=== PATIENT | male | born 1975 | race Caucasian/White ===

== ENCOUNTER 2016-06-21 15:52 | Inpatient (IN) | payer OTHER ==
[~2016-06-21] VITALS: Ht 175.3 cm; Wt 51.3 kg
[~2016-06-21 15:52] MED LIST: /DULO30CA OR; /PREG25CA PO; AMBI10TA OR; AMBI10TA PO; BACL10TA2 OR; BACL10TA2 PO; CLON1TAB PO; CYCL10TA PO; CYMB60CA3 PO; DEPA1TAB3 PO; DEPA250T2 PO; DEPA500T2 PO; DIVA500T9 PO; DOXY100C PO; DRIS50002 PO; FENT12PA TD; FENT50PA TD; FLEXERAL PO; FLEXERIL PO; FOSA70TA PO; GABA-282 PO; GABA-283 PO; IBUP800T OR; INDO25CA PO; KETO10TAB PO; KLON1TAB PO; LORT1TAB PO; LYRI200C OR; MINI2CAP PO; MIRT15TA3 PO; NEUR100C OR; NEUR400C OR; NEUR600T PO; OXYC10TA12 PO; OXYC1TAB23 PO; PERC10TA17 PO; PERC5TAB PO; PERC5TAB6 PO; PERC5TAB8 OR; PRAZ2CAP PO; QUET1TAB10 PO; SAPH1SUB12 SL; SAPH1SUB9 SL; SERO1TAB PO; SERO1TAB2 PO; TIZA2CAP PO; TIZA2CAP3 PO; TRAZ100T2 PO; omeprazole DR PO
[2016-06-21] MEDS ORDERED: KLON2TAB (16:10)
[2016-06-21] MEDS ORDERED: Gabapentin (16:10)
[2016-06-21] MEDS ORDERED: PRAZ1CAP (16:10)
[2016-06-21] MEDS ORDERED: SEROquel (16:10)
[2016-06-21] MEDS ORDERED: ZOLP10TA2 PO (16:10)
[2016-06-21] MEDS ORDERED: DIVA500T3 (16:10)
[2016-06-21] MEDS ORDERED: BACL-67 PO (16:10)
[2016-06-21] MEDS ORDERED: HYDR-3719 PO (16:10)
[2016-06-21 17:27] LABS: MEAN CORPUSCULAR HEMOGLOBIN 30.8 pg (27.0-33.0); MEAN CORPUSCULAR HGB CONC 33.1 g/dl (32.0-36.5); RED CELL DISTRIBUTION WIDTH 12.5 % (11.5-14.5); WHITE BLOOD COUNT 6.6 K/mm3 (4.0-10.0)
[2016-06-21] MEDS ORDERED: PERCOCET 5MG/325MG TAB PO ONE ×2 (17:30→18:00)
[2016-06-21] MEDS ORDERED: GABAPENTIN 300 MG CAP PO ONE (17:30)
[2016-06-21] MEDS ORDERED: PERCOCET 5MG/325MG TAB As Ordered ONE (17:52)
[2016-06-21 18:12] LABS: ALBUMIN 4.2 GM/DL (3.2-5.2); ALBUMIN/GLOBULIN RATIO 1.56 (1.00-1.93); ALKALINE PHOSPHATASE 66 U/L (45-117); ALT/SGPT 29 U/L (12-78); ANION GAP 6 MEQ/L (8-16); AST/SGOT 13 U/L (15-37); BILIRUBIN,DIRECT 0.1 MG/DL (0.0-0.2); BILIRUBIN,TOTAL 0.4 MG/DL (0.2-1.0); BLOOD UREA NITROGEN 11 MG/DL (7-18); CALCIUM LEVEL 8.3 MG/DL (8.5-10.1); CARBON DIOXIDE LEVEL 28 MEQ/L (21-32); CHLORIDE LEVEL 106 MEQ/L (98-107); CREATININE FOR GFR 0.77 MG/DL (0.70-1.30); GLOMERULAR FILTRATION RATE > 60.0 (>60); GLUCOSE, FASTING 92 MG/DL (70-105); POTASSIUM SERUM 3.8 MEQ/L (3.5-5.1); SODIUM LEVEL 140 MEQ/L (136-145); TOTAL PROTEIN 6.9 GM/DL (6.4-8.2)
[2016-06-21 18:14] LABS: METHADONE URINE NEGATIVE (NEGATIVE)
[2016-06-21] MEDS ORDERED: DIVALPROEX 250MG *ER* TAB PO SCH (21:00)
[2016-06-21] MEDS ORDERED: cloNIDine 0.1 MG TAB PO ONE (21:45)
[2016-06-21 22:37] VITALS: BP 127/85
[2016-06-21] MEDS ORDERED: traZODone 50 MG TAB PO PRN (22:45)
[2016-06-21] MEDS ORDERED: MAALOX 30 ML SUSP *UDC PO PRN (22:45)
[2016-06-21] MEDS ORDERED: MOM 30ML SUSPENSION UDC PO PRN (22:45)
[2016-06-22] MEDS: BACLOFEN 10 MG TAB PO SCH ×5 (00:45→21:24)
[2016-06-22] MEDS: QUEtiapine FUMARATE 200 MG TAB PO SCH ×2 (00:46→21:00)
[2016-06-22] MEDS: zolPIDEM TARTRATE 10MG TAB PO SCH ×2 (00:46→21:00)
[2016-06-22] MEDS: ANEXSIA, NORCO 7.5MG/325MG TABLET(HYDROCODONE/APAP) PO PRN ×2 (00:47→08:41)
[2016-06-22] MEDS: PRAZOSIN 1 MG CAP PO SCH ×2 (00:53→21:00)
[2016-06-22] MEDS ORDERED: HYDR50CA2 PO (01:34)
[2016-06-22] MEDS ORDERED: CLON2TAB PO (02:01)
[2016-06-22] MEDS ORDERED: PRAZ1CAP PO (02:01)
[2016-06-22] MEDS ORDERED: MIRT15TA3 PO (02:01)
[2016-06-22] MEDS: NICOTINE 21MG/24HR 1 EA TRANSDERMAL TD SCH (08:41)
[2016-06-22] MEDS: GABAPENTIN 300 MG CAP PO SCH ×3 (09:33→21:00)
[2016-06-22] MEDS: PERCOCET 5MG/325MG TAB PO PRN ×4 (10:02→22:27)
[2016-06-22] MEDS: clonazePAM 1 MG TAB PO PRN ×2 (10:03→21:24)
--- NOTE | 2016-06-22 15:10 | REP ---
RIGHT HAND, FOUR VIEWS: HISTORY: Injury. There is no acute fracture or dislocation. The joint spaces are normal in appearance. IMPRESSION: There is no acute fracture or dislocation. Signed by Niraj Maldonado MD 06/22/2016 01:59 P
[2016-06-22] MEDS: DIVALPROEX 500MG *ER* TAB PO SCH (16:22)
[2016-06-22 18:00] VITALS: BP 113/68
[2016-06-22] MEDS ORDERED: PRAZOSIN 1 MG CAP PO SCH (21:00)
[2016-06-23] MEDS: GABAPENTIN 300 MG CAP PO SCH ×3 (05:56→21:00)
[2016-06-23] MEDS: PERCOCET 5MG/325MG TAB PO PRN ×4 (05:58→20:39)
[2016-06-23] MEDS: zolPIDEM TARTRATE 10MG TAB PO SCH (06:39)
[2016-06-23 07:00] VITALS: BP_SYST 110; BP_SYST 113; BP_DIAS 70; BP_DIAS 84
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
[2016-06-23] MEDS: NICOTINE 21MG/24HR 1 EA TRANSDERMAL TD SCH (09:40)
[2016-06-23] MEDS: BACLOFEN 10 MG TAB PO SCH ×4 (09:41→21:00)
[2016-06-23] MEDS: DIVALPROEX 500MG *ER* TAB PO SCH (09:41)
[2016-06-23] MEDS: clonazePAM 1 MG TAB PO SCH ×3 (09:41→21:00)
[2016-06-23] MEDS: CYCLOBENZAPRINE 10 MG TAB PO PRN ×2 (10:53→20:38)
[2016-06-23 18:00] VITALS: BP 110/84
--- NOTE | 2016-06-23 19:10 | IPN ---
DATE: 06/23/2016 Juan Harry did not sleep well last night. He asked if could have his Ambien this morning. Due to his agitation yesterday, I gave it to him. I also increased his Klonopin to 1.5 three times a day. Due to agitation yesterday, his first concern was could he read a note by emergency mailroom coordinator, Rocco, continuing to state that, "Rocco is lying" and "my girlfriend is fuming." I told him that Rocco's note is in the chart. The issue concerns him stating that he was told he did not need to be admitted. He spent a great deal of time on phone eventually cursing at his girlfriend loudly and staff contacted patient advocate and spoke with her. MENTAL STATUS EXAMINATION: His speech is normal. Thought processes are intact. He has no loose associations or abnormal or psychotic thoughts, though he was aggressive and irritable, and angry yesterday. He is presently more relaxed. Judgment and insight continue to be poor. He is fully oriented. Recent and remote memory are intact. Attention and concentration intact. Language intact. Full fund of knowledge. Mood is fair. Affect is neutral. Information needs to be gathered further on the behavior that brought him to the emergency room. The patient focused only on his admission and later on argument with girlfriend. DIAGNOSES: 1. Affective disorder, not otherwise specified. 2. Rule out antisocial personality. MTDD
[2016-06-24] MEDS: PERCOCET 5MG/325MG TAB PO PRN ×2 (02:18→10:28)
[2016-06-24 02:19] VITALS: BP 117/68
[2016-06-24] MEDS: QUEtiapine FUMARATE 200 MG TAB PO SCH (02:19)
[2016-06-24] MEDS: PRAZOSIN 1 MG CAP PO SCH (02:19)
[2016-06-24] MEDS: zolPIDEM TARTRATE 10MG TAB PO SCH (02:22)
[2016-06-24 06:35] VITALS: BP 117/68
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
[2016-06-24] MEDS: GABAPENTIN 300 MG CAP PO SCH (09:57)
[2016-06-24] MEDS: BACLOFEN 10 MG TAB PO SCH ×2 (09:57→13:17)
[2016-06-24] MEDS: DIVALPROEX 500MG *ER* TAB PO SCH (09:57)
[2016-06-24] MEDS: clonazePAM 1 MG TAB PO SCH (09:57)
[2016-06-24] MEDS: NICOTINE 21MG/24HR 1 EA TRANSDERMAL TD SCH (09:58)
[2016-06-24] MEDS ORDERED: AMBI10TA PO ×3 (10:18→10:30)
[2016-06-24] MEDS ORDERED: CLON1TAB PO ×5 (10:26→10:46)
[2016-06-24] MEDS ORDERED: ZOLP10TA2 PO (10:34)
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
--- NOTE | 2016-06-24 12:55 | IPNPDOC ---
[facility] Progress Note Progress Note DATE OF SERVICE: 06/24/16 HISTORY: Day 4 of admission. Pt has been assigned to my care. VITAL SIGNS: See below. NEW TEST RESULTS: CURRENT MEDICATIONS: See below. MENTAL STATUS EXAMINATION: Patient is a 40-year old male, who is very thin, disheveled, makes good eye contact, dressed in jeans and a white t-shirt. Speech: Is spontaneous Language skills are good Thought processes including: perseverates on needs for Meds and new outpatient follow up after this admission. Thought content: discharge, meds, new outpatient provider. Abstract reasoning, and computation: fair. Description of associations: good. Description of abnormal or psychotic thoughts: he denies SI, HI, voices or visions. Is not manic. Judgment: limited/poor Insight: limited/poor Orientation: x3 Recent and remote memory: intact Attention span and concentration: adequate Fund of knowledge: full Mood: dysphoric Affect: flat DIAGNOSES: 1. r/o bipolar disorder 2. r/o EMIL 3. Antisocial personality 4. Chronic pain 5. Sedative, hypnotic and opiate dependence ASSESSMENT:Pt denies any safety issues. He says he often stops his medication so he can stay up for 2 or 3 days. He denies any plan or intent to harm self or others. Not homicidal or suicidal. Denies any perceptual disturbances. MANAGEMENT PLAN: Arrange follow up for outpatient mental health services at [facility] if possible. Pt educated on importance of taking meds as prescribed daily. TIME SPENT: 30 minutes. Vital Signs Vital Signs Date Time Temp Pulse Resp B/P (MAP) Pulse Ox O2 Delivery O2 Flow Rate FiO2 06/24/16 11:25 18 06/24/16 06:35 98.2 79 117/68 (84) 06/22/16 14:45 Room Air 06/21/16 22:23 96 Current Medications Current Medications Acetaminophen/ Hydrocodone Bitart (Anexsia, [place] 7.5mg/325mg) 1 tab Q4HP PRN PO MILD PAIN (PS 1-4) Last administered on 06/22/16t 08:41; Start 06/22/16 at 00 :00; Stop 06/22/16 at 09:04; Status DC Al Hydrox/Mg Hydrox/Simethicone (Mylanta) 30 ml Q4HP PRN PO HEARTBURN/ INDIGESTION; Start 06/21/16 at 22:45; Stop 07/21/16 at 22:44 Baclofen (Lioresal) 20 mg QID PO Last administered on 06/24/16 09:57; Start at 21:00; Stop 07/21/16 at 20:59 Clonazepam (KlonoPIN) 1 mg TIDP PRN PO ANXIETY Last administered on 06/22/16 21:24; Start 06/21/16 at 22:45; Stop 06/23/16 at 09:00; Status DC Clonazepam (KlonoPIN) 1.5 mg TID PO Last administered on 06/24/16 09:57; Start 06/23/16 at 09:00; Stop 06/28/16 at 22:44 Cyclobenzaprine HCl (Flexeril) 10 mg Q8HP PRN PO SPASMS Last administered on 20:38; Start 06/21/16 at 22:45; Stop 07/21/16 at 22:44 Divalproex Sodium (Depakote Er) 1,500 mg QAM PO Last administered on 06/24/16 09:57; Start 06/22/16 at 09:00; Stop 07/21/16 at 08:59 Divalproex Sodium (Depakote Er) 1,500 mg QHS PO ; Start 06/21/16 at 21:00; Stop 06/22/16 at 12:20; Status DC Gabapentin (Neurontin) 900 mg TID PO Last administered on 06/24/16 09:57; Start 06/22/16 at 09:00; Stop 07/22/16 at 08:59 Home Med (Med Rec Complete!) ASDIRECTED XX ; Start 06/22/16 at 02:15; Stop at 02:15; Status DC Magnesium Hydroxide (Milk Of Magnesia) 30 ml DAILYPRN PRN PO CONSTIPATION; Start 06/21/16 at 22:45; Stop 07/21/16 at 22:44 Nicotine (Nicoderm Cq 21mg) 1 patch DAILY TD Last administered on 06/24/16 09: 58; Start 06/22/16 at 09:00; Stop 07/22/16 at 08:59 Oxycodone/ Acetaminophen (Percocet 5mg/ 325mg Tablet) 2 tab Q4HP PRN PO SEVERE PAIN (PS 8-10) Last administered on 06/24/16 10:28; Start 06/22/16 at 09:00; Stop 06/29/16 at 08:59 Prazosin HCl (Minipress) 2 mg QHS PO Last administered on 06/24/16 02:19; Start 06/21/16 at 21:00; Stop 07/21/16 at 20:59 Prazosin HCl (Minipress) 2 mg QHS PO ; Start 06/22/16 at 21:00; Stop 07/22/16 at 20:59; Status UNV Quetiapine Fumarate (SEROquel) 600 mg QHS PO Last administered on 06/24/16 02: 19; Start 06/21/16 at 21:00; Stop 07/21/16 at 20:59 Trazodone HCl (Desyrel) 50 mg QHSP PRN PO INSOMNIA; Start 06/21/16 at 22:45; Stop 06/21/16 at 23:12; Status DC Zolpidem Tartrate (Ambien) 10 mg QHS PO Last administered on 06/24/16 02:22; Start 06/21/16 at 21:00; Stop 06/28/16 at 20:59 Allergies Coded Allergies: Penicillins (Verified Allergy, Severe, RASH AND SWELLING, 12/29/13) Tramadol (Verified Allergy, Mild, itching, 07/21/15) Fish Allergy (Verified Allergy, Unknown, 12/29/13) RASH/SWELLING PER PT Ketorolac Tromethamine (Verified Allergy, Unknown, 06/21/16) Haloperidol (Unverified Adverse Reaction, Intermediate, Severe EPS, ) Information was given by Julieta chong. Tonya Romeo June 24, 2016 12:55
[2016-06-24] MEDS ORDERED: NEUR300C PO (15:13)
--- NOTE | 2016-06-24 19:11 | REP ---
LEFT FOOT COMPLETE: 06/24/2016. Clinical history: Pain right first and second toe. Rule out fracture. No prior study. Findings: Four views show the metatarsals and tarsal bones without visible or displaced fracture. Subtalar joints intact. Spurring at the Achilles insertion noted. The MTP and IP joints grossly intact. No visible or displaced fracture of the toes. Impression: 1. Plantar calcaneal heal spur and minimal degenerative changes about the first MTP joint, but no visible or displaced fracture evident. Signed by Aj Thomson MD 06/24/2016 08:40 P
== END 2016-06-24 13:30 | disposition home or self-care (01) | DRG 753 ==
LOC: M ED 17:15 → M ED INP 18:28 → M PSY 22:37
PROVIDERS: ADMIT Psychiatry & Neurology Child & Adolescent Psychiatry; ATTEND Psychiatry & Neurology Child & Adolescent Psychiatry
DX: F31.9 Bipolar disorder, unspecified (principal); F13.20 Sedative, hypnotic or anxiolytic dependence, uncomplicated; F41.1 Generalized anxiety disorder; F17.210 Nicotine dependence, cigarettes, uncomplicated; F60.2 Antisocial personality disorder; M79.671 Pain in right foot; M54.5 Low back pain; Z88.0 Allergy status to penicillin; Z88.8 Allergy status to other drugs, medicaments and biological substances; Z91.013 Allergy to seafood; Z79.891 Long term (current) use of opiate analgesic; Z79.899 Other long term (current) drug therapy; F10.20 Alcohol dependence, uncomplicated

== ENCOUNTER 2016-06-24 14:27 | Emergency (ER) | payer MEDICAID, OTHER, SELFPAY ==
[~2016-06-24] VITALS: Ht 175.3 cm; Wt 54.4 kg
[2016-06-24 14:27] VITALS: BP 131/73
[~2016-06-24 14:27] MED LIST changes: +BACL-67 PO; +CLON2TAB PO; +DIVA500T3; +Gabapentin; +HYDR-3719 PO; +HYDR50CA2 PO; +KLON2TAB; +PRAZ1CAP; +PRAZ1CAP PO; +SEROquel; +ZOLP10TA2 PO
[2016-06-24] MEDS ORDERED: NEUR300C PO (15:13)
== END 2016-06-24 15:38 | disposition home or self-care (01) ==
LOC: M ED 15:06
DX: Z76.0 Encounter for issue of repeat prescription (principal); R56.9 Unspecified convulsions; G25.0 Essential tremor; F41.9 Anxiety disorder, unspecified; F32.9 Major depressive disorder, single episode, unspecified; F63.9 Impulse disorder, unspecified; Z79.899 Other long term (current) drug therapy; Z88.8 Allergy status to other drugs, medicaments and biological substances; Z88.0 Allergy status to penicillin; Z91.013 Allergy to seafood; Z88.5 Allergy status to narcotic agent

== ENCOUNTER 2016-10-28 00:08 | Emergency (ER) | payer OTHER, SELFPAY ==
[~2016-10-28] VITALS: Ht 175.3 cm; Wt 57.0 kg
[~2016-10-28 00:08] MED LIST changes: -BACL-67 PO; +BACL1TAB9 PO; +NEUR300C PO; -PERC10TA17 PO; +PERC10TA26 PO; +PERC5TAB12 PO; -PERC5TAB6 PO
[2016-10-28] MEDS ORDERED: NORCO, ANEXSIA 5/325MG TABLET (HYDROcodone/ACETAMINOPHEN) PO ONE (02:00)
[2016-10-28 02:10] VITALS: BP 133/70
== END 2016-10-28 02:11 | disposition home or self-care (01) ==
LOC: M ED 00:08
DX: G89.29 Other chronic pain (principal); M54.9 Dorsalgia, unspecified; F11.20 Opioid dependence, uncomplicated; F17.210 Nicotine dependence, cigarettes, uncomplicated; Z79.899 Other long term (current) drug therapy; Z88.8 Allergy status to other drugs, medicaments and biological substances; Z91.013 Allergy to seafood; Z88.5 Allergy status to narcotic agent; Z88.0 Allergy status to penicillin

== ENCOUNTER 2017-01-06 03:41 | Emergency (ER) | payer OTHER ==
[~2017-01-06] VITALS: Ht 175.3 cm; Wt 54.5 kg
[2017-01-06] MEDS ORDERED: ASPIRIN 325 MG TAB PO ONE (04:00)
[2017-01-06 04:08] LABS: BASO % 0.2 % (0.0-1.0); EOS # 0.1 10^3/uL (0.0-0.50); EOS % 0.8 % (0.0-3.0); IMMATURE GRANULOCYTE % 0.3 % (0-0); LYMPH # 2.8 10^3/uL (1.5-4.5); LYMPH % 21.6 % (24.0-44.0); MEAN CORPUSCULAR HEMOGLOBIN 30.8 pg (27.0-33.0); MEAN CORPUSCULAR VOLUME 90.5 fl (80.0-96.0); MONO % 7.6 % (0.0-5.0); NEUTROPHILS % 69.5 % (36.0-66.0); PLATELET COUNT, AUTOMATED 351 10^3/uL (150-450); RED CELL DISTRIBUTION WIDTH 12.5 % (11.5-14.5)
[2017-01-06 04:34] LABS: ALBUMIN 4.4 GM/DL (3.2-5.2); ALBUMIN/GLOBULIN RATIO 1.52 (1.00-1.93); ALKALINE PHOSPHATASE 61 U/L (45-117); ALT/SGPT 30 U/L (12-78); ANION GAP 10 MEQ/L (8-16); AST/SGOT 19 U/L (7-37); BILIRUBIN,DIRECT 0.2 MG/DL (0.0-0.2); BILIRUBIN,TOTAL 0.6 MG/DL (0.2-1.0); BLOOD UREA NITROGEN 19 MG/DL (7-18); CALCIUM LEVEL 8.7 MG/DL (8.5-10.1); CARBON DIOXIDE LEVEL 24 MEQ/L (21-32); CHLORIDE LEVEL 105 MEQ/L (98-107); CREATININE FOR GFR 0.62 MG/DL (0.70-1.30); GLOMERULAR FILTRATION RATE > 60.0 (>60); GLUCOSE, FASTING 90 MG/DL (70-105); POTASSIUM SERUM 3.6 MEQ/L (3.5-5.1); SODIUM LEVEL 139 MEQ/L (136-145); TOTAL PROTEIN 7.3 GM/DL (6.4-8.2)
[2017-01-06 04:59] VITALS: BP 151/91
--- NOTE | 2017-01-06 06:00 | ECGEPIP ---
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
--- NOTE | 2017-01-06 07:55 | REP ---
Clinical: Chest pain . Comparison: 10/21/2015 Findings: The mediastinum and cardiac silhouette are stable and within normal limits for portable technique. The lung ledesma are clear without acute consolidation, effusion, or pneumothorax. Skeletal structures are intact. Impression: No acute cardiopulmonary process appreciated. Signed by Dexter Catherine MD 01/06/2017 07:47 A
== END 2017-01-06 05:01 | disposition home or self-care (01) ==
LOC: M ED 03:41
DX: R07.89 Other chest pain (principal); F41.9 Anxiety disorder, unspecified; F17.210 Nicotine dependence, cigarettes, uncomplicated; F19.20 Other psychoactive substance dependence, uncomplicated; Z79.899 Other long term (current) drug therapy; Z88.8 Allergy status to other drugs, medicaments and biological substances; Z91.013 Allergy to seafood; Z88.5 Allergy status to narcotic agent; Z88.0 Allergy status to penicillin; Z88.1 Allergy status to other antibiotic agents; Z87.820 Personal history of traumatic brain injury

== ENCOUNTER 2017-11-21 15:15 | Emergency (ER) | payer OTHER ==
[2017-11-21] MEDS: NORCO, ANEXSIA 5/325MG TABLET (HYDROcodone/ACETAMINOPHEN) PO (17:26)
== END 2017-11-21 17:34 | disposition home or self-care (01) ==
LOC: M ED 15:15
DX: S20.229A Contusion of unspecified back wall of thorax, initial encounter (principal); Y04.8XXA Assault by other bodily force, initial encounter; Y07.9 Unspecified perpetrator of maltreatment and neglect; Y92.89 Other specified places as the place of occurrence of the external cause; J44.9 Chronic obstructive pulmonary disease, unspecified; M54.9 Dorsalgia, unspecified; G89.29 Other chronic pain; F17.210 Nicotine dependence, cigarettes, uncomplicated; Z86.73 Personal history of transient ischemic attack (TIA), and cerebral infarction without residual deficits; Z86.69 Personal history of other diseases of the nervous system and sense organs; Z87.81 Personal history of (healed) traumatic fracture; Z88.8 Allergy status to other drugs, medicaments and biological substances; Z91.013 Allergy to seafood; Z88.5 Allergy status to narcotic agent; Z88.0 Allergy status to penicillin
CPT/HCPCS: 99283

== ENCOUNTER 2018-03-16 23:27 | Emergency (ER) | payer MEDICAID, OTHER ==
[~2018-03-16] VITALS: Ht 175.3 cm; Wt 54.5 kg
[~2018-03-16 23:27] MED LIST changes: -CLON1TAB PO; +CLON1TAB8 PO; -CLON2TAB PO; +CLON2TAB7 PO; -DIVA500T3; +DIVA500T94; -DRIS50002 PO; +DRIS50003 PO; -GABA-282 PO; -GABA-283 PO; +GABA-843 PO; +GABA-845 PO; -TIZA2CAP3 PO
[2018-03-17] MEDS ORDERED: NS 1,000 ML IV ONE (00:15)
[2018-03-17 00:40] LABS: BASO % 0.5 % (0.0-1.0); EOS # 0.2 10^3/uL (0.0-0.50); EOS % 2.4 % (0.0-3.0); HEMATOCRIT 37.8 % (42.0-52.0); HEMOGLOBIN 12.5 g/dl (13.5-17.5); LYMPH # 2.9 10^3/uL (1.5-4.5); LYMPH % 36.8 % (24.0-44.0); MEAN CORPUSCULAR HEMOGLOBIN 30.1 pg (27.0-33.0); MEAN CORPUSCULAR HGB CONC 33.1 g/dl (32.0-36.5); MEAN CORPUSCULAR VOLUME 91.1 fl (80.0-96.0); MONO # 0.5 10^3/uL (0.0-0.8); MONO % 5.6 % (0.0-5.0); NEUTROPHILS # 4.3 10^3/uL (1.8-7.7); NEUTROPHILS % 54.3 % (36.0-66.0); PLATELET COUNT, AUTOMATED 314 10^3/uL (150-450); RED BLOOD COUNT 4.15 10^6/uL (4.30-6.10)
[2018-03-17 01:08] LABS: ALBUMIN 3.6 GM/DL (3.2-5.2); ALT/SGPT 48 U/L (12-78); BILIRUBIN,DIRECT 0.1 MG/DL (0.0-0.2); BILIRUBIN,TOTAL 0.2 MG/DL (0.2-1.0); BLOOD UREA NITROGEN 23 MG/DL (7-18); CALCIUM LEVEL 8.5 MG/DL (8.5-10.1); CARBON DIOXIDE LEVEL 23 MEQ/L (21-32); CHLORIDE LEVEL 110 MEQ/L (98-107); CREATININE FOR GFR 0.62 MG/DL (0.70-1.30); GLOMERULAR FILTRATION RATE > 60.0 (>60); GLUCOSE, FASTING 89 MG/DL (70-100); LIPASE 161 U/L (73-393); POTASSIUM SERUM 3.8 MEQ/L (3.5-5.1); SODIUM LEVEL 143 MEQ/L (136-145); TOTAL PROTEIN 6.5 GM/DL (6.4-8.2)
[2018-03-17 01:30] VITALS: BP 109/54
== END 2018-03-17 02:01 | disposition home or self-care (01) ==
LOC: M ED 23:27
DX: E86.0 Dehydration (principal); M54.9 Dorsalgia, unspecified; G89.29 Other chronic pain; F17.200 Nicotine dependence, unspecified, uncomplicated; Z91.013 Allergy to seafood; Z88.8 Allergy status to other drugs, medicaments and biological substances; Z88.0 Allergy status to penicillin; Z88.5 Allergy status to narcotic agent

== ENCOUNTER 2018-08-05 19:52 | Emergency (ER) | payer MEDICAID, OTHER, SELFPAY ==
[~2018-08-05] VITALS: Ht 175.3 cm; Wt 56.8 kg
[~2018-08-05 19:52] MED LIST changes: -/DULO30CA OR; -/PREG25CA PO; +CYMB1CAP5 OR; +FENT12DI12 TD; -FENT12PA TD; +FENT50DI33 TD; -FENT50PA TD; +PREG25CA PO
[2018-08-05] MEDS ORDERED: NORCO, ANEXSIA 5/325MG TABLET (HYDROcodone/ACETAMINOPHEN) PO ONE (21:00)
[2018-08-05] MEDS ORDERED: NORCO 5/325MG TABLET (BULK FOR ED) PO ONE (21:45)
[2018-08-05 22:06] VITALS: BP 112/65
--- NOTE | 2018-08-06 01:28 | REP ---
Clinical: thoracic pain with recent fall . Technique: AP, lateral, and swimmers views. Findings: Alignment and kyphosis is maintained. Vertebral bodies intact. No acute fracture / compression injury or subluxation. No degenerative changes. Paravertebral soft tissues are normal. Impression: Normal thoracic spine series. Electronically Signed by Dexter Catherine MD 08/06/2018 01:19 A
== END 2018-08-05 22:07 | disposition home or self-care (01) ==
LOC: M ED 19:52
DX: S20.229A Contusion of unspecified back wall of thorax, initial encounter (principal); W19.XXXA Unspecified fall, initial encounter; Y92.099 Unspecified place in other non-institutional residence as the place of occurrence of the external cause; Y93.9 Activity, unspecified; Y99.9 Unspecified external cause status; J30.2 Other seasonal allergic rhinitis; G89.29 Other chronic pain; Z72.0 Tobacco use; Z79.899 Other long term (current) drug therapy; Z91.013 Allergy to seafood; Z88.0 Allergy status to penicillin; Z88.5 Allergy status to narcotic agent; Z88.8 Allergy status to other drugs, medicaments and biological substances

== ENCOUNTER 2018-08-09 00:10 | Emergency (ER) | payer OTHER ==
[~2018-08-09] VITALS: Ht 175.3 cm; Wt 58.0 kg
[2018-08-09 00:10] VITALS: BP 117/88
[2018-08-09] MEDS ORDERED: CLIN150C14 PO (00:14)
[2018-08-09] MEDS ORDERED: CLEO300C2 PO (01:27)
[2018-08-09] MEDS ORDERED: ACETAMINOPHEN 500 MG TAB PO ONE (01:30)
== END 2018-08-09 01:43 | disposition home or self-care (01) ==
LOC: M ED 00:10
DX: K04.7 Periapical abscess without sinus (principal); R56.9 Unspecified convulsions; M54.9 Dorsalgia, unspecified; J44.9 Chronic obstructive pulmonary disease, unspecified; F32.9 Major depressive disorder, single episode, unspecified; F41.1 Generalized anxiety disorder; F63.9 Impulse disorder, unspecified; Z79.891 Long term (current) use of opiate analgesic; Z79.899 Other long term (current) drug therapy; Z88.0 Allergy status to penicillin; Z88.6 Allergy status to analgesic agent; Z88.8 Allergy status to other drugs, medicaments and biological substances; Z91.013 Allergy to seafood; Z91.030 Bee allergy status

== ENCOUNTER 2018-08-11 01:50 | Emergency (ER) | payer OTHER ==
[~2018-08-11] VITALS: Ht 175.3 cm; Wt 79.5 kg
[~2018-08-11 01:50] MED LIST changes: +CLEO300C2 PO; +CLIN150C14 PO
[2018-08-11] MEDS ORDERED: ONDANSETRON 4 MG ORAL DISINTEGRATING TAB (Q0162 PER 1MG) PO ONE ×2 (02:15→09:00)
[2018-08-11] MEDS ORDERED: IBUPROFEN 800 MG TAB PO ONE (07:15)
[2018-08-11 07:38] LABS: BASO % 0.4 % (0.0-1.0); EOS # 0.1 10^3/uL (0.0-0.50); EOS % 0.8 % (0.0-3.0); HEMATOCRIT 39.8 % (42.0-52.0); HEMOGLOBIN 13.2 g/dl (13.5-17.5); LYMPH % 17.5 % (24.0-44.0); MEAN CORPUSCULAR HEMOGLOBIN 30.6 pg (27.0-33.0); MEAN CORPUSCULAR HGB CONC 33.2 g/dl (32.0-36.5); MEAN CORPUSCULAR VOLUME 92.3 fl (80.0-96.0); MONO # 0.6 10^3/uL (0.0-0.8); MONO % 5.1 % (0.0-5.0); NEUTROPHILS # 8.4 10^3/uL (1.8-7.7); NEUTROPHILS % 75.8 % (36.0-66.0); PLATELET COUNT, AUTOMATED 347 10^3/uL (150-450); RED BLOOD COUNT 4.31 10^6/uL (4.30-6.10); WHITE BLOOD COUNT 11.1 10^3/uL (4.0-10.0)
[2018-08-11 08:07] LABS: ALBUMIN 4.2 GM/DL (3.2-5.2); ALT/SGPT 26 U/L (12-78); BILIRUBIN,DIRECT 0.2 MG/DL (0.0-0.2); BILIRUBIN,TOTAL 0.4 MG/DL (0.2-1.0); BLOOD UREA NITROGEN 16 MG/DL (7-18); CALCIUM LEVEL 9.1 MG/DL (8.5-10.1); CARBON DIOXIDE LEVEL 28 MEQ/L (21-32); CHLORIDE LEVEL 108 MEQ/L (98-107); CREATININE FOR GFR 0.85 MG/DL (0.70-1.30); GLOMERULAR FILTRATION RATE > 60.0 (>60); GLUCOSE, FASTING 124 MG/DL (70-100); LIPASE 193 U/L (73-393); SODIUM LEVEL 142 MEQ/L (136-145); TOTAL PROTEIN 7.4 GM/DL (6.4-8.2)
[2018-08-11] MEDS ORDERED: NORCO, ANEXSIA 5/325MG TABLET (HYDROcodone/ACETAMINOPHEN) PO ONE (08:45)
[2018-08-11 09:01] VITALS: BP 126/58
== END 2018-08-11 09:11 | disposition home or self-care (01) ==
LOC: M ED 01:50
DX: K04.7 Periapical abscess without sinus (principal); K02.9 Dental caries, unspecified; K05.10 Chronic gingivitis, plaque induced; R68.84 Jaw pain; K13.79 Other lesions of oral mucosa; K08.89 Other specified disorders of teeth and supporting structures; G89.29 Other chronic pain; M54.9 Dorsalgia, unspecified; D50.9 Iron deficiency anemia, unspecified; J44.9 Chronic obstructive pulmonary disease, unspecified; Z86.73 Personal history of transient ischemic attack (TIA), and cerebral infarction without residual deficits; R56.9 Unspecified convulsions; G31.84 Mild cognitive impairment of uncertain or unknown etiology; Z72.0 Tobacco use; Z79.899 Other long term (current) drug therapy; Z91.030 Bee allergy status; Z91.018 Allergy to other foods; Z88.5 Allergy status to narcotic agent; Z88.0 Allergy status to penicillin
CPT/HCPCS: 80048; 80076; 83690; 85025; 99283; Q0162

== ENCOUNTER 2018-10-08 14:09 | Emergency (ER) | payer OTHER ==
[~2018-10-08] VITALS: Ht 175.3 cm; Wt 56.8 kg
[~2018-10-08 14:09] MED LIST changes: +IBUP1TAB7 PO; +INDO-16 PO; -INDO25CA PO; +NORC1TAB7 PO
[2018-10-08] MEDS ORDERED: NORCO, ANEXSIA 5/325MG TABLET (HYDROcodone/ACETAMINOPHEN) PO ONE ×3 (16:15→16:45)
[2018-10-08 16:38] VITALS: BP 138/80
== END 2018-10-08 16:40 | disposition home or self-care (01) ==
LOC: M ED 14:09
DX: G89.29 Other chronic pain (principal); M54.9 Dorsalgia, unspecified; Z86.73 Personal history of transient ischemic attack (TIA), and cerebral infarction without residual deficits; J44.9 Chronic obstructive pulmonary disease, unspecified; J30.2 Other seasonal allergic rhinitis; Z72.0 Tobacco use; Z79.899 Other long term (current) drug therapy; Z91.018 Allergy to other foods; Z88.0 Allergy status to penicillin; Z88.8 Allergy status to other drugs, medicaments and biological substances; Z88.5 Allergy status to narcotic agent

== ENCOUNTER 2019-02-02 01:19 | Emergency (ER) | payer OTHER ==
[~2019-02-02] VITALS: Ht 175.3 cm; Wt 56.8 kg
[2019-02-02] MEDS ORDERED: ACET-683 PO (01:25)
[2019-02-02] MEDS ORDERED: NORCO, ANEXSIA 5/325MG TABLET (HYDROcodone/ACETAMINOPHEN) PO ONE (05:00)
[2019-02-02 05:21] VITALS: BP 122/74
== END 2019-02-02 05:22 | disposition home or self-care (01) ==
LOC: M ED 01:19
DX: G89.29 Other chronic pain (principal); M54.5 Low back pain; F17.200 Nicotine dependence, unspecified, uncomplicated; Z79.899 Other long term (current) drug therapy; Z91.013 Allergy to seafood; Z88.0 Allergy status to penicillin; Z91.030 Bee allergy status; Z88.5 Allergy status to narcotic agent; Z88.8 Allergy status to other drugs, medicaments and biological substances

== ENCOUNTER 2019-04-29 13:19 | Emergency (ER) | payer OTHER ==
[~2019-04-29] VITALS: Ht 175.3 cm; Wt 51.3 kg
[~2019-04-29 13:19] MED LIST changes: +ACET-683 PO
[2019-04-29] MEDS ORDERED: ANEXSIA, NORCO 7.5MG/325MG TABLET(HYDROCODONE/APAP) PO ONE (14:30)
[2019-04-29 14:56] VITALS: BP 126/83
== END 2019-04-29 15:00 | disposition home or self-care (01) ==
LOC: M ED 13:19
DX: M54.5 Low back pain (principal); G89.29 Other chronic pain; M48.00 Spinal stenosis, site unspecified; M81.0 Age-related osteoporosis without current pathological fracture; J44.9 Chronic obstructive pulmonary disease, unspecified; R56.9 Unspecified convulsions; Z86.73 Personal history of transient ischemic attack (TIA), and cerebral infarction without residual deficits; F17.210 Nicotine dependence, cigarettes, uncomplicated; Z91.013 Allergy to seafood; Z91.030 Bee allergy status; Z88.0 Allergy status to penicillin; Z88.8 Allergy status to other drugs, medicaments and biological substances; Z88.5 Allergy status to narcotic agent; Z79.899 Other long term (current) drug therapy

== ENCOUNTER 2019-04-29 23:49 | Emergency (ER) | payer MEDICAID, OTHER ==
[~2019-04-29] VITALS: Ht 175.3 cm; Wt 50.9 kg
[2019-04-30 03:10] VITALS: BP 131/83
[2019-04-30] MEDS ORDERED: traZODone 100 MG TAB PO ONE (03:15)
== END 2019-04-30 03:12 | disposition home or self-care (01) ==
LOC: M ED 23:49
DX: R51 Headache (principal); G89.29 Other chronic pain; Z88.0 Allergy status to penicillin; Z88.5 Allergy status to narcotic agent; Z88.8 Allergy status to other drugs, medicaments and biological substances; Z91.018 Allergy to other foods; Z91.030 Bee allergy status; F17.210 Nicotine dependence, cigarettes, uncomplicated

== ENCOUNTER 2019-04-30 23:03 | Emergency (ER) | payer MEDICAID ==
[~2019-04-30] VITALS: Ht 175.3 cm; Wt 49.3 kg
[2019-05-01] MEDS ORDERED: QUEtiapine 300 MG XR TABLET(SEROQUEL XR) PO ONE (01:30)
[2019-05-01] MEDS ORDERED: NORCO, ANEXSIA 5/325MG TABLET (HYDROcodone/ACETAMINOPHEN) PO ONE (01:30)
[2019-05-01] MEDS ORDERED: zolPIDEM TARTRATE 5 MG TAB PO ONE (01:30)
[2019-05-01 01:58] VITALS: BP 113/79
== END 2019-05-01 02:03 | disposition home or self-care (01) ==
LOC: M ED 23:03
DX: M54.5 Low back pain (principal); G89.29 Other chronic pain; G47.00 Insomnia, unspecified; M48.00 Spinal stenosis, site unspecified; J44.9 Chronic obstructive pulmonary disease, unspecified; D50.9 Iron deficiency anemia, unspecified; F41.9 Anxiety disorder, unspecified; F32.9 Major depressive disorder, single episode, unspecified; F63.9 Impulse disorder, unspecified; F17.210 Nicotine dependence, cigarettes, uncomplicated; Z88.0 Allergy status to penicillin; Z88.8 Allergy status to other drugs, medicaments and biological substances; Z88.5 Allergy status to narcotic agent; Z91.013 Allergy to seafood; Z91.030 Bee allergy status; Z79.899 Other long term (current) drug therapy

== ENCOUNTER 2019-05-09 16:31 | Emergency (ER) | payer MEDICAID ==
[~2019-05-09] VITALS: Ht 175.3 cm; Wt 51.0 kg
[2019-05-09] MEDS ORDERED: PRED20TA (16:39)
[2019-05-09] MEDS ORDERED: NORCO, ANEXSIA 5/325MG TABLET (HYDROcodone/ACETAMINOPHEN) PO ONE (17:45)
[2019-05-09 17:58] VITALS: BP 113/86
== END 2019-05-09 18:16 | disposition home or self-care (01) ==
LOC: M ED 18:08
DX: G89.29 Other chronic pain (principal); M54.9 Dorsalgia, unspecified; J44.9 Chronic obstructive pulmonary disease, unspecified; M48.00 Spinal stenosis, site unspecified; M81.0 Age-related osteoporosis without current pathological fracture; F17.200 Nicotine dependence, unspecified, uncomplicated; Z79.899 Other long term (current) drug therapy; Z88.0 Allergy status to penicillin; Z88.5 Allergy status to narcotic agent; Z88.8 Allergy status to other drugs, medicaments and biological substances; Z91.030 Bee allergy status; Z91.013 Allergy to seafood

== ENCOUNTER 2019-05-24 23:30 | Emergency (ER) | payer MEDICAID ==
[~2019-05-24] VITALS: Ht 175.3 cm; Wt 50.7 kg
[~2019-05-24 23:30] MED LIST changes: +PRED20TA
[2019-05-24 23:31] VITALS: BP 138/90
[2019-05-25] MEDS ORDERED: NORCO, ANEXSIA 5/325MG TABLET (HYDROcodone/ACETAMINOPHEN) PO ONE (00:15)
== END 2019-05-25 00:12 | disposition home or self-care (01) ==
LOC: M ED 23:30
DX: G89.29 Other chronic pain (principal); M54.5 Low back pain; M48.00 Spinal stenosis, site unspecified; M81.0 Age-related osteoporosis without current pathological fracture; Z79.899 Other long term (current) drug therapy; Z88.0 Allergy status to penicillin; Z88.5 Allergy status to narcotic agent; Z88.8 Allergy status to other drugs, medicaments and biological substances; Z91.018 Allergy to other foods; Z91.030 Bee allergy status; F17.210 Nicotine dependence, cigarettes, uncomplicated

== ENCOUNTER 2019-08-01 20:06 | Emergency (ER) | payer OTHER ==
[~2019-08-01] VITALS: Ht 175.3 cm; Wt 56.8 kg
[~2019-08-01 20:06] MED LIST changes: +CYCL-707 PO; -CYCL10TA PO
[2019-08-01 22:39] VITALS: BP 121/72
[2019-08-01] MEDS ORDERED: NORCO, ANEXSIA 5/325MG TABLET (HYDROcodone/ACETAMINOPHEN) PO ONE (22:45)
== END 2019-08-01 23:02 | disposition home or self-care (01) ==
LOC: M ED 20:06
DX: M54.9 Dorsalgia, unspecified (principal); Z88.0 Allergy status to penicillin; Z88.5 Allergy status to narcotic agent; Z88.8 Allergy status to other drugs, medicaments and biological substances; Z91.013 Allergy to seafood; Z91.030 Bee allergy status; F17.200 Nicotine dependence, unspecified, uncomplicated; Z86.73 Personal history of transient ischemic attack (TIA), and cerebral infarction without residual deficits; R56.9 Unspecified convulsions; J44.9 Chronic obstructive pulmonary disease, unspecified; M81.0 Age-related osteoporosis without current pathological fracture; F41.9 Anxiety disorder, unspecified; F32.9 Major depressive disorder, single episode, unspecified; Z79.891 Long term (current) use of opiate analgesic; Z79.899 Other long term (current) drug therapy; Z79.52 Long term (current) use of systemic steroids

== ENCOUNTER → 2019-09-28 | Emergency (ER) | payer OTHER ==
[~2019-09-28] MED LIST changes: +QUET100T2 PO; +TRAZ-252 PO
== END | disposition home or self-care (01) ==
LOC: M ED 21:39
DX: M54.9 Dorsalgia, unspecified (principal); G89.29 Other chronic pain; R29.6 Repeated falls; F17.210 Nicotine dependence, cigarettes, uncomplicated; Z79.899 Other long term (current) drug therapy; Z79.891 Long term (current) use of opiate analgesic; Z88.0 Allergy status to penicillin; Z91.013 Allergy to seafood; Z88.5 Allergy status to narcotic agent

== ENCOUNTER 2019-11-22 00:50 | Emergency (ER) | payer OTHER ==
[~2019-11-22] VITALS: Ht 172.7 cm; Wt 47.5 kg
[~2019-11-22 00:50] MED LIST changes: -QUET100T2 PO; -TRAZ-252 PO
[2019-11-22 01:45] VITALS: BP 125/83
[2019-11-22] MEDS ORDERED: NORCO, ANEXSIA 5/325MG TABLET (HYDROcodone/ACETAMINOPHEN) PO ONE (01:45)
[2019-11-22] MEDS ORDERED: NORCO 5/325MG TABLET (BULK FOR ED) PO ONE (01:45)
[2019-11-22] MEDS ORDERED: QUEtiapine FUMARATE 100 MG TAB PO ONE (01:45)
[2019-11-22] MEDS ORDERED: SERO1TAB PO (01:47)
== END 2019-11-22 02:05 | disposition home or self-care (01) ==
LOC: M ED 00:50
DX: Z76.0 Encounter for issue of repeat prescription (principal); M54.5 Low back pain; G89.29 Other chronic pain; J44.9 Chronic obstructive pulmonary disease, unspecified; G40.909 Epilepsy, unspecified, not intractable, without status epilepticus; Z87.820 Personal history of traumatic brain injury; F17.200 Nicotine dependence, unspecified, uncomplicated

== ENCOUNTER 2019-11-29 16:05 | Emergency (ER) | payer OTHER ==
[~2019-11-29] VITALS: Ht 175.3 cm; Wt 50.3 kg
[2019-11-29 18:27] VITALS: BP 135/63
== END 2019-11-29 18:35 | disposition left against medical advice (07) ==
LOC: M ED 16:05
DX: Z53.21 Procedure and treatment not carried out due to patient leaving prior to being seen by health care provider (principal)

== ENCOUNTER 2020-01-01 01:14 | Emergency (ER) | payer OTHER ==
[~2020-01-01] VITALS: Ht 175.3 cm; Wt 51.3 kg
[2020-01-01] MEDS ORDERED: TRAZ-252 PO (01:23)
[2020-01-01] MEDS ORDERED: AMBI10TA PO (05:54)
[2020-01-01] MEDS ORDERED: QUET100T2 PO (05:54)
[2020-01-01 06:06] VITALS: BP 132/74
== END 2020-01-01 06:08 | disposition home or self-care (01) ==
LOC: M ED 01:14
DX: G47.00 Insomnia, unspecified (principal); G89.29 Other chronic pain; J44.9 Chronic obstructive pulmonary disease, unspecified; M81.0 Age-related osteoporosis without current pathological fracture; F41.9 Anxiety disorder, unspecified; F32.9 Major depressive disorder, single episode, unspecified; Z87.820 Personal history of traumatic brain injury; Z88.0 Allergy status to penicillin; Z88.5 Allergy status to narcotic agent; Z88.6 Allergy status to analgesic agent; Z88.8 Allergy status to other drugs, medicaments and biological substances; Z91.013 Allergy to seafood; Z91.030 Bee allergy status; Z79.899 Other long term (current) drug therapy

== ENCOUNTER 2020-01-27 14:58 | Emergency (ER) | payer OTHER ==
[~2020-01-27] VITALS: Ht 175.3 cm; Wt 49.6 kg
[~2020-01-27 14:58] MED LIST changes: +QUET100T2 PO; +TRAZ-252 PO
[2020-01-27] MEDS ORDERED: QUEtiapine FUMARATE 100 MG TAB PO ONE (16:45)
[2020-01-27] MEDS ORDERED: NORCO, ANEXSIA 5/325MG TABLET (HYDROcodone/ACETAMINOPHEN) PO ONE (16:45)
[2020-01-27 17:10] VITALS: BP 146/68
== END 2020-01-27 17:12 | disposition home or self-care (01) ==
LOC: M ED 14:58
DX: M54.5 Low back pain (principal); G89.29 Other chronic pain; Z76.0 Encounter for issue of repeat prescription; M48.00 Spinal stenosis, site unspecified; M81.0 Age-related osteoporosis without current pathological fracture; G47.00 Insomnia, unspecified; F41.9 Anxiety disorder, unspecified; F32.9 Major depressive disorder, single episode, unspecified; F17.200 Nicotine dependence, unspecified, uncomplicated; Z91.013 Allergy to seafood; Z88.0 Allergy status to penicillin; Z91.030 Bee allergy status; Z88.8 Allergy status to other drugs, medicaments and biological substances; Z88.5 Allergy status to narcotic agent; Z79.899 Other long term (current) drug therapy

== ENCOUNTER 2020-02-22 21:21 | Emergency (ER) | payer OTHER ==
[~2020-02-22] VITALS: Ht 175.3 cm; Wt 50.3 kg
[2020-02-22] MEDS ORDERED: NORCO, ANEXSIA 5/325MG TABLET (HYDROcodone/ACETAMINOPHEN) PO ONE (23:00)
[2020-02-22 23:40] VITALS: BP 108/65
== END 2020-02-22 23:44 | disposition home or self-care (01) ==
LOC: M ED 21:21
DX: G89.29 Other chronic pain (principal); M54.9 Dorsalgia, unspecified; J44.9 Chronic obstructive pulmonary disease, unspecified; R56.9 Unspecified convulsions; Z79.899 Other long term (current) drug therapy; Z88.0 Allergy status to penicillin; Z88.5 Allergy status to narcotic agent; Z88.8 Allergy status to other drugs, medicaments and biological substances; Z91.013 Allergy to seafood

== ENCOUNTER 2020-02-26 19:17 | Emergency (ER) | payer OTHER ==
[~2020-02-26] VITALS: Ht 175.3 cm; Wt 56.8 kg
[2020-02-26 19:17] VITALS: BP 115/70
== END 2020-02-26 20:07 | disposition left against medical advice (07) ==
LOC: M ED 19:17
DX: Z53.21 Procedure and treatment not carried out due to patient leaving prior to being seen by health care provider (principal)

== ENCOUNTER 2020-03-16 08:08 | Emergency (ER) | payer OTHER ==
[~2020-03-16] VITALS: Ht 175.3 cm; Wt 57.8 kg
[~2020-03-16 08:08] MED LIST changes: -CLIN150C14 PO; +CLIN150C15 PO; +GABA-282 PO; -GABA-843 PO; -QUET1TAB10 PO; +QUET300T2 PO
--- OUTSIDE RECORDS SUMMARY | 2020-03-16 08:22 | CCD | Continuity of Care Document ---
Author [facility] Address [address] [place] [address] Phone Support Name Relationship Address Phone Deion Pierre PRS [address] [place] [address] Doctor Provided, Family No PRS Unknown Unava ilable Silvio Hicks PRS [address] [place] [address] Morales Bauer PRS [address] [place] [address] Meche Chavez PRS [address] [place] [address] Allergies, Adverse Reactions, Alerts Allergen Type Severity Reaction Last Updated Verified Status Penicillins Allergy Opal re rash,itching February 28, 2020 8:14pm Yes Active FISH Allergy Moderate itching,swelling February 28, 2020 8:14pm Yes Active tramadol Allergy Mild Urticaria February 28, 2020 8:14pm Yes Active ketorolac Adverse Reaction Confusion February 28, 2020 8:14pm Yes Active Medications Medication Status Dose Units Route Directions Qty Days Start Date End Date Instructions Naproxen Discontinued 250 MG PO NEEDED May 16, 2013 5:10pm October 13, 2013 8:54pm Cyclobenzaprine Discontinued 5 MG PO Once Per Day June 21, 2013 9:10am July 20, 2013 5:50pm Oxycodone-Acetaminophen (Percocet 10-325 Mg Tablet) 10-325 mg tablet Discontinued 1 TAB PO NEEDED August 13, 2013 12:14pm October 6:10pm Cyclobenzaprine Discontinued 10 MG PO At Bedtime August 20, 2013 7:40pm October 13, 2013 8:55pm Baclofen Discontinued 10 MG PO Every 12 Hours October 13, 2013 8:52pm December 18, 2013 1:12am Duloxetine (Cymbalta) 60 MG capsule,delayed release(DR /EC) Discontinued 90 MG PO Once Per Day October 17, 2013 12:29pm 2013 8:27am Oxycodone-Acetaminophen (Percocet) 10-325 mg tablet Discontinued 1 TAB PO NEEDED 0 October 27, 2013 6:09pm November 252013 1:12am Ambien Discontinued 1 TAB PO At Bedtime 2013 8:26am December 18, 2013 1:12am SEROquel Discontinued 300 MG PO At Bedtime 2013 8:26am December 18, 2013 1:12am KlonoPIN Discontinued 0.5 MG PO Once Per Day December 16, 2013 7:17pm December 18, 2013 1:12am Quetiapine (Seroquel) 300 MG tablet Discontinued 900 MG PO At Bedtime December 18, 2013 1:12am November 04, 2017 10:27am Tizanidine Discontinued 4 MG PO At Bedtime December 18, 2013 1:12am September 13, 2014 9:11am Alendronate (Fosamax) 70 MG tablet D iscontinued 70 MG PO Q 7D December 18, 2013 1 :12am October 23, 2014 3:48pm Clonazepam Discontinued 1 MG PO Once Per Day December 18, 2013 1:12am November 04, 2017 10:27am Oxycodone-Acetaminophen (Percocet 10-325 Mg Tablet) 10-325 mg tablet Discontinued 1 TAB PO Every 6 hours December 18, 2013 1:12am May 01, 2015 1:31pm Baclofen Discontinued 10 MG PO 2 Times Per Day December 18, 2013 1:12am October 23, 2014 3:48pm Gabapentin Active 900 MG PO Three times a day December 18, 2013 1:12am Zolpidem (Ambien) 10 MG tablet Discontinue d 10 MG PO At Bedtime December 18, 2013 1 :12am August 09, 2015 12:12pm Flexeril Discontinued 10 MG PO Three times a day PRN January 15, 2014 12:02pm December 31, 2014 10:28pm Ibuprofen Discontinued 8 00 MG PO Every 6 hours July 04, 2014 1:53pm July 18, 2014 4:48pm Divalproex (Depakote) 500 MG tablet,delayed release (D R/EC) Discontinued 1000 MG PO 2 Times Per Day July 04, 2014 1:53pm October 23, 015 3:48pm Acetaminophen (Tylenol X-Strength) 500 MG tablet Discontinued 1000 MG PO Every 6 hours July 04, 2014 1:53pm July 18, 2014 4:52pm Nicotine (Nicoderm Cq) 21 mg/24 hr patch 24 hour Discontinued 21 MG TD Once Per Day September 08, 2014 8:15pm September 13, 2014 9:11am Asenapine Maleate (Saphris) 10 MG tablet, sublingual Discontinued 10 MG SL 2 Times Per Day October 08, 2014 3:03am September 3:48pm Acetaminophen (Tylenol*) 500 MG tablet Discontinued 1000 MG PO Every 6 hours November 11, 2014 2:21pm January 07, 2015 11:47pm Cyclobenzaprine Discontinued 10 MG PO Every 8 hours December 31, 2014 10:28pm January 10, 2016 3:05am Ondansetron Hcl Discontinued 8 MG PO 2 Times Per Day NEEDED April 12, 2015 5:24pm April 16, 2015 11:34am Fentanyl Discontinued 1 EACH TD Every 72 Hours April 12, 2015 5:24pm May 01, 2015 1:31pm Ketorolac Discontinued 10 MG PO Three times a day June 06, 2015 1:34pm July 03, 2015 5:11pm Oxycodone-Acetaminophen Discontinued 1 TAB PO Every 6 hours June 06, 2015 1:3 4pm July 03, 2015 5:11pm Prazosin (Minipress) 2 MG capsule Di scontinued 1 TAB PO A t Bedtime June 11, 2015 4:3 4pm August 12, 2018 12:00am Acetaminophen (Tylenol) 325 MG tablet Discontinued 650 MG PO Every 4 hours June 18, 2015 2:45pm July 03, 2015 5:11pm Ondansetron Discontinued 4 MG PO Every 4 hours July 03, 2015 8:09pm A pril 2016 10:57pm Cyclobenzaprine Discontinued 10 MG PO Every 8 hours July 07, 2015 5:15pm August 02, 2015 2:57pm Gabapentin Discontinued 900 MG PO Three times a day July 07, 2015 5:15pm August 02, 2015 2:57pm Oxycodone-Acetaminophen Discontinued 1 TAB PO Every 6 hours August 02, 2015 3:15 pm August 09, 2015 12:39pm Quetiapine (Seroquel) 200 MG tablet Discontinued 600 MG PO Once Per Day August 07, 2015 3:16 pm January 10, 2016 3:05am take 600 mg nightly x 2 days Oxycodone-Acetaminophen Discontinued 1 TAB PO Every 6 hours August 09, 2015 12: 39pm January 10, 2016 3:05am Hydrocodone-Acetaminophen ([place] 10-325 Tablet) 10-325 mg tablet Active 1 EACH PO Every 4 hours January 10, 2016 3:05am Baclofen Active 20 MG PO Three times a day PRN January 10, 2016 3:13am Lidocaine Discontinued 1 PATCH TOP 2 Times Per Day March 08, 2016 3:35am May 30, 2016 10:57pm Acetaminophen (Tylenol) 500 MG tablet Discontinued 500 MG PO NEEDED March 08, 2016 3:41am May 30, 2016 10:57pm Zolpidem (Ambien) 10 MG tablet Active 10 MG PO At Bedtime May 30, 2016 10:5 6pm Methylprednisolone (Medrol*) 4 MG tablets,dose pack Discontinued 4 MG PO TAPER May 31, 2016 12:10am November 04, 2017 10:27am Tapered-dosage schedule (eg, dose-pack c ontaining 21 x 4 mg tablets FOLLOW DOSING INSTRUCTIONS ON PACKAGE Diazepam Discontinued 5 MG PO 2 Times Per Day NEEDED March 24, 2017 5:45am August 12, 2018 12:00am Diphenhydramine Hcl Discontinued 25 MG PO Every 8 hours March 24, 2017 6:00am November 04, 2017 10:27am Clindamycin Hcl Discontinued 300 MG PO 2 Times Per Day August 12, 2018 12:0 0am November 05, 2018 7:29pm THERAPY DAY 07/03. Methylprednisolone (Medrol (Jt)) 4 mg tablets,dose pa ck Discontinued 0 PO .COMPLEX May 01, 2019 4:25pm June 07, 2019 2:06pm orally per package directions Quetiapine (Seroquel) 300 mg Tablet Active 300 MG PO Once Per Day August 07, 2019 10:0 8pm Ibuprofen Active 800 MG PO Every 6 hours August 30, 2019 6:48pm Alendronate (Fosamax) 70 mg tablet D iscontinued 70 MG PO 1 Time Per Week July 15, 2012 12:39pm September 23, 2012 2:32pm Cyclobenzaprine Discontinued 5 MG PO Once Per Day 0 July 15, 2012 12:39pm July 15, 2012 3:45pm Gabapentin (Neurontin) 300 mg capsule Discontinued 300 MG PO Three times a day 0 July 15, 2012 12:40pm July 15, 2012 3:45pm Duloxetine (Cymbalta) 60 mg capsule,delayed release(DR /EC) Discontinued 60 MG PO Once Per Day 0 July 15, 2012 12:40pm July 15 3 3:45pm Oxycodone-Acetaminophen (Percocet) 10-325 mg tablet Discontinued 1 TAB PO 0 July 15, 2012 12:41pm July 15, 2012 3:52pm Pregabalin (Lyrica) 25 mg capsule Di scontinued 25 MG PO 2 Times Per Day 0 July 15, 2012 12:41 pm August 26, 2012 2:06pm Tizanidine Discontinued 4 MG PO Every 8 hours 0 July 15, 2012 12:43pm August 26, 2012 2:06pm Zolpidem (Ambien) 10 mg tablet Discontinue d 10 MG PO Once Per Day 0 July 15, 2012 12:43 pm July 15, 2012 3:52pm Gabapentin (Neurontin) 300 mg capsule Discontinued 300 MG PO Three times a day July 15, 2012 3:45pm August 12, 2012 10:26am Cyclobenzaprine Discontinued 5 MG PO Once Per Day July 15, 2012 3:45pm August 12, 2012 10:26am Duloxetine (Cymbalta) 30 mg capsule,delayed release(DR /EC) Discontinued 30 MG PO Once Per Day July 15, 2012 3:45pm August 12 3 10:26am Duloxetine (Cymbalta) 60 mg capsule,delayed release(DR /EC) Discontinued 60 MG PO Once Per Day July 15, 2012 3:45pm August 12 3 10:26am Oxycodone-Acetaminophen (Percocet) 10-325 mg tablet Discontinued 1 TAB PO 5 Times Per Day July 15, 2012 3:52pm August 12 3 10:26am Zolpidem (Ambien) 10 mg tablet Discontinue d 10 MG PO Once Per Day July 15, 2012 3:52 pm August 05, 2012 3:26pm Zolpidem (Ambien) 10 mg tablet Discontinue d 10 MG PO Once Per Day August 05, 2012 3:2 6pm September 23, 2012 2:34pm Oxycodone-Acetaminophen (Percocet) 10-325 mg tablet Discontinued 1 TAB PO 5 Times Per Day August 12, 2012 10:26am August 26 13 2:07pm Gabapentin (Neurontin) 300 mg capsule Discontinued 300 MG PO Three times a day August 12, 2012 10:26am August 26, 2012 2:06pm Cyclobenzaprine Discontinued 5 MG PO Once Per Day August 12, 2012 10:26am August 26, 2012 2:06pm Duloxetine (Cymbalta) 30 mg capsule,delayed release(DR /EC) Discontinued 30 MG PO Once Per Day August 12, 2012 10:26am September 23, 2 013 2:32pm Duloxetine (Cymbalta) 60 mg capsule,delayed release(DR /EC) Discontinued 60 MG PO Once Per Day August 12, 2012 10:26am September 23, 2 013 2:32pm Tizanidine Discontinued 4 MG PO Every 8 hours August 26, 2012 2:06pm August 26, 2012 2:06pm Tizanidine Discontinued 4 MG PO Every 8 hours August 26, 2012 2:06pm September 23, 2012 2:33pm Gabapentin (Neurontin) 300 mg capsule Discontinued 300 MG PO Three times a day August 26, 2012 2:06pm August 26, 2012 2:06pm Gabapentin (Neurontin) 300 mg capsule Discontinued 300 MG PO Three times a day August 26, 2012 2:06pm September 23, 2012 2:32pm Cyclobenzaprine Discontinued 5 MG PO Once Per Day August 26, 2012 2:06pm August 26, 2012 2:06pm Cyclobenzaprine Discontinued 5 MG PO Once Per Day August 26, 2012 2:06pm September 23, 2012 2:33pm Pregabalin (Lyrica) 25 mg capsule Di scontinued 25 MG PO 2 Times Per Day 60 August 26, 2012 2:06 pm August 26, 2012 2:07pm Oxycodone-Acetaminophen (Percocet) 10-325 mg tablet Discontinued 1 TAB PO 5 Times Per Day August 26, 2012 2:07pm September 23, 3 2:34pm Pregabalin (Lyrica) 25 mg capsule Di scontinued 25 MG PO 2 Times Per Day 60 August 26, 2012 2:07 pm September 23, 2012 2:33pm Alendronate (Fosamax) 70 mg tablet D iscontinued 70 MG PO 1 Time Per Week 4 September 23, 2012 2:32pm November 18, 2012 1:34pm Gabapentin (Neurontin) 300 mg capsule Discontinued 300 MG PO Three times a day September 23, 2012 2:32pm November 18, 2012 1:34pm Duloxetine (Cymbalta) 30 mg capsule,delayed release(DR /EC) Discontinued 30 MG PO Once Per Day September 23, 2012 2:32pm October 1:34pm Duloxetine (Cymbalta) 60 mg capsule,delayed release(DR /EC) Discontinued 60 MG PO Once Per Day September 23, 2012 2:32pm October 1:34pm Tizanidine Discontinued 4 MG PO Every 8 hours September 23, 2012 2:33pm September 25, 2012 9:23am Cyclobenzaprine Discontinued 5 MG PO Once Per Day September 23, 2012 2:33pm November 18, 2012 1:34pm Pregabalin (Lyrica) 25 mg capsule Di scontinued 25 MG PO 2 Times Per Day 60 September 23, 2012 2:33pm October 23, 2012 7:40am Oxycodone-Acetaminophen (Percocet) 10-325 mg tablet Discontinued 1 TAB PO 5 Times Per Day September 23, 2012 2:34pm October 23, 2012 7:40am Zolpidem (Ambien) 10 mg tablet Discontinue d 10 MG PO Once Per Day September 23, 2012 2:3 4pm October 23, 2012 7:40am Tizanidine Discontinued 4 MG PO At Bedtime September 25, 2012 9:23am November 18, 2012 1:34pm Oxycodone-Acetaminophen (Percocet) 10-325 mg tablet Discontinued 1 TAB PO 5 Times Per Day October 23, 2012 7:40am October 262012 1:31pm Zolpidem (Ambien) 10 mg tablet Discontinue d 10 MG PO Once Per Day October 23, 2012 7 :40am November 18, 2012 1:36pm Pregabalin (Lyrica) 25 mg capsule Di scontinued 25 MG PO 2 Times Per Day 60 October 23, 2012 7:40am November 18, 2012 1:34pm Oxycodone-Acetaminophen (Percocet) 10-325 mg tablet Discontinued 1 TAB PO 5 Times Per Day November 18, 2012 1:31pm January 05, 2013 2:46pm Tizanidine Discontinued 4 MG PO At Bedtime November 18, 2012 1:34pm January 05, 2013 1:47pm Alendronate (Fosamax) 70 mg tablet D iscontinued 70 MG PO 1 Time Per Week November 18, 2012 1:34pm December 18, 2013 1:12am Gabapentin (Neurontin) 300 mg capsule Discontinued 300 MG PO Three times a day November 18, 2012 1:34pm January 05, 2013 1:50pm Cyclobenzaprine Discontinued 5 MG PO Once Per Day November 18, 2012 1:34pm January 05, 2013 1:47pm Duloxetine (Cymbalta) 30 mg capsule,delayed release(DR /EC) Discontinued 30 MG PO Once Per Day November 18, 2012 1:34pm January 05, 2013 1:50pm Duloxetine (Cymbalta) 60 mg capsule,delayed release(DR /EC) Discontinued 60 MG PO Once Per Day November 18, 2012 1:34pm January 05, 2013 1:50pm Pregabalin (Lyrica) 25 mg capsule Di scontinued 25 MG PO 2 Times Per Day November 18 3 1:34pm January 05, 2013 2:46pm Zolpidem (Ambien) 10 mg tablet Discontinue d 10 MG PO Once Per Day November 18 3 1:36pm January 05, 2013 2:46pm Tizanidine Discontinued 4 MG PO At Bedtime January 05, 2013 1:47pm December 18, 2013 1:12am Cyclobenzaprine Discontinued 5 MG PO Once Per Day January 05, 2013 1:47pm June 21, 2013 9:10am Gabapentin (Neurontin) 300 mg capsule Discontinued 300 MG PO Three times a day January 05, 2013 1:50pm December 18, 2013 1:12am Duloxetine (Cymbalta) 30 mg capsule,delayed release(DR /EC) Discontinued 30 MG PO Once Per Day January 05, 2013 1:50pm May 8:15am Duloxetine (Cymbalta) 60 mg capsule,delayed release(DR /EC) Discontinued 60 MG PO Once Per Day January 05, 2013 1:50pm October 172013 12:30pm Oxycodone-Acetaminophen (Percocet) 10-325 mg tablet Discontinued 1 TAB PO 5 Times Per Day 125 January 05, 2013 2:46pm July 20, 2013 5:51pm Zolpidem (Ambien) 10 mg tablet Discontinue d 10 MG PO Once Per Day January 05, 2013 2:46pm July 20, 2013 5:48pm Pregabalin (Lyrica) 25 mg capsule Di scontinued 25 MG PO 2 Times Per Day 60 January 05, 2013 2:46pm October 13, 2013 8:53pm Fentanyl (Duragesic) 50 MCG/HR patch 72 hour Discontinued 50 MCG.H TD Every 72 Hours May 01, 2015 1:31pm March 08, 2016 3:41am Albuterol Sulfate (Ventolin Hfa) 18 GM HFA aerosol inh aler Discontinued 1 - 2 PUFFS IH Every 4 hours 03 25November 04, 2017 10:44am June 7:38am Albuterol Sulfate (Ventolin Hfa) 18 GM HFA aerosol inh aler Active 1 - 2 PUFFS IH Every 4 hours 03 25November 04, 2017 10:44am Problems Active Problems Medical Problem Onset Date Status Chest wall pain Active Pain in spine Active Low back pain Active Lower back inj Active Low back strain Active Head injury, acute, without loss of consciousness Active Chronic back pain greater than 3 months duration Active Muscle spasms of neck Active Low back ache Active Acute exacerbation of chronic low back pain Active Chronic low back pain Active Groin pain Active Fall down stairs Activ e Pelvic pain Active Traumatic brain injury Active Back pain Active Contusion of right hip and thigh Active Headache Active Chronic abdominal pain Active Spinal stenosis Active Knee pain, bilateral A ctive Chronic bilateral back pain Active Chronic back pain Acti ve Left groin pain Active Contusion of jaw Activ e Chronic pain disorder Active Nausea & vomiting Acti ve Dehydration Active Procedures Procedure Date Performed Status CT Abd/pel w/o contrast January 10:42pm completed Xray Sacrum and coccyx August 06 10:25pm completed CT L-Spine without contrast May 032019 2:55pm completed Relevant Diagnostic Tests and/or Laboratory Data Laboratory Results Test Date/Time Result Interpretation Reference Range Result Comment Performing Site White Blood Count February 23 0 10:45pm 10.4 10e3/uL 4.45-10.7 1 [facility], [address] [place] [address] [id number] Red Blood Count February 24, 2020 10:45p m 4.23 10e6/uL 4.3-6.1 [facility], [address] [place] [address] 53162 Hemoglobin February 24, 2020 10:45pm 12.6 g/dL 13-18 [facility], [address] [place] [address] 81945 Hematocrit February 24, 2020 10:45pm 38.9 % 42-52 [facility], [address] [place] [address] 91395 Mean Corpuscular Volume January 10:45pm 92.0 fl 80-96 [facility], [address] [place] [address] Mean Corpuscular Hemoglobin February 24, 2020 10:45pm 29.8 pg 27-31 [facility], [address] [place] [address] Mean Corpuscular Hemoglobin Concent February 24, 2020 10:45pm 32.4 g/dl 33-37 [facility], [address] [place] [address] 91510 Red Cell Distribution Width February 24, 2020 10:45pm 12 % 11-15 [facility], [address] [place] [address] 78377 Platelet Count February 24, 2020 10:45pm 294 10e3/ul 130-472 [facility], [address] [place] [address] Mean Platelet Volume February 24, 2020 10:45pm 9.2 fl 9.1-13.1 [facility], [address] [place] [address] [phone] Neutrophils (%) (Auto) January 10:45pm 59.6 % 41-77 [facility], [address] [place] [address] 44588 Absolute Neutrophil February 23 020 10:45pm 6.2 # 1.7-7.6 [facility], [address] [place] [address] Lymphocytes (%) (Auto) January 10:45pm 31.0 % 14-46 [facility], [address] [place] [address] 25272 Lymphocytes # (Auto) February 24, 2020 10:45pm 3.2 # 0.6-4.6 [facility], [address] [place] [address] 43875 Monocytes (%) (Auto) February 24, 2020 10:45pm 6.3 % 4-12 [facility], [address] [place] [address] 93013 Monocytes # February 24, 2020 10:45pm 0.7 # 0.2-1.2 [facility], [address] [place] [address] Eosinophils (%) (Auto) January 10:45pm 2.5 % 0-7 [facility], [address] [place] [address] Absolute Eosinophils (CBC) February 24, 2020 10:45pm 0.3 # 0.0-0.5 [facility], [address] [place] [address] Basophils (%) (Auto) February 24, 2020 10:45pm 0.4 % 0.4-1.3 [facility], [address] [place] [address] Absolute Basophils (CBC) February 232019 10:45pm 0.0 # 0.0-0.2 [facility], [address] [place] [address] Immature Granulocyte % (Auto) [facility] 10:45pm 0.2 % 0-2 [facility], [address] [place] [address] Absolute Immature Granulocyte (auto February 24, 2020 10:45pm 0.0 # 0-0.1 [facility], [address] [place] [address] Add Manual Differential January 10:45pm No [facility], [address] [place] [address] Blood Urea Nitrogen February 23 020 10:45pm 17 mg/dL 9-23 [facility], [address] [place] [address] Sodium Level February 24, 2020 10:45pm 146 mmol/L 132-146 [facility], [address] [place] [address] Potassium Level February 24, 2020 10:45p m 3.6 mmol/L 3.5-5.5 [facility], [address] [place] [address] Chloride Level February 24, 2020 10:45pm 112 mmol/l 99-109 [facility], [address] [place] [address] 72951 Carbon Dioxide Level February 24, 2020 10:45pm 29 mmol/l 20-31 [facility], [address] [place] [address] 72948 Anion Gap February 24, 2020 10:45pm 9 mmol/l 8-16 [facility], [address] [place] [address] 38198 Glucose Level February 24, 2020 10:45pm 97 mg/dL 74-106 [facility], [address] [place] [address] 01243 Creatinine February 24, 2020 10:45pm 0.7 mg/dL 0.5-1.1 [facility], [address] [place] [address] 92789 Glomerular Filtration Rate Calc Dece mber 2019 10:45pm Greater than 60 ml/min ABOVE 60 [facility], [address] [place] [address] 87437 Alanine Aminotransferase (ALT/SGPT) February 24, 2020 10:45pm 22 U/L 10-49 [facility], [address] [place] [address] 24828 Aspartate Amino Transf (AST/SGOT) [facility]2019 10:45pm 13 U/L 0-33 [facility], [address] [place] [address] 54176 Alkaline Phosphatase February 24, 2020 10:45pm 66 U/L 45-129 [facility], [address] [place] [address] 46205 Calcium Level February 24, 2020 10:45pm 8.5 mg/dL 8.5-10.1 [facility], [address] [place] [address] 26246 Total Bilirubin February 24, 2020 10:45p m 0.2 mg/dL 0.3-1.2 [facility], [address] [place] [address] 94199 Albumin February 24, 2020 10:45pm 3.6 g/dL 3.2-4.8 [facility], [address] [place] [address] 59971 Serum Total Protein February 23 020 10:45pm 6.8 g/dL 5.7-8.2 [facility], [address] [place] [address] 01750 Diagnostic Imaging Reports Report Dictated Date/Time Dictated By Status Radiology Report May 04, 2019 4:10pm Philipp Daley MD completed [facility] [address] [place] [address] [phone] NAME SEX PT STATUS ACCOUNT NUMBER [facility] ER [id number] ORDERING PHYSICIAN LOCATION MEDICAL RECORD NO. Silvio Hicks MD ER [id number] ATTENDING PHYSICIAN DATE OF DATE OF EXAM/TIME Doctor Provided,No Family 1975 05/04/19 / 155 5 TYPE / EXAM CT L-Spine without contrast REASON FOR EXAM severe back pain COMPARISON: None FINDINGS: Scans were obtained from the mid portion of L3 to the S2 level. Images were photographed with soft tissue and bone windows. The disks at L3-4, and L4-5, appear normal. A mild, broad-based disc bulge is seen at L5-S1. No spinal stenosis, abnormal paravertebral process, or significant degenerative changes are seen. The visualized portions of the upper aspects of the SI joints appear normal. IMPRESSION: 1. Preserved lumbar facet joints. No significant degenerative change at those levels. 2. Mild, broad-based disc bulge at L5-S1. No significant spinal stenosis. Other lumbar intervertebral levels without disc bulge or protrusion. 3. No lytic or blastic osseous lesion. Dose reduction was performed utilizing CARE dose with automated adjustment of the kV and MAS according to patient size, iterative reconstruction, automated exposure control, as well as adaptive dose shielding. Reported By Philipp Daley MD on 05/04/191609 Signed By Philipp Daley MD on 05/04/191611 Date Time CC: Philipp Daley MD; No Family PHYS Provided Techn: CUMME Trans Dt/Tm: Trans by: DT Prt Dt/Tm: : Total DLP = 252.00 mGy-cm : Total Radiation Dose = 3.7800 mSv Lifetime Dose: 9.7860 mSv Radiology Report August 07, 2019 11:30pm Karl Silva MD completed [facility] [address] [place] [address] [phone] NAME SEX PT STATUS ACCOUNT NUMBER [facility] ER [id number] ORDERING PHYSICIAN LOCATION MEDICAL RECORD NO. Deion Pierre MD ER [id number] ATTENDING PHYSICIAN DATE OF DATE OF EXAM/TIME Doctor Provided,No Family 1975 08/07/19 5 TYPE / EXAM Xray Sacrum and coccyx REASON FOR EXAM fall with direct trauma yesterday Clinical History/Indication for Exam: fall with direct trauma yesterday Examination: 2 views of the sacrum and coccyx Indication: Fall with direct trauma yesterday Findings: On the lateral view there is an irregular appearance of the lower sacrum without acute fracture lines, question residua of prior trauma. Otherwise no definite acute fracture demonstrated. Postoperative changes overlie of the left lower quadrant. Sclerotic degenerative changes are present at the visualized lower lumbar facet joints. Impression: Deformity of the lower sacrum could be residua of previous trauma. No definite acute fracture lines. Consider CT as clinically warranted. REPORT SIGNATURE ON FILE 08/07/2019 (23:30 Eastern Time ) Signed by: Karl Silva MD Reported By Karl Silva MD on 08/07/192329 Signed By Karl Silva MD on 08/07/192329 Date Time CC: No Family PHYS Provided; Karl Silva MD Techn: MORSA Trans Dt/Tm: Trans by: DT Prt Dt/Tm: 9923-1631: Total DLP = 0.00 mGy-cm Fluoroscopy Time (in secs): Radiology Report February 24, 2020 11:27pm Naeem Ambriz MD completed [facility] [id number] [place] [address] [phone] NAME SEX PT STATUS ACCOUNT NUMBER [facility] ER [id number] ORDERING PHYSICIAN LOCATION MEDICAL RECORD NO. Remington Chavez MD ER [id number] ATTENDING PHYSICIAN DATE OF DATE OF EXAM/TIME Doctor Provided,No Family 1975 02/24/20 2 TYPE / EXAM CT Abd/pel w/o contrast REASON FOR EXAM trauma:2 days ago slip&fall;painlower back,R hip. Clinical History/Indication for Exam: trauma:2 days ago slip fall;painlower back,R hip. CT abdomen, pelvis without contrast 02/24/2020 Clinical information: Trauma, 2 days ago fall. Low back and right hip pain. Technique: Noncontrast CT abdomen pelvis per order. Coronal and sagittal reconstructions. Comparison: None CT abdomen/pelvis findings: The lack of contrast limits assessment regarding parenchymal organ pathology in the trauma setting. As visualized, no definite evidence for a hepatic or splenic laceration. No hemorrhage seen within the abdomen. The adrenal glands, pancreas, and kidneys appear unremarkable given lack of contrast. No renal stones. No hydronephrosis. Gallbladder decompressed but present. Within the lung bases, there are mild emphysematous changes but there is no pleural effusion, infiltrate, pneumothorax or pulmonary contusion. The included lower ribs appear intact. Heart size normal. No abdominal free fluid, hemorrhage, or enlarged lymph node. The aorta is normal in caliber. The appendix is normal. No pericolonic fatty stranding, small bowel obstruction, or bowel wall thickening to indicate a bowel hematoma. No mesenteric fluid. Mild to moderate volume stool. No pelvic free fluid or hemorrhage. No pelvic enlarged adenopathy. Multiple pelvic phleboliths. There are postoperative changes of a left inguinal hernia repair. The superior and inferior pubic rami, hip joints, and iliac wings appear intact. No definite sacral fractures are seen. No acute lumbar fracture. 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 Impression: 1. Lack of contrast limits assessment for parenchymal organ trauma. As visualized no acute process seen. 2. No acute fracture lumbar spine or right hip. If there is need to assess further, MRI could be obtained. 3. Mild to moderate volume stool. Normal appendix. 4. No renal stones. Automatic exposure control was used as a dose lowering technique. REPORT SIGNATURE ON FILE 02/24/2020 (23:27 Eastern Time ) Signed by: Naeem Ambriz M.D. Reported By Naeem Ambriz MD on 02/24/20 2996 Signed By Naeem Ambriz MD on 02/24/20 499 Date Time CC: Naeem Ambriz MD; No Family PHYS Provided Techn: PALHE Trans Dt/Tm: Trans by: DT Prt Dt/Tm: : Total DLP = 208.00 mGy-cm : Total Radiation Dose = 3.1200 mSv Lifetime Dose: 12.9060 mSv Health Concerns Health Concerns may be documented in an alternate section. Advance Directives Advance Directive Response Recorded Date/Time Advanced Directive No De [email or web address] 10:18pm Does Patient have a DNR? No February 24, 2020 10:18pm Healthcare Proxy No Ariella ferguson 2019 10:18pm Living Will No April 4:15pm Chief Complaint and Reason for Visit Chief Complaint BACK PAIN BACK PAIN BACK PAIN BACKPAIN BACK PAIN BACK PAIN BACK PAIN BACK AND LEG PAIN BACK PAIN, LEG PAIN LOWER BACK AND LEG PAIN Encounters Encounter Location(s) Ar rival/Admit Date Discharge/Depart Date Provider(s) Departed Emergency [facility] ER May 01, 2019 3:53pm May 01, 2019 4:50pm null Departed Emergency [facility] May 04, 2019 1:52pm May 04, 2019 3:59pm null Depart[address] Emergency [facility] June 07, 2019 1:47pm June 07, 2019 2:40pm null Departed Emergency [facility] August 07, 2019 9:08pm August 07, 2019 10:52pm null Departed Emergency [facility] August 30, 2019 6:30pm August 30, 2019 7:56pm null Departed Emergency [facility] September 30, 2019 4:13pm September 30, 2019 6:54pm null Depart[address] Emergency [facility] November 21, 2019 1:16pm November 21, 2019 3:23pm null Depart[address] Emergency [facility] January 03, 2020 12:06am January 03, 2020 2:27am null Depart[address] Emergency [facility] February 24, 2020 9:46pm February 25, 2020 12:00am null Depart[address] Emergency [facility] February 28, 2020 8:00pm February 29, 2020 2:11am null Assessments No Assessments Information Available Family History Relationship Condition A ge at Onset Recorded Date/Time Not Specified Hearing disorder Unknown Functional Status No Functional Status information available Goals Goals may be documented in an alternate section. Immunizations No Immunization Information Available Mental Status Observation Response Brenton e Recorded Impairments Ambulation/transfer February 28, 2020 8:01pm Medical Equipment No Medical Equipment Information available Insurance Providers Guarantor BRITNEY SPARKS Address [address] [facility] [address] Contact Info. Home Phone: Payer Policy Id Coverage Id Subscriber's Name Subscriber Id Effective Date Expiration Date [facility] [id number] BRITNEY SPARKS [id number] Self Pay Self N/A [facility] MEDICAID [id number] BRITNEY SPARKS [id number] Plan of Treatment Future Tests Future scheduled test information is unavailable Pending Tests Pending diagnostic test information is unavailable Future Visits Future appointment information is unavailable Referrals to Other Providers Reason for Referral Referral Start Date Provider Provider Conta ct Information Provider Address Pati Perez MD Work Phone: [phone] [facility] [address] [place] [address] Future Procedures Future procedure information is unavailable Future Medications Future medication information is unavailable Patient Instructions Myra obrien (ED) Chronic Pain (ED) Social History Smoking Status Status Date of Observation Current every day smoker February 11:50pm Observation Status Observation Response Brenton e of Response Smoking Status Current every day smoker February 28, 2020 11:50pm Alcohol Use No February 272020 11:50pm Substance Use No February 28, 2020 11:50pm Smoking Status Current every day smoker April 23, 2013 11:50am Assigned Sex Male Vital Signs Vital Reading Result Ref erence Range Collection Date/Time Height 69 [in_i] May 01, 2019 3:56pm Weight 120.00 [lb_av] May 01, 2019 3:56pm Body Temperature 98.7 [degF] 97.6-99.5 May 01, 2019 3:53pm Heart Rate 76 /min 60-100 May 01, 2019 3:53pm Respiratory rate 14 /min 12-May 01, 2019 3:53pm Oxygen saturation by Pulse oximetry 99 % 95- 100 May 01, 2019 3:53pm BP Systolic 116 mm[Hg] May 01, 2019 3:53pm BP Diastolic 77 mm[Hg] May 01, 2019 3:53pm Height 69 [in_i] May 04, 2019 2:52pm Weight 120.00 [lb_av] May 04, 2019 2:52pm Body Temperature 96.3 [degF] 97.6-99.5 May 04, 2019 2:52pm Heart Rate 72 /min 60-100 May 04, 2019 2:52pm Respiratory rate 16 /min -May 04, 2019 2:52pm Oxygen saturation by Pulse oximetry 98 % 95- 100 May 04, 2019 2:52pm BP Systolic 102 mm[Hg] May 04, 2019 2:52pm BP Diastolic 68 mm[Hg] May 04, 2019 2:52pm Height 69 [in_i] June 07, 2019 3:06pm Weight 125.00 [lb_av] June 07, 2019 3:06pm Body Temperature 98.2 [degF] 97.6-99.5 June 07, 2019 3:06pm Heart Rate 92 /min 60-100 June 07, 2019 3:06pm Respiratory rate 16 /min -June 07, 2019 3:06pm Oxygen saturation by Pulse oximetry 94 % 95- 100 June 07, 2019 3:06pm BP Systolic 110 mm[Hg] June 07, 2019 3:06pm BP Diastolic 76 mm[Hg] June 07, 2019 3:06pm Height 69 [in_i] August 07, 2019 10:13pm Weight 125.00 [lb_av] August 07, 2019 10:13pm Body Temperature 98 [degF] 97.6-99.5 August 07, 2019 11:01pm Heart Rate 88 /min 60-100 August 07, 2019 11:01pm Respiratory rate 20 /min -August 07, 2019 11:01pm Oxygen saturation by Pulse oximetry 96 % 95- 100 August 07, 2019 11:01pm BP Systolic 112 mm[Hg] August 07, 2019 11:01pm BP Diastolic 63 mm[Hg] August 07, 2019 11:01pm Height 69 [in_i] August 30, 2019 7:44pm Weight 125.00 [lb_av] August 30, 2019 7:44pm Body Temperature 98.7 [degF] 97.6-99.5 August 30, 2019 7:38pm Heart Rate 86 /min 60-100 August 30, 2019 7:38pm Respiratory rate 16 /min 12-August 30, 2019 7:38pm Oxygen saturation by Pulse oximetry 97 % 95- 100 August 30, 2019 7:38pm BP Systolic 120 mm[Hg] August 30, 2019 7:38pm BP Diastolic 86 mm[Hg] August 30, 2019 7:38pm Height 69 [in_i] September 30, 2019 5:42pm Weight 125.00 [lb_av] September 30, 2019 5:42pm Body Temperature 98.5 [degF] 97.6-99.5 September 30, 2019 5:42pm Heart Rate 84 /min 60-100 September 30, 2019 5:42pm Respiratory rate 16 /min 02-16September 30, 2019 5:42pm Oxygen saturation by Pulse oximetry 95 % 95- 100 September 30, 2019 5:42pm BP Systolic 104 mm[Hg] September 30, 2019 5:42pm BP Diastolic 70 mm[Hg] September 30, 2019 5:42pm Height 69 [in_i] November 21, 2019 3:39pm Weight 125.00 [lb_av] November 21, 2019 3:39pm Body Temperature 97.8 [degF] 97.6-99.5 November 21, 2019 3:39pm Heart Rate 74 /min 60-100 November 21, 2019 3:39pm Respiratory rate 20 /min -November 21, 2019 3:39pm Oxygen saturation by Pulse oximetry 98 % 95- 100 November 21, 2019 3:39pm BP Systolic 103 mm[Hg] November 21, 2019 3:39pm BP Diastolic 66 mm[Hg] November 21, 2019 3:39pm Height 69 [in_i] January 03, 2020 12:09am Weight 125.00 [lb_av] January 03, 2020 12:09am Body Temperature 97.9 [degF] 97.6-99.5 January 03, 2020 12:06am Heart Rate 78 /min 60-100 January 03, 2020 12:06am Respiratory rate 16 /min -January 03, 2020 12:06am Oxygen saturation by Pulse oximetry 97 % 95- 100 January 03, 2020 12:06am BP Systolic 97 mm[Hg] January 03, 2020 12:06am BP Diastolic 62 mm[Hg] January 03, 2020 12:06am Height 69 [in_i] February 24, 2020 10:18pm Weight 125.00 [lb_av] February 24, 2020 10:18pm Body Temperature 97.9 [degF] 97.6-99.5 February 24, 2020 9:50pm Heart Rate 97 /min 60-100 February 24, 2020 11:36pm Respiratory rate 20 /min 12-February 24, 2020 11:36pm Oxygen saturation by Pulse oximetry 97 % 95- 100 February 24, 2020 11:36pm BP Systolic 138 mm[Hg] February 24, 2020 11:36pm BP Diastolic 73 mm[Hg] February 24, 2020 11:36pm Height 69 [in_i] February 28, 2020 8:01pm Weight 125.00 [lb_av] February 28, 2020 8:01pm Body Temperature 98.2 [degF] 97.6-99.5 February 28, 2020 8:01pm Heart Rate 119 /min 60-1 February 28, 2020 8:01pm Respiratory rate 20 /min -February 28, 2020 8:01pm Oxygen saturation by Pulse oximetry 96 % 95- 100 February 28, 2020 8:01pm BP Systolic 124 mm[Hg] February 28, 2020 8:01pm BP Diastolic 85 mm[Hg] February 28, 2020 8:01pm Hospital Discharge Instructions
--- OUTSIDE RECORDS SUMMARY | 2020-03-16 08:22 | CCD | Continuity of Care Document ---
Author Author [facility] Address [address] [place] [address] Phone Support Name Relationship Address Phone Deion Pierre PRS [address] [place] [address] Doctor Provided, Family No PRS Unknown Unava ilable Silvio Hicks PRS [address] [place] [address] Morales Bauer PRS [address] [place] [address] Meche Chavez PRS [address] [place] [address] AlexlilianDeion PRS [address] [place] [address] Allergies, Adverse Reactions, Alerts Allergen Type Severity Reaction Last Updated Verified Status Penicillins Allergy Opal re rash,itching March 13, 2020 12:29am Yes Active FISH Allergy Moderate itching,swelling March 13, 2020 12:29am Yes Active tramadol Allergy Mild Urticaria March 13, 2020 12:29am Yes Active ketorolac Adverse Reaction Confusion March 13, 2020 12:29am Yes Active Medications Medication Status Dose Units [...] 12: 39pm January 10, 2016 3:05am Hydrocodone-Acetaminophen ([place] 10-325 Tablet) 10-325 mg tablet Active 1 [...] 70 MG PO 1 Time Per Week 0 July 15, 2012 12:39pm September 23, 2012 [...] 25 MG PO 2 Times Per Day August 26, 2012 2:06 pm August 26, 2012 2:07pm Oxycodone-Acetaminophen (Percocet) 10-325 mg tablet Discontinued 1 TAB PO 5 Times Per Day 125 August 26, 2012 2:07pm September 23 3 2:34pm Pregabalin (Lyrica) 25 mg capsule Di scontinued 25 MG PO 2 Times Per Day 60 August 26, 2012 2:07 pm September 23, 2012 2:33pm Alendronate (Fosamax) 70 mg tablet D iscontinued 70 MG PO 1 Time Per Week 4 September 23, 2012 2:32pm November 18, 2012 1:34pm Gabapentin (Neurontin) 300 mg capsule Discontinued 300 MG PO Three times a day 90 September 23, 2012 2:32pm November 18, 2012 [...] 25 MG PO 2 Times Per Day October 23, 2012 7:40am November 18, 2012 [...] 1 TAB PO 5 Times Per Day January 05, 2013 2:46pm July 20, 2013 5:51pm Zolpidem (Ambien) 10 mg tablet Discontinue d 10 MG PO Once Per Day January 05, 2013 2:46pm July 20, 2013 5:48pm Pregabalin (Lyrica) 25 mg capsule Di scontinued 25 MG PO 2 Times Per Day January 05, 2013 2:46pm October 13, 2013 [...] 23 0 10:45pm 10.4 10e3/uL 4.45-10.7 1 [facility], [address] [place] [address] 81728 Red Blood Count February 24, 2020 10:45p m 4.23 10e6/uL 4.3-6.1 [facility], [address] [place] [address] 98094 Hemoglobin February 24, 2020 10:45pm 12.6 g/dL 13-18 [facility], [address] [place] [address] 48532 Hematocrit February 24, 2020 10:45pm 38.9 % 42-52 [facility], [address] [place] [address] 91431 Mean Corpuscular Volume January 10:45pm 92.0 fl 80-96 [facility], [address] [place] [address] 78235 Mean Corpuscular Hemoglobin February 24, 2020 10:45pm 29.8 pg 27-31 [facility], [address] [place] [address] 66929 Mean Corpuscular Hemoglobin Concent February 24, 2020 10:45pm 32.4 g/dl 33-37 [facility], [address] [place] [address] 20984 Red Cell Distribution Width February 24, 2020 10:45pm 12 % 11-15 [facility], [address] [place] [address] 05674 Platelet Count February 24, 2020 10:45pm 294 10e3/ul 130-472 [facility], [address] [place] [address] 97597 Mean Platelet Volume February 24, 2020 10:45pm 9.2 fl 9.1-13.1 [facility], [address] [place] [address] 63407 Neutrophils (%) (Auto) January 10:45pm 59.6 % 41-77 [facility], [address] [place] [address] 44733 Absolute Neutrophil February 23, 2 020 10:45pm 6.2 # 1.7-7.6 [facility], [address] [place] [address] 88921 Lymphocytes (%) (Auto) January 10:45pm 31.0 % 14-46 [facility], [address] [place] [address] Lymphocytes # (Auto) February 24, 2020 10:45pm 3.2 # 0.6-4.6 [facility], [address] [place] [address] Monocytes (%) (Auto) February 24, 2020 10:45pm 6.3 % 4-12 [facility], [address] [place] [address] 81265 Monocytes # February 24, 2020 10:45pm 0.7 # 0.2-1.2 [facility], [address] [place] [address] Eosinophils (%) (Auto) January 10:45pm 2.5 % 0-7 [facility], [address] [place] [address] Absolute Eosinophils (CBC) February 24, 2020 10:45pm 0.3 # 0.0-0.5 [facility], [address] [place] [address] Basophils (%) (Auto) February 24, 2020 10:45pm 0.4 % 0.4-1.3 [facility], [address] [place] [address] Absolute Basophils (CBC) February 232019 10:45pm 0.0 # 0.0-0.2 [facility], [address] [place] [address] Immature Granulocyte % (Auto) Dece 2019 10:45pm 0.2 % 0-2 [facility], [address] [place] [address] Absolute Immature Granulocyte (auto February 24, 2020 10:45pm 0.0 # 0-0.1 [facility], [address] [place] [address] Add Manual Differential January 10:45pm No [facility], [address] [place] [address] Blood Urea Nitrogen February 23 020 10:45pm 17 mg/dL 9-23 [facility], [address] [place] [address] Sodium Level February 24, 2020 10:45pm 146 mmol/L 132-146 [facility], [address] [place] [address] Potassium Level February 24, 2020 10:45p m 3.6 mmol/L 3.5-5.5 [facility], [address] [place] [address] 49092 Chloride Level February 24, 2020 10:45pm 112 mmol/l 99-109 [facility], [address] [place] [address] 81198 Carbon Dioxide Level February 24, 2020 10:45pm 29 mmol/l 20-31 [facility], [address] [place] [address] 32485 Anion Gap February 24, 2020 10:45pm 9 mmol/l 8-16 [facility], [address] [place] [address] 23595 Glucose Level February 24, 2020 10:45pm 97 mg/dL 74-106 [facility], [address] [place] [address] 85753 Creatinine February 24, 2020 10:45pm 0.7 mg/dL 0.5-1.1 [facility], [address] [place] [address] 90612 Glomerular Filtration Rate Calc Dece mber 2019 10:45pm Greater than 60 ml/min ABOVE 60 [facility], [address] [place] [address] 82503 Alanine Aminotransferase (ALT/SGPT) February 24, 2020 10:45pm 22 U/L 10-49 [facility], [address] [place] [address] 17413 Aspartate Amino Transf (AST/SGOT) De cember 2019 10:45pm 13 U/L 0-33 [facility], [address] [place] [address] 05449 Alkaline Phosphatase February 24, 2020 10:45pm 66 U/L 45-129 [facility], [address] [place] [address] 14808 Calcium Level February 24, 2020 10:45pm 8.5 mg/dL 8.5-10.1 [facility], [address] [place] [address] 18979 Total Bilirubin February 24, 2020 10:45p m 0.2 mg/dL 0.3-1.2 [facility], [address] [place] [address] 33278 Albumin February 24, 2020 10:45pm 3.6 g/dL 3.2-4.8 [facility], [address] [place] [address] 98040 Serum Total Protein February 23 020 10:45pm 6.8 g/dL 5.7-8.2 [facility], [address] [place] [address] 68925 Diagnostic Imaging Reports Report Dictated Date/Time Dictated By Status Radiology Report May 04, 2019 4:10pm Philipp Daley MD completed [facility] [address] [place] [address] [phone] NAME SEX PT STATUS ACCOUNT NUMBER BRITNEY SPARKS REG ER [id number] ORDERING PHYSICIAN LOCATION MEDICAL RECORD NO. Silvio Hicks MD ER [id number] ATTENDING PHYSICIAN DATE OF DATE OF EXAM/TIME [...] 07, 2019 11:30pm Karl Silva MD completed [facility] [address] [place] [address] [phone] NAME SEX PT STATUS ACCOUNT NUMBER BRITNEY SPARKS REG ER [id number] ORDERING PHYSICIAN LOCATION MEDICAL RECORD NO. Deion Pierre MD ER [id number] ATTENDING PHYSICIAN DATE OF DATE OF EXAM/TIME Doctor Provided,No Family 1975 08[birth year]19 / 232 5 TYPE / EXAM Xray Sacrum and [...] Trans Dt/Tm: Trans by: DT Prt Dt/Tm: 9700-1898: Total DLP = 0.00 mGy-cm Fluoroscopy Time (in secs): Radiology Report February 24, 2020 11:27pm Naeem Ambriz MD completed [facility] [address] [place] [address] [phone] NAME SEX PT STATUS ACCOUNT NUMBER BRIDGERBRITNEY Breen Agusto REG ER [id number] ORDERING PHYSICIAN LOCATION MEDICAL RECORD NO. Remington Chavez MD ER [id number] ATTENDING PHYSICIAN DATE OF DATE OF EXAM/TIME Doctor Provided,No Family 1975 02/24/20 / 224 2 TYPE / EXAM CT Abd/pel w/o [...] Reported By Naeem Ambriz MD on 02/24/20 2327 Signed By Naeem Ambriz MD on 02/24/20 2327 Date Time CC: Naeem Ambriz MD; No Family PHYS Provided Techn: PALHE Trans Dt/Tm: Trans by: DT Prt Dt/Tm: : Total DLP = 208.00 mGy-cm : Total Radiation Dose = 3.1200 mSv Lifetime Dose: 12.9060 mSv Health Concerns Health Concerns may be documented in an alternate section. Advance Directives Advance Directive Response Recorded Date/Time Advanced Directive No Umer 2020 12:24am Does Patient have a DNR? No March 13, 2020 12:24am Healthcare Proxy No Smith britt 2020 12:24am Living Will No April 4:15pm Chief Complaint and Reason for Visit Chief Complaint BACK PAIN BACK PAIN BACK PAIN BACKPAIN BACK PAIN BACK PAIN BACK PAIN BACK AND LEG PAIN BACK PAIN, LEG PAIN LOWER BACK AND LEG PAIN LOW BACK/LEG PAIN Encounters Encounter Location(s) Ar rival/Admit Date Discharge/Depart Date Provider(s) Departed Emergency [facility] May 01, 2019 3:53pm May 01, 2019 4:50pm null Departed Emergency [facility] May 04, 2019 1:52pm May 04, 2019 3:59pm null Departed Emergency [facility] June 07, 2019 1:47pm June 07, 2019 2:40pm null Departed Emergency [facility] August 07, 2019 9:08pm August 07, 2019 10:52pm null Departed Emergency [facility] August 30, 2019 6:30pm August 30, 2019 7:56pm null Departed Emergency [facility] September 30, 2019 4:13pm September 30, 2019 6:54pm null Departed Emergency [facility] November 21, 2019 1:16pm November 21, 2019 3:23pm null Departed Emergency [facility] January 03, 2020 12:06am January 03, 2020 2:27am null Departed Emergency [facility] February 24, 2020 9:46pm February 25, 2020 12:00am null Departed Emergency [facility] February 28, 2020 8:00pm February 29, 2020 2:11am null Departed Emergency [facility] March 12, 2020 10:29pm March 13, 2020 1:13am null Assessments No Assessments Information Available Family History Relationship Condition A ge at Onset Recorded Date/Time Not Specified Hearing disorder Unknown Functional Status No Functional Status information available Goals Goals may be documented in an alternate section. Immunizations No Immunization Information Available Mental Status Observation Response Brenton e Recorded Impairments No impairments or barriers March 12, 2020 10:30pm Medical Equipment No Medical Equipment Information available Insurance Providers Guarantor BRITNEY SPARKS Address [address] [place] [address] Contact Info. Home Phone: Payer Policy Id Coverage Id Subscriber's Name Subscriber Id Effective Date Expiration Date [facility] [id number] BRITNEY SPARKS [id number] Self Pay Self N/A [facility] MEDICAID [id number] BRITNEY SPARKS [id number] Plan of Treatment Future Tests Future scheduled test information is unavailable Pending Tests Pending diagnostic test information is unavailable Future Visits Future appointment information is unavailable Referrals to Other Providers Reason for Referral Referral Start Date Provider Provider Conta ct Information Provider Address Pati Perez MD Work Phone: [phone] [address] Future Procedures Future procedure information is unavailable Future Medications Future medication information is unavailable Patient Instructions Myra adames de espalda (ED) Chronic Pain (ED) Muscle Spasm (ED) Chronic Back Pain (DC) Social History Smoking Status Status Date of Observation Current every day smoker February 12:51am Observation Status Observation Response Brenton e of Response Smoking Status Current every day smoker March 13, 2020 12:51am Alcohol Use No February 242020 12:51am Substance Use No March 13, 2020 12:51am Smoking Status Current every day smoker April [...] 07, 2019 3:06pm Respiratory rate 16 /min 12-June 07, 2019 3:06pm Oxygen saturation by Pulse [...] 07, 2019 11:01pm Respiratory rate 20 /min 12-August 07, 2019 11:01pm Oxygen saturation by Pulse [...] 30, 2019 7:38pm Respiratory rate 16 /min -August 30, 2019 7:38pm Oxygen saturation by Pulse [...] 30, 2019 5:42pm Respiratory rate 16 /min -September 30, 2019 5:42pm Oxygen saturation by Pulse [...] 24, 2020 11:36pm Respiratory rate 20 /min -February 24, 2020 11:36pm Oxygen saturation by Pulse [...] Diastolic 85 mm[Hg] February 28, 2020 8:01pm Height 69 [in_i] March 13, 2020 12:24am Weight 125.00 [lb_av] March 13, 2020 12:24am Body Temperature 97.8 [degF] 97.6-99.5 March 13, 2020 12:22am Heart Rate 80 /min 60-100 March 13, 2020 12:22am Respiratory rate 16 /min 12-24 March 13, 2020 12:22am Oxygen saturation by Pulse oximetry 99 % 95- 100 March 13, 2020 12:22am BP Systolic 120 mm[Hg] March 13, 2020 12:22am BP Diastolic 83 mm[Hg] March 13, 2020 12:22am Hospital Discharge Instructions Additional Instructions Follow-up your pain specialist for evaluation and renewal of your pain medicatio n Take medication as directed May also take Advil as directed for pain
--- OUTSIDE RECORDS SUMMARY | 2020-03-16 08:22 | CCD | Continuity of Care Document ---
Author Author Juan TARIQ DYE RANGE OPERATOR Organization Unknown Address [address] [place] [address] [place] [address] Phone [phone] Care Team Providers Care Finisher Machine Name Role Phone Mehrdad Fermin M.D. AUTM [phone] Edi Cantu MD AUTM [phone] Dayanara Green PA-C AUTM [phone] Problems Active Problems Provider Date Adult health examination Mehrdad Fermin MD Onset: 03/26/19 17 Idiopathic progressive polyneuropathy Mehrdad Fermin MD On set: 03/26/2016 Spinal stenosis of lumbar region Mehrdad Fermin MD Onset: 03/26/2016 Degeneration of lumbar intervertebral disc Mehrdad Fermin MD Onset: 03/26/2016 Tobacco user Mehrdad Fermin MD Onset: 03/26/2016 Other seizures Mehrdad Fermin MD Onset: 03/26/2016 Psychophysiologic insomnia Jan Hernández PA-C Onset: 2016 Weight decreased STALIN Gould Onset: 7 Cannabis abuse, uncomplicated Jan Hernández PA-C Onset: 06/2017 Antisocial personality disorder Morales Cruz LCSW Onset: 06/09/2019 Family problems Morales Cruz LCSW Onset: 06/09/2019 Social History Type Date Description Comments Sex Unknown ETOH Use Denies alcohol use Tobacco Use Start: Unknown Light tobacco smoker (10 or fewe r cigarettes/day) Allergies, Adverse Reactions, Alerts Active Allergies Reaction Severity Comments Date Penicillin 03/26/2016 Fish Oil 03/26/2016 Fish-derived Products 2016 Grass 03/26/2016 Tramadol 03/07/2020 Ketorolac Tromethamine 03/07 Medications Active Medications SIG Qnty Indications Ordering Provide r Date Vicodin HP 10-300mg Tablets 1 tab daily as needed for pain x 2 days 2tabs M51.26 Martir Tariq NP Vicodin HP 10-300mg Tablets Unknown Gabapentin 800mg Tablets take one tablet by mouth three times a day Unknown Seroquel 400mg Tablets 1 by mouth every day Unknown Baclofen 20mg Tablets Unknown Immunizations Description No Information Available Vital Signs Date Vital Result Comment 03/07/2020 12:57pm BP Systolic 116 mmHg BP Diastolic 76 mmHg Heart Rate 80 /min Body Temperature 99.2 F Respiratory Rate 16 /min O2 % BldC Oximetry 97 % 01/24/2017 2:35pm BP Systolic 108 mmHg BP Diastolic 78 mmHg Heart Rate 94 /min Body Temperature 98.6 F Respiratory Rate 20 /min O2 % BldC Oximetry 96 % Weight 102.31 lb Weight 46.409 kg Height 69 inches 5'9" BMI (Body Mass Index) 15.1 kg/m2 BSA (Body Surface Area) 1.55 m2 Results Description No Information Available Procedures Description No Information Available Medical Devices Description No Information Available Encounters Description No Information Available Assessments Date Code Description Provider 03/07/2020 M51.26 Other intervertebral disc displa cement, lumbar region Martir Tariq NP Plan of Treatment Future Appointment(s):* 03/09/2020 1:00 pm - Dayanara Green PA-C at [facility] 03/07/2020 - Martir Tariq NP* M51.26 Other intervertebral disc displacement, lumbar region* New Medication:* Vicodin HP 10-300 mg - 1 tab daily as needed for pain x 2 days * New Xrays:* Spine LS Ap & Lat, Ordered: 03/07/20 Functional Status Description No Information Available Mental Status Description No Information Available Referrals Description No Information Available
--- OUTSIDE RECORDS SUMMARY | 2020-03-16 08:24 | CCD ---
Author Author [facility] Organization [facility] Address Unknown Phone Unavailable Support Name Relationship Address Phone SELF Next Of Kin Unknown Unavailable Juan Limon MD Next Of Kin [address] [id number] Maria Del Carmen METALLURGICAL ENGINEERING TEACHER, Daphne Next Of Kin [address] [place] [address] CTY, OF CORRECTIONS DEPARTMENT Next Of Kin EDGAR CTY CORRECTIONAL FAC [address] [id number] RE Next Of Kin Unknown Unavailable MARÍ[place] [address] UE Next Of Kin Unknown Unavailable Jensen RPA-C, Izabel Next Of Kin [address] [place] [address] Jamie METALLURGICAL ENGINEERING TEACHER, Yaneth Next Of Kin [address] [place], [place] [id number] Adenike ANP-BC, Constance Next Of Kin [address] [place] [id number] "" Next Of Kin [address] [place] [id number] NONE, PT PER Next Of Kin - -, [place] - - UZIEL [place] [address] SOFIA MONTENEGRO Next Of Kin [address] [place] [address] JOSE [place] [address] Debbie VIGIL Next Of Kin [address] [facility] [address] [place] [address] UN Next Of Kin Unknown Unavailable NONE, NOOTHER Next Of Kin - -, [place] - - MELANY FIELDS Next Of Kin Unknown DISABLED Next Of Kin Unknown Unavailable JUAN SPENCER Next Of Kin 02/25 [place] [address] BRITTAERLINDAKeyla MIKO Next Of Kin 02/25 [place] [address] NATHALIEASTRID Next Of Kin Unknown ASTRID ZELAYA Next Of Kin Unknown Care Team Providers Care Structures Assembler Name Role Phone MORALES WIGGINS Unavailable Unavailable Anival Limon MD Unavailable Unavailable Anival Limon MD Unavailable Unavailable Anival Limon MD Unavailable Unavailable Anival Limon MD Unavailable Unavailable Anival Limon MD Unavailable Unavailable Anival Limon MD Unavailable Unavailable Anival Limon MD Unavailable Unavailable Anival Limon MD Unavailable Unavailable Anival Limon MD Unavailable Unavailable Anival Limon MD Unavailable Unavailable Anival Limon MD Unavailable Unavailable Anival Limon MD Unavailable Unavailable Anival Limon MD Unavailable Unavailable Anival Limon MD Unavailable Unavailable Anival Limon MD Unavailable Unavailable Anival Limon MD Unavailable Unavailable Anival Limon MD Unavailable Unavailable Anival Limon MD Unavailable Unavailable Anival Limon MD Unavailable Unavailable Anival Limon MD Unavailable Unavailable Anival Limon MD Unavailable Unavailable Anival Limon MD Unavailable Unavailable Anival Limon MD Unavailable Unavailable Anival Limon MD Unavailable Unavailable Anival Limon MD Unavailable Unavailable Anival Limon MD Unavailable Unavailable Anival Limon MD Unavailable Unavailable Anival Limon MD Unavailable Unavailable Anival Limon MD Unavailable Unavailable Aniavl Limon MD Unavailable Unavailable Anival Limon MD Unavailable Unavailable Anival Limon MD Unavailable Unavailable Anival Limon MD Unavailable Unavailable Anival Limon MD Unavailable Unavailable Anival Limon MD Unavailable Unavailable Anival Limon MD Unavailable Unavailable Anival Limon MD Unavailable Unavailable Anival Limon MD Unavailable Unavailable Anival Limon MD Unavailable Unavailable Anival Limon MD Unavailable Unavailable Anival Limon MD Unavailable Unavailable Anival Limon MD Unavailable Unavailable Anival Limon MD Unavailable Unavailable Anival Limon MD Unavailable Unavailable Anival Limon MD Unavailable Unavailable Anival Limon MD Unavailable Unavailable Anival Limon MD Unavailable Unavailable Anival Limon MD Unavailable Unavailable Anival Limon MD Unavailable Unavailable Anival Limon MD Unavailable Unavailable Anival Limon MD Unavailable Unavailable Anival Limon MD Unavailable Unavailable Limon, Anival Martinez MD Unavailable Unavailable Limon, Anival Martinez MD Unavailable Unavailable Limon, Anival Martinez MD Unavailable Unavailable Limon, Anival Martinez MD Unavailable Unavailable Limon, Anival Martinez MD Unavailable Unavailable Limon, Anival Martinez MD Unavailable Unavailable Limon, Anival Martinez MD Unavailable Unavailable Limon, Anival Martinez MD Unavailable Unavailable Limon, Anival Martinez MD Unavailable Unavailable Limon, Anival Martinez MD Unavailable Unavailable Limon, Anival Martinez MD Unavailable Unavailable Limon, Anival Martinez MD Unavailable Unavailable Limon, Anival Martinez MD Unavailable Unavailable Limon, Anival Martinez MD Unavailable Unavailable Limon, Anival Martinez MD Unavailable Unavailable Limon, Anival Martinez MD Unavailable Unavailable Limon, Anival Martinez MD Unavailable Unavailable Limon, Anival Martinez MD Unavailable Unavailable Limon, Anival Martinez MD Unavailable Unavailable Limon, Anival Martinez MD Unavailable Unavailable Limon, Anival Martinez MD Unavailable Unavailable Limon, Anival Martinez MD Unavailable Unavailable Limon, Anival Martinez MD Unavailable Unavailable Limon, Anival Martinez MD Unavailable Unavailable Limon, Anival Martinez MD Unavailable Unavailable Limon, Anival Martinez MD Unavailable Unavailable Limon, Anival Martinez MD Unavailable Unavailable Limon, Anival Martinez MD Unavailable Unavailable Limon, Anival Martinez MD Unavailable Unavailable Limon, Anival Martinez MD Unavailable Unavailable Limon, Anival Martinez MD Unavailable Unavailable Limon, Anival Martinez MD Unavailable Unavailable Limon, Anival Martinez MD Unavailable Unavailable Limon, Anival Martinez MD Unavailable Unavailable Limon, Anival Martinez MD Unavailable Unavailable Limon, Anival Martinez MD Unavailable Unavailable Limon, Anival Martinez MD Unavailable Unavailable Cougler, S Sorin YARD TRUCK DRIVER Unavailable Unavailable Cougler, S Sorin YARD TRUCK DRIVER Unavailable Unavailable Cougler, S Sorin YARD TRUCK DRIVER Unavailable Unavailable Cougler, S Sorin YARD TRUCK DRIVER Unavailable Unavailable Cougler, S Sorin YARD TRUCK DRIVER Unavailable Unavailable Cougler, S Sorin YARD TRUCK DRIVER Unavailable Unavailable Cougler, S Sorin YARD TRUCK DRIVER Unavailable Unavailable Cougler, S Sorin YARD TRUCK DRIVER Unavailable Unavailable Cougler, S Sorin YARD TRUCK DRIVER Unavailable Unavailable Cougler, S Sorin YARD TRUCK DRIVER Unavailable Unavailable Cougler, S Sorin YARD TRUCK DRIVER Unavailable Unavailable Cougler, S Sorin YARD TRUCK DRIVER Unavailable Unavailable Cougler, S Sorin YARD TRUCK DRIVER Unavailable Unavailable Cougler, S Sorin YARD TRUCK DRIVER Unavailable Unavailable Cougler, S Sorin YARD TRUCK DRIVER Unavailable Unavailable Cougler, S Sorin YARD TRUCK DRIVER Unavailable Unavailable Cougler, S Sorin YARD TRUCK DRIVER Unavailable Unavailable Cougler, S Sorin YARD TRUCK DRIVER Unavailable Unavailable Cougler, S Sorin YARD TRUCK DRIVER Unavailable Unavailable Cougler, S Sorin YARD TRUCK DRIVER Unavailable Unavailable Cougler, S Sorin YARD TRUCK DRIVER Unavailable Unavailable Cougler, S Sorin YARD TRUCK DRIVER Unavailable Unavailable Cougler, S Sorin YARD TRUCK DRIVER Unavailable Unavailable Cougler, S Sorin YARD TRUCK DRIVER Unavailable Unavailable Cougler, S Sorin YARD TRUCK DRIVER Unavailable Unavailable Cougler, S Sorin YARD TRUCK DRIVER Unavailable Unavailable Cougler, S Sorin YARD TRUCK DRIVER Unavailable Unavailable Cougler, S Sorin YARD TRUCK DRIVER Unavailable Unavailable Cougler, S Sorin YARD TRUCK DRIVER Unavailable Unavailable Cougler, S Sorin YARD TRUCK DRIVER Unavailable Unavailable Cougler, S Sorin YARD TRUCK DRIVER Unavailable Unavailable Cougler, S Sorin YARD TRUCK DRIVER Unavailable Unavailable Cougler, S Sorin YARD TRUCK DRIVER Unavailable Unavailable Cougler, S Sorin YARD TRUCK DRIVER Unavailable Unavailable Cougler, S Sorin YARD TRUCK DRIVER Unavailable Unavailable Cougler, S Sorin YARD TRUCK DRIVER Unavailable Unavailable Cougler, S Sorin YARD TRUCK DRIVER Unavailable Unavailable Cougler, S Sorin YARD TRUCK DRIVER Unavailable Unavailable Cougler, S Sorin YARD TRUCK DRIVER Unavailable Unavailable Moreau, M Christopher PA-C Unavailable Unavailable Moreau, M Christopher PA-C Unavailable Unavailable Moreau, M Christopher PA-C Unavailable Unavailable Moreau, M Christopher PA-C Unavailable Unavailable Moreau, M Christopher PA-C Unavailable Unavailable Moreau, M Christopher PA-C Unavailable Unavailable Moreau, M Christopher PA-C Unavailable Unavailable Moreau, M Christopher PA-C Unavailable Unavailable Moreau, M Christopher PA-C Unavailable Unavailable Moreau, M Christopher PA-C Unavailable Unavailable Moreau, M Christopher PA-C Unavailable Unavailable Moreau, M Christopher PA-C Unavailable Unavailable Moreau, M Christopher PA-C Unavailable Unavailable Moreau, M Christopher PA-C Unavailable Unavailable Moreau, M Christopher PA-C Unavailable Unavailable Moreau, M Christopher PA-C Unavailable Unavailable Moreau, M Christopher PA-C Unavailable Unavailable Moreau, M Christopher PA-C Unavailable Unavailable Moreau, M Christopher PA-C Unavailable Unavailable Moreau, M Christopher PA-C Unavailable Unavailable Moreau, M Christopher PA-C Unavailable Unavailable Moreau, M Christopher PA-C Unavailable Unavailable Moreau, M Christopher PA-C Unavailable Unavailable Moreau, M Christopher PA-C Unavailable Unavailable Moreau, M Christopher PA-C Unavailable Unavailable Moreau, M Christopher PA-C Unavailable Unavailable YAMILETHREINIER RACHEL PA Unavailable Unavailable YAMILETHREINIER RACHEL PA Unavailable Unavailable YAMILETHREINIER RACHEL PA Unavailable Unavailable YAMILETHREINIER RACHEL PA Unavailable Unavailable YAMILETHREINIER RACHEL PA Unavailable Unavailable YAMILETH, REINIER CARRIE PA Unavailable Unavailable YAMILETH, REINIER CARRIE PA Unavailable Unavailable YAMILETH, REINIER CARRIE PA Unavailable Unavailable YAMILETH, REINIER CARRIE PA Unavailable Unavailable YAMILETH, REINIER CARRIE PA Unavailable Unavailable YAMILETH, REINIER CARRIE PA Unavailable Unavailable YAMILETH, REINIER CARRIE PA Unavailable Unavailable YAMILETH, REINIER CARRIE PA Unavailable Unavailable YAMILETH, REINIER CARRIE PA Unavailable Unavailable YAMILETH, REINIER CARRIE PA Unavailable Unavailable YAMILETH, REINIER CARRIE PA Unavailable Unavailable YAMILETH, REINIER CARRIE PA Unavailable Unavailable YAMILETH, REINIER CARRIE PA Unavailable Unavailable YAMILETH, REINIER CARRIE PA Unavailable Unavailable YAMILETH, REINIER CARRIE PA Unavailable Unavailable YAMILETH, REINIER CARRIE PA Unavailable Unavailable Cosmo, Dupree METALLURGICAL ENGINEERING TEACHER Unavailable Unavailable Cosmo, Dupree METALLURGICAL ENGINEERING TEACHER Unavailable Unavailable Cosmo, Dupree METALLURGICAL ENGINEERING TEACHER Unavailable Unavailable Cosmo, Dupree METALLURGICAL ENGINEERING TEACHER Unavailable Unavailable [place], Yadira RPA-C Unavailable Unavailable [place], Yadira RPA-C Unavailable Unavailable [place], Yadira RPA-C Unavailable Unavailable [place], Yadira RPA-C Unavailable Unavailable [place], Yadira RPA-C Unavailable Unavailable [place], Yadira RPA-C Unavailable Unavailable [place], Yadira RPA-C Unavailable Unavailable [place], Yadira RPA-C Unavailable Unavailable [place], Yadira RPA-C Unavailable Unavailable [place], Yadira RPA-C Unavailable Unavailable [place], Yadira RPA-C Unavailable Unavailable [place], Yadira RPA-C Unavailable Unavailable [place], Yadira RPA-C Unavailable Unavailable [place], Yadira RPA-C Unavailable Unavailable [place], Yadira RPA-C Unavailable Unavailable Baranello, (Remington) Meche LACY Unavailable Unavailable Silvio Hicks MD Unavailable Unavailable TURRIN, DARNELL Unavailable Unavailable TURRIN, DARNELL Unavailable Unavailable TURRIN, DARNELL Unavailable Unavailable TURRIN, DARNELL Unavailable Unavailable Noble ASCENCIO Unavailable Unavailable COURTNEY BLAIR MD Unavailable Unavailable COURTNEY BLAIR MD Unavailable Unavailable COURTNEY BLAIR MD Unavailable Unavailable COURTNEY BLAIR MD Unavailable Unavailable COURTNEY BLAIR MD Unavailable Unavailable COURTNEY BLAIR MD Unavailable Unavailable COURTNEY BLAIR MD Unavailable Unavailable COURTNEY BLAIR MD Unavailable Unavailable BLAIR, COURTNEY MD Unavailable Unavailable BLAIR, COURTNEY MD Unavailable Unavailable BLAIR, COURTNEY MD Unavailable Unavailable BLAIR, COURTNEY MD Unavailable Unavailable BLAIR, COURTNEY MD Unavailable Unavailable BLAIR, COURTNEY MD Unavailable Unavailable BLAIR, COURTNEY MD Unavailable Unavailable BLAIR, COURTNEY MD Unavailable Unavailable BLAIR, COURTNEY MD Unavailable Unavailable BLAIR, COURTNEY MD Unavailable Unavailable BLAIR, COURTNEY MD Unavailable Unavailable BLAIR, COURTNEY MD Unavailable Unavailable BLAIR, COURTNEY MD Unavailable Unavailable BLAIR, COURTNEY MD Unavailable Unavailable BLAIR, COURTNEY MD Unavailable Unavailable BLAIR, COURTNEY MD Unavailable Unavailable BLAIR, COURTNEY MD Unavailable Unavailable BLAIR, COURTNEY MD Unavailable Unavailable BLAIR, COURTNEY MD Unavailable Unavailable BLAIR, COURTNEY MD Unavailable Unavailable BLAIR, COURTNEY MD Unavailable Unavailable BLAIR, COURTNEY MD Unavailable Unavailable BLAIR, COURTNEY MD Unavailable Unavailable BLAIR, COURTNEY MD Unavailable Unavailable BLAIR, COURTNEY MD Unavailable Unavailable BLAIR, COURTNEY MD Unavailable Unavailable BLAIR, COURTNEY MD Unavailable Unavailable BLAIR, COURTNEY MD Unavailable Unavailable BLAIR, COURTNEY MD Unavailable Unavailable BLAIR, COURTNEY MD Unavailable Unavailable BLAIR, COURTNEY MD Unavailable Unavailable BLAIR, COURTNEY MD Unavailable Unavailable BLAIR, COURTNEY MD Unavailable Unavailable BLAIR, COURTNEY MD Unavailable Unavailable BLAIR, COURTNEY MD Unavailable Unavailable BLAIR, COURTNEY MD Unavailable Unavailable BLAIR, COURTNEY MD Unavailable Unavailable BLAIR, COURTNEY MD Unavailable Unavailable BLAIR, COURTNEY MD Unavailable Unavailable BLAIR, COURTNEY MD Unavailable Unavailable BLAIR, COURTNEY MD Unavailable Unavailable BLAIR, COURTNEY MD Unavailable Unavailable BLAIR, COURTNEY MD Unavailable Unavailable BLAIR, COURTNEY MD Unavailable Unavailable BLAIR, COURTNEY MD Unavailable Unavailable BLAIR, COURTNEY MD Unavailable Unavailable BLAIR, COURTNEY MD Unavailable Unavailable BLAIR, COURTNEY MD Unavailable Unavailable BLAIR, COURTNEY MD Unavailable Unavailable BLAIR, COURTNEY MD Unavailable Unavailable BLAIR, COURTNEY MD Unavailable Unavailable BLAIR, COURTNEY MD Unavailable Unavailable BLAIR, COURTNEY MD Unavailable Unavailable BLAIR, COURTNEY MD Unavailable Unavailable BLAIR, COURTNEY MD Unavailable Unavailable BLAIR, COURTNEY MD Unavailable Unavailable BLAIR, COURTNEY MD Unavailable Unavailable BLAIR, COURTNEY MD Unavailable Unavailable BLAIR, COURTNEY MD Unavailable Unavailable BLAIR, COURTNEY MD Unavailable Unavailable BLAIR, COURTNEY MD Unavailable Unavailable Michelle NGUYEN MD Unavailable Unavailable Michelle NGUYEN MD Unavailable Unavailable Michelle NGUYEN MD Unavailable Unavailable DIMITRIMichelle ARMENTA MD Unavailable Unavailable DIMITRIMichelle ARMENTA MD Unavailable Unavailable DIMITRIMichelle ARMENTA MD Unavailable Unavailable DIMITRIMichelle ARMENTA MD Unavailable Unavailable DIMITRIMichelle ARMENTA MD Unavailable Unavailable DIMITRIMichelle ARMENTA MD Unavailable Unavailable DIMITRIMichelle ARMENTA MD Unavailable Unavailable DIMITRIMichelle ARMENTA MD Unavailable Unavailable DIMITRIMichelle ARMENTA MD Unavailable Unavailable DIMITRIMichelle ARMENTA MD Unavailable Unavailable DIMITRIMichelle ARMENTA MD Unavailable Unavailable DIMITRIMichelle ARMENTA MD Unavailable Unavailable DIMITRIMichelle ARMENTA MD Unavailable Unavailable DIMITRIMichelle ARMENTA MD Unavailable Unavailable DIMITRIMichelle ARMENTA MD Unavailable Unavailable DIMITRIMichelle ARMENTA MD Unavailable Unavailable DIMITRIMichelle ARMENTA MD Unavailable Unavailable DIMITRIMichelle ARMENTA MD Unavailable Unavailable DIMITRIMichelle ARMENTA MD Unavailable Unavailable DIMITRIMichelle ARMENTA MD Unavailable Unavailable SYMENOW, G CHRISTOPHER PA Unavailable Unavailable SYMENOW, G CHRISTOPHER PA Unavailable Unavailable SYMENOW, G CHRISTOPHER PA Unavailable Unavailable SYMENOW, G CHRISTOPHER PA Unavailable Unavailable SYMENOW, G CHRISTOPHER PA Unavailable Unavailable SYMENOW, G CHRISTOPHER PA Unavailable Unavailable SYMENOW, G CHRISTOPHER PA Unavailable Unavailable SYMENOW, G CHRISTOPHER PA Unavailable Unavailable SYMENOW, G CHRISTOPHER PA Unavailable Unavailable SYMENOW, G CHRISTOPHER PA Unavailable Unavailable SYMENOW, G CHRISTOPHER PA Unavailable Unavailable SYMENOW, G CHRISTOPHER PA Unavailable Unavailable SYMENOW, G CHRISTOPHER PA Unavailable Unavailable SYMENOW, G CHRISTOPHER PA Unavailable Unavailable SYMENOW, G CHRISTOPHER PA Unavailable Unavailable SYMENOW, G CHRISTOPHER PA Unavailable Unavailable SYMENOW, G CHRISTOPHER PA Unavailable Unavailable Sawant, W Karl RPA-C Unavailable Unavailable Sawant, W Karl RPA-C Unavailable Unavailable Sawant, W Karl RPA-C Unavailable Unavailable Sawant, W Karl RPA-C Unavailable Unavailable Sawant, W Karl RPA-C Unavailable Unavailable Sawant, W Karl RPA-C Unavailable Unavailable Sawant, W Karl RPA-C Unavailable Unavailable Sawant, W Karl RPA-C Unavailable Unavailable Sawant, W Karl RPA-C Unavailable Unavailable Sawant, W Karl RPA-C Unavailable Unavailable Sawant, W Karl RPA-C Unavailable Unavailable Sawant, W Karl RPA-C Unavailable Unavailable Sawant, W Karl RPA-C Unavailable Unavailable Sawant, W Karl RPA-C Unavailable Unavailable Sawant, W Karl RPA-C Unavailable Unavailable Sawant, W Karl RPA-C Unavailable Unavailable RODRIGO, L ABHIJEET PA Unavailable Unavailable RODRIGO, L ABHIJEET PA Unavailable Unavailable RODRIGO, L ABHIJEET PA Unavailable Unavailable RODRIGO, L ABHIJEET PA Unavailable Unavailable RODRIGO, L ABHIJEET PA Unavailable Unavailable RODRIGO, L ABHIJEET PA Unavailable Unavailable RODRIGO, L ABHIJEET PA Unavailable Unavailable RODRIGO, L ABHIJEET PA Unavailable Unavailable RODRIGO, L ABHIJEET PA Unavailable Unavailable RODRIGO, L ABHIJEET PA Unavailable Unavailable RODRIGO, L ABHIJEET PA Unavailable Unavailable RODRIGO, L ABHIJEET PA Unavailable Unavailable RODRIGO, L ABHIJEET PA Unavailable Unavailable RODRIGO, L ABHIJEET PA Unavailable Unavailable RODRIGO, L ABHIJEET PA Unavailable Unavailable RODRIGO, L ABHIJEET PA Unavailable Unavailable RODRIGO, L ABHIJEET PA Unavailable Unavailable RODRIGO, L ABHIJEET PA Unavailable Unavailable RODRIGO, L ABHIJEET PA Unavailable Unavailable Morales Bauer MD Unavailable Unavailable Daniels, Kevin PA Unavailable Unavailable Daniels, Kevin PA Unavailable Unavailable Daniels, Kevin PA Unavailable Unavailable Daniels, Kevin PA Unavailable Unavailable Daniels, Kevin PA Unavailable Unavailable Daniels, Kevin PA Unavailable Unavailable Daniels, Kevin PA Unavailable Unavailable Daniels, Kevin PA Unavailable Unavailable Daniels, Kevin PA Unavailable Unavailable Daniels, Kevin PA Unavailable Unavailable Daniels, Kevin PA Unavailable Unavailable Daniels, Kevin PA Unavailable Unavailable Deion Pierre MD Unavailable Unavailable SANDY INGRAM MD Unavailable Unavailable SANDY INGRAM MD Unavailable Unavailable SANDY INGRAM MD Unavailable Unavailable SANDY INGRAM MD Unavailable Unavailable SANDY INGRAM MD Unavailable Unavailable SANDY INGRAM MD Unavailable Unavailable SANDY INGRAM MD Unavailable Unavailable SANDY INGRAM MD Unavailable Unavailable SANDY INGRAM MD Unavailable Unavailable SANDY INGRAM MD Unavailable Unavailable SANDY INGRAM MD Unavailable Unavailable SANDY INGRAM MD Unavailable Unavailable Anival MATUTE METALLURGICAL ENGINEERING TEACHER Unavailable Unavailable Anival MATUTE METALLURGICAL ENGINEERING TEACHER Unavailable Unavailable ZEAnival BACK METALLURGICAL ENGINEERING TEACHER Unavailable Unavailable ZENY AHUMADA Unavailable Unavailable Dana Mclaughlin MD Unavailable Unavailable Dana Mclaughlin MD Unavailable Unavailable Dana Mclaughlin MD Unavailable Unavailable Dana Mclaughlin MD Unavailable Unavailable Dana Mclaughlin MD Unavailable Unavailable Dana Mclaughlin MD Unavailable Unavailable Anival Limon MD Unavailable Unavailable Anival Limon MD Unavailable Unavailable Anival Limon MD Unavailable Unavailable Anival Limon MD Unavailable Unavailable Anival Limon MD Unavailable Unavailable Anival Limon MD Unavailable Unavailable Anival Limon MD Unavailable Unavailable Anival Limon MD Unavailable Unavailable Anival Limon MD Unavailable Unavailable Anival Limon MD Unavailable Unavailable Anival Limon MD Unavailable Unavailable Anival Limon MD Unavailable Unavailable Anival Limon MD Unavailable Unavailable Anival Limon MD Unavailable Unavailable Anival Limno MD Unavailable Unavailable Anival Limon MD Unavailable Unavailable Anival Limon MD Unavailable Unavailable Anival Limon MD Unavailable Unavailable Anival Limon MD Unavailable Unavailable Anival Limon MD Unavailable Unavailable Anival Limon MD Unavailable Unavailable Anival Limon MD Unavailable Unavailable Anival Limon MD Unavailable Unavailable Anival Limon MD Unavailable Unavailable Anival Limon MD Unavailable Unavailable Anival Limon MD Unavailable Unavailable Anival Limon MD Unavailable Unavailable Anival Limon MD Unavailable Unavailable Anival Limon MD Unavailable Unavailable Anival Limon MD Unavailable Unavailable Anival Limon MD Unavailable Unavailable Anival Limon MD Unavailable Unavailable Anival Limon MD Unavailable Unavailable Anival Limon MD Unavailable Unavailable Anival Limon MD Unavailable Unavailable Anival Limon MD Unavailable Unavailable Anival Limon MD Unavailable Unavailable Anival Limon MD Unavailable Unavailable Anival Limon MD Unavailable Unavailable Anival Limon MD Unavailable Unavailable Anival Limon MD Unavailable Unavailable Anival Limon MD Unavailable Unavailable Anival Limon MD Unavailable Unavailable Anival Limon MD Unavailable Unavailable Anival Limon MD Unavailable Unavailable Anival Limon MD Unavailable Unavailable Anival Limon MD Unavailable Unavailable Anival Limon MD Unavailable Unavailable Anival Limon MD Unavailable Unavailable Anival Limon MD Unavailable Unavailable Anival Limon MD Unavailable Unavailable Anival Limon MD Unavailable Unavailable Anival Limon MD Unavailable Unavailable Anival Limon MD Unavailable Unavailable Anival Limon MD Unavailable Unavailable Anival Limon MD Unavailable Unavailable Anival Limon MD Unavailable Unavailable Anival Limon MD Unavailable Unavailable Anival Limon MD Unavailable Unavailable Anival Limon MD Unavailable Unavailable Anival Limon MD Unavailable Unavailable Anival Limon MD Unavailable Unavailable Anival Limon MD Unavailable Unavailable Anival Limon MD Unavailable Unavailable Anival Limon MD Unavailable Unavailable Anival Limon MD Unavailable Unavailable Anival Limon MD Unavailable Unavailable Anival Limon MD Unavailable Unavailable Anival Limon MD Unavailable Unavailable Anival Limon MD Unavailable Unavailable Anival Limon MD Unavailable Unavailable Anival Limon MD Unavailable Unavailable Anival Limon MD Unavailable Unavailable Anival Limon MD Unavailable Unavailable Limon, Anival Martinez MD Unavailable Unavailable Limon, Anival Martinez MD Unavailable Unavailable Limon, Anival Martinez MD Unavailable Unavailable Limon, Anival Martinez MD Unavailable Unavailable Limon, Anival Martinez MD Unavailable Unavailable Limon, Anival Martinez MD Unavailable Unavailable Limon, Anival Martinez MD Unavailable Unavailable Limon, Anival Martinez MD Unavailable Unavailable Limon, Anival Martinez MD Unavailable Unavailable Limon, Anival Martinez MD Unavailable Unavailable Limon, Anival Martinez MD Unavailable Unavailable Limon, Anival Martinez MD Unavailable Unavailable Limon, Anival Martinez MD Unavailable Unavailable Limon, Anival Martinez MD Unavailable Unavailable Limon, Anival Martinez MD Unavailable Unavailable ADRIANA MONTOYA Unavailable Unavailable Green, M Dayanara PA-C Unavailable Unavailable Green, M Dayanara PA-C Unavailable Unavailable Green, M Dayanara PA-C Unavailable Unavailable Green, M Dayanara PA-C Unavailable Unavailable Green, M Dayanara PA-C Unavailable Unavailable Green, M Dayanara PA-C Unavailable Unavailable Green, M Dayanara PA-C Unavailable Unavailable Green, M Dayanara PA-C Unavailable Unavailable Green, M Dayanara PA-C Unavailable Unavailable Green, M Dayanara PA-C Unavailable Unavailable Green, M Dayanara PA-C Unavailable Unavailable Green, M Dayanara PA-C Unavailable Unavailable Green, M Dayanara PA-C Unavailable Unavailable Green, M Dayanara PA-C Unavailable Unavailable Green, M Dayanara PA-C Unavailable Unavailable Green, M Dayanara PA-C Unavailable Unavailable Green, M Dayanara PA-C Unavailable Unavailable Green, M Dayanara PA-C Unavailable Unavailable Green, M Dayanara PA-C Unavailable Unavailable Green, M Dayanara PA-C Unavailable Unavailable Green, M Dayanara PA-C Unavailable Unavailable Green, M Dayanara PA-C Unavailable Unavailable Green, M Dayanara PA-C Unavailable Unavailable Green, M Dayanara PA-C Unavailable Unavailable Green, M Dayanara PA-C Unavailable Unavailable Green, M Dayanara PA-C Unavailable Unavailable Green, M Dayanara PA-C Unavailable Unavailable Green, M Dayanara PA-C Unavailable Unavailable Green, M Dayanara PA-C Unavailable Unavailable Grene, M Dayanara PA-C Unavailable Unavailable Green, M Dayanara PA-C Unavailable Unavailable Green, M Dayanara PA-C Unavailable Unavailable Alfredo QUIROS MD Unavailable Unavailable Alfredo QUIROS MD Unavailable Unavailable Alfredo QUIROS MD Unavailable Unavailable Alfredo QUIROS MD Unavailable Unavailable VENERUSAlfredo MD Unavailable Unavailable VENERUSAlfredo MD Unavailable Unavailable VENERUSAlfredo MD Unavailable Unavailable VENERUSAlfredo MD Unavailable Unavailable VENERUSAlfredo MD Unavailable Unavailable NO, PCP Unavailable Unavailable Re-disclosure Warning The records that you are about to access may contain information from federally-assisted alcohol or drug abuse programs. If such information is present, then the following federally mandated warning applies: This information has been disclosed to you from records protected by federal confidentiality rules (42 CFR part 2). The federal rules prohibit you from making any further disclosure of this information unless further disclosure is expressly permitted by the written consent of the person to whom it pertains or as otherwise permitted by 42 CFR part 2. A general authorization for the release of medical or other information is NOT sufficient for this purpose. The Federal rules restrict any use of the information to criminally investigate or prosecute any alcohol or drug abuse patient.The records that you are about to access may contain highly sensitive health information, the redisclosure of which is protected by Article 27-F of the [facility] Public Health law. If you continue you may have access to information: Regarding HIV / AIDS; Provided by facilities licensed or operated by the [facility] Office of Mental Health; or Provided by the [facility] Office for People With Developmental Disabilities. If such information is present, then the following [facility] mandated warning applies: This information has been disclosed to you from confidential records which are protected by state law. State law prohibits you from making any further disclosure of this information without the specific written consent of the person to whom it pertains, or as otherwise permitted by law. Any unauthorized further disclosure in violation of state law may result in a fine or mcc sentence or both. A general authorization for the release of medical or other information is NOT sufficient authorization for further disc losure. Allergies and Adverse Reactions Type Description Substance Reaction Status Data Source(s ) Food allergy fish fish [facility] CLASS PCN (penicillin) PCN (penicillin) RASH Ca rtge [facility] Drug allergy ketorolac ketorolac Confusion U [facility] Drug allergy tramadol Tramadol Urticaria [place] [facility] Drug allergy Penicillins Penicillin rash,itching SV [facility] Food allergy FISH FISH itching,swelling MO [facility] Drug allergy Drug allergy tramadol [facility] Drug allergy Drug allergy Penicillins [facility] Family History Family Member Name Family Member Gender Family Member Status Date o f Status Description Data Source(s) Unknown Condition [facility] Unknown Condition [facility] Unknown Condition [facility] Unknown Condition [facility] Unknown Condition [facility] Unknown Condition [facility] Unknown Condition [facility] Unknown Condition [facility] Unknown Condition [facility] Unknown Condition [facility] Unknown Condition [facility] Unknown Condition [facility] Unknown Condition [facility] Encounters Encounter Providers Location Date Indications Data Source(s ) Emergency Attender: DARNELL KAYConsultant: COURTNEY Martinez MD 03/15/2020 04:29:00 PM [facility] - 03/15/2020 05:45:00 PM [facility] Patient discharged. Emergency Attender: Deion Mclaughlin MD 10:29:00 PM [facility] - 03/13/2020 01:13:00 AM EST LOW BACK/LEG PAIN [facility] LOW BACK/LEG PAIN Patient discharged. Outpatient Attender: Dayanara ZACARIASCConsultant: PCP NO 03/09/2020 12:59:00 PM [facility] - 03/09/2020 12:59:[address] [facility] Outpatient Attender: Martir Wilburn FNPConsultant: PCP NO 03/07/2020 12:49:00 PM EST - 03/07/2020 12:49:00 PM [facility] Emergency Attender: Morales Bauer MD 02/27 08:00:00 PM [facility] - 02/29/2020 02:11:00 AM EST LOWER BACK AND LEG PAIN [facility] LOWER BACK AND LEG PAIN Patient discharged. Emergency Attender: Meche Chavez MD 02/23 09:46:00 PM EST - 02/25/2020 12:00:00 AM EST BACK PAIN, LEG PAIN [facility] BACK PAIN, LEG PAIN Patient discharged. Emergency Attender: VÍCTOR Piñaant: PCP NO 02/24/2020 05:01:00 PM EST - 02/24/2020 06:21:00 PM EST [facility] Patient discharged. Emergency Attender: CARRIE Payneerrer: Gutierrez Moreau PA-C 01/21/2020 09:34:00 PM EST - 01/21/2020 09:50:00 PM [facility] Patient discharged. Emergency Attender: Meche Chavez MD 01/02 12:06:00 AM EST - 01/03/2020 02:27:00 AM EST BACK AND LEG PAIN [facility] BACK AND LEG PAIN Patient discharged. Outpatient Attender: Juan Limon MD 12/28/2019 12:56:01 PM EST [facility] Juan Limon MD: [address] [place] [phone], Ph. Attender: Juan Limon MD MD - [facility] Medical 12/28/2019 12:00:00 AM EST [facility] ([facility]) Emergency Attender: DARNELL Colonsultant: PCP NO 11/29/2019 10:52:00 PM EDT - 11/30/2019 12:57:00 AM EDT [facility] Patient discharged. Emergency Attender: CARRIE Dennisoner: Gutierrez Moreau PA-C 11/28/2019 12:28:00 AM EDT - 11/28/2019 12:46:[address] [facility] Patient discharged. Outpatient Attender: Juan PHELAN 11/24/2019 02:21:01 PM EDT [facility] Emergency Attender: Deion Pierre MD 10/26 02:16:00 PM EDT - 11/21/2019 04:23:00 PM EDT BACK PAIN [facility] BACK PAIN Patient discharged. Outpatient Attender: ZENY Damicoant: PCP NO 2019 08:00:17 AM EDT - 2019 11:27:00 AM EDT [facility] Patient discharged. Emergency Attender: NIMCO NGUYEN MDConsultant: PCP NO 11/06/2019 10:45:00 PM EDT - 11/07/2019 12:24:00 AM EDT [facility] Patient discharged. Emergency Attender: AUDREY ALINAADRIANEMichelle [facility] ED-ED 10/2019 05:03:00 PM EDT - 10/03/2019 05:51:00 PM EDT BACK AND LEG PAIN [facility] BACK AND LEG PAIN Patient discharged. Emergency Attender: Kevin GANT 10/01 12:26:00 AM EDT - 10/02/2019 01:06:[address] [facility] Patient discharged. Outpatient Attender: Juan PHELAN 10/01/2019 10:46:01 AM EDT [facility] Emergency Attender: Morales Bauer MDAttender: Deion patel MD 09/30/2019 05:13:00 PM EDT - 09/30/2019 07:54:00 PM EDT BACK PAIN [facility] BACK PAIN Patient discharged. Outpatient Attender: Juan PHELAN 08/31/2019 10:57:02 AM EDT [facility] Emergency Attender: Morales Bauer MD 08/29 07:30:00 PM EDT - 08/30/2019 08:56:00 PM EDT BACK PAIN [facility] BACK PAIN Patient discharged. Emergency Attender: Sorin Blair [employer] ED-ED 08/27 02:40:00 PM EDT - 08/28/2019 03:45:00 PM EDT LOWER BACK PAIN [facility] LOWER BACK PAIN Patient discharged. Emergency Attender: Yadira Moeller RPA-CReferrer: Gutierrez Moreau PA-C 08/27/2019 04:47:00 PM EDT - 08/27/2019 05:15:[address] [facility] Patient discharged. Outpatient Attender: Juan PHELAN 08/19/2019 09:03:00 AM EDT [facility] Outpatient Attender: Juan PHELAN 08/18/2019 12:50:00 PM EDT [facility] Outpatient Attender: Juan PHELAN 08/18/2019 09:59:01 AM EDT [facility] Outpatient Attender: Juan PHELAN 08/18/2019 09:45:00 AM EDT [facility] Outpatient Attender: Juan PHELAN 08/17/2019 03:14:00 PM EDT [facility] Emergency Attender: Deion Pierre MD 07/25 10:08:00 PM EDT - 08/07/2019 11:52:00 PM EDT BACKPAIN [facility] BACKNEIN Patient discharged. Outpatient Attender: Juan Limon MD 08/03/2019 07:40:49 PM EDT [facility] Emergency Attender: JAKE QUIROS MDConsultant: PCP NO 07/30/2019 08:11:00 PM EDT - 07/30/2019 09:16:00 PM EDT [facility] Patient discharged. Outpatient Attender: MORALES WIGGINSConsultant: PCP NO 06/09/2019 08:50:00 AM EDT - 06/09/2019 08:50:00 AM EDT [facility] Emergency Attender: Deion Pierre MD 05/25 02:47:00 PM EDT - 06/07/2019 03:40:00 PM EDT BACK PAIN [facility] BACK PAIN Patient discharged. Emergency Attender: ABHIJEET Payneerrer: Melba Moreau PA-C 05/24/2019 09:09:00 PM EDT - 05/24/2019 09:43:[address] [facility] Patient discharged. Outpatient Attender: Juan Limon MD 05/06/2019 11:22:53 AM EDT [facility] Emergency Attender: CARRIE CARSON PAReferrer: Gutierrez Moreau PA-C 05/05/2019 06:50:00 PM EDT - 05/05/2019 07:19:[address] [facility] Patient discharged. Emergency Attender: Silvio Hicks MD 11/2019 02:52:00 PM EDT - 05/04/2019 04:59:00 PM EDT BACK PAIN [facility] BACK PAIN Patient discharged. Emergency Attender: JAKE QUIROS MDConsultant: PCP NO 05/02/2019 12:43:10 PM EDT - 05/02/2019 03:26:00 PM EDT [facility] Patient discharged. Emergency Attender: Deion Pierre MD 08/2019 03:53:00 PM EST - 05/01/2019 04:50:00 PM EST BACK PAIN [facility] BACK PAIN Patient discharged. Emergency Attender: SANDY INGRAM MDConsultant: PCP NO 04/30/2019 06:21:00 PM EST - 04/30/2019 09:23:00 PM [facility] Patient discharged. Emergency Attender: MELBA GARCIA PAReferrer: Jax Moreau PA-C 03/04/2019 06:16:00 PM EST - 03/04/2019 06:40:00 PM [facility] Patient discharged. Outpatient Attender: Juan PHELAN 01/27/2019 10:12:00 AM [facility] Emergency Attender: DARNELL KAYConsultant: PCP NO 01/26/2019 12:42:00 AM EST - 01/26/2019 02:25:00 AM EST [facility] Patient [facility] Emergency Attender: DEISY MONTOYAReferrer: Melba Moreau PA-C 09/01/2018 11:06:00 PM EDT - 09/01/2018 11:32:00 PM [facility] Emergency Attender: CARRIE GANT 09:54:00 PM EDT - 07/20/2017 10:15:00 PM [facility] Emergency Attender: Karl NATARAJAN EMERGENCY ROOM-ER 0 03/25/2017 02:05:00 PM EST - 03/22/2017 10:00:00 AM [facility] Medications Medication Brand Name Start Date Product Form Dose Route Admi nistrative Instructions Pharmacy Instructions Status Indications Reaction Description Data Source(s) 5-325 mg 03/13/2020 12:00:00 AM EST tablet 10 TAKE ONE TABLET BY MOUTH EVERY 6 HOURS NEEDED FOR PAIN - MAXIMUM DAILY DOSE = 4 TAKE ONE TABLET BY MOUTH EVERY 6 HOURS NEEDED FOR PAIN - MAXIMUM DAILY DOSE = 4 SOLD: 03/13/2020 [facility] 10 mg 03/09/2020 12:00:00 AM EST tablet 30 TAKE ONE TABLET BY MOUTH DAILY AT BEDTIME MAXIMUM DAILY DOSE = ONE TABLET TAKE ONE TABLET BY MOUTH DAILY AT BEDTIME MAXIMUM DAILY DOSE = ONE TABLET SOLD: 03/09/2020 [facility] Acetaminophen 300 MG / Hydrocodone Bitartrate 10 MG Or al Tablet [Vicodin] Vicodin HP 03/07/2020 12:00:00 AM EST active [facility] ([facility]) 10-325 mg 03/07/2020 12:00:00 AM EST tablet 2 TAKE ONE TABLET BY MOUTH EVERY DAY NEEDED FOR PAIN MAXIMUM DAILY DOSE = 1 TAKE ONE TABLET BY MOUTH EVERY DAY NEEDED FOR PAIN MAXIMUM DAILY DOSE = 1 SOLD: 03/07/2020 [facility] 10 mg 02/03/2020 12:00:00 AM EST tablet 30 TAKE ONE TABLET BY MOUTH EVERY DAY AT BEDTIME NEEDED MAXIMUM DAILY DOSE = 1 TAKE ONE TABLET BY MOUTH EVERY DAY AT BEDTIME NEEDED MAXIMUM DAILY DOSE = 1 SOLD: 02/04/2020 [facility] 1 mg 02/02/2020 12:00:00 AM EST capsule 30 TAKE ONE CAPSULE BY MOUTH NIGHTLY TAKE ONE CAPSULE BY MOUTH NIGHTLY SOLD: 02/03/2020 [facility] 10-325 mg 02/02/2020 12:00:00 AM EST tablet 180 TAKE ONE TABLET BY MOUTH EVERY 4 HOURS MAXIMUM DAILY DOSE = 6 TAKE ONE TABLET BY MOUTH EVERY 4 HOURS MAXIMUM DAILY DOSE = 6 SOLD: 02/02/2020 [facility] 300 mg 02/02/2020 12:00:00 AM EST capsule 180 TAKE TWO CAPSULES BY MOUTH THREE TIMES A DAY MAXIMUM DAILY DOSE = 6 TAKE TWO CAPSULES BY MOUTH THREE TIMES A DAY MAXIMUM DAILY DOSE = 6 SOLD: 02/03/2020 [facility] quetiapine 300 MG Oral Tablet QUETIAPINE FUMARATE 02/02/2020 12: 00:00 AM EST tablet 60 TAKE TWO TABLETS BY MOUTH AT BED TIME TAKE TWO TABLETS BY MOUTH AT BEDTIME SOLD: 02/03/2020 [facility] 20 mg 02/02/2020 12:00:00 AM EST tablet 120 TAKE ONE TABLET BY MOUTH FOUR TIMES A DAY TAKE ONE TABLET BY MOUTH FOUR TIMES A DAY SOLD: 02/03/2020 [facility] 2.5 mg 02/02/2020 12:00:00 AM EST tablet 30 TAKE 1 TABLET BY MOUTH EVER NIGHT TAKE 1 TABLET BY MOUTH EVER NIGHT SOLD: 02/03/2020 [facility] 10 mg 01/06/2020 12:00:00 AM EST tablet 27 TAKE ONE TABLET BY MOUTH AT BEDTIME NEEDED, MAXIMUM DAILY DOSE = ONE TABLET TAKE ONE TABLET BY MOUTH AT BEDTIME NEEDED, MAXIMUM DAILY DOSE = ONE TABLET SOLD: 01/06/2020 [facility] 10-325 mg 01/03/2020 12:00:00 AM EST tablet 180 TAKE ONE TABLET BY MOUTH EVERY 4 HOURS, MAXIMUM DAILY DOSE = 6 TAKE ONE TABLET BY MOUTH EVERY 4 HOURS, MAXIMUM DAILY DOSE = 6 SOLD: 01/03/2020 [facility] 10 mg 01/02/2020 12:00:00 AM EST tablet 4 TAKE ONE TABLET BY MOUTH EVERY DAY NEEDED FOR SLEEP - MAXIMUM DAILY DOSE = 1 TAKE ONE TABLET BY MOUTH EVERY DAY NEEDED FOR SLEEP - MAXIMUM DAILY DOSE = 1 SOLD: 01/02/2020 [facility] quetiapine 100 MG Oral Tablet QUETIAPINE FUMARATE 01/01/2020 12: 00:00 AM EST tablet 4 TAKE ONE TABLET BY MOUTH AT BEDT [place] TAKE ONE TABLET BY MOUTH AT BEDTIME SOLD: 01/01/2020 [facility] 300 mg 12/04/2019 12:00:00 AM EDT capsule 180 TAKE TWO CAPSULES BY MOUTH THREE TIMES A DAY TAKE TWO CAPSULES BY MOUTH THREE TIMES A DAY SOLD: 0 [facility] 10 mg 12/04/2019 12:00:00 AM EDT tablet 30 TAKE ONE TABLET BY MOUTH AT BEDTIME NEEDED - MAXIMUM DAILY DOSE = 1 TAKE ONE TABLET BY MOUTH AT BEDTIME NEEDED - MAXIMUM DAILY DOSE = 1 SOLD: 12/04/2019 [facility] 10-325 mg 12/04/2019 12:00:00 AM EDT tablet 180 TAKE ONE TABLET BY MOUTH EVERY 4 HOURS - MAXIMUM DAILY DOSE = 6 TAKE ONE TABLET BY MOUTH EVERY 4 HOURS - MAXIMUM DAILY DOSE = 6 SOLD: 12/04/2019 [facility] 300 mg 12/04/2019 12:00:00 AM EDT capsule 180 TAKE TWO CAPSULES BY MOUTH THREE TIMES A DAY TAKE TWO CAPSULES BY MOUTH THREE TIMES A DAY SOLD: 0 [facility] 50 mg 12/03/2019 12:00:00 AM EDT tablet 60 TAKE TWO TABLETS BY MOUTH AT BEDTIME TAKE TWO TABLETS BY MOUTH AT BEDTIME SOLD: 02/08/2020 [facility] 50 mg 12/03/2019 12:00:00 AM EDT tablet 60 TAKE TWO TABLETS BY MOUTH AT BEDTIME TAKE TWO TABLETS BY MOUTH AT BEDTIME SOLD: 01/01/2020 [facility] 50 mg 12/03/2019 12:00:00 AM EDT tablet 60 TAKE TWO TABLETS BY MOUTH AT BEDTIME TAKE TWO TABLETS BY MOUTH AT BEDTIME SOLD: 12/04/2019 [facility] quetiapine 100 MG Oral Tablet QUETIAPINE FUMARATE 11/30/2019 12: 00:00 AM EDT tablet 5 TAKE ONE TABLET BY MOUTH AT BEDT [place] NEEDED TAKE ONE TABLET BY MOUTH AT BEDTIME NEEDED SOLD: 11/30/2019 [facility] quetiapine 100 MG Oral Tablet QUETIAPINE FUMARATE 11/22/2019 12: 00:00 AM EDT tablet 5 TAKE ONE TABLET BY MOUTH EVERY E VENING TAKE ONE TABLET BY MOUTH EVERY EVENING SOLD: 11/22/2019 [facility] quetiapine 100 MG Oral Tablet QUETIAPINE FUMARATE 11/08/2019 12: 00:00 AM EDT tablet 5 TAKE ONE TABLET BY MOUTH EVERY 1 2 HOURS TAKE ONE TABLET BY MOUTH EVERY 12 HOURS SOLD: 11/08/2019 [facility] 10 mg 11/05/2019 12:00:00 AM EDT tablet 30 TAKE ONE TABLET BY MOUTH AT BEDTIME NEEDED - MAXIMUM DAILY DOSE = 1 TAKE ONE TABLET BY MOUTH AT BEDTIME NEEDED - MAXIMUM DAILY DOSE = 1 SOLD: 11/05/2019 [facility] 10-325 mg 11/05/2019 12:00:00 AM EDT tablet 180 TAKE ONE TABLET BY MOUTH EVERY 4 HOURS - MAXIMUM DAILY DOSE = 6 TAKE ONE TABLET BY MOUTH EVERY 4 HOURS - MAXIMUM DAILY DOSE = 6 SOLD: 11/05/2019 [facility] 300 mg 11/04/2019 12:00:00 AM EDT capsule 180 TAKE TWO CAPSULES BY MOUTH THREE TIMES A DAY - MAXIMUM DAILY DOSE = 6 TAKE TWO CAPSULES BY MOUTH THREE TIMES A DAY - MAXIMUM DAILY DOSE = 6 SOLD: 11/04/2019 [facility] 10-325 mg 10/07/2019 12:00:00 AM EDT tablet 180 TAKE ONE TABLET BY MOUTH EVERY 4 HOURS - MAXIMUM DAILY DOSE = 6 TAKE ONE TABLET BY MOUTH EVERY 4 HOURS - MAXIMUM DAILY DOSE = 6 SOLD: 10/07/2019 [facility] 10 mg 10/07/2019 12:00:00 AM EDT tablet 30 TAKE ONE TABLET BY MOUTH AT BEDTIME NEEDED - MAXIMUM DAILY DOSE = 1 TAKE ONE TABLET BY MOUTH AT BEDTIME NEEDED - MAXIMUM DAILY DOSE = 1 SOLD: 10/07/2019 [facility] 10-325 mg 09/08/2019 12:00:00 AM EDT tablet 180 TAKE ONE TABLET BY MOUTH EVERY 4 HOURS MAXIMUM DAILY DOSE = 6 TAKE ONE TABLET BY MOUTH EVERY 4 HOURS MAXIMUM DAILY DOSE = 6 SOLD: 09/08/2019 [facility] 10 mg 09/08/2019 12:00:00 AM EDT tablet 30 TAKE ONE TABLET BY MOUTH AT BEDTIME NEEDED MAXIMUM DAILY DOSE = 1 TAKE ONE TABLET BY MOUTH AT BEDTIME NEEDED MAXIMUM DAILY DOSE = 1 SOLD: 09/08/2019 [facility] 20 mg 09/07/2019 12:00:00 AM EDT tablet 120 TAKE ONE TABLET BY MOUTH FOUR TIMES A DAY TAKE ONE TABLET BY MOUTH FOUR TIMES A DAY SOLD: 09/08/2019 [facility] Ibuprofen 800 MG Oral Tablet Ibuprofen 08/30/2019 07:48:09 PM EDT 800 MG active [facility] Ibuprofen 800 MG Oral Tablet Ibuprofen 08/30/2019 07:48:09 PM EDT 800 MG [facility] Ibuprofen 800 MG Oral Tablet Ibuprofen 08/30/2019 07:48:09 PM EDT 800 MG [facility] Ibuprofen 800 MG Oral Tablet Ibuprofen 08/30/2019 07:48:09 PM EDT 800 MG [facility] Ibuprofen 800 MG Oral Tablet Ibuprofen 08/30/2019 07:48:09 PM EDT 800 MG [facility] Ibuprofen 800 MG Oral Tablet Ibuprofen 08/30/2019 07:48:09 PM EDT 800 MG [facility] Ibuprofen 800 MG Oral Tablet Ibuprofen 08/30/2019 07:48:09 PM EDT 800 MG [facility] 10-325 mg 08/11/2019 12:00:00 AM EDT tablet 180 TAKE ONE TABLET BY MOUTH EVERY 4 HOURS MAXIMUM DAILY DOSE = 6 TAKE ONE TABLET BY MOUTH EVERY 4 HOURS MAXIMUM DAILY DOSE = 6 SOLD: 08/11/2019 [facility] 10 mg 08/09/2019 12:00:00 AM EDT tablet 30 TAKE ONE TABLET BY MOUTH EVERY DAY AT BEDTIME NEEDED MAXIMUM DAILY DOSE = 1 TAKE ONE TABLET BY MOUTH EVERY DAY AT BEDTIME NEEDED MAXIMUM DAILY DOSE = 1 SOLD: 08/10/2019 [facility] quetiapine 300 MG Oral Tablet [Seroquel] Quetiapine (S eroquel) 300 mg Tablet Quetiapine (Seroquel) 300 mg Tablet 08/07/2019 11:08:32 PM EDT 300 MG active [facility] quetiapine 300 MG Oral Tablet Quetiapine (Seroquel) 30 0 mg Tablet Quetiapine (Seroquel) 300 mg Tablet 08/07/2019 11:08:32 PM EDT 300 MG active [facility] quetiapine 300 MG Oral Tablet Quetiapine (Seroquel) 30 0 mg Tablet Quetiapine (Seroquel) 300 mg Tablet 08/07/2019 11:08:32 PM EDT 300 MG active [facility] quetiapine 300 MG Oral Tablet Quetiapine (Seroquel) 30 0 mg Tablet Quetiapine (Seroquel) 300 mg Tablet 08/07/2019 11:08:32 PM EDT 300 MG active [facility] quetiapine 300 MG Oral Tablet Quetiapine (Seroquel) 30 0 mg Tablet Quetiapine (Seroquel) 300 mg Tablet 08/07/2019 11:08:32 PM EDT 300 MG active [facility] quetiapine 300 MG Oral Tablet [Seroquel] Quetiapine Quetiapi ne 08/07/2019 11:08:32 PM EDT 300 MG active [facility] quetiapine 300 MG Oral Tablet Quetiapine (Seroquel) 30 0 mg Tablet Quetiapine (Seroquel) 300 mg Tablet 08/07/2019 11:08:32 PM EDT 300 MG active [facility] quetiapine 300 MG Oral Tablet [Seroquel] Quetiapine (S eroquel) 300 mg Tablet Quetiapine (Seroquel) 300 mg Tablet 08/07/2019 11:08:32 PM EDT 300 MG active [facility] Cyclobenzaprine hydrochloride 10 MG Oral Tablet CYCLOBENZAPR INE HCL 07/31/2019 12:00:00 AM EDT tablet 15 TAKE ONE TABLET BY MOUTH EVERY 8 HOURS NEEDED FOR MUSCLE SPASM TAKE ONE TABLET BY MOUTH EVERY 8 HOURS NEEDED FOR M USCLE SPASM SOLD: 08/10/2019 [facility] 10-325 mg 07/13/2019 12:00:00 AM EDT tablet 180 TAKE ONE TABLET BY MOUTH EVERY 4 HOURS MAXIMUM DAILY DOSE = 6 TAKE ONE TABLET BY MOUTH EVERY 4 HOURS MAXIMUM DAILY DOSE = 6 SOLD: 07/13/2019 [facility] 50 mg 07/09/2019 12:00:00 AM EDT tablet 60 TAKE TWO TABLETS BY MOUTH EVERY NIGHT AT BEDTIME TAKE TWO TABLETS BY MOUTH EVERY NIGHT AT BEDTIME SOLD: 07/09/2019 [facility] 10 mg 07/09/2019 12:00:00 AM EDT tablet 30 TAKE ONE TABLET BY MOUTH AT BEDTIME NEEDED, MAXIMUM DAILY DOSE = 1 TAKE ONE TABLET BY MOUTH AT BEDTIME NEEDED, MAXIMUM DAILY DOSE = 1 SOLD: 07/09/2019 [facility] 10-325 mg 07/08/2019 12:00:00 AM EDT tablet 42 TAKE ONE TABLET BY MOUTH EVERY 4 HOURS MAXIMUM DAILY DOSE = 6 TAKE ONE TABLET BY MOUTH EVERY 4 HOURS MAXIMUM DAILY DOSE = 6 SOLD: 07/08/2019 [facility] 10 mg 06/10/2019 12:00:00 AM EDT tablet 30 TAKE ONE TABLET BY MOUTH AT BEDTIME NEEDED - MAXIMUM DAILY DOSE = 1 TAKE ONE TABLET BY MOUTH AT BEDTIME NEEDED - MAXIMUM DAILY DOSE = 1 SOLD: 06/10/2019 [facility] 300 mg 06/10/2019 12:00:00 AM EDT capsule 180 TAKE TWO CAPSULES BY MOUTH THREE TIMES A DAY TAKE TWO CAPSULES BY MOUTH THREE TIMES A DAY SOLD: 0 [facility] 300 mg 06/10/2019 12:00:00 AM EDT capsule 180 TAKE TWO CAPSULES BY MOUTH THREE TIMES A DAY TAKE TWO CAPSULES BY MOUTH THREE TIMES A DAY SOLD: 0 [facility] 300 mg 06/10/2019 12:00:00 AM EDT capsule 180 TAKE TWO CAPSULES BY MOUTH THREE TIMES A DAY TAKE TWO CAPSULES BY MOUTH THREE TIMES A DAY SOLD: 0 [facility] 300 mg 06/10/2019 12:00:00 AM EDT capsule 180 TAKE TWO CAPSULES BY MOUTH THREE TIMES A DAY TAKE TWO CAPSULES BY MOUTH THREE TIMES A DAY SOLD: 0 [facility] 10-325 mg 06/09/2019 12:00:00 AM EDT tablet 180 TAKE ONE TABLET BY MOUTH EVERY 4 HOURS MAXIMUM DAILY DOSE = 6 TABLETS TAKE ONE TABLET BY MOUTH EVERY 4 HOURS MAXIMUM DAILY DOSE = 6 TABLETS SOLD: 06/09/2019 [facility] 10-325 mg 05/29/2019 12:00:00 AM EDT tablet 60 TAKE ONE TABLET BY MOUTH EVERY 4 HOURS, MAXIMUM DAILY DOSE = 6 TAKE ONE TABLET BY MOUTH EVERY 4 HOURS, MAXIMUM DAILY DOSE = 6 SOLD: 05/29/2019 [facility] 20 mg 05/25/2019 12:00:00 AM EDT tablet 15 TAKE THREE TABLETS BY MOUTH EVERY DAY TAKE THREE TABLETS BY MOUTH EVERY DAY SOLD: 05/29/2019 [facility] 10-325 mg 05/11/2019 12:00:00 AM EDT tablet 120 TAKE ONE TABLET BY MOUTH EVERY 6 HOURS, MAXIMUM DAILY DOSE = 4 TABLETS TAKE ONE TABLET BY MOUTH EVERY 6 HOURS, MAXIMUM DAILY DOSE = 4 TABLETS SOLD: 05/11/2019 [facility] 10 mg 05/11/2019 12:00:00 AM EDT tablet 30 TAKE ONE TABLET BY MOUTH AT BEDTIME NEEDED, MAXIMUM DAILY DOSE = 1 TABLET TAKE ONE TABLET BY MOUTH AT BEDTIME NEEDED, MAXIMUM DAILY DOSE = 1 TABLET SOLD: 05/11/2019 [facility] 50 mg 05/02/2019 12:00:00 AM EST tablet 3 TAKE ONE TABLET BY MOUTH EVERY DAY 30-60 MINUTES BEFORE SLEEP TAKE ONE TABLET BY MOUTH EVERY DAY 30-60 MINUTES BEFORE SLEEP SOLD: 05/03/2019 [facility] Methylprednisolone Methylprednisolone 05/01/2019 04:25:45 PM EST 0 completed [facility] Methylprednisolone Methylprednisolone (Medrol (Jt)) 4 mg tablets,dose pack Methylprednisolone (Medrol (Jt)) 4 mg tablets,dose pack 05/01/2019 04:25:45 PM EST 0 completed [facility] Methylprednisolone Methylprednisolone (Medrol (Jt)) 4 mg tablets,dose pack Methylprednisolone (Medrol (Jt)) 4 mg tablets,dose pack 05/01/2019 04:25:45 PM EST 0 completed [facility] Methylprednisolone Methylprednisolone 05/01/2019 04:25:45 PM EST 0 active [facility] Methylprednisolone Methylprednisolone (Medrol (Jt)) 4 mg tablets,dose pack Methylprednisolone (Medrol (Jt)) 4 mg tablets,dose pack 05/01/2019 04:25:45 PM EST 0 completed [facility] Methylprednisolone Methylprednisolone 05/01/2019 04:25:45 PM EST 0 active [facility] Methylprednisolone Methylprednisolone (Medrol (Jt)) 4 mg tablets,dose pack Methylprednisolone (Medrol (Jt)) 4 mg tablets,dose pack 05/01/2019 04:25:45 PM EST 0 completed [facility] Methylprednisolone Methylprednisolone (Medrol (Jt)) 4 mg tablets,dose pack Methylprednisolone (Medrol (Jt)) 4 mg tablets,dose pack 05/01/2019 04:25:45 PM EST 0 completed [facility] Methylprednisolone Methylprednisolone (Medrol (Jt)) 4 mg tablets,dose pack Methylprednisolone (Medrol (Jt)) 4 mg tablets,dose pack 05/01/2019 04:25:45 PM EST 0 completed [facility] Methylprednisolone Methylprednisolone 05/01/2019 04:25:45 PM EST 0 completed [facility] Methylprednisolone Methylprednisolone (Medrol (Jt)) 4 mg tablets,dose pack Methylprednisolone (Medrol (Jt)) 4 mg tablets,dose pack 05/01/2019 04:25:45 PM EST 0 completed [facility] 10 mg 04/09/2019 12:00:00 AM EST tablet 30 TAKE ONE TABLET BY MOUTH AT BEDTIME NEEDED MAXIMUM DAILY DOSE = 1 TAKE ONE TABLET BY MOUTH AT BEDTIME NEEDED MAXIMUM DAILY DOSE = 1 SOLD: 04/09/2019 [facility] 10-325 mg 04/09/2019 12:00:00 AM EST tablet 180 TAKE ONE TABLET BY MOUTH EVERY 4 HOURS MAXIMUM DAILY DOSE = 6 TAKE ONE TABLET BY MOUTH EVERY 4 HOURS MAXIMUM DAILY DOSE = 6 SOLD: 04/09/2019 [facility] 10 mg 03/11/2019 12:00:00 AM EST tablet 30 TAKE ONE TABLET BY MOUTH AT BEDTIME NEEDED, MAXIMUM DAILY DOSE = 1 TABLET TAKE ONE TABLET BY MOUTH AT BEDTIME NEEDED, MAXIMUM DAILY DOSE = 1 TABLET SOLD: 03/11/2019 [facility] 10-325 mg 03/11/2019 12:00:00 AM EST tablet 180 TAKE ONE TABLET BY MOUTH EVERY 4 HOURS, MAXIMUM DAILY DOSE = 6 TABLETS TAKE ONE TABLET BY MOUTH EVERY 4 HOURS, MAXIMUM DAILY DOSE = 6 TABLETS SOLD: 03/11/2019 [facility] 10-325 mg 02/09/2019 12:00:00 AM EST tablet 180 TAKE ONE TABLET BY MOUTH EVERY 4 HOURS, MAXIMUM DAILY DOSE = 6 TAKE ONE TABLET BY MOUTH EVERY 4 HOURS, MAXIMUM DAILY DOSE = 6 SOLD: 02/09/2019 [facility] 10 mg 02/09/2019 12:00:00 AM EST tablet 30 TAKE ONE TABLET BY MOUTH AT BEDTIME NEEDED, MAXIMUM DAILY DOSE = 10MG TAKE ONE TABLET BY MOUTH AT BEDTIME NEEDED, MAXIMUM DAILY DOSE = 10MG SOLD: 02/09/2019 [facility] 300 mg 11/20/2018 12:00:00 AM EDT capsule 180 TAKE TWO CAPSULES BY MOUTH THREE TIMES A DAY TAKE TWO CAPSULES BY MOUTH THREE TIMES A DAY SOLD: 0 [facility] 300 mg 11/20/2018 12:00:00 AM EDT capsule 180 TAKE TWO CAPSULES BY MOUTH THREE TIMES A DAY TAKE TWO CAPSULES BY MOUTH THREE TIMES A DAY SOLD: 0 [facility] 300 mg 11/20/2018 12:00:00 AM EDT capsule 180 TAKE TWO CAPSULES BY MOUTH THREE TIMES A DAY TAKE TWO CAPSULES BY MOUTH THREE TIMES A DAY SOLD: 9 [facility] 20 mg 11/13/2018 12:00:00 AM EDT tablet 120 TAKE ONE TABLET BY MOUTH FOUR TIMES A DAY TAKE ONE TABLET BY MOUTH FOUR TIMES A DAY SOLD: 04/05/2019 [facility] 20 mg 11/13/2018 12:00:00 AM EDT tablet 120 TAKE ONE TABLET BY MOUTH FOUR TIMES A DAY TAKE ONE TABLET BY MOUTH FOUR TIMES A DAY SOLD: 06/10/2019 [facility] Insurance Providers Payer name Policy type / Coverage type Policy ID Covered alliance party ID Covered alliance party's relationship to odell Policy Odell Plan Information [id number] [id number] [facility] AMERICHOICE XIX -HMO [id number] 18 [id number] [facility] COMMUNTY PLAN [id number] [facility] COMMUNITY PLAN [place] [id number] 18 [id number] [facility] COMMUNITY PLAN XIX [id number] 18 [id number] [facility] MEDICAID [id number] S [id number] Self Pay P UNAVAILABLE S UNAVAILA BLE [facility] COMMUNITY PLAN XIX -RECURRING [id number] 18 [id number] [facility](MCAID) O [id number] S [id number] [facility] O [id number] S [id number] [facility]) O [id number] S [id number] [facility] COMMUNITY PL [id number] S [id number] [facility] MEDICAID [id number] S [id number] [facility] COMMUNITY PLAN [facility] [id number] SP [id number] MEDICAID [id number] SP [id number] [facility] COMMUNITY PLAN [facility] [id number] SP [id number] [facility] MEDICAID [id number] S [id number] [facility] MEDICAID [id number] S [id number] [facility] [id number] S [id number] MEDICAID [id number] [facility] COMMUNITY PLAN XIX [id number] 18 [id number] [facility] COMMUNITY PLAN XIX [id number] 18 [id number] MEDICAID -O/P EMERGENCY ROOM [id number] 18 [id number] [facility] MEDICAID [id number] S [id number] [facility] COMMUNITY PLAN MCDHMO [id number] SP [id number] [facility] COMMUNITY PLAN MCDHMO [id number] SP [id number] [facility] INTERACTIVE MEDIA DIRECTOR DEPT [id number] SP [id number] SELF PAY ONLY [id number] SP [id number] [facility] COMMUNITY PLAN MCDHMO [id number] SP [id number] [facility] COMMUNITY PLAN MCDHMO [id number] SP [id number] Medicaid S [id number] S [id number] Managed Care - Community Plan [facility] P [id number] S [id number] [facility] MEDICAID [facility] HMO [id number] S [id number] UN[facility] WELL 4 ME [facility] HMO [id number] S [id number] PRIVATE PAY CO UNAVAILABLE [address] [facility] CO [id number] 18 [id number] [facility] AMERICHOICE XIX -HMO [id number] 18 [id number] MEDICAID -O/P [id number] Private Pay Commercial [id number] Self [id number] [facility] COMMUNITY PLAN [id number] 18 [id number] [facility] COMMUNITY PLAN MCDHMO [id number] SP [id number] [facility] MEDICAID [facility] HMO [id number] S [id number] SELF PAY ONLY [id number] SP [id number] [facility] COMMUNITY PLAN MCDHMO [id number] SP [id number] Un[facility] Community Plan Medicaid Self [facility] COMMUNITY PLAN MC [id number] 18 [id number] UN[facility] COMMUNITY PLAN MCDHMO [id number] SP [id number] Medicaid S [id number] S [id number] Managed Care - Community Plan [facility] P [id number] S [id number] [facility] [id number] SP [id number] [facility] [id number] SP [id number] Medicaid P [id number] S [id number] [facility](MCAID) O [id number] S [id number] [facility] [id number] S [id number] SELF PAY UNAVAILABLE SP UNAVAILA BLE C I [id number] Self [id number] MEDICAID [place] [id number] S [id number] [id number] SP [id number] [place] COMMERCIAL ADMINISTRATOR DEP [id number] SP [id number] [facility] [id number] SP [id number] MEDICAID M [id number] Self [id number] AMERICHOICE UNHC XIX PHY -HMO [id number] 18 [id number] Medicaid S [id number] S [id number] UN[facility] AMERICHOICE XIX HMO [id number] 18 [id number] EXCELLUS I [id number] Self [id number] MEDICAID - CLINIC [id number] MEDICAID APPLYING UNAVAILABLE UNAVAILABLE SELF-PAY UNAVAILABLE S UNAVAILA BLE BLUE CROSS POLK PLAN [id number] SP [id number] BLUE CHOICE OPTION O [id number] S [id number] MEDICAID W [id number] S [id number] BLUE CROSS BLUE SHIELD-O/P [id number] 18 [id number] SELF PAY SP UNAVAILABLE S UNAVAILA BLE BCBS [facility] HMO [id number] S [id number] BLUE CROSS BLUE SHIELD-PHYSICIAN [id number] 18 [id number] MEDICAID P [id number] S [id number] [facility] COMMUNITY PLAN MCDO [id number] SP [id number] Problems, Conditions, and Diagnoses Code Display Name Description Problem Type Effective Dates Data Source(s) 334539264 Clinical finding Clinical Finding Problem 12/09/2019 06 :28:26 PM EDT CAGUAS ([facility]) 196833020 SNOMED CT Concept SNOMED CT Concept Problem 12/08 06:28:26 PM EDT [facility] ([facility]) 25146835 Osteoporosis Osteoporosis Problem 12/09/2019 06:28:26 P M EDT [facility] ([facility]) 822830425 Arthropathy Arthropathy Problem 12/09/2019 06:28:26 PM EDT [facility] ([facility]) 22066934 Chronic obstructive lung disease Chronic Obstruc tive Lung Disease Problem 12/09/2019 06:28:26 PM EDT SANCHEZ ([facility]) 988316782 Family problems Family problems Problem 06/09/2019 12:0 0:00 AM EDT MEDENT ([facility]) 24466111 Antisocial personality disorder Antisocial perso nality disorder Problem 06/09/2019 12:00:00 AM EDT MEDENT ([facility]) K4090 Unilateral inguinal hernia, without obstruction or gangrene, not specified as recurrent Unilateral inguinal hernia, without obst ruction or gangrene, not specified as recurrent Diagnosis 03/09/2020 12:59:00 PM [facility] L99116 Personal history of traumatic brain inju ry Personal history of traumatic brain injury Diagnosis 03/09/2020 12:59:00 PM [facility] Z90294 Nicotine dependence, cigarettes, uncompl icated Nicotine dependence, cigarettes, uncomplicated Diagnosis 03/09/2020 12:59:00 PM [facility] R0602 Shortness of breath Shortness of breath Diagnosis 0 03/09/2020 12:59:00 PM [facility] R0789 Other chest pain Other chest pain Diagnosis 03/09/2020 12 :59:00 PM [facility] G4700 Insomnia, unspecified Insomnia, unspecified Diagnosis 03/09/2020 12:59:00 PM [facility] F6081 Narcissistic personality disorder Narcissistic p ersonality disorder Diagnosis 03/09/2020 12:59:00 PM [facility] F6381 Intermittent explosive disorder Intermittent explosive disorder Diagnosis 03/09/2020 12:59:00 PM [facility] F602 Antisocial personality disorder Antisocial personality disorder Diagnosis 03/09/2020 12:59:00 PM [facility] M533 Sacrococcygeal disorders, not elsewhere classified Sacrococcygeal disorders, not elsewhere classified Diagnosis 03/09/2020 12:59:00 PM [facility] 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, thoracic region Other intervertebral disc degeneration, thoracic region Diagnosis 02/24 12:59:00 PM [facility] 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, lumbar region Other intervertebral disc displacement, lumbar region Diagnosis 03/09/2020 12:59:00 PM [facility] 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 Diagnosis 02/24/2020 05:01:00 PM [facility] S62371 Personal history of nicotine dependence Personal history of nicotine dependence Diagnosis 02/24/2020 05:01:00 PM [facility] Z8673 Personal history of transien t ischemic attack (TIA), 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 transient ischemic attack (TIA), and cerebral infarction without residual deficits Diagnosis 02/24/2020 05:01:00 PM [facility] G8929 Other chronic pain Other chronic pain Diagnosis 05:01:00 PM [facility] M545 Low back pain Low back pain Diagnosis 02/24/2020 05:01:00 PM [facility] 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 ANALGESIC Diagnosis 01/21/2020 09:34:00 PM [facility] l G89.29 Other chronic pain OTHER CHRONIC PAIN Diagnosis 09:34:00 PM [facility] F17.210 Nicotine dependence, cigarettes, uncompl icated NICOTINE DEPENDENCE, CIGARETTES, UNCOMPLICATED Diagnosis 01/21/2020 09:34:00 PM [facility] M54.5 Low back pain LOW BACK PAIN Diagnosis 01/21/2020 09:34:00 PM [facility] F5109 Other insomnia not due to a substance or known physiological condition Other insomnia not due to a substance or known physiological condition Diagnosis 11/29/2019 10:52:00 PM [facility] Z79.899 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) drug therapy O THER SNF (CURRENT) DRUG THERAPY Diagnosis 11/28/2019 12:28:00 AM [facility] l M51.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 disc disorders with radic ulopathy, lumbar region INTERVERTEBRAL DISC DISORDERS W RADICULOPATHY, LUM Diagnosis 05/2019 12:28:00 AM [facility] Z0271 Encounter for disability determination E ncounter for disability determination Diagnosis 2019 12:43:00 PM [facility] W77087 Nicotine dependence, unspecified, uncomp licated Nicotine dependence, unspecified, uncomplicated Diagnosis 11/06/2019 10:45:00 PM [facility] F419 Anxiety disorder, unspecified Anxiety disorder, unspec ified Diagnosis 11/06/2019 10:45:00 PM [facility] 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 Diagnosi s 11/06/2019 10:45:00 PM [facility] Y92.[address] specified [address] the place of o ccurrence of the external cause OTH PLACES THE PLACE OF OCCURRENCE OF THE EXTER Diagnosis 04/2019 04:47:00 PM [facility] X58.XXXA Exposure to other specified factors, ini tial encounter EXPOSURE TO OTHER SPECIFIED FACTORS, INITIAL ENCOU Diagnosis 08/27/2019 04:47:00 P M [facility] Y93.89 Activity, other specified ACTIVITY, OTHER SPECIFIED Di agnosis 08/27/2019 04:47:00 PM [facility] S39.012A Strain of muscle, fascia and tendon of l ower back, initial encounter STRAIN OF MUSCLE, FASCIA AND TENDON OF LOWER BACK, Diagnosis 04/2019 04:47:00 PM [facility] Y[address] or not applicable Unspecified place or not applicable Diagnosis 07/30/2019 08:11:00 PM [facility] N106RZD Overexertion from strenuous movement or load, initial encounter Overexertion from strenuous movement or load, initial encounter Diagnosis 07/30/2019 08:11:00 PM [facility] M5441 Lumbago with sciatica, right side Lumbago with s ciatica, right side Diagnosis 07/30/2019 08:11:00 PM [facility] M5416 Radiculopathy, lumbar region Radiculopathy, lumbar reg ion Diagnosis 07/30/2019 08:11:00 PM [facility] 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, lumbar region Unspecified inflammatory spondylopathy, lumbar region Diagnosis 07/30/2019 08:11:0 0 PM [facility] F250 Schizoaffective disorder, bipolar type S chizoaffective disorder, bipolar type Diagnosis 07/30/2019 08:11:00 PM [facility] [id number] Strain of muscle, fascia and tendon of l ower back, initial encounter Strain of muscle, fascia and tendon of lower back, initial encounter Diagnosis 07/30/2019 08:11:00 PM EDT [facility] F1210 Cannabis abuse, uncomplicated Cannabis abuse, uncompli cated Diagnosis 06/09/2019 08:50:00 AM EDT [facility] Z630 Problems in relationship with spouse or partner Problems in relationship with spouse or partner Diagnosis 06/09/2019 08:50:00 AM EDT [facility] F51.04 Psychophysiologic insomnia PSYCHOPHYSIOLOGIC INSOMNIA Diagnosis 05/24/2019 09:09:00 PM [facility] M54.16 Radiculopathy, lumbar region RADICULOPATHY, LUMBAR REG ION Diagnosis 05/24/2019 09:09:00 PM [facility] G47.00 Insomnia, unspecified INSOMNIA, UNSPECIFIED Diagnosis 05/05/2019 06:50:00 PM [facility] K13ULIP Exposure to other specified factors, ini tial encounter Exposure to other specified factors, initial encounter Diagnosis [facility] Encounter for issue of repeat prescripti on Encounter for issue of repeat prescription Diagnosis 04/30/2019 06:21:00 PM [facility] F5104 Psychophysiologic insomnia Psychophysiologic insomnia Diagnosis 04/30/2019 06:21:00 PM [facility] M549 Dorsalgia, unspecified Dorsalgia, unspecified Diagnosi s 04/30/2019 06:21:00 PM [facility] M25.551 Pain in right hip PAIN IN RIGHT HIP Diagnosis 03/04 06:16:00 PM [facility] M54.9 Dorsalgia, unspecified DORSALGIA, UNSPECIFIED Diagnosi s 03/04/2019 06:16:00 PM [facility] Surgeries/Procedures Procedure Description Date Indications Data Source(s) CT Abd/pel w/o contrast 02/24/2020 10:42:00 PM [facility] CT Abd/pel w/o contrast 02/24/2020 10:42:00 PM [facility] CT Abd/pel w/o contrast 02/24/2020 10:42:00 PM [facility] electrocardiogram, routine ECG, 12 leads min 0 12:00:00 AM [facility]) Radiography of sacrococcygeal spine (procedure) 2019 11:25:00 PM [facility] Radiography of sacrococcygeal spine (procedure) 2019 11:25:00 PM [facility] Radiography of sacrococcygeal spine (procedure) 2019 11:25:00 PM [facility] Radiography of sacrococcygeal spine (procedure) 2019 11:25:00 PM [facility] Radiography of sacrococcygeal spine (procedure) 2019 11:25:00 PM [facility] Radiography of sacrococcygeal spine (procedure) 2019 11:25:00 PM [facility] Radiography of sacrococcygeal spine (procedure) 2019 11:25:00 PM [facility] Radiography of sacrococcygeal spine (procedure) 2019 11:25:00 PM [facility] CT L-Spine without contrast 05/04/2019 03:55:00 PM [facility] CT L-Spine without contrast 05/04/2019 03:55:00 PM [facility] CT L-Spine without contrast 05/04/2019 03:55:00 PM [facility] CT L-Spine without contrast 05/04/2019 03:55:00 PM [facility] CT L-Spine without contrast 05/04/2019 03:55:00 PM [facility] CT L-Spine without contrast 05/04/2019 03:55:00 PM [facility] CT L-Spine without contrast 05/04/2019 03:55:00 PM [facility] CT L-Spine without contrast 05/04/2019 03:55:00 PM [facility] CT L-Spine without contrast 05/04/2019 03:55:00 PM [facility] CT L-Spine without contrast 05/04/2019 03:55:00 PM [facility] Results ID Date Data Source [id number] 03/15/2020 04:29:00 PM [facility] 1 OrderSheet [facility] Emergency Department [address] [place] [address] Phone #: ext- [phone] 03/15/2020 16:02 Patient: JUAN SPENCER Sex: M : 1975 Age: 44yWEIGHT:56.6 kg (S) HEIGHT:69 inches (S) BMI:18.4ALLERGIES: Penicillins, Seafood, Toradol, TramadolCHIEF COMPLAINT: back pain, back injuryDIAGNOSIS: BackacheLAB ORDERSOrder Description Priority Entered Acknowledged InitialedDIAGNOSTIC STUDY ORDERSOrder Description Priority Entered Acknowledged InitialedSpine Lumbar AP STAT 16:49 03/15/2020 16:50 Sarah,And ANNA Hughes(Oxygen?(No)) PA; Reason for Study: Trauma/InjurySacrum / Coccyx STAT 16:49 03/15/2020 16:50 Sarah,(Oxygen?(No)) Sae Hughes PA; Reason for Study: Trauma/InjuryMEDICATION/IV/DRIP/FLUID ORDERSOrder Description Priority Entered Acknowledged InitialedLidocaine Patch 16:50 03/15/2020 16:58 [facility] (Patch 5 %) Sae Conley RN1 Patch (On for 12 PA;hours, off for 12hours.)Ativan IM 1 mg 16:50 03/15/2020 17:01 [place](HIGH ALERT Sae Conley RNMEDICATION) PA;Tylenol PO 650 mg 16:50 03/15/2020 16:58 Clifton Conley RN PA;predniSONE PO 50 16:50 03/15/2020 16:58 Seng Conley RN PA;GENERAL ORDERSOrder Description Priority Entered Acknowledged Initialed 2 OrderSheet [facility] Emergency Department [address] [place] [address] Phone #: [phone] 03/15/2020 16:02 Patient: JUAN SPENCER Sex: M : 1975 Age: 44y[Electronically signed by Jeaneth Huffman RN (17:48 021)][Electronically signed by Sae Leavitt (22:04 03/15/2020)][Electronically locked by Jeaneth Huffman RN (17:48 03/15/2020)] Name Value Range Interpretation Code Description Data Tete rce(s) Supporting Document(s) ID Date Data Source [id number] 03/15/2020 04:29:00 PM EST [facility] 1 Medication Reconciliation Report [facility] Emergency Department [address] [place] [address] Phone #: ext- [phone] 03/15/2020 16:02 Patient: JUAN SPENCER Sex: M : 1975 Age: 44yWeight: 56.6 kgHeight/Length: 69 in.BMI: 18.4ALLERGIES: Penicillins, Seafood, Toradol, TramadolThe patient's Home Medications are listed below:CONTINUE TAKING THE FOLLOWING MEDICATIONS: Ambien Oral Baclofen Oral Gabapentin Oral SEROquel Oral Vicodin OralThe source(s) of the original Home Medication information:patientThe following Medications were given to the patient in the Emergency Department:Prednisone [PO] PO 50 mg, administered: 16:58 03/15/2020Tylenol [PO] PO 650 mg, administered: 16:58 03/15/2020idocaine Patch Transdermal 1 patch, administered: 16:03/15/2020tivan [IM] IM 1 mg, administered: 17:01 03/15/2020The following Medications were prescribed to the patient:Medrol (Jt) 4 mg tablets in a dose pack Take 1 tablet as directed for 6 days -- Dispense 1 pack.Refills: 0. Substitution permitted.[facility] - [address] [place] [address] [phone]. . 2 Medicati on Reconciliation Report [facility] Emergency Department [address] [place] [address] Phone #: ext- [phone] 03/15/2020 16:02 Patient: JUAN SPENCER Sex: M : 1975 Age: 44ylidocaine 5 % topical patch Apply 1 patch once a day for 5 days -- Dispense 5 patch. Refills: 0.Substitution permitted.Pharmacy [facility] - [address] [place] [address] [phone]. . -- STALIN Nieto Name Value Range Interpretation Code Description Data Tete rce(s) Supporting Document(s) ID Date Data Source [id number] 03/15/2020 04:29:00 PM EST [facility] 1 Medication Administration Record [facility] Emergency Department [address] [place] [address] Phone #: [phone] 03/15/2020 16:02 Patient: JUAN SPENCER Sex: M : 1975 Age: 44yWeight: 56.6 kgHeight/Length: 69 inBMI: 18.4ALLERGIES: Toradol, Tramadol, Seafood, Penicillins Date/Time Medication Administered Medication OrderedGiven LIDOCAINE PATCH Lidocaine Patch Topical (Patch 516:58 03/15/2020 Dose: 1 patch Ointment Transdermal %) 1 Patch (On for 12 hours, Idania Conley RN for 12 hours.)Given ATIVAN [IM] (LORAZEPAM) Ativan IM 1 mg (HIGH ALERT17:01 03/15/2020 Dose: 1 mg IM MEDICATION)Clifton Conley RNGiven TYLENOL [PO] (APAP) Tylenol PO 650 mg16:58 03/15/2020 Dose: 650 mg Tablets Titus Conley RNGiven PREDNISONE [PO] predniSONE PO 50 mg16:58 03/15/2020 Dose: 50 mg Tablets Titus Conley RN Name Value Range Interpretation Code Description Data Tete rce(s) Supporting Document(s) ID Date Data Source [id number] 03/15/2020 04:29:00 PM [facility] 1 General Instructions [facility] Emergency Department [address] [place] [address] Phone #: ext- [phone] 03/15/2020 16:02 Patient: JUAN SPENCER Sex: M : 1975 Age: 44yChronic traumatic lumbar back pain associated with muscle strain.INSTRUCTIONSWarnings: GENERAL WARNINGS: Return or contact your physician immediately if your conditionworsens or changes unexpectedly, if not improving as expected, or if other problems arise.SPECIFICALLY, return if you develop incontinence of feces (loss of bowel control) or urine (loss of bladdercontrol).Your Current Medications: Your current home medications have been reviewed.CONTINUE TAKING THE FOLLOWING MEDICATIONS:Ambien Oral.Baclofen Oral.Gabapentin Oral.SEROquel Oral.Vicodin Oral.Prescription Medications:Medrol (Jt) 4 mg tablets in a dose pack Take 1 tablet as directed for 6 days -- Dispense 1 pack.Refills: 0. Substitution permitted.Pharmacy - [facility] #[id number] - [address] [place], [place] [id number]. .lidocaine 5 % topical patch Apply 1 patch once a day for 5 days -- Dispense 5 patch. Refills: 0.Substitution permitted.Pharmacy - [facility] #18 - [address] [facility] ; [place], [place] [id number]. .Follow-up:Follow up with your doctor. Call for an appointment. Reason for referral: evaluation and treatment.Summary of care provided to patient.Understanding of the discharge instructions verbalized by patient. ADDITIONAL INFORMATIONBack Pain (Acute or Chronic) 2 General Instructions [facility] Emergency Department [address] [place] [address] Phone #: ext- [phone] 03/15/2020 16:02 Patient: JUAN SPENCER Sex: M : 1975 Age: 44yBack pain is one of the most common problems. The good news is that most people feel better in 1 to2 weeks, and most of the rest in 1 to 2 months. Most people can remain active.People who have pain describe it differently--not everyone is the same. The pain can be sharp, stabbing, shooting, aching, cramping or burning. Movement, standing, bending, lifting, sitting, or walking may worsen pain. It can be limited to one spot or area, or it can be more generalized. It can spread upwards, to the front, or go down your arms or legs (sciatica). It can cause muscle spasm.Most of the time, mechanical problems with the muscles or spine cause the pain. Mechanicalproblems are usually caused by an injury to the muscles or ligaments. Illness can cause back pain,but it's usually not caused by a serious illness. Mechanical problems include: 3 General Instructions [facility] Emergency Department [address] [place] [address] Phone #: [phone]- [phone] 03/15/2020 16:02 Patient: JUAN SPENCER Sex: M : 1975 Age: 44y Physical activity such as sports, exercise, work, or normal activity Overexertion, lifting, pushing, pulling incorrectly or too aggressively Sudden twisting, bending, or stretching from an accident, or accidental movement Poor posture Stretching or moving wrong, without noticing pain at the time Poor coordination, lack of regular exercise (check with your doctor about this) Spinal disc disease or arthritis StressPain can also be related to , or illness like appendicitis, bladder or kidney infections, pelvicinfections, and many other things.Acute back pain usually gets better in 1 to 2 weeks. Back pain related to disk disease, arthritis in thespinal joints, or narrowing of the spinal canal (spinal stenosis) can become chronic and last formonths or years.Unless you had a physical injury such as a car accident or fall, X-rays are usually not needed for thefirst assessment of back pain. If pain continues and does not respond to medical treatment, you mayneed X-rays and other tests.Home careTry this home care advice: When in bed, try to find a position of comfort. A firm mattress is best. Try lying flat on your back with pillows under your knees. You can also try lying on your side with your knees bent up toward your chest and a pillow between your knees. At first, don't try to stretch out the sore spots. If there is a strain, it's not like the good soreness you get after exercising without an injury. In this case, stretching may make it worse. Don't sit for long periods, as in a long car ride or during other travel. This puts more stress on the lower back than standing or walking. During the first 24 to 72 hours after an acute injury or flare up of chronic back pain, apply an ice pack to the painful area for 20 minutes and then remove it for 20 minutes. Do this over a period of 60 to 90 minutes or several times a day. This will reduce swelling and pain. Wrap the ice pack in a thin towel or plastic to protect your skin. You can start with ice, then switch to heat. He at (hot shower, hot bath, or heating pad) reduces pain and works well for muscle spasms. Heat can be applied to the painful area for 20 4 General Instructions [facility] Emergency Department [address] [place] [address] Phone #: ext- [phone] 03/15/2020 16:02 Patient: JUAN SPENCER Sex: M : 1975 Age: 44y minutes then remove it for 20 minutes. Do this over a period of 60 to 90 minutes or several times a day. Don't sleep on a heating pad. It can lead to skin zapata or tissue damage. You can alternate ice and heat therapy. Talk with your doctor about the best treatment for your back pain. Therapeutic massage can help relax the back muscles without stretching them. Be aware of safe lifting methods and don't lift anything without stretching first.MedicinesTalk to your doctor before using medicine, especially if you have other medical problems or are takingother medicines. You may use [id number] medicine as directed on the bottle to control pain, unless another pain medicine was prescribed. If you have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 medicines, devang cotics, or medicine for muscle spasm. They can make you sleepy and dizzy, and can affect your coordination, reflexes, and judgment. Do not drive or do work where you can injure yourself when taking them.Fall prevention Fix, remove, or replace anything that caused your fall. Make your home safe by keeping walkways clear of objects you may trip over. Use nonslip pads under rugs. Don't use small area rugs or throw rugs. Don't walk in poorly lit areas. 3 General Instructions [facility] Emergency Department [address] [place] [address] Phone #: ext- [phone] 02/24/2020 16:53 Patient: JUAN SPENCER Sex: M : 1975 Age: 44y Don't stand on chairs or wobbly ladders. Use caution when reaching overhead or looking upward. This position can cause a loss of balance. Be sure your shoes fit properly, have nonslip bottoms and are in good condition. Be cautious when going up and down curbs, and walking on uneven sidewalks. If your balance is poor, consider using a cane or walker. Stay as active as you can. Balance, flexibility, strength, and endurance all come from exercise. They all play a role in preventing falls. If you have pets, know where they are before you stand up or walk so you don't trip over them. Limit alcohol intake. Alcohol can cause balance problems and increase the risk of falls. Use night lights. Have your eyes tested to be sure you are seeing well, even if you already wear glasses.Follow-upFollow up with your healthcare provider, or as advised. If X-rays or CT scans were done, you will benotified if there is a change in the reading, especially if it affects treatment.Call 911Call 911 if any of these happen: Trouble breathing Confused or difficulty arousing Fainting or loss of consciousness Rapid or very slow heart rate Seizure Difficulty with speech or vision, weakness of an arm or leg Difficulty walking or talking, loss of balance, numbness or weakness in one side of your body, or facial droopWhen to seek medical advice 4 General Instructions [facility] Emergency Department [address] [place] [address] Phone #: ext- [phone] 02/24/2020 16:53 Patient: JUAN SPENCER Sex: M : 1975 Age: 44yCall your healthcare provider right away if any of these happen: Repeated mechanical falls, or unexplained falls Dizziness Severe headache Blood in vomit, stools (black or red color) [id number] [employer]. [address] [place] [address]. All rights reserved. This information is not intended as asubstitute for professional medical care. Always follow your healthcare professional's instructions.Back Pain (Acute or Chronic)Back pain is one of the most common problems. The good news is that most people feel better in 1 to2 weeks, and most of the rest in 1 to 2 months. Most people can remain active. 5 General Instructions [facility] Emergency Department [address] [place] [address] Phone #: ext- [phone] 02/24/2020 16:53 Patient: JUAN SPENCER Sex: M : 1975 Age: 44yPeople who have pain describe it differently--not everyone is the same. The pain can be sharp, stabbing, shooting, aching, cramping or burning. Movement, standing, bending, lifting, sitting, or walking may worsen pain. It can be limited to one spot or area, or it can be more generalized. It can spread upwards, to the front, or go down your arms or legs (sciatica). It can cause muscle spasm.Most of the time, mechanical problems with the muscles or spine cause the pain. Mechanicalproblems are usually caused by an injury to the muscles or ligaments. Illness can cause back pain,but it's usually not caused by a serious illness. Mechanical problems include: Physical activity such as sports, exercise, work, or normal activity Overexertion, lifting, pushing, pulling incorrectly or too aggressively Sudden twisting, bending, or stretching from an accident, or accidental movement Poor posture Stretching or moving wrong, without noticing pain at the time Poor coordin ation, lack of regular exercise (check with your doctor about this) Spinal disc disease or arthritis StressPain can also be related to , or illness like appendicitis, bladder or kidney infections, pelvicinfections, and many other things.Acute back pain usually gets better in 1 to 2 weeks. Back pain related to disk disease, arthritis in thespinal joints, or narrowing of the spinal canal (spinal stenosis) can become chronic and last formonths or years.Unless you had a physical injury such as a car accident or fall, X-rays are usually not needed for thefirst assessment of back pain. If pain continues and does not respond to medical treatment, you mayneed X-rays and other tests.Home careTry this home care advice: When in bed, try to find a position of comfort. A firm mattress is best. Try lying flat on your back with pillows under your knees. You can also try lying on your side with your knees bent 6 General Instructions [facility] Emergency Department [address] [place] [address] Phone #: ext- [phone] 02/24/2020 16:53 Patient: JUAN SPENCER Sex: M : 1975 Age: 44y up toward your chest and a pillow between your knees. At first, don't try to stretch out the sore spots. If there is a strain, it's not like the good soreness you get after exercising without an injury. In this case, stretching may make it worse. Don't sit for long periods, as in a long car ride or during other travel. This puts more stress on the lower back than standing or walking. During the first 24 to 72 hours after an acute injury or flare up of chronic back pain, apply an ice pack to the painful area for 20 minutes and then remove it for 20 minutes. Do this over a period of 60 to 90 minutes or several times a day. This will reduce swelling and pain. Wrap the ice pack in a thin towel or plastic to protect your skin. You can start with ice, then switch to heat. Heat (hot shower, hot bath, or heating pad) reduces pain and works well for muscle spasms. Heat can be applied to the painful area for 20 minutes then remove it for 20 minutes. Do this over a period of 60 to 90 minutes or several times a day. Don't sleep on a heating pad. It can lead to skin zapata or tissue damage. You can alternate ice and heat therapy. Talk with your doctor about the best treatment for your back pain. Therapeutic massage can help relax the back muscles without stretching them. Be aware of safe lifting methods and don't lift anything without stretching first.MedicinesTalk to your doctor before using medicine, especially if you have other medical problems or are takingother medicines. You may use qdwy-xwp-xpgyfxy medicine as directed on the bottle to control pain, unless another pain medicine was prescribed. If you have chronic conditions like diabetes, liver or kidney disease, stomach ulcers, or gastrointestinal bleeding, or are taking blood thinners, talk to your doctor before taking any medicine. Be careful if you are given a prescription medicines, narcotics, or medicine for muscle spasms. They can cause drowsiness, affect your coordination, reflexes, and judgement. Don't drive or operate heavy machinery.Follow-up careFollow up with your healthcare provider, or as advised.If X-rays were taken, you will be told of any new findings that may affect your careCall 911 7 General Instructions [facility] Emergency Department [address] [place] [address] Phone #: ext- [phone] 02/24/2020 16:53 Patient: JUAN SPENCER Sex: M : 1975 Age: 44yCall 911 if any of the following occur: Trouble breathing Confusion Very drowsy or trouble awakening Fainting or loss of consciousness Rapid or very slow heart rate Loss of bowel or bladder controlWhen to seek medical adviceCall your healthcare provider right away if any of these occur: Pain becomes worse or spreads to your legs Weakness or numbness in one or both legs Numbness in the groin or genital area [id number] [employer]. [address] [place] [address]. All rights reserved. This information is not intended as asubstitute for professional medical care. Always follow your healthcare prof caryn's instructions.Degenerative Disk Disease 8 General Instructions [facility] Emergency Department [address] [place] [address] Phone #: ext- [phone] 02/24/2020 16:53 Patient: JUAN SPENCER Sex: M : 1975 Age: 44ySpinal disks are gel-filled cushions between the bones, or vertebrae, of the spine. The disks act likeshock absorbers. Over time, the disks may break down. This is called degenerative disk disease.This condition can affect the neck or back. It is one of the most common causes of low back pain. Thepain often remains localized to the lower back or neck. Muscle spasm is often present and adds tothe pain.Disk degeneration is a natural part of aging. But it is not painful for most people. It may also occur asa result of repeated minor injuries due to daily activities, sports, or accidents. It may lead toosteoarthritis of the spine. Back pain related to disk disease may come and go. Or it may becomechronic and last for months or years. The disk may bulge or rupture. This is called a slipped disk orherniated disk. That can put pressure on a nearby spinal nerve and cause neck or back pain thatspreads down one arm or leg.X-rays, CT scan, or an MRI scan may help to diagnose this condition. For acute pain, treatmentincludes anti-inflammatory medicines, muscle relaxants, rest, ice, or heat. Strong prescription painmedicines, called opioids, may be needed for short-term treatment if pain suddenly gets worse.Opioid medicines can be addic tive. So they are not advised for long-term pain management. Othertypes of medicines are preferred. Surgery is generally not used to treat this condition unless there is acomplication.Home care For neck pain: Use a comfortable pillow that supports the head and keeps the spine in a neutral position. Your head should not be tilted forward or backward. For back pain: Avoid sitting for long periods of time. This puts more stress on the lower back than standing or walking. Starting a regular exercise program to strengthen the supporting muscles of the spine will make it easier to live with degenerative disk disease. Apply an ice pack over the injured area for no more than 15 to 20 minutes. Do this every 3 to 6 hours for the first 24 to 48 hours. To make an ice pack, put ice cubes in a plastic bag that seals at the top. Wrap the bag in a clean, thin towel or cloth. Never put ice or an ice pack directly on the skin. Keep using ice packs to ease pain and swelling as needed. After 48 hours, apply heat (warm shower or warm bath) for 20 minutes several times a day, or switch between ice and heat. You may use hmen-nti-dzjjena pain medicine to control pain, unless another pain medicine was prescribed. If you have chronic liver or kidney disease or ever had a stomach ulcer or GI bleeding, talk with your provider before using these medicines.Follow-up careFollow up with your healthcare provider, or as directed. 9 General Instructions [facility] Emergency Department [address] [place] [address] Phone #: ext- [phone] 02/24/2020 16:53 Patient: JUAN SPENCER [facility]#: [id number] Sex: M : 1975 Age: 44yIf X-rays, a CT scan or an MRI scan were done, you will be notified of any new findings that mayaffect your care.When to seek medical adviceContact your healthcare provider right away if any of these occur: Increasing back pain Your foot drags when you walk, a condition called foot drop You have new weakness, numbness, or pain in one or both arms or legs Loss of bowel or bladder control Numbness or tingling in the buttock or groin area [phone] [facility]. [address] [place] [address]. All rights reserved. This information is not intended as asubstitute for professional medical care. Always follow your healthcare professional's instructions.High Blood Pressure, To Be Confirmed, No TreatmentYour blood pressure today was higher than normal. Sometimes anxiety, pain, or other issues cancause a short-term rise in blood pressure. It later returns to normal. Blood pressure that is high tania time doesn't mean that you have high blood pressure (hypertension). High blood pressure is along-term (chronic) illness. But you should have your blood pressure measured again in the next fewdays to find out if it's still high.Blood pressure measurements are given as 2 numbers. Systolic blood pressure is the upper number.This is the pressure when the heart contracts. Diastolic blood pressure is the lower number. This isthe pressure when the heart relaxes between beats. You will see your blood pressure readingswritten together. For example, a person with a systolic pressure of 118 and a diastolic pressure of 78will have 118/78 written in the medical record.Blood pressure is classified as normal, raised (elevated), or stage 1 or stage 2 high blood pressure: Normal blood pressure. Systolic of less than 120 and diastolic of less than 80 (120/80). 10 General Instructions [facility] Emergency Department [address] [place] [address] Phone #: ext- [phone] 02/24/2020 16:53 Patient: JUAN SPENCER Sex: M : 1975 Age: 44y Elevated blood pressure. Systolic of 120 to 129 and diastolic less than 80. Stage 1 high blood pressure. Systolic is 130 to 139 or diastolic between 80 to 89. Stage 2 high blood pressure. Systolic is 140 or higher or the diastolic is 90 or higher.Lifestyle changes can help manage your blood pressure. These include weight loss, exercise, andquitting smoking. Have your blood pressure ch ecked regularly to be sure it is under control.Home careTo track your blood pressure, your healthcare provider may ask you to come into the office atdifferent times and on different days. If your provider asks you to check your readings at home, askhim or her what times of the day to test and for how many days. Before you leave the office, ask yourprovider to show you how to take your blood pressure. Ask questions if you don't understandsomething.Using a home blood pressure monitorThink about buying an automatic blood pressure monitor. Ask your provider for a recommendation aswell as the correct size cuff to fit your arm. You can buy blood pressure monitors at most pharmacies.The [place] [employer] advises the following guidelines for home blood pressure monitoring: Don't smoke or drink coffee or other caffeinated drinks for 30 minutes before taking your blood pressure. Go to the bathroom before the test. Relax for 5 minutes before taking the measurement. Sit with your dorita k supported (don't sit on a couch or soft chair). Keep your feet on the floor uncrossed. Place your arm on a solid flat surface (like a table) with the upper part of the arm at heart level. Place the middle of the cuff directly above the bend of the elbow. Check the monitor's instruction manual for an illustration. Take multiple readings. When you measure, take 2 to 3 readings one minute apart. Record all of the results. Take your blood pressure at the same time every day, or as your provider advises. Record the date, time, and blood pressure reading. Take the record with you to your next medical appointment. If your blood pressure monitor has a built-in memory, simply take the monitor with you to your next appointment. Call your provider if you have several high readings. Don't be frightened by a single high 11 General Instructions [facility] Emergency Department [address] [place] [address] Phone #: [phone]- [phone] 02/24/2020 16:53 Patient: JUAN SPENCER Sex: M : 1975 Age: 44y blood pressure reading. But if you get a few high readings, check in with your provider.Follow-up careKeep all of your follow-up appointments. If your blood pressure is more than 120 over 80 on 2 out of 3days, you will need to follow up with your healthcare provider for more evaluation and treatment.Don't put this off! High blood pressure can be treated. High blood pressure that's not treated raisesyour risk for heart attack, heart failure, kidney disease, and stroke.Call 911Call 911 if you have any of these: Blood pressure of 180/120 or higher Chest pain or shortness of breath Weakness of an arm or leg or one side of the face Problems speaking or seeingWhen to get medical adviceCall your healthcare provider right away if any of these occur: Severe headache Throbbing or rushing sound in the ears Nosebleed Sudden severe pain in your belly (abdomen) Extreme drowsiness, confusion, or fainting Dizziness or dizziness with spinning feeling (vertigo) [facility]. [address] [place] [address]. All rights reserved. This information is not intended as asubstitute for professional medical care. Always follow your healthcare professional's instructions. You have been given the following additional information: Mechanical Fall Back Pain (Acute or Chronic) Degenerative Disk Disease Hypertension, To Be Confirmed 12 General Instructions [facility] Emergency Department [address] [place] [address] Phone #: ext- [phone] 02/24/2020 16:53 Patient: JUAN SPENCER Sex: M : 1975 Age: 44yNo driving or operating machinery today. No lifting greater than 10 lbs.(Electronically signed by Edwin Swain PA-C 02/24/2020 20:39) Name Value Range Interpretation Code Description Data Tete rce(s) Supporting Document(s) ID Date Data Source [id number] 02/24/2020 05:01:00 PM EST [facility] 1 Clinical Report - Nurses [facility] Emergency Department [address] [place] [address] Phone #: ext- [phone] 02/24/2020 16:53 Patient: JUAN SPENCER Sex: M : 1975 Age: 44yTRIAGE Arrived by private vehicle. Historian: patient. Accompanied by family. Acuity: LEVEL 3. Chief Complaint: FALL. Slipped; fell onto the ground while standing. (fell on tailbone and right side). Alert. No acute distress. Location of injuries: lower back, coccyx, left flank, right shoulder and left shoulder. Occurred 02:00 02/24/2020. The patient has had trouble walking. ( numbness and tingling in legs which he has normally but seems worse). Treatment CRACK OFF PERSON: (tynenol 0900 motrin 1200). SEPSIS SCREEN: SIRS SCREEN NEGATIVE. SEPSIS SCREEN NEGATIVE. No suspected or confirmed signs of infection present. --17:01 02/24/20 Callie Johnson R.N. 16:56 02/24/20. BP: 145/76. MAP: 99. HR: 95. RR: 16. O2 saturation: 95% on room air. Temp: 97.8 F. Pain level now: 10/03. --17:01 02/24/20 Callie Johnson R.N. Acuity: LEVEL 4. --17:04 02/24/20 Callie Johnson R.N. Weight: 56.6 kg stated. Height/Length: 69 inches Per Patient. BMI: 18.4. --16:56 02/24/20 Callie Johnson R.N. Medications Ambien Oral. Baclofen Oral. Gabapentin Oral. SEROquel Oral. Vicodin Oral. --17:01 02/24/20 Callie Johnson R.N. Allergies Penicillins. Toradol. Tramadol. --17:02/24/20 Callie Johnson R.N. PROBLEMS: CVA - Cerebrovascular Accident. Chronic Back Pain. 2 Clinical Report - Nurses [facility] Emergency Department [address] [place] [address] Phone #: ext- [phone] 02/24/2020 16:53 Patient: JUAN SPENCER Sex: M : 1975 Age: 44yDDD.Dental Caries.Allergic Rhinitis.Trigeminal Neuralgia.Back Pain.Bulging disks.Depression.Bipolar Disorder.Brain injury.Migraine Headache.Narcotic Dependence.Other Disease.Narcotic Withdrawal.Neurological Disease.Night Terrors.Negative 3 bone density for osteoporosis.Sciatica.Headache.GI Disease.Schizophrenia.Intervertebral Disc Disease.Lumbar Strain.Schizoaffective Disorder.Insomnia. --17:02 02/24/20 Callie Johnson R.N.The following entry was modified by Callie Johnson R.N., 17:02 02/24/20pinal Stenosis. --17:02 02/24/20 Callie Johnson R.N.The following entry was modified by Callie Johnson R.N., 17:02 02/24/20Osteoporosis. --17:02/24/20 Callie Johnson R.N..ADDITIONAL SURGERIES:Back Surgery.Cerebral shunt (in removed).Craniotomy.Hernia Repair (Inguinalleft).Inguinal Hernia Repair.TBI.Ventriculo Peritoneal Shunt Surgery. --17:02/24/20 Callie Johnson R.N.HistoryPAST MEDICAL HX: Immunizations: up-to-date.SOCIAL HX: Light tobacco smoker- less than 1/2 a pack per day. No alcohol use or drug use. Thepatient was offered HIV testing but declined and hepatitis C testing but declined. The patient has not 3 Clinical Report - Nurses [facility] Emergency Department [address] [place] [address] Phone #: ext- [phone] 02/24/2020 16:53 Patient: JUAN SPENCER Sex: M : 1975 Age: 44y traveled outside the [place] Infectious disease exposure: No infectious disease exposure. Patient is not a known carrier of tuberculosis, hepatitis, HIV, MRSA or VRE. Patient is not a known carrier of CRE. SELF HARM ASSESSMENT: Self harm assessment was performed. The patient answered "no" to the question(s) "Have you recently felt down, depressed, or hopeless?", "Do you have thoughts of harming or killing yourself?", "Do you have a plan for harming or killing yourself?", "Have you recently had thoughts about harming or killing others?", "Do you have any dangerous items in your possession?", "Have you noticed less interest or pleasure in doing things?", "Are you here because you tried to hurt yourself?" and "Have you ever tried to hurt yourself before today?". ABUSE ASSESSMENT: Abuse assessment. Abuse denied. No suspicion of abuse. No report of abuse. NUTRITIONAL RISK ASSESSMENT: The nutritional risk assessment revealed no deficiencies. LEARNING NEEDS ASSESSMENT: The learning needs assessment revealed no barriers. FALL RISK ASSESSMENT: Fall risk assessment completed. No risk factors identified. FUNCTIONAL ASSESSMENT: Functional assessment performed: uses cane. SKIN INTEGRITY ASSESSMENT: Skin integrity risk assessment completed. No skin integrity risk identified. --17:02/24/20 Callie Johnson R.N. Interventions Identification band on patient. To treatment room. --17:02/24/20 Callie Johnson R.N.PHYSICAL ASSESSMENT 17:10 02/24/20. Ambulatory to room. GENERAL / NEURO / PSYCH: Alert. Oriented X 4. Appears in no acute distress. HEENT: Head non-tender. RESPIRATORY: Respirations not labored. Chest nontender. Breath sounds within normal limits. CVS: Pulses within normal limits. Capillary refill less than 2 seconds. GI / : Abdomen soft and nontender. EXTREMITIES: Extremities exhibit normal ROM. Neuro-vascular status intact to the extremity. SKIN: Skin intact. Skin is warm and dry. BACK: Back: tenderness located in the mid-sacral area and mid- lumbar area. Range of motion limited. --17:02/24/20 Avelino Murillo R.N.NURSING PROGRESS NOTES Reassurance given. Two patient identifiers checked. Call light placed in reach. Side rails up x 2. Bed placed in lowest position. Brakes of bed on. Patient ready for evaluation- PA notified. --17:02/24/20 Callie Johnson R.N. 4 Clinical Report - Nurses [facility] Emergency Department [address] [place] [address] Phone #: ext- [phone] 02/24/2020 16:53 Patient: JUAN SPENCER Sex: M : 1975 Age: 44y 17:34 02/24/20. Patient gowned. --17:39 02/24/20 Avelino Murillo R.N. 17:48 02/24/2020 Valium (diazePAM) PO Tablets 5 mg given. Allergies verified and confirmed 5 rights. Information reviewed with patient including reason for taking this medication, signs of allergic reaction, precautions and sedative warning. Verbalizes understanding. --17:48 02/24/20 Avelino Murillo R.N. 17:49 02/24/2020 Lidocaine Patch Transdermal Ointment 1 patch given. Applied to the affected area. Allergies verified and confirmed 5 rights. Information reviewed with patient including reason for taking this medication, signs of allergic reaction and precautions. Verbalizes understanding. --17:49 02/24/20 Avelino Murillo R.N.DISPOSITION / DISCHARGE 18:14 02/24/20. BP: 125/77. HR: 75. RR: 18. O2 saturation: 96%. Temp: 98.4 F. Pain level now 7/10. --18:15 02/24/20 Saul Granger, ER Hog Man 18:15 02/24/20. Departure time: 18:20 02/24/2020. Condition at departure: improved and stable. The goals identified in the patient's plan of care were met. Fall risk assessment completed. No risk factors identified. No learning barriers present. Discharge instructions provided and reviewed with the patient. Reviewed warnings. Reviewed medication(s). Treatments reviewed. Reviewed referral to a primary care physician. Activity restrictions (light lifting, no driving and rest) reviewed. Patient verbalized understanding. Written instructions provided in Hungarian. The patient was discharged by the physician assistant mechanic. He was discharged home. He left ambulatory and via private vehicle. Patient driving. --18:21 02/24/20 Avelino Murillo R.N.Locked/Released at 02/24/2020 19:21 by Avelino Murillo R.N. Name Value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 Report - Nurses [facility] Emergency Department [address] [place] [address] Phone #: ext- [phone] 01/26/2019 00:42 Patient: JUAN SPENCER [facility]#: [id number] Sex: M : 1975 Age: 43y use or drug use. He has not traveled outside the [place] Infectious disease exposure: No infectious disease exposure. ABUSE ASSESSMENT: No report of abuse. NUTRITIONAL RISK ASSESSMENT: The nutritional risk assessment revealed no def iciencies. FUNCTIONAL ASSESSMENT: Functional assessment: no impairments noted. LEARNING NEEDS ASSESSMENT: The learning needs assessment revealed no barriers. FALL RISK ASSESSMENT: Fall risk assessment completed. No risk factors identified. SKIN INTEGRITY ASSESSMENT: Skin integrity risk assessment completed. No skin integrity risk identified. --00:54 01/26/19 Taylor Navarro RN late entry - 00:47 01/26/19. SELF HARM ASSESSMENT: Self harm assessment was performed. The patient answered "no" to the question(s) "Have you recently felt down, depressed, or hopeless?", "Do you have thoughts of harming or killing yourself?", "Do you have a plan for harming or killing yourself?", "Have you recently had thoughts about harming or killing others?", "Do you have any dangerous items in your possession?", "Have you noticed less interest or pleasure in doing things?", "Are you here because you tried to hurt yourself?" and "Have you ever tried to hurt yourself before today?". --02:45 01/26/19 Taylor Navarro RN. Interventions Identification band on patient. To treatment room. --00:54 01/26/19 Taylor Navarro RN.PHYSICAL ASSESSMENTlate entry - 01:06 01/26/19. Ambulatory to room.GENERAL / NEURO / PSYCH: Alert. Oriented X 4. Appears in pain.RESPIRATORY: Respirations not labored. Chest nontender.CVS: Capillary refill less than 2 seconds.GI / : Abdomen soft and nontender. Bowel sounds within normal limits.EXTREMITIES: Limited ROM present.BACK: ( c/o pain beginning at shoulder blades travelling down back and effecting both legs. Uses walkingcane to provide support to right side.). Limited ROM of the back. --02:42 01/26/19 Taylor Navarro RN.NURSING PROGRESS NOTES00:50 01/26/19. Head of bed elevated. Reassurance given. Three patient identifiers checked. Calllight placed in reach. Side rails up x 1. Bed placed in lowest position. Brakes of bed on. Patient readyfor evaluation- notification provided. --02:44 01/26/19 Taylor Navarro RN 02:12 01/26/2019 Lidoderm Patch (Lidocaine) Transdermal Ointment 1 patch given. Applied to the affected 3 Clinical Report - Nurses [facility] Emergency Department [address] [place] [address] Phone #: ext- [phone] 01/26/2019 00:42 Patient: JUAN SPENCER Sex: M : 1975 Age: 43y area. Allergies verified and confirmed 5 rights. Information reviewed with patient including reason for taking this medication, signs of allergic reaction and precautions. Verbalizes understanding. --02:13 01/26/19 Genia Canales R.N. 02:13 01/26/2019 Dexamethasone PO Tablets 8 mg given. Allergies verified and confirmed 5 rights. Information reviewed with patient including reason for taking this medication, signs of allergic reaction and precautions. Verbalizes understanding. --02:13 01/26/19 Genia Canales R.N. 02:14 01/26/2019 Ambien (Zolpidem Tartrate) PO Tablets 10 mg given. Allergies verified and confirmed 5 rights. Information reviewed with patient including reason for taking this medication, signs of allergic reaction, precautions and sedative warning. Verbalizes understanding. ((1) 5 MG TAB GIVEN IN ER AND (1) 5 MG TAB DISPENSED FOR HOME USE). --02:14 01/26/19 Genia Canales R.N.DISPOSITION / DISCHARGE 02:25 01/26/19. Departure time: 02:25 01/26/2019. Condition at departure: stable. No learning barriers present. Discharge instructions provided and reviewed with the patient. Reviewed medication(s) side effects, precautions, dosing and course information. Prescription(s) sent electronically to pharmacy. Medication(s) for home use given to the patient per protocol. Reviewed referral to a primary care physician for followup. Visit overview and summary of care (CCDA) provided to patient via paper. Patient verbalized understanding. Written instructions provided in Hungarian. The patient was discharged by the physician. He was discharged home and accompanied by spouse. He left ambulatory and via taxi. --02:01/26/19 Genia Canales R.N. 00:47 01/26/19. BP: 112/84. MAP: 93. HR: 64. RR: 16. O2 saturation: 98%. Temp: 97.9 F. Pain level now: 10/03. --02:25 01/26/19 Genia Canales R.N.Locked/Released at 01/26/2019 02:45 by Taylor Navarro RN Name Value Range Interpretation Code Description Data Tete rce(s) Supporting Document(s) ID Date Data Source [id number] 01/26/2019 12:42:00 AM [facility] 1 Clinical Report - Physicians/Mid Levels [facility] Emergency Department [address] [place] [address] Phone #: ext- [phone] 01/26/2019 00:42 Patient: JUAN SPENCER Sex: M : 1975 Age: 43y Time Seen: 00:54 01/26/2019; initial patient contact. Arrived- By private vehicle. Historian- patient. Disposition decision: 02:16 01/26/2019.HISTORY OF PRESENT ILLNESS Chief Complaint: BACK PAIN and CHRONIC BACK PAIN. Onset- chronic for years and it is still present. It has been intermittent. It is described as being severe and in the area of the lower lumbar spine. The quality is noted to be dull, aching and "pain". No radiation. Modifying factors- worsened by walking. Relieved by lying down. No bladder dysfunction, bowel dysfunction, sensory loss or motor loss. Additional history - pt has Hx of chronic back pain and takes hydrocodone 10 mg po 6 x per day; has pills locked into glove box of car in [place] since 5 days ago; pt has increased low back pain since. Patient denies an injury. No injury to the head or neck. Similar symptoms previously. Patient has had similar symptoms chronically. ( pt well known to us for multiple ER visits for chronic back pain and other pain complaints).REVIEW OF SYSTEMSNo fever, chills, eye irritation, difficulty with urination or urinary frequency. No hematuria, skin rash,headache, depression or sore throat. No cough, difficulty breathing, chest pain, abdominal pain ornausea. No vomiting, diarrhea, black stools or bloody stools. All other systems reviewed and arenegative.PAST HISTORYSee nurses notes. Problems: Trigeminal Neuralgia. Chronic Back Pain. CVA - Cerebrovascular Accident. Bipolar Disorder. Schizoaffective Disorder. Osteoporosis. Spinal Stenosis. Migraine Headache. Narcotic Dependence. Additional Surgeries: Back Surgery. Cerebral shunt (in removed). Hernia Repair. TBI. 2 Clinical Report - Physicians/Mid Levels [facility] Emergency Department [address] [place] [address] Phone #: [phone]- [phone] 01/26/2019 00:42 Patient: JUAN SPENCER Sex: M : 1975 Age: 43y Medications: Ambien Oral. Baclofen Oral. Gabapentin Oral. Phjarmacy wilkinsonlashay valdez. Vicodin Oral 10 325, as needed. Allergies: Penicillins.(hives) Toradol.(itching, restlessness) traMADol HCl.(itching, restlessness).SOCIAL HISTORYHeavy tobacco smoker- 1 pack per day. No alcohol use or drug use.ADDITIONAL NOTESThe nursing notes have been reviewed with agreement regarding the chief complaint, HPI, ROS, PMH andpatient medications and allergies.PHYSICAL EXAMVital Signs: 01/26/2019 00:47 BP: 112/84. MAP: 93. HR: 64. RR: 16. O2 saturation: 98%. Temp: 97.9 F.Pain level now: 8/10. Have been reviewed. Oxygen saturation normal.Appearance: Alert. No acute distress. Anxious.HEENT: Normal external inspection.ENT: Pharynx normal.Neck: Normal inspection. Neck nontender. Painless ROM.CVS: Heart sounds normal. Pulses normal.Respiratory: No respiratory distress. Painless inspiration. Breath sounds normal.Abdomen: No visible injury. Soft and nontender. Bowel sounds normal. No organomegaly. No mass.Femoral pulses equal.Back: Normal inspection. Soft tissue tenderness in the right lower and left lower lumbar area. LimitedROM in the back- in the lumbar spine: decreased flexion and extension.Skin: Skin warm and dry. Normal skin color. No rash. Normal skin turgor.Extremities: Extremities exhibit normal ROM. Extremities nontender.Neuro: Oriented X 3. Mood/affect normal. No motor deficit. No sensory deficit. Reflexes normal.PROGRESS AND PROCEDURESCourse of Care: 02:08 01/26/19. Data Detail Level: Printer-Friendly View Extended View Confidential Drug Utilization Report Search Terms: juan spencer 1975Search Date: 01/26/2019 01:45:33 AM The Drug Utilization Report below displays all of the controlled substance prescriptions, if any, that your patient has filled in the last twelve months. The information displayed on this report is compiled from pharmacy submissions to the Department, and accurately reflects the information as submitted by the 3 Clinical Report - Physicians/Mid Levels [facility] Emergency Department [address] [place] [address] Phone #: ext- [phone] 01/26/2019 00:42 Patient: JUAN SPENCER Sex: M : 1975 Age: 43yphar macies.This report was requested by: Darnell Turrin Reference #: [id number]' PrescriptionsPatient Name: Juan Spencer Date: 1975Address: [address] [place] [address] Sex: MaleRx Written Rx Dispensed Drug Quantity Days Supply Prescriber Name01/08/2019 01/09/2019 hydrocodone-acetaminophen 10-325 mg tablet 180 30 Littell, Rbbqqwuj29/15/2019 01/09/2019 zolpidem tartrate 10 mg tablet 30 30 Littell, Uccootgb35/18/2019 12/12/2018 zolpidem tartrate 10 mg tablet 30 30 Littell, Yuwcejqt06/18/2019 12/11/2018 hydrocodone-acetaminophen 10-325 mg tablet 180 30 Littell, Pnuuicmv07/18/2019 11/11/2018 hydrocodone-acetaminophen 10-325 mg tablet 180 30 Littell, Vfculpct88/19/2019 11/10/2018 zolpidem tartrate 10 mg tablet 30 30 Littell, Ddyokzot49/19/2019 10/12/2018 zolpidem tartrate 10 mg tablet 30 30 Littell, Ngxwlcij50/19/2019 10/12/2018 hydrocodone-acetaminophen 10-325 mg tablet 180 30 Littell, Tkjwyupa96/20/2019 09/11/2018 zolpidem tartrate 10 mg tablet 30 30 Littell, Tungudia22/19/2019 09/11/2018 hydrocodone-acetaminophen 10-325 mg tablet 180 30 Littell, Sgsiyayp06/11/2019 09/04/2018 hydrocodone- acetaminophen 5-325 mg tablet 12 3 Azul, [place]08/13/2018 08/13/2018 hydrocodone-acetaminophen 10-325 mg tablet 180 30 Littell, Ixvzioxi20/21/2019 08/07/2018 zolpidem tartrate 10 mg tablet 30 30 Littell, Ennhtzgw18/21/2019 07/14/2018 hydrocodone-acetaminophen 10-325 mg tablet 180 30 Littell, Fzckwfiz92/19/2019 07/07/2018 zolpidem tartrate 10 mg tablet 30 30 Littell, Etbqqsgz02/19/2019 06/15/2018 hydrocodone-acetaminophen 10-325 mg tablet 180 30 Littell, Ujbueqxq42/21/2019 06/08/2018 zolpidem tartrate 10 mg tablet 30 30 Littell, Fjgmwaja85/21/2019 05/16/2018 hydrocodone-acetaminophen 10-325 mg tablet 180 30 Littell, Kyfmevbb48/21/2019 05/10/2018 zolpidem tartrate 10 mg tablet 30 30 Littell, Xqkqevyt09/21/2019 04/17/2018 hydrocodone-acetaminophen 10-325 mg tablet 180 30 Littell, Lpqzqise07/22/2019 04/07/2018 zolpidem tartrate 10 mg tablet 30 30 Littell, Ojstatbn88/22/2019 03/19/2018 hydrocodone- acetaminophen 10-325 mg tablet 180 30 Littell, Rgaadgwe37/24/2018 03/09/2018 zolpidem tartrate 10 mg tablet 30 30 Littell, Ofsqruft02/24/2018 02/18/2018 hydrocodone-acetaminophen 10-325 mg tablet 180 30 Littell, Oayouaao46/23/2018 02/08/2018 zolpidem tartrate 10 mg tablet 30 30 Littell, LawrencePatient Name: Juan Spencer Date: 1975Address: [address] [place] [address] Sex : MaleRx Written Rx Dispensed Drug Quantity Days Supply Prescriber Name08/12/2018 08/12/2018 hydrocodone-acetaminophen 5-325 mg tablet 2 1 Maura Moraes MD* - Drugs marked with an asterisk are compound drugs. If the compound drug is made up of more than onecontrolled substance, then each controlled substance will be a separate row in the table.02:12 01/26/19. pt has extensive ER visit Hx for chronic back pain and narcotic use; pt has extensive [facility] registry list; pt was made aware of ALTO program at [facility] and after going through the [facility] 4 Clinical Report - Physicians/Mid Levels [facility] Emergency Department [address] [place] [address] Phone #: ext- [phone] 01/26/2019 00:42 Patient: JUAN SPENCER Sex: M : 1975 Age: 43y from the protocol he agreed to lidocaine patch and dexamethasone po, and ambien 5 mg x 2 tabs instead of valium; pt refuses tylenol po and is allergic to motrin? Patient counseled in person regarding the patient's stable condition, diagnosis and need for follow-up. Patient agrees wit h plan of care. Disposition: Condition: good and stable. Discharge decision based on the following: patient's condition is stable; patient's condition is improved; patient is ambulatory; patient is active; patient drinking fluids; patient's pain is controlled; patient's exam is improved; improving condition on repeat evaluation; social support is good; transportation is available; clinical impression is consistent with outpatient treatment.CLINICAL IMPRESSION Chronic nontraumatic lumbar back pain.INSTRUCTIONS (PLEASE ATTEMPT TO GET YOUR HYDROCODONE PILLS FROM THE GLOVE BOX OF THE CAR IN [facility]). Warnings: GENERAL WARNINGS: Return or contact your physician immediately if your condition worsens or changes unexpectedly, if not improving as expected, or if other problems arise. SPECIFICALLY, return if you develop weakness of the foot or leg, numbness, tingling, pain or incontinence of feces (loss of bowel control) or urine (loss of bladder control). Your Current Medications: Your current home medications have been reviewed. CONTINUE TAKING THE FOLLOWING MEDICATIONS: Ambien Oral. Baclofen Oral. Gabapentin Oral. Polormdileep valdez*. Vicodin Oral : 10 325, prn. Prescription Medications: Lidoderm 5 % topical patch Apply 1 patch once a day for 7 days -- Take off after 12 hrs. Dispense 7 patch. Refills: 0. Substitution permitted. Pharmacy - [id number] [address], [place] [id number]. FaxNumber: . Ambien 5 mg TO GO to take in 4-6 hrs as needed (#1 tab). Follow-up: 5 Clinical Report - Physicians/Mid Levels [facility] Emergency Department [address] [place] [id number] Phone #: [phone] 01/26/2019 00:42 Patient: JUAN SPENCER [facility]#: [id number] Sex: M : 1975 Age: 43y Return to the emergency department as needed. Follow up with your healthcare provider in three days even if well. Reason for referral: evaluation and treatment. Summary of care provided to patient via paper. Understanding of the discharge instructions verbalized by patient. Expected course of injury, dischar ge instructions, activity level, diet, prescriptions x1, follow-up appointment and risks and benefits of treatment reviewed with patient and understanding verbalized. Agrees to plan of care.(Electronically signed by Darnell Kay M.D. 01/26/2019 02:45) Name Value Range Interpretation Code Description Data Tete rce(s) Supporting Document(s) Procedure Social History Code Duration Value Status Description Data Source(s ) 03/13/2020 12:51:34 AM EST No completed No [facility] 03/13/2020 12:51:34 AM EST No completed No [facility] 03/13/2020 12:51:34 AM EST Current every day smoker co mpleted Current every day smoker [facility] Smoking 03/13/2020 12:51:00 AM EST Current every day smoker co mpleted Current every day smoker [facility] 02/28/2020 11:50:53 PM EST No completed No [facility] 02/28/2020 11:50:53 PM EST No completed No [facility] 02/28/2020 11:50:53 PM EST Current every day smoker co mpleted Current every day smoker [facility] Smoking 02/28/2020 11:50:00 PM EST Current every day smoker co mpleted Current every day smoker [facility] 02/24/2020 11:46:30 PM EST No completed No [facility] 02/24/2020 11:46:30 PM EST No completed No [facility] 02/24/2020 11:46:30 PM EST Current every day smoker co mpleted Current every day smoker [facility] Smoking 02/24/2020 11:46:00 PM EST Current every day smoker co mpleted Current every day smoker [facility] 01/03/2020 01:42:34 AM EST No completed No [facility] 01/03/2020 01:42:34 AM EST No completed No [facility] 01/03/2020 01:42:34 AM EST Current every day smoker co mpleted Current every day smoker [facility] Smoking 01/03/2020 01:42:00 AM EST Current every day smoker co mpleted Current every day smoker [facility] 11/21/2019 03:56:39 PM EDT No completed No [facility] 11/21/2019 03:56:39 PM EDT No completed No [facility] 11/21/2019 03:56:39 PM EDT Current every day smoker co mpleted Current every day smoker [facility] Smoking 11/21/2019 03:56:00 PM EDT Current every day smoker co mpleted Current every day smoker [facility] 09/30/2019 07:48:45 PM EDT Current every day smoker co mpleted Current every day smoker [facility] 09/30/2019 07:48:45 PM EDT No completed No [facility] 09/30/2019 07:48:45 PM EDT No completed No [facility] Smoking 09/30/2019 07:48:00 PM EDT Current every day smoker co mpleted Current every day smoker [facility] 08/30/2019 08:21:10 PM EDT No completed No [facility] 08/30/2019 08:21:10 PM EDT Current every day smoker co mpleted Current every day smoker [facility] 08/30/2019 08:21:10 PM EDT Current every day smoker co mpleted Current every day smoker [facility] 08/30/2019 08:21:10 PM EDT No completed No [facility] Smoking 08/30/2019 08:21:00 PM EDT Current every day smoker co mpleted Current every day smoker [facility] 08/07/2019 11:05:51 PM EDT No completed No [facility] 08/07/2019 11:05:51 PM EDT No completed No [facility] 08/07/2019 11:03:00 PM EDT Current every day smoker co mpleted Current every day smoker [facility] Smoking 08/07/2019 11:03:00 PM EDT Current every day smoker co mpleted Current every day smoker [facility] 08/07/2019 11:03:00 PM EDT Current every day smoker co mpleted Current every day smoker [facility] 08/07/2019 11:03:00 PM EDT Current every day smoker co mpleted Current every day smoker [facility] 06/07/2019 03:16:02 PM EDT No completed No [facility] 06/07/2019 03:16:02 PM EDT No completed No [facility] 06/07/2019 03:06:00 PM EDT Current every day smoker co mpleted Current every day smoker [facility] 06/07/2019 03:06:00 PM EDT Current every day smoker co mpleted Current every day smoker [facility] Smoking 06/07/2019 03:06:00 PM EDT Current every day smoker co mpleted Current every day smoker [facility] 06/07/2019 03:06:00 PM EDT Current every day smoker co mpleted Current every day smoker [facility] 06/07/2019 03:06:00 PM EDT Current every day smoker co mpleted Current every day smoker [facility] 05/04/2019 03:33:49 PM EDT No completed No [facility] 05/04/2019 03:33:49 PM EDT No completed No [facility] 05/04/2019 03:28:00 PM EDT Never smoker completed [facility] 05/04/2019 03:28:00 PM EDT Never smoker completed [facility] 05/04/2019 03:28:00 PM EDT Never smoker completed Never s [facility] Smoking 05/04/2019 03:28:00 PM EDT Never smoker completed Never [facility] 05/04/2019 03:28:00 PM EDT Never smoker completed Never s [facility] 05/04/2019 03:28:00 PM EDT Never smoker completed Never s [facility] 05/01/2019 04:25:42 PM EST Current every day smoker co mpleted Current every day smoker [facility] 05/01/2019 04:25:42 PM EST Current every day smoker co mpleted Current every day smoker [facility] 05/01/2019 04:25:42 PM EST Current every day smoker co mpleted Current every day smoker [facility] 05/01/2019 04:25:42 PM EST Current every day smoker co mpleted Current every day smoker [facility] 05/01/2019 04:25:42 PM EST No completed No [facility] 05/01/2019 04:25:42 PM EST No completed No [facility] 05/01/2019 04:25:42 PM EST Current every day smoker co mpleted Current every day smoker [facility] 05/01/2019 04:25:42 PM EST Current every day smoker co mpleted Current every day smoker [facility] Smoking 05/01/2019 04:25:00 PM EST Current every day smoker co mpleted Current every day smoker [facility] Vital Signs ID Date Data Source UNK Name Value Range Interpretation Code Description Data Source(s) Oxygen saturation in Arterial blood by Pulse oximetry 97 % 97 % [facility] ([facility]) Respiratory rate 16 /min 16 /min [facility] ( [facility]) Body temperature 99.2 [degF] 99.2 [degF] [facility] ([facility]) Heart rate 80 /min 80 /min [facility] ([facility]) Diastolic blood pressure 76 mm[Hg] 76 mm[Hg] [facility] ([facility]) Systolic blood pressure 116 mm[Hg] 116 mm[Hg] M EDENT ([facility]) Body weight 2047 [oz_av] 2047 [oz_av] SANCHEZ ([facility]) Systolic blood pressure 107 mm[Hg] 107 mm[Hg] A THENA ([facility]) Body mass index (BMI) [Ratio] 18.9 kg/m2 18.9 k g/m2 [facility] ([facility]) Body height 69 [in_i] 69 [in_i] [facility] ([facility]) Diastolic blood pressure 73 mm[Hg] 73 mm[Hg] SANCHE[facility] ([facility]) ID Date Data Source [id number] 10/03/2019 05:52:00 PM EDT [facility] Name Value Range Interpretation Code Description Data Source(s) Weight Measurement Method [address] [facility] Weight 2047 2047 [facility] pital Temperature Source 7 7 [facility] Temperature 98.8 98.8 [facility] Respiratory Effort 1 1 [facility] Respiratory Rate 17 17 [facility] 84 84 [facility] pital Height 69 69 [facility] pital Blood Pressure 123/84 123/84 [facility] Weight Measurement Method [address] [facility] Weight 2047 2047 [facility] pital Temperature Source 7 7 [facility] Temperature 98.8 98.8 [facility] Respiratory Effort 1 1 [facility] Respiratory Rate 16 16 [facility] Pulse Assessment Method 4 4 G [facility] Pulse Rate 84 84 [facility] pital Height 69 69 [facility] pital Blood Pressure 123/84 123/84 [facility] Weight Measurement Method [address] [facility] Weight 2047 2047 [facility] pital Temperature Source 7 7 [facility] 98.8 98[facility]8 [facility] 1 1 [facility] Respiratory Rate 16 16 [facility] Pulse Assessment Method 4 4 G [facility] Pulse Rate 84 84 [facility] pital Height 69 69 [facility] pital Blood Pressure 123/84 123/84 [facility] ID Date Data Source [id number] 08/28/2019 03:45:00 PM EDT [facility] Name Value Range Interpretation Code Description Data Source(s) Weight Measurement Method [address] [facility] Weight 1999 1999 [facility] pital Temperature Source 7 7 [facility] Temperature 98.7 98.7 [facility] Respiratory Effort 1 1 [facility] Respiratory Rate 18 18 [facility] Pulse Assessment Method 4 4 G [facility] Pulse Rate 87 87 [facility] pital Height 69 69 [facility] pital Blood Pressure 103/78 103/78 [facility] Weight Measurement Method [address] [facility] Weight 1999 1999 [facility] pital Temperature Source 7 7 [facility] Temperature 99 99 [facility] Respiratory Effort 1 1 [facility] Respiratory Rate 18 18 [facility] Pulse Assessment Method 4 4 G [facility]ulse Rate 95 95 [facility] Height 69 69 [facility] Blood Pressure 112/74 112/74 [facility]
[2020-03-16] MEDS ORDERED: MEDR4PAK (08:36)
[2020-03-16] MEDS ORDERED: LIDO1PAD (08:36)
[2020-03-16] MEDS ORDERED: PRAZ1CAP (08:36)
--- OUTSIDE RECORDS SUMMARY | 2020-03-16 08:52 | CCD ---
Author Author [facility] Organization [facility] Address Unknown Phone Unavailable Support Name Relationship Address Phone SELF Next Of Kin Unknown Unavailable Juan Limon MD Next Of Kin [address] [phone] Maria Del Carmen SAFETY SUPERVISOR, Daphne Next Of Kin [address] [place] [address] CTY, OF CORRECTIONS DEPARTMENT Next Of Kin EDGAR CTY CORRECTIONAL FAC [address] [id number] RE Next Of Kin Unknown Unavailable MARÍ[place] [address] UE Next Of Kin Unknown Unavailable Jensen RPA-C, Izabel Next Of Kin [address] [place] [address] Jamie SAFETY SUPERVISOR, Yaneth Next Of Kin [address] [place], [place] [id number] Adenike ANP-BC, Constance Next Of Kin [address] [place] [id number] "" Next Of Kin [address] [place] [address] [phone] NONE, PT PER Next Of Kin - -, [place] - - UZIEL [place] [address] SOFIA MONTENEGRO Next Of Kin [address] [place] [address] [place] [address] Debbie VIGIL Next Of Kin [address] [facility] [address] [place] [address] UN Next Of Kin Unknown Unavailable NONE, NOOTHER Next Of Kin - -, [place] - - MELANY FIELDS Next Of Kin Unknown DISABLED Next Of Kin Unknown Unavailable JUAN SPENCER Next Of Kin 02/25 [place] [address] BRITTAERLINDAKeyla MIKO Next Of Kin 02/25 [place] [address] NATHALIEASTRID Next Of Kin Unknown ASTRID ZELAYA Next Of Kin Unknown Care Team Providers Care Director Physical Name Role Phone MORALES WIGGINS Unavailable Unavailable [...] Martinez MD Unavailable Unavailable Cougler, S Sorin BUILDING REPAIR MAINTENANCE SUPERVISOR Unavailable Unavailable Cougler, S Sorin BUILDING REPAIR MAINTENANCE SUPERVISOR Unavailable Unavailable Cougler, S Sorin BUILDING REPAIR MAINTENANCE SUPERVISOR Unavailable Unavailable Cougler, S Sorin BUILDING REPAIR MAINTENANCE SUPERVISOR Unavailable Unavailable Cougler, S Sorin BUILDING REPAIR MAINTENANCE SUPERVISOR Unavailable Unavailable Cougler, S Sorin BUILDING REPAIR MAINTENANCE SUPERVISOR Unavailable Unavailable Cougler, S Sorin BUILDING REPAIR MAINTENANCE SUPERVISOR Unavailable Unavailable Cougler, S Sorin BUILDING REPAIR MAINTENANCE SUPERVISOR Unavailable Unavailable Cougler, S Sorin BUILDING REPAIR MAINTENANCE SUPERVISOR Unavailable Unavailable Cougler, S Sorin BUILDING REPAIR MAINTENANCE SUPERVISOR Unavailable Unavailable Cougler, S Sorin BUILDING REPAIR MAINTENANCE SUPERVISOR Unavailable Unavailable Cougler, S Sorin BUILDING REPAIR MAINTENANCE SUPERVISOR Unavailable Unavailable Cougler, S Sorin BUILDING REPAIR MAINTENANCE SUPERVISOR Unavailable Unavailable Cougler, S Sorin BUILDING REPAIR MAINTENANCE SUPERVISOR Unavailable Unavailable Cougler, S Sorin BUILDING REPAIR MAINTENANCE SUPERVISOR Unavailable Unavailable Cougler, S Sorin BUILDING REPAIR MAINTENANCE SUPERVISOR Unavailable Unavailable Cougler, S Sorin BUILDING REPAIR MAINTENANCE SUPERVISOR Unavailable Unavailable Cougler, S Sorin BUILDING REPAIR MAINTENANCE SUPERVISOR Unavailable Unavailable Cougler, S Sorin BUILDING REPAIR MAINTENANCE SUPERVISOR Unavailable Unavailable Cougler, S Sorin BUILDING REPAIR MAINTENANCE SUPERVISOR Unavailable Unavailable Cougler, S Sorin BUILDING REPAIR MAINTENANCE SUPERVISOR Unavailable Unavailable Cougler, S Sorin BUILDING REPAIR MAINTENANCE SUPERVISOR Unavailable Unavailable Cougler, S Sorin BUILDING REPAIR MAINTENANCE SUPERVISOR Unavailable Unavailable Cougler, S Sorin BUILDING REPAIR MAINTENANCE SUPERVISOR Unavailable Unavailable Cougler, S Sorin BUILDING REPAIR MAINTENANCE SUPERVISOR Unavailable Unavailable Cougler, S Sorin BUILDING REPAIR MAINTENANCE SUPERVISOR Unavailable Unavailable Cougler, S Sorin BUILDING REPAIR MAINTENANCE SUPERVISOR Unavailable Unavailable Cougler, S Sorin BUILDING REPAIR MAINTENANCE SUPERVISOR Unavailable Unavailable Cougler, S Sorin BUILDING REPAIR MAINTENANCE SUPERVISOR Unavailable Unavailable Cougler, S Sorin BUILDING REPAIR MAINTENANCE SUPERVISOR Unavailable Unavailable Cougler, S Sorin BUILDING REPAIR MAINTENANCE SUPERVISOR Unavailable Unavailable Cougler, S Sorin BUILDING REPAIR MAINTENANCE SUPERVISOR Unavailable Unavailable Cougler, S Sorin BUILDING REPAIR MAINTENANCE SUPERVISOR Unavailable Unavailable Cougler, S Sorin BUILDING REPAIR MAINTENANCE SUPERVISOR Unavailable Unavailable Cougler, S Sorin BUILDING REPAIR MAINTENANCE SUPERVISOR Unavailable Unavailable Cougler, S Sorin BUILDING REPAIR MAINTENANCE SUPERVISOR Unavailable Unavailable Cougler, S Sorin BUILDING REPAIR MAINTENANCE SUPERVISOR Unavailable Unavailable Cougler, S Sorin BUILDING REPAIR MAINTENANCE SUPERVISOR Unavailable Unavailable Cougler, S Sorin BUILDING REPAIR MAINTENANCE SUPERVISOR Unavailable Unavailable Moreau, M Christopher PA-C Unavailable [...] YAMILETH, REINIER CARRIE PA Unavailable Unavailable Cosmo, Yulee SAFETY SUPERVISOR Unavailable Unavailable Cosmo, Yulee SAFETY SUPERVISOR Unavailable Unavailable Cosmo, Yulee SAFETY SUPERVISOR Unavailable Unavailable Cosmo, Yulee SAFETY SUPERVISOR Unavailable Unavailable Montrose, Yadira RPA-C Unavailable Unavailable Montrose, Yadira RPA-C Unavailable Unavailable Montrose, Yadira RPA-C Unavailable Unavailable Montrose, Yadira RPA-C Unavailable Unavailable Montrose, Yadira RPA-C Unavailable Unavailable Montrose, Yadira RPA-C Unavailable Unavailable Montrose, Yadira RPA-C Unavailable Unavailable Montrose, Yadira RPA-C Unavailable Unavailable Montrose, Yadira RPA-C Unavailable Unavailable Montrose, Yadira RPA-C Unavailable Unavailable Montrose, Yadira RPA-C Unavailable Unavailable Montrose, Yadira RPA-C Unavailable Unavailable Montrose, Yadira RPA-C Unavailable Unavailable Montrose, Yadira RPA-C Unavailable Unavailable Montrose, Yadira RPA-C Unavailable Unavailable Baranello, (Remington) Meche [...] Unavailable BLAIR, COURTNEY MD Unavailable Unavailable BLAIR, CORUTNEY MD Unavailable Unavailable BLAIR, COURTNEY MD Unavailable [...] Unavailable Unavailable DIMITRIMichelle ARMENTA MD Unavailable Unavailable DIMIRTIMichelle ARMENTA MD Unavailable Unavailable DIMITRIMichelle ARMENTA MD [...] W Karl RPA-C Unavailable Unavailable Sawant, W Akrl RPA-C Unavailable Unavailable Sawant, W Karl RPA-C [...] Unavailable RODRIGO, L ABHIJEET PA Unavailable Unavailable RDORIGO, L ABHIJEET PA Unavailable Unavailable RODRIGO, L [...] SANDY INGRAM MD Unavailable Unavailable Anival MATUTE SAFETY SUPERVISOR Unavailable Unavailable Anival MATUTE SAFETY SUPERVISOR Unavailable Unavailable ZEAnival BACK SAFETY SUPERVISOR Unavailable Unavailable ZENY AHUMADA Unavailable Unavailable Dana [...] is protected by Article 27-F of the [employer] Public Health law. If you continue you may have access to information: Regarding HIV / AIDS; Provided by facilities licensed or operated by the [employer] Office of Mental Health; or Provided by the [employer] Office for People With Developmental Disabilities. If such information is present, then the following [employer] mandated warning applies: This information has been [...] law may result in a fine or retirement sentence or both. A general authorization for the release of medical or other information is NOT sufficient authorization for further disc losure. Allergies and Adverse Reactions Type Description Substance Reaction Status Data Source(s ) Food allergy fish fish [facility] CLASS PCN (penicillin) PCN (penicillin) RASH Ca rtge [facility] Drug allergy ketorolac ketorolac Confusion U [facility] Drug allergy tramadol Tramadol Urticaria CA [facility] Drug allergy Penicillins Penicillin rash,itching SV [facility] Food allergy FISH FISH itching,swelling MO [facility] Drug allergy Drug allergy tramadol [facility] Drug allergy Drug allergy Penicillins [facility] Family History Family Member Name Family Member Gender Family Member Status Date o f Status Description Data Source(s) Unknown Condition [facility] Unknown Condition [facility] Unknown Condition [facility] Unknown Condition [facility] Unknown Condition [facility] Unknown Condition [facility] Unknown Condition [facility] Unknown Condition [facility] Unknown Condition [facility] Unknown Condition [facility] Unknown Condition [facility] Unknown Condition [facility] Unknown Condition [facility] Encounters Encounter Providers Location Date Indications Data Source(s ) Emergency Attender: DARNELL KAYConsultant: COURTNEY Martinez MD 03/15/2020 04:29:00 PM [facility] - 03/15/2020 05:45:00 PM [facility] Patient discharged. Emergency Attender: Deion Mclaughlin MD 10:29:00 PM [facility] - 03/13/2020 01:13:00 AM EST LOW BACK/LEG PAIN [facility] LOW BACK/LEG PAIN Patient discharged. Outpatient Attender: Dayanara ZACARIASCConsultant: PCP NO 03/09/2020 12:59:00 PM [facility] - 03/09/2020 12:59:00 PM [facility] Outpatient Attender: Martir Wilburn FNPConsultant: PCP NO 03/07/2020 12:49:00 PM EST - 03/07/2020 12:49:00 PM [facility] Emergency Attender: Morales Bauer MD 02/27 08:00:00 PM [facility] - 02/29/2020 02:11:00 AM EST LOWER BACK AND LEG PAIN [facility] LOWER BACK AND LEG PAIN Patient discharged. Emergency Attender: Meche Chavez MD 02/23 09:46:00 PM EST - 02/25/2020 12:00:00 AM EST BACK PAIN, LEG PAIN [facility] BACK PAIN, LEG PAIN Patient discharged. Emergency Attender: VÍCTOR Piñaant: PCP NO 02/24/2020 05:01:00 PM EST - 02/24/2020 06:21:00 PM EST [facility] Patient discharged. Emergency Attender: CARRIE Payneerrer: Gutierrez Moreau PA-C 01/21/2020 09:34:00 PM EST - 01/21/2020 09:50:00 PM [facility] Patient discharged. Emergency Attender: Meche Chavez MD 01/02 12:06:00 AM EST - 01/03/2020 02:27:00 AM EST BACK AND LEG PAIN [facility] BACK AND LEG PAIN Patient discharged. Outpatient Attender: Juan Limon MD 12/28/2019 12:56:01 PM EST [facility] Juan Limon MD: [address] [place] [phone], Ph. Attender: Juan Limon MD [place] - [facility] Medical 12/28/2019 12:00:00 AM EST [facility] ([facility]) Emergency Attender: DARNELL Colonsultant: PCP NO 11/29/2019 10:52:00 PM EDT - 11/30/2019 12:57:00 AM EDT [facility] Patient discharged. Emergency Attender: CARRIE Dennisoner: Gutierrez Moreau PA-C 11/28/2019 12:28:00 AM EDT - 11/28/2019 12:46:00 AM EDT [facility] Patient discharged. Outpatient Attender: Juan PHELAN 11/24/2019 02:21:01 PM EDT [facility] Emergency Attender: Deion Pierre MD 10/26 02:16:00 PM EDT - 11/21/2019 04:23:00 PM EDT BACK PAIN [facility] BACK PAIN Patient discharged. Outpatient Attender: ZENY Damicoant: PCP NO 2019 08:00:17 AM EDT - 2019 11:27:00 AM EDT [facility] Patient discharged. Emergency Attender: NIMCO NGUYEN MDConsultant: PCP NO 11/06/2019 10:45:00 PM EDT - 11/07/2019 12:24:00 AM EDT [facility] Patient discharged. Emergency Attender: AUDREY ALINAADRIANEMichelle [facility] ED-ED 10/2019 05:03:00 PM EDT - 10/03/2019 05:51:00 PM EDT BACK AND LEG PAIN [facility] BACK AND LEG PAIN Patient discharged. Emergency Attender: Kevin GANT 10/01 12:26:00 AM EDT - 10/02/2019 01:06:00 AM EDT [facility] Patient discharged. Outpatient Attender: Juan PHELAN 10/01/2019 10:46:01 AM EDT [facility] Emergency Attender: Morales Bauer MDAttender: Deion patel MD 09/30/2019 05:13:00 PM EDT - 09/30/2019 07:54:00 PM EDT BACK PAIN [facility] BACK PAIN Patient discharged. Outpatient Attender: Juan PHELAN 08/31/2019 10:57:02 AM EDT [facility] Emergency Attender: Morales Bauer MD 08/29 07:30:00 PM EDT - 08/30/2019 08:56:00 PM EDT BACK PAIN [facility] BACK PAIN Patient discharged. Emergency Attender: Sorin Blair BUILDING REPAIR MAINTENANCE SUPERVISOR ED-ED 08/27 02:40:00 PM EDT - 08/28/2019 03:45:00 PM EDT LOWER BACK PAIN [facility] LOWER BACK PAIN Patient discharged. Emergency Attender: Yadira Moeller RPA-CReferrer: Gutierrez Moreau PA-C 08/27/2019 04:47:00 PM EDT - 08/27/2019 05:15:00 PM EDT [facility] Patient discharged. Outpatient Attender: Juan PHELAN 08/19/2019 09:03:00 AM EDT [facility] Outpatient Attender: Juan PHELAN 08/18/2019 12:50:00 PM EDT [facility] Outpatient Attender: Juan PHELAN 08/18/2019 09:59:01 AM EDT [facility] Outpatient Attender: Juan PHELAN 08/18/2019 09:45:00 AM EDT [facility] Outpatient Attender: Juan PHELAN 08/17/2019 03:14:00 PM EDT [facility] Emergency Attender: Deion Pierre MD 07/25 10:08:00 PM EDT - 08/07/2019 11:52:00 PM EDT BACKPAIN [facility] BACKNCIN Patient discharged. Outpatient Attender: Juan Limon MD 08/03/2019 07:40:49 PM EDT [facility] Emergency Attender: JAKE QUIROS MDConsultant: PCP NO 07/30/2019 08:11:00 PM EDT - 07/30/2019 09:16:00 PM EDT [facility] Patient discharged. Outpatient Attender: MORALES WIGGINSConsultant: PCP NO 06/09/2019 08:50:00 AM EDT - 06/09/2019 08:50:00 AM EDT [facility] Emergency Attender: Deion Pierre MD 05/25 02:47:00 PM EDT - 06/07/2019 03:40:00 PM EDT BACK PAIN [facility] BACK PAIN Patient discharged. Emergency Attender: ABHIJEET Payneerrer: Melba Moreau PA-C 05/24/2019 09:09:00 PM EDT - 05/24/2019 09:43:00 PM EDT [facility] Patient discharged. Outpatient Attender: Juan Limon MD 05/06/2019 11:22:53 AM EDT [facility] Emergency Attender: CARRIE CARSON PAReferrer: Gutierrez Moreau PA-C 05/05/2019 06:50:00 PM EDT - 05/05/2019 07:19:00 PM EDT [facility] Patient discharged. Emergency Attender: Silvio Hicks MD 11/2019 02:52:00 PM EDT - 05/04/2019 04:59:00 PM EDT BACK PAIN [facility] BACK PAIN Patient discharged. Emergency Attender: JAKE QUIROS MDConsultant: PCP NO 05/02/2019 12:43:10 PM EDT - 05/02/2019 03:26:00 PM EDT [facility] Patient discharged. Emergency Attender: Deion Pierre MD 08/2019 03:53:00 PM EST - 05/01/2019 04:50:00 PM EST BACK PAIN [facility] BACK PAIN Patient discharged. Emergency Attender: SANDY INGRAM MDConsultant: PCP NO 04/30/2019 06:21:00 PM EST - 04/30/2019 09:23:00 PM [facility] Patient discharged. Emergency Attender: MELBA GARCIA PAReferrer: Jax Moreau PA-C 03/04/2019 06:16:00 PM EST - 03/04/2019 06:40:00 PM [facility] Patient discharged. Outpatient Attender: Juan PHELAN 01/27/2019 10:12:00 AM [facility] Emergency Attender: DARNELL KAYConsultant: PCP NO 01/26/2019 12:42:00 AM EST - 01/26/2019 02:25:00 AM EST [facility] Patient [facility] Emergency Attender: DEISY MONTOYAReferrer: Melba Moreau PA-C 09/01/2018 11:06:00 PM EDT - 09/01/2018 11:32:00 PM [facility] Emergency Attender: CARRIE GANT 09:54:00 PM EDT - 07/20/2017 10:15:00 PM [facility] Emergency Attender: Karl NATARAJAN EMERGENCY ROOM-ER 0 03/25/2017 02:05:00 PM EST - 03/22/2017 10:00:00 AM [facility] Medications Medication Brand Name Start Date [...] HP 03/07/2020 12:00:00 AM EST active [facility] ([facility]) 10-325 mg 03/07/2020 12:00:00 AM EST tablet [...] 08/30/2019 07:48:09 PM EDT 800 MG active [facility] Ibuprofen 800 MG Oral Tablet Ibuprofen 08/30/2019 07:48:09 PM EDT 800 MG [facility] Ibuprofen 800 MG Oral Tablet Ibuprofen 08/30/2019 07:48:09 PM EDT 800 MG [facility] Ibuprofen 800 MG Oral Tablet Ibuprofen 08/30/2019 07:48:09 PM EDT 800 MG [facility] Ibuprofen 800 MG Oral Tablet Ibuprofen 08/30/2019 07:48:09 PM EDT 800 MG [facility] Ibuprofen 800 MG Oral Tablet Ibuprofen 08/30/2019 07:48:09 PM EDT 800 MG [facility] Ibuprofen 800 MG Oral Tablet Ibuprofen 08/30/2019 07:48:09 PM EDT 800 MG [facility] 10-325 mg 08/11/2019 12:00:00 AM EDT tablet [...] 08/07/2019 11:08:32 PM EDT 300 MG active [facility] quetiapine 300 MG Oral Tablet Quetiapine (Seroquel) 30 0 mg Tablet Quetiapine (Seroquel) 300 mg Tablet 08/07/2019 11:08:32 PM EDT 300 MG active [facility] quetiapine 300 MG Oral Tablet Quetiapine (Seroquel) 30 0 mg Tablet Quetiapine (Seroquel) 300 mg Tablet 08/07/2019 11:08:32 PM EDT 300 MG active [facility] quetiapine 300 MG Oral Tablet Quetiapine (Seroquel) 30 0 mg Tablet Quetiapine (Seroquel) 300 mg Tablet 08/07/2019 11:08:32 PM EDT 300 MG active [facility] quetiapine 300 MG Oral Tablet Quetiapine (Seroquel) 30 0 mg Tablet Quetiapine (Seroquel) 300 mg Tablet 08/07/2019 11:08:32 PM EDT 300 MG active [facility] quetiapine 300 MG Oral Tablet [Seroquel] Quetiapine Quetiapi ne 08/07/2019 11:08:32 PM EDT 300 MG active [facility] quetiapine 300 MG Oral Tablet Quetiapine (Seroquel) 30 0 mg Tablet Quetiapine (Seroquel) 300 mg Tablet 08/07/2019 11:08:32 PM EDT 300 MG active [facility] quetiapine 300 MG Oral Tablet [Seroquel] Quetiapine (S eroquel) 300 mg Tablet Quetiapine (Seroquel) 300 mg Tablet 08/07/2019 11:08:32 PM EDT 300 MG active [facility] Cyclobenzaprine hydrochloride 10 MG Oral Tablet CYCLOBENZAPR [...] DAILY DOSE = 1 TABLET SOLD: 05/11/2019 [facility] 50 mg 05/02/2019 12:00:00 AM EST tablet 3 TAKE ONE TABLET BY MOUTH EVERY DAY 30-60 MINUTES BEFORE SLEEP TAKE ONE TABLET BY MOUTH EVERY DAY 30-60 MINUTES BEFORE SLEEP SOLD: 05/03/2019 [facility] Methylprednisolone Methylprednisolone 05/01/2019 04:25:45 PM EST 0 completed [facility] Methylprednisolone Methylprednisolone (Medrol (Jt)) 4 mg tablets,dose pack Methylprednisolone (Medrol (Jt)) 4 mg tablets,dose pack 05/01/2019 04:25:45 PM EST 0 completed [facility] Methylprednisolone Methylprednisolone (Medrol (Jt)) 4 mg tablets,dose pack Methylprednisolone (Medrol (Jt)) 4 mg tablets,dose pack 05/01/2019 04:25:45 PM EST 0 completed [facility] Methylprednisolone Methylprednisolone 05/01/2019 04:25:45 PM EST 0 active [facility] Methylprednisolone Methylprednisolone (Medrol (Jt)) 4 mg tablets,dose pack Methylprednisolone (Medrol (Jt)) 4 mg tablets,dose pack 05/01/2019 04:25:45 PM EST 0 completed [facility] Methylprednisolone Methylprednisolone 05/01/2019 04:25:45 PM EST 0 active [facility] Methylprednisolone Methylprednisolone (Medrol (Jt)) 4 mg tablets,dose pack Methylprednisolone (Medrol (Jt)) 4 mg tablets,dose pack 05/01/2019 04:25:45 PM EST 0 completed [facility] Methylprednisolone Methylprednisolone (Medrol (Jt)) 4 mg tablets,dose pack Methylprednisolone (Medrol (Jt)) 4 mg tablets,dose pack 05/01/2019 04:25:45 PM EST 0 completed [facility] Methylprednisolone Methylprednisolone (Medrol (Jt)) 4 mg tablets,dose pack Methylprednisolone (Medrol (Jt)) 4 mg tablets,dose pack 05/01/2019 04:25:45 PM EST 0 completed [facility] Methylprednisolone Methylprednisolone 05/01/2019 04:25:45 PM EST 0 completed [facility] Methylprednisolone Methylprednisolone (Medrol (Jt)) 4 mg tablets,dose pack Methylprednisolone (Medrol (Jt)) 4 mg tablets,dose pack 05/01/2019 04:25:45 PM EST 0 completed [facility] 10 mg 04/09/2019 12:00:00 AM EST [...] type / Coverage type Policy ID Covered republican ID Covered republican's relationship to odell Policy Odell Plan Information [facility] COMMUNITY PLAN [facility] [id number] SP [id number] [facility] AMERICHOICE XIX -HMO [id number] 18 [id number] [facility] COMMUNTY PLAN [id number] [facility] [place] [id number] 18 [id number] [facility] COMMUNITY PLAN XIX [id number] [id number] [facility] MEDICAID [id number] S [id number] Self Pay P UNAVAILABLE S UNAVAILA BLE [facility] COMMUNITY PLAN XIX -RECURRING [id number] 18 [id number] [facility](MCAID) O [id number] S [id number] [facility] O [id number] S [id number] [facility]CA[facility]) O [id number] S [id number] [facility] COMMUNITY PL [id number] S [id number] [facility] MEDICAID [id number] S [id number] [facility] COMMUNITY PLAN [facility] [id number] SP [id number] MEDICAID [id number] SP [id number] [facility] COMMUNITY PLAN [facility] [id number] SP [id number] [facility] MEDICAID [id number] S [id number] [facility] MEDICAID [id number] S [id number] [facility] PL [id number] S [id number] MEDICAID [id number] [facility] COMMUNITY PLAN XIX [id number] 18 [id number] [facility] COMMUNITY PLAN XIX [id number] 18 [id number] MEDICAID -O/P EMERGENCY ROOM [id number] [facility] MEDICAID [id number] S [id number] [facility] COMMUNITY PLAN MCDHMO [id number] SP [id number] [facility] COMMUNITY PLAN MCDHMO [id number] SP [id number] [facility] CREDIT RISK MANAGEMENT DIRECTOR DEPT [id number] SP [id number] SELF PAY ONLY [id number] SP [id number] [facility] COMMUNITY PLAN MCDHMO [id number] SP [id number] [facility] COMMUNITY PLAN MCDHMO [id number] SP [id number] Medicaid S [id number] S [id number] Managed Care - Community Plan [facility] P [id number] S [id number] [facility] MEDICAID [facility] HMO [id number] S [id number] [facility] WELL 4 ME [facility] HMO [id number] S [id number] PRIVATE PAY CO UNAVAILABLE 18 UNAVAI LABLE [facility] [place] [id number] 18 [id number] [facility] AMERICHOICE XIX -HMO [id number] 18 [id number] MEDICAID -O/P [id number] Private Pay Commercial [id number] Self [id number] [facility] COMMUNITY PLAN [id number] 18 [id number] [facility] COMMUNITY PLAN MCDHMO [id number] SP [id number] [facility] MEDICAID [facility] HMO [id number] S [id number] SELF PAY ONLY [id number] SP [id number] UN[facility] COMMUNITY PLAN MCDHMO [id number] SP [id number] Un[facility] Community Plan Medicaid Self UN[facility] COMMUNITY PLAN MC [id number] 18 [id number] UN[facility] COMMUNITY PLAN MCDHMO [id number] SP [id number] Medicaid S [id number] Managed Care - Community Plan [facility] P [id number] S [id number] [facility] [id number] SP [id number] [facility] [id number] SP [id number] Medicaid P [id number] S [id number] [facility](MCAID) O [id number] S [id number] [facility] [id number] S [id number] SELF PAY UNAVAILABLE SP UNAVAILA BLE C I [id number] Self [id number] MEDICAID MARY CARMEN [id number] S [id number] [id number] SP [id number] [place] MATERNAL FETAL PHYSICIAN DEP [id number] SP [id number] [facility] [id number] SP [id number] MEDICAID M [id number] Self [id number] AMERICHOICE UNHC XIX PHY -HMO [id number] 18 [id number] Medicaid S [id number] S [id number] [facility] AMERICHOICE XIX HMO [id number] 18 [id number] EXCELLUS I [id number] Self [id number] MEDICAID - CLINIC [id number] MEDICAID APPLYING UNAVAILABLE UNAVAILABLE SELF-PAY UNAVAILABLE S UNAVAILA BLE BLUE CROSS POLK PLAN [id number] SP [id number] BLUE CHOICE OPTION O [id number] S [id number] MEDICAID W [id number] S [id number] BLUE CROSS BLUE SHIELD-O/P [id number] 18 [id number] SELF PAY SP UNAVAILABLE S UNAVAILA BLE BCBS [facility] HMO [id number] S [id number] BLUE CROSS BLUE SHIELD-PHYSICIAN [id number] 18 [id number] MEDICAID P [id number] S [id number] [employer] COMM[employer] MCDO [id number] SP [id number] Problems, Conditions, and Diagnoses Code Display Name Description Problem Type Effective Dates Data Source(s) 674914015 Clinical finding Clinical Finding Problem 12/09/2019 06 :28:26 PM EDT FLANAGAN ([facility]) 510407768 SNOMED CT Concept SNOMED CT Concept Problem 12/08 06:28:26 PM EDT FLANAGAN ([facility]) [id number] Osteoporosis Osteoporosis Problem 12/09/2019 06:28:26 P M EDT FLANAGAN ([facility]) [id number] Arthropathy Arthropathy Problem 12/09/2019 06:28:26 PM EDT FLANAGAN ([facility]) [id number] Chronic obstructive lung disease Chronic Obstruc tive Lung Disease Problem 12/09/2019 06:28:26 PM EDT SANCHEZ ([facility]) 903339521 Family problems Family problems Problem 06/09/2019 12:0 0:00 AM EDT MEDENT ([facility]) 10927152 Antisocial personality disorder Antisocial perso nality disorder Problem 06/09/2019 12:00:00 AM EDT MEDENT ([facility]) K4090 Unilateral inguinal hernia, without obstruction or gangrene, not specified as recurrent Unilateral inguinal hernia, without obst ruction or gangrene, not specified as recurrent Diagnosis 03/09/2020 12:59:00 PM [facility] F31447 Personal history of traumatic brain inju ry Personal history of traumatic brain injury Diagnosis 03/09/2020 12:59:00 PM [facility] M50664 Nicotine dependence, cigarettes, uncompl icated Nicotine dependence, cigarettes, uncomplicated Diagnosis 03/09/2020 12:59:00 PM [facility] R0602 Shortness of breath Shortness of breath Diagnosis 0 03/09/2020 12:59:00 PM [facility] R0789 Other chest pain Other chest pain Diagnosis 03/09/2020 12 :59:00 PM [facility] G4700 Insomnia, unspecified Insomnia, unspecified Diagnosis 03/09/2020 12:59:00 PM [facility] F6081 Narcissistic personality disorder Narcissistic p ersonality disorder Diagnosis 03/09/2020 12:59:00 PM [facility] F6381 Intermittent explosive disorder Intermittent explosive disorder Diagnosis 03/09/2020 12:59:00 PM [facility] F602 Antisocial personality disorder Antisocial personality disorder Diagnosis 03/09/2020 12:59:00 PM [facility] M533 Sacrococcygeal disorders, not elsewhere classified Sacrococcygeal disorders, not elsewhere classified Diagnosis 03/09/2020 12:59:00 PM [facility] 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, thoracic region Other intervertebral disc degeneration, thoracic region Diagnosis 02/24 12:59:00 PM [facility] 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, lumbar region Other intervertebral disc displacement, lumbar region Diagnosis 03/09/2020 12:59:00 PM [facility] 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 Diagnosis 02/24/2020 05:01:00 PM [facility] V83314 Personal history of nicotine dependence Personal history of nicotine dependence Diagnosis 02/24/2020 05:01:00 PM [facility] Z8673 Personal history of transien t ischemic attack (TIA), 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 transient ischemic attack (TIA), and cerebral infarction without residual deficits Diagnosis 02/24/2020 05:01:00 PM [facility] G8929 Other chronic pain Other chronic pain Diagnosis 05:01:00 PM [facility] M545 Low back pain Low back pain Diagnosis 02/24/2020 05:01:00 PM [facility] 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) USE OF OPIATE ANALGESIC Diagnosis 01/21/2020 09:34:00 PM [facility] l G89.29 Other chronic pain OTHER CHRONIC PAIN Diagnosis 09:34:00 PM [facility] F17.210 Nicotine dependence, cigarettes, uncompl icated NICOTINE DEPENDENCE, CIGARETTES, UNCOMPLICATED Diagnosis 01/21/2020 09:34:00 PM [facility] M54.5 Low back pain LOW BACK PAIN Diagnosis 01/21/2020 09:34:00 PM [facility] F5109 Other insomnia not due to a substance or known physiological condition Other insomnia not due to a substance or known physiological condition Diagnosis 11/29/2019 10:52:00 PM [facility] 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 O THER RETIREMENT (CURRENT) DRUG THERAPY Diagnosis 11/28/2019 12:28:00 AM [facility] l M51.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 disc disorders with radic ulopathy, lumbar region INTERVERTEBRAL DISC DISORDERS W RADICULOPATHY, LUM Diagnosis 05/2019 12:28:00 AM [facility] Z0271 Encounter for disability determination E ncounter for disability determination Diagnosis 2019 12:43:00 PM [facility] U37384 Nicotine dependence, unspecified, uncomp licated Nicotine dependence, unspecified, uncomplicated Diagnosis 11/06/2019 10:45:00 PM [facility] F419 Anxiety disorder, unspecified Anxiety disorder, unspec ified Diagnosis 11/06/2019 10:45:00 PM [facility] 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 Diagnosi s 11/06/2019 10:45:00 PM [facility] Y92.[address] specified [address] the place of o ccurrence of the external cause OTH PLACES THE PLACE OF OCCURRENCE OF THE EXTER Diagnosis 04/2019 04:47:00 PM [facility] X58.XXXA Exposure to other specified factors, ini tial encounter EXPOSURE TO OTHER SPECIFIED FACTORS, INITIAL ENCOU Diagnosis 08/27/2019 04:47:00 P M [facility] Y93.89 Activity, other specified ACTIVITY, OTHER SPECIFIED Di agnosis 08/27/2019 04:47:00 PM [facility] S39.012A Strain of muscle, fascia and tendon of l ower back, initial encounter STRAIN OF MUSCLE, FASCIA AND TENDON OF LOWER BACK, Diagnosis 04/2019 04:47:00 PM [facility] Y[address] or not applicable Unspecified place or not applicable Diagnosis 07/30/2019 08:11:00 PM [facility] [id number] Overexertion from strenuous movement or load, initial encounter Overexertion from strenuous movement or load, initial encounter Diagnosis 07/30/2019 08:11:00 PM [facility] M5441 Lumbago with sciatica, right side Lumbago with s ciatica, right side Diagnosis 07/30/2019 08:11:00 PM [facility] M5416 Radiculopathy, lumbar region Radiculopathy, lumbar reg ion Diagnosis 07/30/2019 08:11:00 PM [facility] 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, lumbar region Unspecified inflammatory spondylopathy, lumbar region Diagnosis 07/30/2019 08:11:0 0 PM [facility] F250 Schizoaffective disorder, bipolar type S chizoaffective disorder, bipolar type Diagnosis 07/30/2019 08:11:00 PM [facility] [id number] Strain of muscle, fascia and tendon of l ower back, initial encounter Strain of muscle, fascia and tendon of lower back, initial encounter Diagnosis 07/30/2019 08:11:00 PM EDT [facility] F1210 Cannabis abuse, uncomplicated Cannabis abuse, uncompli cated Diagnosis 06/09/2019 08:50:00 AM EDT [facility] Z630 Problems in relationship with spouse or partner Problems in relationship with spouse or partner Diagnosis 06/09/2019 08:50:00 AM EDT [facility] F51.04 Psychophysiologic insomnia PSYCHOPHYSIOLOGIC INSOMNIA Diagnosis 05/24/2019 09:09:00 PM [facility] M54.16 Radiculopathy, lumbar region RADICULOPATHY, LUMBAR REG ION Diagnosis 05/24/2019 09:09:00 PM [facility] G47.00 Insomnia, unspecified INSOMNIA, UNSPECIFIED Diagnosis 05/05/2019 06:50:00 PM [facility] [id number] Exposure to other specified factors, ini tial encounter Exposure to other specified factors, initial encounter Diagnosis [facility]counter for issue of repeat prescripti on Encounter for issue of repeat prescription Diagnosis 04/30/2019 06:21:00 PM [facility] F5104 Psychophysiologic insomnia Psychophysiologic insomnia Diagnosis 04/30/2019 06:21:00 PM [facility] M549 Dorsalgia, unspecified Dorsalgia, unspecified Diagnosi s 04/30/2019 06:21:00 PM [facility] M25.551 Pain in right hip PAIN IN RIGHT HIP Diagnosis 03/04 06:16:00 PM [facility] M54.9 Dorsalgia, unspecified DORSALGIA, UNSPECIFIED Diagnosi s 03/04/2019 06:16:00 PM [facility] Surgeries/Procedures Procedure Description Date Indications Data Source(s) CT Abd/pel w/o contrast 02/24/2020 10:42:00 PM [facility] CT Abd/pel w/o contrast 02/24/2020 10:42:00 PM [facility] CT Abd/pel w/o contrast 02/24/2020 10:42:00 PM [facility] electrocardiogram, routine ECG, 12 leads min 0 12:00:00 AM [facility]) Radiography of sacrococcygeal spine (procedure) 2019 11:25:00 PM [facility] Radiography of sacrococcygeal spine (procedure) 2019 11:25:00 PM [facility] Radiography of sacrococcygeal spine (procedure) 2019 11:25:00 PM [facility] Radiography of sacrococcygeal spine (procedure) 2019 11:25:00 PM [facility] Radiography of sacrococcygeal spine (procedure) 2019 11:25:00 PM [facility] Radiography of sacrococcygeal spine (procedure) 2019 11:25:00 PM [facility] Radiography of sacrococcygeal spine (procedure) 2019 11:25:00 PM [facility] Radiography of sacrococcygeal spine (procedure) 2019 11:25:00 PM [facility] CT L-Spine without contrast 05/04/2019 03:55:00 PM [facility] CT L-Spine without contrast 05/04/2019 03:55:00 PM [facility] CT L-Spine without contrast 05/04/2019 03:55:00 PM [facility] CT L-Spine without contrast 05/04/2019 03:55:00 PM [facility] CT L-Spine without contrast 05/04/2019 03:55:00 PM [facility] CT L-Spine without contrast 05/04/2019 03:55:00 PM [facility] CT L-Spine without contrast 05/04/2019 03:55:00 PM [facility] CT L-Spine without contrast 05/04/2019 03:55:00 PM [facility] CT L-Spine without contrast 05/04/2019 03:55:00 PM [facility] CT L-Spine without contrast 05/04/2019 03:55:00 PM [facility] Results ID Date Data Source [id number] 03/15/2020 04:29:00 PM [facility] 1 OrderSheet [facility] [address] [place] [address] Phone #: ext- [phone] 03/15/2020 16:02 Patient: [...] Description Priority Entered Acknowledged Initialed 2 OrderSheet [facility] [address] [place] [address] Phone #: rde- [phone] 03/15/2020 16:02 Patient: JUAN SPENCER Sex: M : 1975 Age: 44y[Electronically signed by Jeaneth Huffman RN (17:48 021)][Electronically signed by Sae Leavitt (22:04 03/15/2020)][Electronically locked by Jeaneth Huffman RN (17:48 03/15/2020)] Name Value Range Interpretation Code Description Data Tete rce(s) Supporting Document(s) ID Date Data Source [id number] 03/15/2020 04:29:00 PM EST [facility] 1 Medication Reconciliation Report [facility] [address] [place] [address] Phone #: ext- [phone] 03/15/2020 16:02 [...] days -- Dispense 1 pack.Refills: 0. Substitution permitted.[facility] #72 - [address] [place] [id number]. . 2 Medicati on Reconciliation Report [facility] [address] [place] [address] Phone #: ext- [phone] 03/15/2020 16:02 Patient: JUAN SPENCER Sex: M : 1975 Age: 44ylidocaine 5 % topical patch Apply 1 patch once a day for 5 days -- Dispense 5 patch. Refills: 0.Substitution permitted.Pharmacy [facility] #46 - [address] [place] [phone]. . -- STALIN Nieto Name Value Range Interpretation Code Description Data Tete rce(s) Supporting Document(s) ID Date Data Source [id number] 03/15/2020 04:29:00 PM EST [facility] 1 Medication Administration Record [facility] [address] [place] [address] Phone #: xob- [phone] 03/15/2020 16:02 Patient: JUAN SPENCER Sex: M [...] rce(s) Supporting Document(s) ID Date Data Source [id number] 03/15/2020 04:29:00 PM [facility] 1 General Instructions [facility] [address] [place] [address] Phone #: ext- [phone] 03/15/2020 16:02 Patient: [...] Dispense 1 pack.Refills: 0. Substitution permitted.Pharmacy - [facility] #28 - [address] [place], [place] [phone]. .lidocaine 5 % topical patch Apply 1 patch once a day for 5 days -- Dispense 5 patch. Refills: 0.Substitution permitted.Pharmacy - [facility] #32 - [address] ; [place], [place] [phone]. .Follow-up:Follow up with your doctor. Call for an appointment. Reason for referral: evaluation and treatment.Summary of care provided to patient.Understanding of the discharge instructions verbalized by patient. ADDITIONAL INFORMATIONBack Pain (Acute or Chronic) 2 General Instructions [facility] [address] [place] [address] Phone #: ext- [phone] 03/15/2020 16:02 Patient: [...] illness. Mechanical problems include: 3 General Instructions [facility] [address] [place] [address] Phone #: [phone] tgv- [phone] 03/15/2020 16:02 Patient: JUAN SPENCER Sex: M [...] painful area for 20 4 General Instructions [facility] [address] [place] [address] Phone #: ext- [phone] 03/15/2020 16:02 Patient: JUAN SPENCER Sex: M [...] or are takingother medicines. You may use zsxm-oru-hdargqm medicine as directed on the bottle to [...] to seek medical advice 5 General Instructions [facility] [address] [place] [address] Phone #: ext- [phone] 03/15/2020 16:02 Patient: JUAN SPENCER Sex: M : 1975 Age: 44yCall your healthcare provider right away if any of these occur: Pain becomes worse or spreads to your legs Weakness or numbness in one or both legs Numbness in the groin or genital area 1999- 2019 [email or web address]. [address] [place] [address]. All rights reserved. This information is not intended as asubstitute for pro fessional medical care. Always follow your healthcare professional's instructions. You have been given the following additional information: Back Pain (Acute or Chronic)(Electronically signed by STALIN Nieto 03/15/2020 22:04) Name Value Range Interpretation Code Description Data Tete rce(s) Supporting Document(s) ID Date Data Source [id number] 03/15/2020 04:29:00 PM [facility] 1 Clinical Report - Nurses [facility] [address] [place] [address] Phone #: ext- [phone] 03/15/2020 16:02 Patient: JUAN SPENCER Sex: M [...] leftfoot, tingling, and trouble walking. No fever.Treatment POST SPLITTER:Took Tylenol and ibuprofen. Seen within the last [...] Miller R.N. 2 Clinical Report - Nurses [facility] [address] [place] [address] Phone #: ext- [phone] 03/15/2020 16:02 [id number] Sex: [facility] : 1975 Age: 44y History [...] Verbalizes understanding. 3 Clinical Report - Nurses [facility] [address] [place] [address] Phone #: ext- [phone] 03/15/2020 16:02 Patient: [...] Patient verbalized understanding. Written instructions provided in Ghanaian. The patient was discharged home and accompanied [...] rce(s) Supporting Document(s) ID Date Data Source [id number] 03/15/2020 04:29:00 PM [facility] 1 Clinical Report - Physicians/Mid Levels [facility] [address] [place] [address] Phone #: ext- [phone] 03/15/2020 16:02 Patient: JUAN SPENCER Sex: M [...] inspection. 2 Clinical Report - Physicians/Mid Levels [facility] [address] [place] [address] Phone #: ext- [phone] 03/15/2020 16:02 [id number] Sex: M : 1975 Age: 44y Eyes: [...] Oral. 3 Clinical Report - Physicians/Mid Levels [facility] [address] [place] [address] Phone #: ext- [phone] 03/15/2020 16:02 [id number] Sex: M : 1975 Age: 44y Gabapentin Oral. SEROquel Oral. Vicodin Oral. Prescription Medications: Medrol (Jt) 4 mg tablets in a dose pack Take 1 tablet as directed for 6 days -- Dispense 1 pack. Refills: 0. Substitution permitted. [facility] #68 - [address] ; [place], [place] [phone]. FaxNu mber: . lidocaine 5 % topical patch Apply 1 patch once a day for 5 days -- Dispense 5 patch. Refills: 0. Substitution permitted. [facility] #12 - [address] ; [place], [place] [phone]. Phone: . Follow-up: Follow up with your doctor. Call for an appointment. Reason for referral: evaluation and treatment. Summary of care provided to patient. Understanding of the discharge instructions verbalized by patient.(Electronically signed by STALIN Nieto 03/15/2020 22:04) Name Value Range Interpretation Code Description Data Tete rce(s) Supporting Document(s) ID Date Data Source [id number] 03/13/2020 12:39:00 AM [facility] ED Physician Documentation NAME: JUAN SPENCER : 1975 AGE: 44 MR#: [id number] SERVICE DATE: 03/12/[address]: Deion Mclaughlin MD PRIMARY CARE DR: No Family PHYS Provided ROOM#: HPI (Adult, General) General Chief Complaint: Musculoskeletal Stated Complaint: LOW BACK/LEG PAIN Resident [facility], travel outisde home, exposure to hot tubs:: [...] management. He recently was leaving town for [place]. States his vehicle broke down and was unable to go to [place] in a timely manner. Patient states that [...] TIDPRN PRN 01/10/16 11/21/19 11/20/19 History hydrocodone-acetaminophen [[place] 1 ea PO Q4HPRN PRN 01/10/16 11/21/19 [...] Surgical History (Updated 08/18/18 @ 11:54 by [employer]) History of - surgery (Surgical) Hx of [...] 900 mg PO TID RF: 0 hydrocodone-acetaminophen [[place]] 10-325 mg tablet 1 ea PO Q4HPRN [...] rce(s) Supporting Document(s) ID Date Data Source [id number] 02/28/2020 11:50:00 PM [facility] ED Physician Documentation NAME: JUAN SPENCER : 1975 AGE: 44 MR#: [id number] SERVICE DATE: 02/28/[address]: Morales Bauer MD PRIMARY CARE DR: No Family PHYS Provided ROOM#: [facility] (Adult, General) General Chief Complaint: Musculoskeletal Stated Complaint: LOWER BACK AND LEG PAIN Resident [facility], travel outisde home, exposure to hot tubs:: [...] TIDPRN PRN 01/10/16 11/21/19 11/20/19 History hydrocodone-acetaminophen [[place] 1 ea PO Q4HPRN PRN 01/10/16 11/21/19 [...] Surgical History (Updated 08/18/18 @ 11:54 by [employer]) History of - surgery (Surgical) Hx of [...] 900 mg PO TID RF: 0 hydrocodone-acetaminophen [[place]] 10-325 mg tablet 1 ea PO Q4HPRN [...] rce(s) Supporting Document(s) ID Date Data Source [id number] 02/24/2020 11:38:00 PM [facility] ED Physician Documentation NAME: JUAN SPENCER : 1975 AGE: 44 MR#: [id number] SERVICE DATE: 02/24/[address]: Remington Chavez [...] TIDPRN PRN 01/10/16 11/21/19 11/20/19 History hydrocodone-acetaminophen [[place] 1 ea PO Q4HPRN PRN 01/10/16 11/21/19 [...] Surgical History (Updated 08/18/18 @ 11:54 by [employer]) History of - surgery (Surgical) Hx of [...] dizziness, vertigo, lightheadedness and loss of consciousness [facility] Medical History ADHD (attention deficit hyperactivity disorder) [...] % (Auto) 59.6, Lymph % (Auto) 31.0, Gila % (Auto) 6.3, Eos % (Auto) 2.5, [...] 900 mg PO TID RF: 0 hydrocodone-acetaminophen [[place]] 10-325 mg tablet 1 ea PO Q4HPRN [...] Follow Up Care/Instructions Diet/Activity/Wound Care..: Rest. Take djlz-qex-xabnyzp Aleve 220 mg with food every 12 [...] rce(s) Supporting Document(s) ID Date Data Source [id number] 02/24/2020 11:27:00 PM [facility] [address] [place] [address] [phone] NAME SEX PT STATUS ACCOUNT NUMBER JUAN SPENCER [facility] ER [id number] ORDERING PHYSICIAN LOCATION MEDICAL RECORD NO. Remington Chavez MD ER [id number] ATTENDING PHYSICIAN DATE OF DATE OF EXAM/TIME [...] Trans Dt/Tm: Trans by: DT Prt Dt/Tm: 2555-1605: Total DLP = 208.00 mGy-cm 8504-9667: Total Radiation Dose = 3.1200 mSv Lifetime Dose: 12.9060 mSv Name Value Range Interpretation Code Description Data Tete rce(s) Supporting Document(s) ID Date Data Source [id number] 02/24/2020 10:54:00 PM EST [facility] Name Value Range Interpretation Code Description Data Tete rce(s) Supporting Document(s) Leukocytes [#/volume] in Blood by Automated count 10.4 10*3/uL 4.45-1 0.71 N [facility] Erythrocytes [#/volume] in Blood by Automated count 4.23 10*6/uL 4.3-6.1 Below low normal [facility] Hemoglobin [Moles/volume] in Blood 12.6 g/dL 13-18 Below low no rmal [facility] Hematocrit [Volume Fraction] of Blood by Automated count 38.9 % 42-52 Below low normal [facility] Erythrocyte mean corpuscular volume [Ent itic volume] in Cord blood by Automated count 92.0 fL 80-96 N [facility] Erythrocyte mean corpuscular hemoglobin [Entitic mass] by Automated count 29.8 pg 27-31 N [facility] Erythrocyte mean corpuscular hemoglobin concentration [Mass/volume] in Cord blood 32.4 g/dL 33-37 Below low normal [facility] Erythrocyte distribution width [Entitic volume] by Automated count 12 % 11-15 N [facility] Platelets [#/volume] in Blood by Automated count 294 10*3/uL 130-472 N [facility] Platelet mean volume [Entitic volume] in Blood 9.2 fL 9.1-13.1 N [facility] Neutrophils/100 leukocytes in Blood by Automated count 59.6 % 41- 77 N [facility] Neutrophils [#/volume] in Blood by Automated count 6.2 U 1.7-7.6 N [facility] Lymphocytes/100 leukocytes in Blood by Automated count 31.0 % 14- 46 N [facility] Lymphocytes [#/volume] in Blood by Automated count 3.2 U 0.6-4.6 N [facility] Monocytes/100 leukocytes in Blood by Automated count 6.3 % 4-12 N [facility] Monocytes [#/volume] in Blood by Automated count 0.7 U 0.2-1.2 [facility] Eosinophils/100 leukocytes in Blood by Automated count 2.5 % 0-7 N [facility] Eosinophils [#/volume] in Blood by Automated count 0.3 U 0.0-0.5 N [facility] Basophils/100 leukocytes in Blood by Automated count 0.4 % 0.4-1 .3 N [facility] Basophils [#/volume] in Blood by Automated count 0.0 U 0.0-0.2 N [facility] NUCLEATED RED BLOOD CELL 0 % [facility] NUCLEATED RED BLOOD CELL# 0 U [facility] Immature granulocytes [Presence] in Blood by Automated count 0-2 N [facility] Immature granulocytes [#/volume] in Blood by Automated count 0.0 U 0-0.1 N [facility] Manual Differential panel - Blood NO [facility] ID Date Data Source [id number] 02/24/2020 11:12:00 PM EST [facility] Name Value Range Interpretation Code Description Data Tete rce(s) Supporting Document(s) Urea nitrogen [Mass/volume] in Serum or Plasma 17 mg/dL 9-23 [facility] Sodium [Moles/volume] in Serum or Plasma 146 mmol/L 132-146 [facility] Potassium [Moles/volume] in Serum or Plasma 3.6 mmol/L 3.5-5.5 [facility] Chloride [Moles/volume] in Serum or Plasma 112 mmol/L 99-109 Above high normal [facility] Carbon dioxide, total [Moles/volume] in Serum or Plasma 29 mmol/L 20 -31 [facility] Anion gap in Serum or Plasma 9 mmol/L 8-16 [facility] Glucose [Mass/volume] in Serum or Plasma 97 mg/dL 74-106 [facility] Creatinine 0.7 mg/dL 0.5-1.1 [facility] Glomerular filtration rate/1.73 sq M.pre dicted [Volume Rate/Area] in Serum or Plasma Greater Than 60 ABOVE 60 [facility] Alanine aminotransferase [Enzymatic acti vity/volume] in Serum or Plasma by With P-5'-P 22 U/L 10-49 N [facility] ital Aspartate aminotransferase [Enzymatic ac tivity/volume] in Serum or Plasma by With P-5'-P 13 U/L 0-33 N [facility] pital Alkaline phosphatase [Enzymatic activity/volume] in Serum or Plasma 66 U/L 45-129 [facility] Calcium [Mass/volume] in Serum or Plasma 8.5 mg/dL 8.5-10.1 [facility] Bilirubin.total [Mass/volume] in Serum or Plasma 0.2 mg/dL 0.3-1.2 Below low normal [facility] Albumin [Mass/volume] in Serum or Plasma by Bromocresol purple (BCP) dye binding method 3.6 g/dL 3.2-4.8 N [facility] ital Protein [Mass/volume] in Serum or Plasma 6.8 g/dL 5.7-8.2 [facility] ID Date Data Source [id number] 02/24/2020 05:01:00 PM [facility] 1 OrderSheet [facility] Emergency Department [address] [place] [address] Phone #: ext- [phone] 02/24/2020 16:53 Patient: [...] rce(s) Supporting Document(s) ID Date Data Source [id number] 02/24/2020 05:01:00 PM [facility] 1 Medication Reconciliation Report [facility] Emergency Department [address] [place] [address] Phone #: ext- [phone] 02/24/2020 16:53 Patient: [...] rce(s) Supporting Document(s) ID Date Data Source [id number] 02/24/2020 05:01:00 PM EST [facility] 1 Medication Administration Record [facility] Emergency Department [address] [place] [address] Phone #: ext- [phone] 02/24/2020 16:53 Patient: JUAN SPENCER Sex: M : 1975 Age: 44yWeight: 56.6 kgHeight/Length: 69 inBMI: 18.4ALLERGIES: Penicillins, Toradol, Tramadol Date/Time Medication Administered Medication OrderedGiven LIDOCAINE PATCH Lidocaine Patch Topical (Patch 517:49 02/24/2020 Dose: 1 patch Ointment Transdermal %) 1 Patch (On for 12 hours, offSAvelino christian R.N. for 12 hours.)Given VALIUM [PO] (DIAZEPAM) Valium PO 5 mg17:48 02/24/2020 Dose: 5 mg Tablets Avelino Wilson R.N. Name Value Range Interpretation Code Description Data Tete rce(s) Supporting Document(s) ID Date Data Source [id number] 02/24/2020 05:01:00 PM EST [facility] 1 General Instructions [facility] Emergency Department [address] [place] [address] Phone #: ext- [phone] 02/24/2020 16:53 Patient: [...] your head suddenly jerking 2 General Instructions [facility] Emergency Department [address] [place] [address] Phone #: ext- [phone] 02/24/2020 16:53 Patient: JUAN SPENCER Sex: M [...] in poorly lit areas. 3 General Instructions [facility] Emergency Department [address] [place] [address] Phone #: ext- [phone] 02/24/2020 16:53 Patient: [...] to seek medical advice 4 General Instructions [facility] Emergency Department [address] [place] [address] Phone #: ext- [phone] 02/24/2020 16:53 Patient: JUAN SPENCER Sex: M : 1975 Age: 44yCall your healthcare provider right away if any of these happen: Repeated mechanical falls, or unexplained falls Dizziness Severe headache Blood in vomit, stools (black or red color) 4212-[email or web address] [place] [address]. All rights reserved. This information is not intended as asubstitute for professional medical care. Always follow your healthcare professional's instructions.Back Pain (Acute or Chronic)Back pain is one of the most common problems. The good news is that most people feel better in 1 to2 weeks, and most of the rest in 1 to 2 months. Most people can remain active. 5 General Instructions [facility] Emergency Department [address] [place] [address] Phone #: ext- [phone] 02/24/2020 16:53 Patient: [...] with your knees bent 6 General Instructions [facility] Emergency Department [address] [place] [address] Phone #: ext- [phone] 02/24/2020 16:53 Patient: [...] or are takingother medicines. You may use tkuj-dvq-jeycynx medicine as directed on the bottle to [...] affect your careCall 911 7 General Instructions [facility] Emergency Department [address] [place] [address] Phone #: ext- [phone] 02/24/2020 16:53 Patient: [...] Numbness in the groin or genital area 7604-[email or web address] [place] [address]. All rights reserved. This information is not intended as asubstitute for professional medical care. Always follow your healthcare prof caryn's instructions.Degenerative Disk Disease 8 General Instructions [facility] Emergency Department [address] [place] [address] Phone #: ext- [phone] 02/24/2020 16:53 Patient: [...] between ice and heat. You may use kiae-ehv-lbnyuco pain medicine to control pain, unless another pain medicine was prescribed. If you have chronic liver or kidney disease or ever had a stomach ulcer or GI bleeding, talk with your provider before using these medicines.Follow-up careFollow up with your healthcare provider, or as directed. 9 General Instructions [facility] Emergency Department [address] [place] [address] Phone #: ext- [phone] 02/24/2020 16:53 Patient: JUAN SPENCER [facility]#: [id number] Sex: M : 1975 Age: 44yIf X-rays, [...] tingling in the buttock or groin area [id number] [employer]. [address] [place] [address]. All rights reserved. This information is not [...] less than 80 (120/80). 10 General Instructions [facility] Emergency Department [address] [place] [address] Phone #: ext- [phone] 02/24/2020 16:53 Patient: [...] buy blood pressure monitors at most pharmacies.The [place] [employer] advises the following guidelines for [...] by a single high 11 General Instructions [facility] Emergency Department [address] [place] [address] Phone #: zrn- [phone] 02/24/2020 16:53 Patient: JUAN SPENCER Sex: M [...] or dizziness with spinning feeling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 [id number]*cm mpTECHNIQUE: Axial computed tomography images of the [...] rce(s) Supporting Document(s) ID Date Data Source [id number] 04/30/2019 08:38:00 PM [facility] Name Value Range Interpretation Code Description Data Tete rce(s) Supporting Document(s) DRUG SCREEN URINE [facility] URINE DRUG SCREEN Amphetamine [Presence] in Urine by Screen method NEGATIVE NORMAL: N EGATIVE [facility] BARBITURATES NEGATIVE NORMAL: NEGATIVE [facility] BENZO NEGATIVE NORMAL: NEGATIVE [facility] COCAINE NEGATIVE NORMAL: NEGATIVE [facility] Tetrahydrocannabinol [Presence] in Urine PRESUMP POS NORMAL: NEGATIVE [facility] OPIATES NEGATIVE NORMAL: NEGATIVE [facility] Phencyclidine [Presence] in Urine by Screen method NEGATIVE NOR MAL: NEGATIVE [facility] \\BLDo\\URINE DRUG SCR EEN INTERPRETATION\\BLDx\\ THE CUTOFFF LEVELS FOR DETECTION ARE FOLLOWS: AMPHETAMINES 1000 ng/ml BARBITUARATES 200 ng/ml BENZODIAZEPINES 100 ng/ml THC 50 ng/ml PHENCYCLIDINE 25 ng/ml OPIATES 300 ng/ml COCAINE 300 ng/ml ALL POSITIVES ARE CONSIDERED PRESUMPTIVE POSITIVE CONFIRMATION WILL BE PERFORMED AT PHYSICIAN REQUEST. ID Date Data Source [id number] 04/30/2019 08:20:00 PM [facility] Name Value Range Interpretation Code Description Data [facility] rce(s) Supporting Document(s) URINALYSIS [facility] COL[facility] yellow NORMAL: Yellow [facility] CLARITY clear NORMAL: Clear [facility] Specific gravity of Urine by Test strip 1.025 1.001 - 1.030 [facility] pH 6 5 - 9 [facility] Glucose [Mass/volume] in Urine by Test strip NORM NORMAL: Negat [facility] Bilirubin.total [Presence] in Urine by Test strip NEG NORMAL: Negative [facility] Ketones [Presence] in Urine by Test strip NEG NORMAL: Negative [facility] Protein [Mass/volume] in Urine by Test strip 15 NORMAL: Negat [facility] Nitrite [Presence] in Urine by Test strip NEG NORMAL: Negative [facility] BLOOD NEG NORMAL: Negative [facility] Leukocyte esterase [Presence] in Urine by Test strip NEG NIMCO L: Negative [facility] Urobilinogen [Mass/volume] in Urine by Test strip NOR less soraida n 1.0 mg/dL [facility] MICROSCOPIC See Below [facility] ital WBC None Seen NORMAL: NONE SEEN [facility] Erythrocytes [#/volume] in Urine by Test strip None Seen NORMAL: NON E SEEN [facility] EPITHELIAL MODERATE NORMAL: NONE SEEN A [facility] Bacteria [Presence] in Urine sediment by Light microscopy Tr balbir NORMAL: NONE SEEN [facility] Mucus [Presence] in Urine sediment by Light microscopy Trace NORMAL: NONE SEEN [facility] ID Date Data Source [id number] 04/30/2019 08:51:00 PM [facility] Name Value Range Interpretation Code Description Data Tete rce(s) Supporting Document(s) Ammonia [Mass/volume] in Plasma 58.0 UG/DL 27.2 - 102 [facility] ID Date Data Source [id number] 04/30/2019 08:38:00 PM [facility] Name Value Range Interpretation Code Description Data Tete rce(s) Supporting Document(s) COMPREHENSIVE METABOLIC PANEL [facility] COMPREHENSIVE METABOLIC PANEL Sodium [Moles/volume] in Serum or Plasma 142 mEq/L 134 - 153 [facility] Potassium [Moles/volume] in Serum or Plasma 4.1 mEq/L 3.6 - 5.0 [facility] Chloride [Moles/volume] in Serum or Plasma 107 mEq/L 98 - 107 [facility] Carbon dioxide, total [Moles/volume] in Serum or Plasma 27 MEQ/L 22 - 30 [facility] Glucose [Mass/volume] in Serum or Plasma 101 MG/DL 65 - 110 [facility] BUN 17 MG/DL 7 - 21 [facility] Creatinine [Mass/volume] in Serum or Plasma 0.7 MG/DL 0.7 - 1.5 [facility] BUN/CREAT 24 8 - 27 [facility] Protein [Mass/volume] in Serum or Plasma 6.9 G/DL 6.3 - 8.2 [facility] Albumin [Mass/volume] in Serum or Plasma 4.6 G/DL 3.9 - 5.0 [facility] Globulin [Mass/volume] in Serum by calculation 2.3 GM/DL 2.4 - 3.2 L [facility] A/G RATIO 2.0 0.8 - 2.0 [facility] Calcium [Mass/volume] in Serum or Plasma 9.1 MG/DL 8.4 - 10.2 [facility] Bilirubin.total [Mass/volume] in Serum or Plasma <0.7 MG/DL 0.2 - 1.3 [facility] Alkaline phosphatase [Enzymatic activity/volume] in Serum or Plasma 65 U/L 38 - 126 [facility] Aspartate aminotransferase [Enzymatic activity/volume] in Serum or Plasma 12 U/L 5 - 40 [facility] Alanine aminotransferase [Enzymatic activity/volume] in Seru m or Plasma 13 U/L 7 - 56 [facility] Anion gap 3 in Serum or Plasma 8.0 mmol/L 8.0 - 16.0 [facility] AGE 43 yrs [facility] NON-AA GFR >60 mL/min [facility] ital AFR AMER GFR >60 mL/min [facility] sp[facility] Male GFR In terprentation 20-49 [...] >32 mL/min Normal ID Date Data Source [id number] 04/30/2019 08:33:00 PM [facility] Name Value Range Interpretation Code Description Data Tete rce(s) Supporting Document(s) Ethanol [Moles/volume] in Blood <10.0 MG/DL [facility] ALCOHOL % 0.01 % 0.00 - 0.01 [facility] ital *FOR MEDICAL PURPOSES ONLY * ID Date Data Source [id number] 04/30/2019 07:32:00 PM [facility] Name Value Range Interpretation Code Description Data Tete rce(s) Supporting Document(s) CARBOXYHEMOGLOBIN 5.9 % [facility] SUBURBAN NON SMOKERS L ESS THAN 1.5 % SMOKERS 1.5 - 5.0 % HEAVY SMOKERS 5.0 - 9.0 % ID Date Data Source [id number] 04/30/2019 07:28:00 PM [facility] Name Value Range Interpretation Code Description Data Tete rce(s) Supporting Document(s) CBC W/AUTOMATED DIFF [facility] COMPLETE BLOOD COUNT Leukocytes [#/volume] in Blood by Automated count 8.3 10^3/uL 4.2 - 1 1.0 [facility] Erythrocytes [#/volume] in Blood by Automated count 4.12 10^6/uL 4. 50 - 6.30 L [facility] Hemoglobin [Mass/volume] in Blood 12.5 g/dL 14.0 - 16.0 L [facility] Hematocrit [Volume Fraction] of Blood by Automated count 37.3 % 4 1.0 - 51.0 L [facility] Erythrocyte mean corpuscular volume [Entitic volume] by Auto mated count 90.5 fL 80.0 - 94.0 [facility] Erythrocyte mean corpuscular hemoglobin [Entitic mass] by Automated count 30.3 pg 27.0 - 34.0 [facility] Erythrocyte mean corpuscular hemoglobin concentration [Mass/volume] by Automated count 33.5 g/dL 31.0 - 36.0 [facility] Erythrocyte distribution width [Ratio] by Automated count 12.3 % 11.5 - 14.8 [facility] Platelets [#/volume] in Blood by Automated count 266 10^3/uL 150 - 45 0 [facility] Platelet mean volume [Entitic volume] in Blood by Automated count 9.3 fL 7.4 - 10.4 [facility] Neutrophils/100 leukocytes in Blood by Automated count 59.4 % 37. 0 - 80.0 [facility] Lymphocytes/100 leukocytes in Blood by Manual count 30.3 % 25.0 - 40.0 [facility] Monocytes/100 leukocytes in Blood by Automated count 7.3 % 3.0 - 8.0 [facility] Eosinophils/100 leukocytes in Blood by Automated count 2.4 % 0.0 - 7.0 [facility] Basophils/100 leukocytes in Blood by Automated count 0.4 % 0.0 - 2.0 [facility] %IG 0.2 % 0.0 - 0.0 H [facility] al %NRBC 0.0 % 0.0 - 0.0 [facility] al Neutrophils [#/volume] in Blood by Automated count 4.93 10^3/uL 2.00 - 6.90 [facility] Lymphocytes [#/volume] in Blood by Automated count 2.52 10^3/uL 0.60 - 3.40 [facility] Monocytes [#/volume] in Blood by Automated count 0.61 10^3/uL 0.00 - 0.90 [facility] Eosinophils [#/volume] in Blood by Automated count 0.20 10^3/uL 0.00 - 0.70 [facility] Basophils [#/volume] in Blood by Automated count 0.03 10^3/uL 0.00 - 0.20 [facility] #IG 0.02 10^3/uL 0.00 - 0.10 [facility] #NRBC 0.00 10^3/uL 0.00 - 0.00 [facility] MANUAL DIFF NOT INDICATED [facility] RBC MORPH NOT INDICATED [facility] spital ID Date Data Source [id number] 03/04/2019 10:28:00 PM EST [facility] Patient: JUAN SPENCER Observation Report - Physicians/Mid Levels [facility].VisitID: [id number] [place] [address] [phone], MRegistration Date/Time: 03/04/2019 17:54 Weight:56.6 kg (S). [...] rce(s) Supporting Document(s) ID Date Data Source [id number] 01/26/2019 12:42:00 AM EST [facility] 1 OrderSheet [facility] Emergency Department [address] [place] [address] Phone #: ext- [phone] 01/26/2019 00:42 Patient: [...] Darnell Kay M.D. (02:45 01/26/2019)] 2 OrderSheet [facility] Emergency Department [address] [place] [address] Phone #: ext- [phone] 01/26/2019 00:42 Patient: JUAN SPENCER Sex: M : 1975 Age: 43y[Electronically locked by Taylor Navarro RN (02:45 01/26/2019)] Name Value Range Interpretation Code Description Data Tete rce(s) Supporting Document(s) ID Date Data Source [id number] 01/26/2019 12:42:00 AM EST [facility] 1 Medication Reconciliation Report [facility] Emergency Department [address] [place] [address] Phone #: ext- [phone] 01/26/2019 00:42 Patient: [...] Dispense 7patch. Refills: 0. Substitution permitted.Pharmacy - [facility] - [address] ; [place], [place] [id number]. . -- Darnell Kay M.D.Ambien 5 mg TO GO to take in 4-6 hrs as needed (#1 tab). -- Darnell Kay M.D. 2 Medication Reconciliation Report [facility] Emergency Department [address] [place] [address] Phone #: ext- [phone] 01/26/2019 00:42 Patient: JUAN SPENCER Sex: M : 1975 Age: 43y Name Value Range Interpretation Code Description Data Tete rce(s) Supporting Document(s) ID Date Data Source [id number] 01/26/2019 12:42:00 AM EST [facility] 1 Medication Administration Record [facility] Emergency Department [address] [place] [address] Phone #: ext- [phone] 01/26/2019 00:42 Patient: [...] rce(s) Supporting Document(s) ID Date Data Source [id number] 01/26/2019 12:42:00 AM EST [facility] 1 General Instructions [facility] Emergency Department [address] [place] [address] Phone #: ext- [phone] 01/26/2019 00:42 Patient: JUAN SPENCER Sex: M : 1975 Age: 43yChronic nontraumatic lumbar back pain.INSTRUCTIONS (PLEASE ATTEMPT TO GET YOUR HYDROCODONE PILLS FROM THE GLOVE BOX OF THE CAR IN [facility]).Warnings: GENERAL WARNINGS: Return or contact [...] Dispense 7patch. Refills: 0. Substitution permitted.Pharmacy - [facility] - [address] ; [place], [place] [phone]. .Ambien 5 mg TO GO to take [...] of care. ADDITIONAL INFORMATION 2 General Instructions [facility] Emergency Department [address] [place] [address] Phone #: ext- [phone] 01/26/2019 00:42 Patient: [...] cause the pain. Mechanical 3 General Instructions [facility] Emergency Department [address] [place] [address] Phone #: ext- [phone] 01/26/2019 00:42 Patient: JUAN SPENCER [facility]#: [id number] Sex: M : 1975 Age: 43yproblems are [...] to protect your skin. 4 General Instructions [facility] Emergency Department [address] [place] [address] Phone #: ext- [phone] 01/26/2019 00:42 Patient: [...] are taki ngother medicines. You may use llne-cqq-muarcty medicine as directed on the bottle to [...] very slow heart rate 5 General Instructions [facility] Emergency Department [address] [place] [address] Phone #: ext- [phone] 01/26/2019 00:42 Patient: JUAN SPENCER Sex: M : 1975 Age: 43y Loss of bowel or bladder controlWhen to seek medical adviceCall your healthcare provider right away if any of these occur: Pain becomes worse or spreads to your legs Weakness or numbness in one or both legs Numbness in the groin or genital area 1999- 2017 [employer]. [address] [place] [address]. All rights reserved. This information is not intended as asubstitute for professional medical care. Always follow your healthcare professional's instructions. You have been given the following additional information: Back Pain (Acute or Chronic)(Electronically signed by Darnell Kay M.D. 01/26/2019 02:45) Name Value Range Interpretation Code Description Data Tete rce(s) Supporting Document(s) ID Date Data Source [id number] 01/26/2019 12:42:00 AM EST [facility] 1 Clinical Report - Nurses [facility] Emergency Department [address] [place] [address] Phone #: ext- [phone] 01/26/2019 00:42 Patient: JUAN SPENCER Sex: M : 1975 Age: 43yTRIAGEArrived by private vehicle. Historian: patient. Accompanied by friend.Acuity: LEVEL 4.Chief Complaint: BACK PAIN.Alert. No acute distress.This started last night. No history of recent trauma.Treatment POST SPLITTER:Took ibuprofen. Symptoms did not improve after treatment. [...] No alcohol 2 Clinical Report - Nurses [facility] Emergency Department [address] [place] [address] Phone #: ext- [phone] 01/26/2019 00:42 Patient: JUAN SPENCER [facility]#: [id number] Sex: M : 1975 Age: 43y use [...] the affected 3 Clinical Report - Nurses [facility] Emergency Department [address] [place] [address] Phone #: ext- [phone] 01/26/2019 00:42 Patient: [...] Patient verbalized understanding. Written instructions provided in Ghanaian. The patient was discharged by the physician. [...] rce(s) Supporting Document(s) ID Date Data Source [id number] 01/26/2019 12:42:00 AM [facility] 1 Clinical Report - Physicians/Mid Levels [facility] Emergency Department [address] [place] [address] Phone #: ext- [phone] 01/26/2019 00:42 Patient: [...] locked into glove box of car in [place] since 5 days ago; pt has increased [...] TBI. 2 Clinical Report - Physicians/Mid Levels [facility] Emergency Department [address] [place] [address] Phone #: [phone]- [phone] 01/26/2019 00:42 Patient: JUAN SPENCER Sex: M [...] the 3 Clinical Report - Physicians/Mid Levels [facility] Emergency Department [address] [place] [address] Phone #: ext- [phone] 01/26/2019 00:42 Patient: JUAN SPENCER Sex: M : 1975 Age: 43yphar macies.This report was requested by: Darnell Turrin Reference #: [id number]' PrescriptionsPatient Name: Juan Spencer Date: 1975Address: [address] [place] [address] Sex: MaleRx Written Rx Dispensed Drug Quantity Days Supply Prescriber Name01/08/2019 01/09/2019 hydrocodone-acetaminophen 10-325 mg tablet 180 30 [place], Cjhgnhez50/15/2019 01/09/2019 zolpidem tartrate 10 mg tablet 30 30 [place], Qtwqjesb49/18/2019 12/12/2018 zolpidem tartrate 10 mg tablet 30 30 [place], Zeofxbge56/18/2019 12/11/2018 hydrocodone-acetaminophen 10-325 mg tablet 180 30 [place], Mkcwbtrv09/18/2019 11/11/2018 hydrocodone-acetaminophen 10-325 mg tablet 180 30 [place], Uzmhinap35/19/2019 11/10/2018 zolpidem tartrate 10 mg tablet 30 30 [place], Ufbdpgfd13/19/2019 10/12/2018 zolpidem tartrate 10 mg tablet 30 30 [place], Bjtpoljv60/19/2019 10/12/2018 hydrocodone-acetaminophen 10-325 mg tablet 180 30 [place], Wckwmdga92/20/2019 09/11/2018 zolpidem tartrate 10 mg tablet 30 30 [place], Jolmmbvv99/19/2019 09/11/2018 hydrocodone-acetaminophen 10-325 mg tablet 180 30 [place], Cfpmespz96/11/2019 09/04/2018 hydrocodone- acetaminophen 5-325 mg tablet 12 3 [place], [place]08/13/2018 08/13/2018 hydrocodone-acetaminophen 10-325 mg tablet 180 30 [place], Wlbilqke02/21/2019 08/07/2018 zolpidem tartrate 10 mg tablet 30 30 [place], Lfdyoukk73/21/2019 07/14/2018 hydrocodone-acetaminophen 10-325 mg tablet 180 30 [place], Btiqdqmr13/19/2019 07/07/2018 zolpidem tartrate 10 mg tablet 30 30 [place], Dkjmhnyh82/19/2019 06/15/2018 hydrocodone-acetaminophen 10-325 mg tablet 180 30 [place], Wjvynqjb84/21/2019 06/08/2018 zolpidem tartrate 10 mg tablet 30 30 [place], Sfesfxbt10/21/2019 05/16/2018 hydrocodone-acetaminophen 10-325 mg tablet 180 30 [place], Lrkbkvnc74/21/2019 05/10/2018 zolpidem tartrate 10 mg tablet 30 30 [place], Xlvgwssp28/21/2019 04/17/2018 hydrocodone-acetaminophen 10-325 mg tablet 180 30 [place], Zmyfghlu19/22/2019 04/07/2018 zolpidem tartrate 10 mg tablet 30 30 [place], Dbvlsidi13/22/2019 03/19/2018 hydrocodone- acetaminophen 10-325 mg tablet 180 30 [place], Gmzczebq17/24/2018 03/09/2018 zolpidem tartrate 10 mg tablet 30 30 [place], Evwrxxby80/24/2018 02/18/2018 hydrocodone-acetaminophen 10-325 mg tablet 180 30 [place], Vasjccgd16/23/2018 02/08/2018 zolpidem tartrate 10 mg tablet 30 30 [place], LawrencePatient Name: Juan Spencer Date: 1975Address: [address] [place] [address] Sex : MaleRx Written Rx Dispensed Drug [...] pain and narcotic use; pt has extensive [facility] registry list; pt was made aware of ALTO program at [facility] and [facility] Clinical Report - Physicians/Mid Levels [facility] Emergency Department [address] [place] [address] Phone #: ext- [phone] 01/26/2019 00:42 Patient: [...] THE GLOVE BOX [facility] THE CAR [facility]). Warnings: GENERAL WARNINGS: Return or [...] patch. Refills: 0. Substitution permitted. Pharmacy - [id number] [place], [place] [id number]. FaxNumber: . Ambien 5 mg TO GO to take in 4-6 hrs as needed (#1 tab). Follow-up: 5 Clinical Report - Physicians/Mid Levels [facility] Emergency Department [address] [place] [address] Phone #: ext- [phone] 01/26/2019 00:42 Patient: JUAN SPENCER [facility]#: [id number] Sex: M : 1975 Age: 43y Return [...] 03/13/2020 12:51:34 AM EST No completed No [facility] 03/13/2020 12:51:34 AM EST No completed No [facility] 03/13/2020 12:51:34 AM EST Current every day smoker co mpleted Current every day smoker [facility] Smoking 03/13/2020 12:51:00 AM EST Current every day smoker co mpleted Current every day smoker [facility] 02/28/2020 11:50:53 PM EST No completed No [facility] 02/28/2020 11:50:53 PM EST No completed No [facility] 02/28/2020 11:50:53 PM EST Current every day smoker co mpleted Current every day smoker [facility] Smoking 02/28/2020 11:50:00 PM EST Current every day smoker co mpleted Current every day smoker [facility] 02/24/2020 11:46:30 PM EST No completed No [facility] 02/24/2020 11:46:30 PM EST No completed No [facility] 02/24/2020 11:46:30 PM EST Current every day smoker co mpleted Current every day smoker [facility] Smoking 02/24/2020 11:46:00 PM EST Current every day smoker co mpleted Current every day smoker [facility] 01/03/2020 01:42:34 AM EST No completed No [facility] 01/03/2020 01:42:34 AM EST No completed No [facility] 01/03/2020 01:42:34 AM EST Current every day smoker co mpleted Current every day smoker [facility] Smoking 01/03/2020 01:42:00 AM EST Current every day smoker co mpleted Current every day smoker [facility] 11/21/2019 03:56:39 PM EDT No completed No [facility] 11/21/2019 03:56:39 PM EDT No completed No [facility] 11/21/2019 03:56:39 PM EDT Current every day smoker co mpleted Current every day smoker [facility] Smoking 11/21/2019 03:56:00 PM EDT Current every day smoker co mpleted Current every day smoker [facility] 09/30/2019 07:48:45 PM EDT Current every day smoker co mpleted Current every day smoker [facility] 09/30/2019 07:48:45 PM EDT No completed No [facility] 09/30/2019 07:48:45 PM EDT No completed No [facility] Smoking 09/30/2019 07:48:00 PM EDT Current every day smoker co mpleted Current every day smoker [facility] 08/30/2019 08:21:10 PM EDT No completed No [facility] 08/30/2019 08:21:10 PM EDT Current every day smoker co mpleted Current every day smoker [facility] 08/30/2019 08:21:10 PM EDT Current every day smoker co mpleted Current every day smoker [facility] 08/30/2019 08:21:10 PM EDT No completed No [facility] Smoking 08/30/2019 08:21:00 PM EDT Current every day smoker co mpleted Current every day smoker [facility] 08/07/2019 11:05:51 PM EDT No completed No [facility] 08/07/2019 11:05:51 PM EDT No completed No [facility] 08/07/2019 11:03:00 PM EDT Current every day smoker co mpleted Current every day smoker [facility] Smoking 08/07/2019 11:03:00 PM EDT Current every day smoker co mpleted Current every day smoker [facility] 08/07/2019 11:03:00 PM EDT Current every day smoker co mpleted Current every day smoker [facility] 08/07/2019 11:03:00 PM EDT Current every day smoker co mpleted Current every day smoker [facility] 06/07/2019 03:16:02 PM EDT No completed No [facility] 06/07/2019 03:16:02 PM EDT No completed No [facility] 06/07/2019 03:06:00 PM EDT Current every day smoker co mpleted Current every day smoker [facility] 06/07/2019 03:06:00 PM EDT Current every day smoker co mpleted Current every day smoker [facility] Smoking 06/07/2019 03:06:00 PM EDT Current every day smoker co mpleted Current every day smoker [facility] 06/07/2019 03:06:00 PM EDT Current every day smoker co mpleted Current every day smoker [facility] 06/07/2019 03:06:00 PM EDT Current every day smoker co mpleted Current every day smoker [facility] 05/04/2019 03:33:49 PM EDT No completed No [facility] 05/04/2019 03:33:49 PM EDT No completed No [facility] 05/04/2019 03:28:00 PM EDT Never smoker completed Never s [facility] 05/04/2019 03:28:00 PM EDT Never smoker completed Never s [facility] 05/04/2019 03:28:00 PM EDT Never smoker completed Never s [facility] Smoking 05/04/2019 03:28:00 PM EDT Never smoker completed Never s [facility] 05/04/2019 03:28:00 PM EDT Never smoker completed Never s [facility] 05/04/2019 03:28:00 PM EDT Never smoker completed Never s [facility] 05/01/2019 04:25:42 PM EST Current every day smoker co mpleted Current every day smoker [facility] 05/01/2019 04:25:42 PM EST Current every day smoker co mpleted Current every day smoker [facility] 05/01/2019 04:25:42 PM EST Current every day smoker co mpleted Current every day smoker [facility] 05/01/2019 04:25:42 PM EST Current every day smoker co mpleted Current every day smoker [facility] 05/01/2019 04:25:42 PM EST No completed No [facility] 05/01/2019 04:25:42 PM EST No completed No [facility] 05/01/2019 04:25:42 PM EST Current every day smoker co mpleted Current every day smoker [facility] 05/01/2019 04:25:42 PM EST Current every day smoker co mpleted Current every day smoker [facility] Smoking 05/01/2019 04:25:00 PM EST Current every day smoker co mpleted Current every day smoker [facility] Vital Signs ID Date Data Source UNK Name Value Range Interpretation Code Description Data Source(s) Oxygen saturation in Arterial blood by Pulse oximetry 97 % 97 % [facility] ([facility]) Respiratory rate 16 /min 16 /min [facility] ( [facility]) Body temperature 99.2 [degF] 99.2 [degF] [facility] ([facility]) Heart rate 80 /min 80 /min [facility] ([facility]) Diastolic blood pressure 76 mm[Hg] 76 mm[Hg] [facility] ([facility]) Systolic blood pressure 116 mm[Hg] 116 mm[Hg] M EDENT ([facility]) Body weight 2047 [oz_av] 2047 [oz_av] SANCHEZ ([facility]) Systolic blood pressure 107 mm[Hg] 107 mm[Hg] A THENA ([facility]) Body mass index (BMI) [Ratio] 18.9 kg/m2 18.9 k g/m2 S[facility]Z ([facility]) Body height 69 [in_i] 69 [in_i] SANCHEZ ([facility]) Diastolic blood pressure 73 mm[Hg] 73 mm[Hg] [facility] ([facility]) ID Date Data Source [id number] 10/03/2019 05:52:00 PM EDT [facility] Name Value Range Interpretation Code Description Data Source(s) Weight Measurement Method 8 8 [facility] Weight 2047 2047 [facility] pital Temperature Source 7 7 [facility] Temperature 98.8 98.8 [facility] Respiratory Effort 1 1 [facility] Respiratory Rate 17 17 [facility] Pulse [facility] Method 4 4 [facility] P[facility] 84 84 [facility] pital Height 69 69 [facility] pital Blood Pressure 123/84 123/84 [facility] Weight Measurement Method 8 8 [facility] Weight 2047 2047 [facility] pital Temperature Source 7 7 [facility] Temperature 98.8 98.8 [facility] Respiratory Effort 1 1 [facility] Respiratory Rate 16 16 [facility] Pulse Assessment Method 4 4 [facility] Pulse Rate 84 84 [facility] pital Height 69 69 [facility] pital Blood Pressure 123/84 123/84 [facility] Weight Measurement Method 8 8 [facility] Weight 2047 2047 [facility] pital Temperature Source 7 7 [facility] 98.8 98.8 [facility] Res[facility] Effort 1 1 [facility] Respiratory Rate 16 16 [facility] Pulse Assessment Method 4 4 [facility] Pulse Rate 84 84 [facility] pital Height 69 69 [facility] pital Blood Pressure 123/84 123/84 [facility] ID Date Data Source [id number] 08/28/2019 03:45:00 PM EDT [facility] Name Value Range Interpretation Code Description Data Source(s) Weight Measurement Method 8 8 [facility] Weight 1999 1999 [facility] pital Temperature Source 7 7 [facility] Temperature 98.7 98.7 [facility] Respiratory Effort 1 1 [facility] Respiratory Rate 18 18 [facility] Pulse Assessment Method 4 4 [facility] Pulse Rate 87 87 [facility] pital Height 69 69 [facility] pital Blood Pressure 103/78 103/78 [facility] Weight Measurement Method 8 8 [facility] Weight 1999 [address] [facility] pital Temperature Source 7 7 [facility] Temperature 99 99 [facility] Respiratory Effort 1 1 [facility] Respiratory Rate 18 18 [facility] Pulse Assessment Method 4 4 [facility] Pulse Rate 95 95 [facility] Height 69 69 [facility] Blood Pressure 112/74 112/74 [facility]
--- NOTE | 2020-03-16 11:07 | REP ---
INDICATION: low back pain, reported b/l le "numbness". COMPARISON: Comparison MRI study is from a June 21, 2009.. TECHNIQUE: Sagittal and axial T1 and T2-weighted scans are acquired in the usual fashion with and without fat saturation. Sequences include spin echo, turbo spin-echo, and STIR imaging sequences. FINDINGS: Lumbar vertebral body heights are preserved I preserved. Alignment is normal. There is a 1.4 cm hemangioma in the right side of the vertebral body at the L3 level unchanged from prior study. There is a subcentimeter hemangioma in the 3rd sacral vertebral body. This is unchanged. No bony destructive lesion is seen. No extra-spinal abnormality is observed. The tip of the conus medullaris is normal in position and appearance at L1 unchanged. There is a perineural cyst in the sacral canal at the S2 level. This is visible in retrospect. It has enlarged somewhat since the prior study and measures 1.6 x 2.8 cm. Alignment is normal. There is no evidence of spondylolysis or spondylolisthesis. Lumbar discs are preserved in height and signal intensity on T1 and T2 weighted scans. No lumbar disc protrusion is seen. No neural foraminal encroachment is appreciated. There is no evidence of central canal stenosis. Exam is otherwise unremarkable. IMPRESSION: There is no evidence of disc protrusion, central canal stenosis, or neural foraminal narrowing. Upper sacral perineural cyst noted incidentally. Small hemangioma on the right at L3. There is another subcentimeter hemangioma in the S 3 vertebral body. These are unchanged. <Electronically signed by Celestino Shannon > 03/16/20 [id number]
[2020-03-16 11:46] LABS: APPEARANCE, URINE CLEAR (CLEAR); BACTERIA, URINE AUTO NEGATIVE (NEGATIVE); BASO % 0.3 % (0.0-1.0); BILIRUBIN, URINE AUTO NEGATIVE (NEGATIVE); BLOOD, URINE BLOOD NEGATIVE (NEGATIVE); COLOR, URINE YELLOW (YELLOW); EOS # 0.1 10^3/uL (0.0-0.5); EOS % 0.4 % (0.0-3.0); GLUCOSE, URINE (UA) AUTO NEGATIVE (NEGATIVE); HEMATOCRIT 42.6 % (42.0-52.0); HEMOGLOBIN 14.1 g/dl (13.5-17.5); KETONE, URINE AUTO TRACE mg/dL (NEGATIVE); LEUKOCYTE ESTERASE, URINE AUTO NEGATIVE (NEGATIVE); LYMPH # 3.1 10^3/uL (1.5-5.0); LYMPH % 26.5 % (24.0-44.0); MEAN CORPUSCULAR HEMOGLOBIN 30.2 pg (27.0-33.0); MEAN CORPUSCULAR HGB CONC 33.1 g/dl (32.0-36.5); MEAN CORPUSCULAR VOLUME 91.2 fl (80.0-96.0); MONO # 0.8 10^3/uL (0.0-0.8); MONO % 6.4 % (0.0-5.0); MUCUS, URINE SMALL (NEGATIVE); NEUTROPHILS # 7.8 10^3/uL (1.5-8.5); NITRITE, URINE AUTO NEGATIVE (NEGATIVE); PLATELET COUNT, AUTOMATED 264 10^3/uL (150-450); PROTEIN, URINE AUTO 1+ mg/dL (NEGATIVE); RBC, URINE AUTO 0 /HPF (0-3); RED BLOOD COUNT 4.67 10^6/uL (4.30-6.10); SQUAMOUS EPITHELIAL CELL UR AU 0 /HPF (0-6); UROBILINOGEN, URINE AUTO 0.2 mg/dL (0.0-2.0); WBC, URINE AUTO 1 /HPF (0-3); WHITE BLOOD COUNT 11.8 10^3/uL (4.0-10.0)
[2020-03-16 12:13] LABS: BLOOD UREA NITROGEN 18 MG/DL (7-18); CALCIUM LEVEL 9.1 MG/DL (8.5-10.1); CARBON DIOXIDE LEVEL 25 MEQ/L (21-32); CHLORIDE LEVEL 109 MEQ/L (98-107); CPK CREATINE PHOSPHOKINASE 185 U/L (39-308); CREATININE FOR GFR 0.76 MG/DL (0.70-1.30); GLOMERULAR FILTRATION RATE > 60.0 (>60); GLUCOSE, FASTING 92 MG/DL (70-100); POTASSIUM SERUM 3.3 MEQ/L (3.5-5.1); SODIUM LEVEL 140 MEQ/L (136-145)
[2020-03-16] MEDS ORDERED: POTASSIUM CHLORIDE 10 MEQ SR TABLET PO ONE (12:30)
[2020-03-16] MEDS ORDERED: IBUPROFEN 800 MG TAB PO ONE (12:45)
[2020-03-16 12:59] VITALS: BP 144/89
[2020-03-28] MEDS ORDERED: METH-1164 PO (13:22)
== END 2020-03-16 13:01 | disposition home or self-care (01) ==
LOC: M ED 08:08
DX: D18.09 Hemangioma of other sites (principal); M54.9 Dorsalgia, unspecified; G89.29 Other chronic pain; Z79.899 Other long term (current) drug therapy; Z88.0 Allergy status to penicillin; Z88.6 Allergy status to analgesic agent; Z91.018 Allergy to other foods; Z91.030 Bee allergy status

== ENCOUNTER 2020-03-28 12:49 | Emergency (ER) | payer OTHER ==
[~2020-03-28] VITALS: Ht 175.3 cm; Wt 51.6 kg
[2020-03-28 12:49] VITALS: BP 139/78
[~2020-03-28 12:49] MED LIST changes: +LIDO1PAD; +MEDR4PAK; +QUET1TAB10 PO; -QUET300T2 PO
[2020-03-28] MEDS ORDERED: OLAN5TAB (13:19)
[2020-03-28] MEDS ORDERED: METH1TAB40 PO (13:22)
[2020-03-28] MEDS ORDERED: NORCO, ANEXSIA 5/325MG TABLET (HYDROcodone/ACETAMINOPHEN) PO ONE (13:30)
== END 2020-03-28 13:30 | disposition home or self-care (01) ==
LOC: M ED 12:49
DX: M62.830 Muscle spasm of back (principal); M54.9 Dorsalgia, unspecified; G89.29 Other chronic pain; Z91.013 Allergy to seafood; Z91.030 Bee allergy status; Z88.6 Allergy status to analgesic agent; Z88.8 Allergy status to other drugs, medicaments and biological substances

== ENCOUNTER 2020-04-02 14:29 | Emergency (ER) | payer OTHER ==
[~2020-04-02] VITALS: Ht 175.3 cm; Wt 56.8 kg
[~2020-04-02 14:29] MED LIST changes: +METH-1164 PO; +OLAN5TAB; -QUET1TAB10 PO; +QUET300T2 PO
[2020-04-02] MEDS ORDERED: HYDR-3713 PO (14:34)
[2020-04-02 14:49] VITALS: BP 165/76
[2020-04-02] MEDS ORDERED: AMBI10TA PO (15:14)
[2020-04-02] MEDS ORDERED: zolPIDEM TARTRATE 5 MG TAB PO ONE (15:15)
== END 2020-04-02 15:25 | disposition home or self-care (01) ==
LOC: M ED 14:29
DX: Z76.0 Encounter for issue of repeat prescription (principal); G47.00 Insomnia, unspecified; R56.9 Unspecified convulsions; Z86.73 Personal history of transient ischemic attack (TIA), and cerebral infarction without residual deficits; Z79.899 Other long term (current) drug therapy; Z88.0 Allergy status to penicillin; Z88.5 Allergy status to narcotic agent; Z88.8 Allergy status to other drugs, medicaments and biological substances; Z91.018 Allergy to other foods; Z91.030 Bee allergy status; F17.210 Nicotine dependence, cigarettes, uncomplicated

== ENCOUNTER 2020-04-11 20:08 | Emergency (ER) | payer OTHER ==
[~2020-04-11] VITALS: Ht 175.3 cm; Wt 52.6 kg
[~2020-04-11 20:08] MED LIST changes: +HYDR-3713 PO
[2020-04-11 20:09] VITALS: BP 135/76
--- OUTSIDE RECORDS SUMMARY | 2020-04-11 20:14 | CCD | Continuity of Care Document ---
Author Author Juan KYLE PA-C Organization Unknown Address [address] [place] [address] Phone [phone] Care Team Providers Care Video Rental Clerk Name Role Phone Mehrdad Fermin M.D. AUTM [phone] Edi Cantu MD AUTM [phone] Dayanara Green PA-C AUTM [phone] [facility] AUTM Problems Active Problems Provider Date Adult health examination Mehrdad Fermin MD Onset: 03/26/19 17 Idiopathic progressive polyneuropathy Mehrdad Fermin MD On set: 03/26/2016 Spinal stenosis of lumbar region Mehrdad Fermin MD Onset: 03/26/2016 Degeneration of lumbar intervertebral disc Mehrdad Fermin MD Onset: 03/26/2016 Tobacco user Mehrdad Fermin MD Onset: 03/26/2016 Other seizures Mehrdad Fermin MD Onset: 03/26/2016 Psychophysiologic insomnia Jna Hernández PA-C Onset: 2016 Weight decreased STALIN Gould Onset: 7 Cannabis abuse, uncomplicated Jan Hernández PA-C Onset: 06/2017 Antisocial personality disorder Morales Cruz LCSW Onset: 06/09/2019 Family problems Morales Cruz LCSW Onset: 06/09/2019 Pain in the coccyx Dayanara Green PA-C Onset: 03/09/2020 Degeneration of thoracic intervertebral disc Dana Boyd Onset: 03/09/2020 Social History Type Date Description Comments Sex Unknown ETOH Use Denies alcohol use Tobacco Use Start: Unknown Light tobacco smoker (10 or fewe r cigarettes/day) Recreational Drug Use Denies Drug Use Allergies, Adverse Reactions, Alerts Active Allergies Reaction Severity Comments Date Penicillin 03/26/2016 Fish Oil 03/26/2016 Fish-derived Products 2016 Grass 03/26/2016 Tramadol 03/07/2020 Ketorolac Tromethamine 03/07 Medications Active Medications SIG Qnty Indications Ordering Provide r Date Methylprednisolone 16mg Tablets One tab PO bid x 3 days 6tabs M51.34 Дмитрий Kyle PA-C 03/21/2020 M51.26 Diclofenac Sodium 1% Gel apply 4 grams topically to lower back four times a day as needed for muscular back pain 100gm M51.34 Дмитрий Kyle PA-C 03/21/2020 M51.26 Prazosin HCL 1mg Capsules take 1 capsule by mouth once daily at bedtime 90caps Mehrdad Fermin MD 03/09/2020 Vicodin HP 10-300mg Tablets 1 tab daily as needed for pain x 2 days 2tabs M51.26 Martir Wilburn NP Vicodin HP 10-300mg Tablets Unknown Gabapentin 800mg Tablets take one tablet by mouth three times a day Unknown Seroquel 400mg Tablets 1 by mouth every day Unknown Baclofen 20mg Tablets Mehrdad Fermin MD Ambien 10mg Tablets 1 tab by mouth daily at bedtime 30tabs Mehrdad Fermin MD History Medications Hydrocodone-Acetaminophen 10-325mg Tablets 1 tab PO q6h prn for severe pain x 3 days 12tabs M51.26 Дмитрий Kyle PA-C 03/21/2020 - 03/21/2020 M51.34 Immunizations Description No Information Available Vital Signs Date Vital Result Comment 03/21/2020 12:02pm BP Systolic 121 mmHg BP Diastolic 79 mmHg Heart Rate 115 /min Body Temperature 98.8 F Respiratory Rate 18 /min O2 % BldC Oximetry 98 % 03/09/2020 1:04pm BP Systolic 128 mmHg BP Diastolic 74 mmHg Heart Rate 110 /min Body Temperature 97.9 F Respiratory Rate 18 /min O2 % BldC Oximetry 96 % Weight 114.12 lb Weight 51.767 kg Height 69 inches 5'9" BMI (Body Mass Index) 16.9 kg/m2 BSA (Body Surface Area) 1.63 m2 Results Test Acquired Date Facility Test Result H/L Range Note Xray 03/09/2020 [facility] [address] [place] [address] [phone] Chest Xray 2 Views <pending> Procedures Date Code Description Status 03/09/2020 04514 Admin Patient Focused Health Ris k Assessment Instrument Completed 03/09/2020 30784 Brief Emotional/Beha v Assessment W/ Scoring Doc Per Standard Inst Completed Medical Devices Description No Information Available Encounters Description No Information Available Assessments Date Code Description Provider 03/09/2020 Z00.01 Encounter for genera l adult medical examination with abnormal findings Dayanara Green PA-C 03/09/2020 M51.26 Other intervertebral disc displa cement, lumbar region Dayanara Green PA-C 03/09/2020 M51.34 Other intervertebral disc degene ration, thoracic region Dayanara Green PA-C 03/09/2020 M53.3 Sacrococcygeal disorders, not el sewhere classified Dayanara Green PA-C 03/09/2020 F60.2 Antisocial personality disorder Dayanara Green PA-C 03/09/2020 F63.81 Intermittent explosive disorder Dayanara Green PA-C 03/09/2020 F60.81 Narcissistic personality disorde r DEANN Boyd 03/09/2020 G47.00 Insomnia, unspecified DEANN Portillo am 03/09/2020 R07.89 Other chest pain Dayanara Green P ALisbet 03/09/2020 R06.02 Shortness of breath Dayanara Green PA-C 03/09/2020 F17.210 Nicotine dependence, cigarettes, uncomplicated Dayanara Green PA-C 03/09/2020 Z87.820 Personal history of traumatic br ain injury Dayanara Green PA-C 03/09/2020 K40.90 Unilateral inguinal hernia, without obstruction or gangrene, not specified as recurrent Dayanara Green PA-C 03/07/2020 M51.26 Other intervertebral disc displa cement, lumbar region Martir Wilburn NP Plan of Treatment Future Appointment(s):* 04/10/2020 1:40 pm - Dayanara Green PA-C at [facility] 03/09/2020 - Dayanara Green PA-C* Z00.01 Encounter for general adult medical examination with abnormal findings* Comments:* Physical examination was done. will order routine blood work and call him with results. Will have him to sign records release for [facility], Dr. Harmon and psychiatrist. * M51.26 Other intervertebral disc displacement, lumbar region* Comments:* He has chronic low back pain, neck pain and tail bone pain. Patient was told th at pain medications will not be prescribed from this office and he would need to go to Pain Clinic. Will refer him to Pain Management for further evaluation and management per patient wish. * Referral:* [facility], * M51.34 Other intervertebral disc degeneration, thoracic region* Comments:* See above * M53.3 Sacrococcygeal disorders, not elsewhere classified* Comments:* See above * F60.2 Antisocial personality disorder* Comments:* Following with psychiatrist. Pt would not really talk about his mental health. He is on Seroquel for anger management. He has an appointment with Ania at the end of this month. 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 Will refill Ambien. He was advised to discuss with Ania Rodriguez psychiatry for further management. * R07.89 Other chest pain* Comments:* He c/o intermittent chest pain. Inhouse EKG done, possible right atrial enlargement . Will refer him to customer support coordinator for further evaluation and management. * Referral:* Edi Cantu MD, * R06.02 Shortness of breath* Comments:* Due to difficulty breathing and smoking history, will order chest x-ray for further evaluation. * F17.210 Nicotine dependence, cigarettes, uncomplicated* Comments:* He smokes 10 cigarettes a day. He will let us know if he wishes to quit. * Z87.820 Personal history of traumatic brain injury* Comments:* Will refer him to neurologist for further management per pt wish. * Referral:* [facility] * K40.90 Unilateral inguinal hernia, without obstruction or gangrene, not specified as recurrent* Comments:* He had hernia repair and states that there was some problem with MESH. He has pain. Will refer him to surgical center for further evaluation and management. * All * New Medication:* Prazosin HCL 1 mg - take 1 capsule by mouth once daily at bedtime Functional Status Description No Information Available Mental Status Description No Information Available Referrals Refer to Reason for Referral Status Appt Date [facility] 44 year old male with chron ic low back pain. Please evaluate and treat. Thank you. Sent [address] [place] [address] [phone] Edi Cantu MD 44 year old male with nonspe cific chest pain. Please evaluate and treat. Thank you. Patient Notified 03/22/2020 [address] [place] [address] [phone] [facility] 44 year old male with his tory of traumatic brain injury. Please evaluate and treat. Thank you. Sent [address] [place] [address] [phone]
--- OUTSIDE RECORDS SUMMARY | 2020-04-11 20:14 | CCD | Continuity of Care Document ---
Author Author [facility] Address [address] [place] [address] Phone Support Name Relationship Address Phone GabbyDeion olivier PRS [address] [place] [address] Doctor Provided, Family No PRS Unknown Unava ilable Silvio Hicks PRS [address] [place] [address] Morales Bauer PRS [address] [place] [address] Meche Chavez PRS [address] [place] [address] Deion Mclaughlin PRS [address] [place] [address] Agusto Green PRS [address] [place] [address] Allergies, Adverse Reactions, Alerts Allergen Type Severity Reaction Last Updated Verified Status Penicillins Allergy Opal re rash,itching March 30, 2020 12:02pm Yes Active FISH Allergy Moderate itching,swelling March 30, 2020 12:02pm Yes Active tramadol Allergy Mild Urticaria March 30, 2020 12:02pm Yes Active ketorolac Adverse Reaction Confusion March 30, 2020 12:02pm Yes Active Medications Medication Status Dose Units [...] 12: 39pm January 10, 2016 3:05am Hydrocodone-Acetaminophen ([place] 10-325 Tablet) 10-325 mg tablet Active 1 [...] Day August 12, 2012 10:26am August 26 2:07pm Gabapentin (Neurontin) 300 mg capsule Discontinued [...] Per Day August 26, 2012 2:07pm September 23 2:34pm Pregabalin (Lyrica) 25 mg capsule Di [...] 23 0 10:45pm 10.4 10e3/uL 4.45-10.7 1 [facility], [address] [place] [address] 44292 Red Blood Count February 24, 2020 10:45p m 4.23 10e6/uL 4.3-6.1 [facility], [address] [place] [address] 84046 Hemoglobin February 24, 2020 10:45pm 12.6 g/dL 13-18 [facility], [address] [place] [address] 36167 Hematocrit February 24, 2020 10:45pm 38.9 % 42-52 [facility], [address] [place] [address] 20302 Mean Corpuscular Volume January 10:45pm 92.0 fl 80-96 [facility], [address] [place] [address] 84123 Mean Corpuscular Hemoglobin February 24, 2020 10:45pm 29.8 pg 27-31 [facility], [address] [place] [address] 92338 Mean Corpuscular Hemoglobin Concent February 24, 2020 10:45pm 32.4 g/dl 33-37 [facility], [address] [place] [address] 31362 Red Cell Distribution Width February 24, 2020 10:45pm 12 % 11-15 [facility], [address] [place] [address] 52721 Platelet Count February 24, 2020 10:45pm 294 10e3/ul 130-472 [facility], [address] [place] [address] 62057 Mean Platelet Volume February 24, 2020 10:45pm 9.2 fl 9.1-13.1 [facility], [address] [place] [address] 92240 Neutrophils (%) (Auto) January 10:45pm 59.6 % 41-77 [facility], [address] [place] [address] 02509 Absolute Neutrophil February 23, 2 020 10:45pm 6.2 # 1.7-7.6 [facility], [address] [place] [address] 33762 Lymphocytes (%) (Auto) January 10:45pm 31.0 % 14-46 [facility], [address] [place] [address] Lymphocytes # (Auto) February 24, 2020 10:45pm 3.2 # 0.6-4.6 [facility], [address] [place] [address] Monocytes (%) (Auto) February 24, 2020 10:45pm 6.3 % 4-12 [facility], [address] [place] [address] Monocytes # February 24, 2020 10:45pm 0.7 # 0.2-1.2 [facility], [address] [place] [address] Eosinophils (%) (Auto) January 10:45pm 2.5 % 0-7 [facility], [address] [place] [address] 02814 Absolute Eosinophils (CBC) February 24, 2020 10:45pm 0.3 # 0.0-0.5 [facility], [address] [place], [place] [address] Basophils (%) (Auto) February 24, 2020 10:45pm 0.4 % 0.4-1.3 [facility], [address] [place] [address] Absolute Basophils (CBC) February 232019 10:45pm 0.0 # 0.0-0.2 [facility], [address] [place] [address] Immature Granulocyte % (Auto) Dece er 2019 10:45pm 0.2 % 0-2 [facility], [address] [place] [address] Absolute Immature Granulocyte (auto February 24, 2020 10:45pm 0.0 # 0-0.1 [facility], [address] [place], [place] [address] Add Manual Differential January 10:45pm No [facility], [address] [place] [address] Blood Urea Nitrogen February 23 020 10:45pm 17 mg/dL 9-23 [facility], [address] [place], [place] [address] Sodium Level February 24, 2020 10:45pm 146 mmol/L 132-146 [facility], [address] [place] [address] 20441 Potassium Level February 24, 2020 10:45p m 3.6 mmol/L 3.5-5.5 [facility], [address] [place] [address] 53775 Chloride Level February 24, 2020 10:45pm 112 mmol/l 99-109 [facility], [address] [place] [address] 38523 Carbon Dioxide Level February 24, 2020 10:45pm 29 mmol/l 20-31 [facility], [address] [place] [address] 76913 Anion Gap February 24, 2020 10:45pm 9 mmol/l 8-16 [facility], [address] [place] [address] 49987 Glucose Level February 24, 2020 10:45pm 97 mg/dL 74-106 [facility], [address] [place] [address] 04953 Creatinine February 24, 2020 10:45pm 0.7 mg/dL 0.5-1.1 [facility], [address] [place] [address] 51116 Glomerular Filtration Rate Calc Dece mber 2019 10:45pm Greater than 60 ml/min ABOVE 60 [facility], [address] [place] [address] 94534 Alanine Aminotransferase (ALT/SGPT) February 24, 2020 10:45pm 22 U/L 10-49 [facility], [address] [place] [address] 70961 Aspartate Amino Transf (AST/SGOT) De cember 2019 10:45pm 13 U/L 0-33 [facility], [address] [place] [address] 26432 Alkaline Phosphatase February 24, 2020 10:45pm 66 U/L 45-129 [facility], [address] [place] [address] 63661 Calcium Level February 24, 2020 10:45pm 8.5 mg/dL 8.5-10.1 [facility], [address] [place] [address] 17175 Total Bilirubin February 24, 2020 10:45p m 0.2 mg/dL 0.3-1.2 [facility], [address] [place] [address] 59347 Albumin February 24, 2020 10:45pm 3.6 g/dL 3.2-4.8 [facility], [address] [place] [address] 21181 Serum Total Protein Paul 31st, 2 020 10:45pm 6.8 g/dL 5.7-8.2 [facility], [address] [place] [address] Diagnostic Imaging Reports Report Dictated Date/Time Dictated By Status Radiology Report May 04, 2019 4:10pm Philipp Daley MD completed [facility] [address] [facility] [facility] [place] [address] [phone] NAME SEX PT STATUS ACCOUNT NUMBER BRITNEY SPARKS [facility] ER [id number] ORDERING PHYSICIAN LOCATION MEDICAL RECORD NO. Silvio Hicks MD ER [id number] ATTENDING PHYSICIAN DATE OF DATE OF EXAM/TIME [...] 05/04/191609 Signed By Philipp Daley MD on 05/04/19 161 Date Time CC: Philipp Daley MD; No Family PHYS Provided Techn: CUMME Trans Dt/Tm: Trans by: DT Prt Dt/Tm: : Total DLP = 252.00 mGy-cm : Total Radiation Dose = 3.7800 mSv Lifetime Dose: 9.7860 mSv Radiology Report August 07, 2019 11:30pm Karl Silva MD completed [address] [place] [address] [phone] NAME SEX PT STATUS ACCOUNT NUMBER BRITNEY SPARKS [facility] ER [id number] ORDERING PHYSICIAN LOCATION MEDICAL RECORD NO. Deion Pierre MD ER [id number] ATTENDING PHYSICIAN DATE OF DATE OF EXAM/TIME Doctor Provided,No Family 1975 08/07/19 / 5 TYPE / EXAM Xray Sacrum and [...] Trans Dt/Tm: Trans by: DT Prt Dt/Tm: [id number]: Total DLP = 0.00 mGy-cm Fluoroscopy Time (in secs): Radiology Report February 24, 2020 11:27pm Naeem Ambriz MD completed [facility] [address] [place] [address] [phone] NAME SEX PT STATUS ACCOUNT NUMBER BRITNEY SPARKS [facility] ER [id number] ORDERING PHYSICIAN LOCATION MEDICAL RECORD NO. Remington Chavez MD [id number] ATTENDING PHYSICIAN DATE OF DATE OF EXAM/TIME [...] Trans Dt/Tm: Trans by: DT Prt Dt/Tm: 5738-0552: Total DLP = 208.00 mGy-cm 5379-9811: Total Radiation Dose = 3.1200 mSv Lifetime Dose: 12.9060 mSv Health Concerns Health Concerns may be documented in an alternate section. Advance Directives Advance Directive Response Recorded Date/Time Advanced Directive No [place] 2020 12:09pm Does Patient have a DNR? No March 30, 2020 12:09pm [facility] Living Will No April 4:15pm Chief Complaint and Reason for Visit Chief Complaint BACK PAIN BACK PAIN BACK PAIN BACKPAIN BACK PAIN BACK PAIN BACK PAIN BACK AND LEG PAIN BACK PAIN, LEG PAIN LOWER BACK AND LEG PAIN LOW BACK/LEG PAIN BACK PAIN Encounters Encounter Location(s) Ar rival/Admit Date Discharge/Depart Date Provider(s) Departed Emergency [facility] May 01, 2019 3:53pm May 01, 2019 4:50pm null Departed Emergency [facility] May 04, 2019 1:52pm May 04, 2019 3:59pm null Departed Emergency [facility] June 07, 2019 1:47pm June 07, 2019 2:40pm null Departed Emergency [facility] August 07, 2019 9:08pm August 07, 2019 10:52pm null Departed Emergency [facility] August 30, 2019 6:30pm August 30, 2019 7:56pm null Departed Emergency [facility] September 30, 2019 4:13pm September 30, 2019 6:54pm null Departed Emergency [facility] November 21, 2019 1:16pm November 21, 2019 3:23pm null Departed Emergency [facility] January 03, 2020 12:06am January 03, 2020 2:27am null Departed Emergency [facility] February 24, 2020 9:46pm February 25, 2020 12:00am null Departed Emergency [facility] February 28, 2020 8:00pm February 29, 2020 2:11am null Departed Emergency [facility] March 12, 2020 10:29pm March 13, 2020 1:13am null Departed Emergency [facility] March 30, 2020 11:50am March 30, 2020 12:41pm null Assessments No Assessments Information Available Family History Relationship Condition A ge at Onset Recorded Date/Time Not Specified Hearing disorder Unknown Functional Status No Functional Status information available Goals Goals may be documented in an alternate section. Immunizations No Immunization Information Available Mental Status Observation Response Brenton e Recorded Impairments No impairments or barriers March 30, 2020 11:51am Medical Equipment No Medical Equipment Information available Insurance Providers Guarantor BRITNEY SPARKS Address [address] [address] Contact Info. Home Phone: Payer Policy Id Coverage Id Subscriber's Name Subscriber Id Effective Date Expiration Date [facility] [id number] BRITNEY SPARKS [id number] Self Pay Self N/A [employer] MEDICAID [id number] BRITNEY SPARKS [id number] Plan of Treatment Future Tests Future scheduled test information is unavailable Pending Tests Pending diagnostic test information is unavailable Future Visits Future appointment information is unavailable Referrals to Other Providers Reason for Referral Referral Start Date Provider Provider Conta ct Information Provider Address Pati Perez MD Work Phone: [phone] [facility] [address] [place] [address] Future Procedures Future procedure information is unavailable Future Medications Future medication information is unavailable Patient Instructions Myra obrien (ED) Chronic Pain (ED) Muscle Spasm (ED) Chronic Back Pain (DC) Pain Management (ED) Back Pain (ED) Social History Smoking Status Status Date of Observation Current every day smoker March 12:13pm Observation Status Observation Response Brenton e of Response Smoking Status Current every day smoker March 30, 2020 12:13pm Alcohol Use No March 30, 2020 12:13pm Substance Use No uar 2020 12:13pm Smoking Status Current every day smoker April 23, 2013 11:50am Assigned Sex Male Vital Signs Vital Reading Result Ref erence Range Collection Date/Time Height 69 [in_i] May 01, 2019 3:56pm Weight 120.00 [lb_av] May 01, 2019 3:56pm Body Temperature 98.7 [degF] 97.6-99.5 May 01, 2019 3:53pm Heart Rate 76 /min 60-100 May 01, 2019 3:53pm Respiratory rate 14 /min -May 01, 2019 3:53pm Oxygen saturation by Pulse [...] 21, 2019 3:39pm Respiratory rate 20 /min -24 November 21, 2019 3:39pm Oxygen saturation by Pulse [...] 13, 2020 12:22am Respiratory rate 16 /min -24 March 13, 2020 12:22am Oxygen saturation by Pulse oximetry 99 % 95- 100 March 13, 2020 12:22am BP Systolic 120 mm[Hg] March 13, 2020 12:22am BP Diastolic 83 mm[Hg] March 13, 2020 12:22am Height 69 [in_i] March 30, 2020 12:09pm Weight 125.00 [lb_av] March 30, 2020 12:09pm Body Temperature 98.4 [degF] 97.6-99.5 March 30, 2020 11:51am Heart Rate 100 /min 60-1 00 March 30, 2020 11:51am Respiratory rate 16 /min -March 30, 2020 11:51am Oxygen saturation by Pulse oximetry 97 % 95- 100 March 30, 2020 11:51am BP Systolic 125 mm[Hg] March 30, 2020 11:51am BP Diastolic 86 mm[Hg] March 30, 2020 11:51am Hospital Discharge Instructions Additional Instructions As we discussed you will need to get your medication refills and your pain medic ation from either pain management Or possibly from the orthopedist that is done your surgery Follow-up with pain management and your orthopedic surgeon
--- OUTSIDE RECORDS SUMMARY | 2020-04-11 20:16 | CCD ---
Author Author [facility] Organization [facility] Address Unknown Phone Unavailable Support Name Relationship Address Phone SELF Next Of Kin Unknown Unavailable Juan Limon MD Next Of Kin [address] [id number] Maria Del Carmen AGUIRREP, Daphne Next Of Kin [address] [place] [address] CTY, OF CORRECTIONS DEPARTMENT Next Of Kin EDGAR CTY CORRECTIONAL FAC [address] [id number] RE Next Of Kin Unknown Unavailable MARÍ[place] [address] UE Next Of Kin Unknown Unavailable Jensen RPA-C, Izabel Next Of Kin [address] [place] [address] Jamie AGUIRREP, Yaneth Next Of Kin [address] [phone] Adenike ANP-BC, Constance Next Of Kin [address] [place] [phone] "" Next Of Kin [address] [place] [phone] NONE, PT PER Next Of Kin - -, [place] - - [place] [address] SOFIA MONTENEGRO Next Of Kin [address] [place] [address] JOSE [place] [address] JULIETA VIGIL Next Of Kin [address] [place] [phone] UN Next Of Kin Unknown Unavailable NONE, NOOTHER Next Of Kin - -, [place] - - MELANY FIELDS Next Of Kin Unknown DISABLED Next Of Kin Unknown Unavailable JUAN SPARKS Next Of Kin 02/[address] [place] [address] BRITTAERLINDAKeyla MIKO Next Of Kin 02/[address] [place] [address] JONESHANSELASTRID Ramires Next Of Kin Unknown NATHALIEASTRID Next Of Kin Unknown Care Team Providers 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 Name Role Phone MORALES WIGGINS Unavailable Unavailable [...] Unavailable Anival Limon MD Unavailable Unavailable Anival Liomn MD Unavailable Unavailable Anival Limon MD Unavailable [...] Limon, Anival Martinez MD Unavailable Unavailable Limon, Ainval Martinez MD Unavailable Unavailable Limon, Anival Martinez MD Unavailable Unavailable Limon, Anival Martinez MD Unavailable Unavailable Limon, Anival Martinez MD Unavailable Unavailable Limon, Anival Martinez MD Unavailable Unavailable Limon, Anival Martinez MD Unavailable Unavailable Limon, Anival Martinez MD Unavailable Unavailable Limon, Anival Martinez MD Unavailable Unavailable Limon, Anival Martinez MD Unavailable Unavailable Limon, nAival Martinez MD Unavailable Unavailable Limon, Anival Martinez MD Unavailable Unavailable Limon, Anival Martinez MD Unavailable Unavailable Limon, Anival Martinez MD Unavailable Unavailable Limon, Anival Martinez MD Unavailable Unavailable Limon, Anival Martinez MD Unavailable Unavailable Limon, Anival Martinez MD Unavailable Unavailable Limon, Anival Martinez MD Unavailable Unavailable Limon, Anival Martinez MD Unavailable Unavailable Limon, nAival Martinez MD Unavailable Unavailable Limon, Anival Martinez MD Unavailable Unavailable Limon, Anival Martinez MD Unavailable Unavailable Limon, Anival Martinez MD Unavailable Unavailable Lmion, Anival Martinez MD Unavailable Unavailable Limon, Anival Martinez MD Unavailable Unavailable Limon, Anival Martinez MD Unavailable Unavailable Cougler, S Sorin TIEDOWN OPERATOR Unavailable Unavailable Cougler, S Sorin TIEDOWN OPERATOR Unavailable Unavailable Cougler, S Sorin TIEDOWN OPERATOR Unavailable Unavailable Cougler, S Sorin TIEDOWN OPERATOR Unavailable Unavailable Cougler, S Sorin TIEDOWN OPERATOR Unavailable Unavailable Cougler, S Sorin TIEDOWN OPERATOR Unavailable Unavailable Cougler, S Sorin TIEDOWN OPERATOR Unavailable Unavailable Cougler, S Sorin TIEDOWN OPERATOR Unavailable Unavailable Cougler, S Sorin TIEDOWN OPERATOR Unavailable Unavailable Cougler, S Sorin TIEDOWN OPERATOR Unavailable Unavailable Cougler, S Sorin TIEDOWN OPERATOR Unavailable Unavailable Cougler, S Sorin TIEDOWN OPERATOR Unavailable Unavailable Cougler, S Sorin TIEDOWN OPERATOR Unavailable Unavailable Cougler, S Sorin TIEDOWN OPERATOR Unavailable Unavailable Cougler, S Sorin TIEDOWN OPERATOR Unavailable Unavailable Cougler, S Sorin TIEDOWN OPERATOR Unavailable Unavailable Cougler, S Sorin TIEDOWN OPERATOR Unavailable Unavailable Cougler, S Sorin TIEDOWN OPERATOR Unavailable Unavailable Cougler, S Sorin TIEDOWN OPERATOR Unavailable Unavailable Cougler, S Sorin TIEDOWN OPERATOR Unavailable Unavailable Cougler, S Sorin TIEDOWN OPERATOR Unavailable Unavailable Cougler, S Sorin TIEDOWN OPERATOR Unavailable Unavailable Cougler, S Sorin TIEDOWN OPERATOR Unavailable Unavailable Cougler, S Sorin TIEDOWN OPERATOR Unavailable Unavailable Cougler, S Sorin TIEDOWN OPERATOR Unavailable Unavailable Cougler, S Sorin TIEDOWN OPERATOR Unavailable Unavailable Cougler, S Sorin TIEDOWN OPERATOR Unavailable Unavailable Cougler, S Sorin TIEDOWN OPERATOR Unavailable Unavailable Cougler, S Sorin TIEDOWN OPERATOR Unavailable Unavailable Cougler, S Sorin TIEDOWN OPERATOR Unavailable Unavailable Cougler, S Sorin TIEDOWN OPERATOR Unavailable Unavailable Cougler, S Sorin TIEDOWN OPERATOR Unavailable Unavailable Cougler, S Sorin TIEDOWN OPERATOR Unavailable Unavailable Cougler, S Sorin TIEDOWN OPERATOR Unavailable Unavailable Cougler, S Sorin TIEDOWN OPERATOR Unavailable Unavailable Cougler, S Sorin TIEDOWN OPERATOR Unavailable Unavailable Cougler, S Sorin TIEDOWN OPERATOR Unavailable Unavailable Cougler, S Sorin TIEDOWN OPERATOR Unavailable Unavailable Cougler, S Sorin TIEDOWN OPERATOR Unavailable Unavailable Cougler, S Sorin TIEDOWN OPERATOR Unavailable Unavailable Moreau, M Christopher PA-C Unavailable Unavailable Moreau, M Christopher PA-C Unavailable Unavailable Moreau, M Christopher PA-C Unavailable Unavailable Moreau, M Christopher PA-C Unavailable Unavailable Moreau, M Christopher PA-C Unavailable Unavailable Moreau, M Christopher PA-C Unavailable Unavailable Omreau, M Christopher PA-C Unavailable Unavailable Moreau, M [...] Unavailable Moreau, M Christopher PA-C Unavailable Unavailable REINIER CARSON PA Unavailable Unavailable REINIER CARSON PA Unavailable Unavailable REINIER CARSON PA Unavailable Unavailable REINIER CARSON PA Unavailable Unavailable YAMILETHREINIER RACHEL PA Unavailable [...] YAMILETH, REINIER CARRIE PA Unavailable Unavailable Cosmo, [place] COMPOSITE WORKER Unavailable Unavailable Cosmo, [place] COMPOSITE WORKER Unavailable Unavailable Cosmo, [place] COMPOSITE WORKER Unavailable Unavailable Cosmo, [place] COMPOSITE WORKER Unavailable Unavailable Cosmo, [place] COMPOSITE WORKER Unavailable Unavailable Auburn, Yadira RPA-C Unavailable Unavailable Auburn, Yadira RPA-C Unavailable Unavailable Auburn, Yadira RPA-C Unavailable Unavailable Auburn, Yadira RPA-C Unavailable Unavailable Auburn, Yadira RPA-C Unavailable Unavailable Auburn, Yadira RPA-C Unavailable Unavailable Auburn, Yadira RPA-C Unavailable Unavailable Auburn, Yadira RPA-C Unavailable Unavailable Auburn, Yadira RPA-C Unavailable Unavailable Auburn, Yadira RPA-C Unavailable Unavailable Auburn, Yadira RPA-C Unavailable Unavailable Auburn, Yadira RPA-C Unavailable Unavailable Auburn, Yadira RPA-C Unavailable Unavailable Auburn, Yadira RPA-C Unavailable Unavailable Auburn, Yadira RPA-C Unavailable Unavailable Scott, (Remington) Meche LACY Unavailable Unavailable Silvio Hicks [...] Unavailable BLAIR, COURTNEY MD Unavailable Unavailable BLAIR, COURNTEY MD Unavailable Unavailable BLAIR, COURTNEY MD Unavailable [...] Unavailable Unavailable BLAIR, COURTNEY MD Unavailable Unavailable Joes NGUYEN MD Unavailable Unavailable DIMITRIJose ARMENTA MD Unavailable Unavailable DIMITRIJose ARMENTA MD Unavailable Unavailable DIMITRIJose ARMENTA MD Unavailable Unavailable DIMITRIJose ARMENTA MD Unavailable Unavailable DIMITRI, Jose POTTER MD Unavailable Unavailable DIMITRI, Jose POTTER MD Unavailable Unavailable DIMITRI, Jose POTTER MD Unavailable Unavailable DIMITRI, Jose POTTER MD Unavailable Unavailable DIMITRI, Jose POTTER MD Unavailable Unavailable DIMITRI, Jose POTTER MD Unavailable Unavailable DIMITRIJose ARMENTA MD Unavailable Unavailable DIMITRI, Jose POTTER MD Unavailable Unavailable DIMITRI, Jose POTTER MD Unavailable Unavailable DIMITRI, Jose POTTER MD Unavailable Unavailable DIMITRIJose ARMENTA MD Unavailable Unavailable DIMITRI, Jose POTTER MD Unavailable Unavailable DIMITRI, Jose POTTER MD Unavailable Unavailable DIMITRI, Jose POTTER MD Unavailable Unavailable DIMITRI, Jose POTTER MD Unavailable Unavailable DIMITRI, Jose POTTER MD Unavailable Unavailable DIMITRIJose ARMENTA MD Unavailable Unavailable DIMITRIJose ARMENTA MD Unavailable Unavailable SYMENOW, G CHRISTOPHER [...] Unavailable SANDY INGRAM MD Unavailable Unavailable SANDY INRGAM MD Unavailable Unavailable SANDY INGRAM MD Unavailable Unavailable AMSANDY SANDOVAL MD Unavailable Unavailable AMSANDY SANDOVAL MD Unavailable Unavailable AMSANDY SANDOVAL MD Unavailable Unavailable SANDY INGRAM MD Unavailable Unavailable JUJU, D AUDREY COMPOSITE WORKER Unavailable Unavailable ZEGIL, D AUDREY COMPOSITE WORKER Unavailable Unavailable ZEGIL, D AUDREY COMPOSITE WORKER Unavailable Unavailable ZENY AHUMADA Unavailable Unavailable Dobrinski, S Deion COMPOSITE WORKER Unavailable Unavailable Dobrinski, S Deion COMPOSITE WORKER Unavailable Unavailable Dobrinski, S Deoin COMPOSITE WORKER Unavailable Unavailable Dobrinski, S Deion COMPOSITE WORKER Unavailable Unavailable Dobrinski, S Deion COMPOSITE WORKER Unavailable Unavailable Dobrinski, S Deion COMPOSITE WORKER Unavailable Unavailable Dobrinski, S Deion COMPOSITE WORKER Unavailable Unavailable Dobrinski, S Deion COMPOSITE WORKER Unavailable Unavailable Dobrinski, S Deion COMPOSITE WORKER Unavailable Unavailable Dobrinski, S Deion COMPOSITE WORKER Unavailable Unavailable Dobrinski, S Deion COMPOSITE WORKER Unavailable Unavailable Dobrinski, S Deion COMPOSITE WORKER Unavailable Unavailable DiBella, Dana Albarran MD Unavailable Unavailable DiBella, Dana Albarran MD Unavailable Unavailable DiBella, Dana Albarran MD Unavailable Unavailable DiBella, Dana Albarran MD Unavailable Unavailable DiBella, Dana Albarran MD Unavailable Unavailable DiBella, Dana Albarran MD Unavailable Unavailable Kyle, Дмитрий PA Unavailable Unavailable Kyle, Дмитрий PA Unavailable Unavailable Kyle, Дмитрий PA Unavailable Unavailable Kyle, Дмитрий PA Unavailable Unavailable Kyle, Дмитрий PA Unavailable Unavailable Kyle, Дмитрий PA Unavailable Unavailable Anival Limon MD Unavailable Unavailable [...] Unavailable Limon, Anival Martinez MD Unavailable Unavailable Limno, Anival Martinez MD Unavailable Unavailable Limon, Anival Martinez MD Unavailable Unavailable Limon, Anival Martinez MD Unavailable Unavailable Limon, Anival Martinez MD Unavailable Unavailable Limon, Anival Martinez MD Unavailable Unavailable Limon, Anival Martinez MD Unavailable Unavailable Limon, Anival Martinez MD Unavailable Unavailable Limon, Anival Martinez MD Unavailable Unavailable Limon, Anival Martinez MD Unavailable Unavailable Limno, Anival Martinez MD Unavailable Unavailable Limon, Anival [...] Unavailable Green, M Dayanara PA-C Unavailable Unavailable VENERUS, Alfredo COLES MD Unavailable Unavailable VENERUS, Alfredo COLES MD Unavailable Unavailable VENERUS, Alfredo COLES MD Unavailable Unavailable VENERUS, Alfredo COLES MD Unavailable Unavailable VENERUS, Alfredo COLES MD Unavailable Unavailable VENERUS, Alfredo COLES MD Unavailable Unavailable VENERUS, Alfredo COLES MD Unavailable Unavailable VENERUS, Alfredo COLES MD Unavailable Unavailable VENERUS, Alfredo COLES MD Unavailable Unavailable NO, PCP Unavailable Unavailable [...] the [facility] Public Health law. If you continue you may have access to information: Regarding HIV / AIDS; Provided by facilities licensed or operated by the [facility] Office of Mental Health; or Provided by the [facility] Office for People With Developmental Disabilities. If such information is present, then the following [facility] mandated warning applies: This information has been [...] law may result in a fine or care home sentence or both. A general authorization for the release of medical or other information is NOT sufficient authorization for further disc losure. Allergies and Adverse Reactions Type Description Substance Reaction Status Data Source(s ) Drug allergy ketorolac ketorolac Confusion [facility] Drug allergy tramadol Tramadol Urticaria DE [facility] Drug allergy Penicillins Penicillin rash,itching [facility] Food allergy FISH FISH itching,swelling [facility] Food allergy fish fish [facility] CLASS PCN (penicillin) PCN (penicillin) [facility] Drug allergy gradyadol [facility] Drug allergy Drug allergy Penicillins [facility] Family History Family Member Name Family Member Gender Family Member Status Date o f Status Description Data Source(s) Unknown Condition [facility] Unknown Condition [facility] Unknown Condition [facility] Unknown Condition [facility] Unknown Condition [facility] Unknown Condition [facility] Unknown Condition [facility] Unknown Condition [facility] Unknown Condition [facility] Unknown Condition [facility] Unknown Condition [facility] Unknown Condition [facility] Unknown Condition [facility] Unknown Condition [facility] Encounters Encounter Providers Location Date Indications Data Source(s ) Emergency Attender: ABHIJEET Dennisoner: Melba Moreau PA-C 04/04/2020 01:21:00 PM EST - 04/04/2020 01:24:00 PM EST [facility] Patient discharged. Emergency Attender: Deion Mclaughlin MD 05/2020 11:50:00 AM EST - 03/30/2020 12:41:00 PM EST BACK PAIN [facility] l BACK PAIN Patient discharged. O Attender: Deion VELOZ 03/27/2020 05:50:31 PM EST - 03/27/2020 06:26:09 PM EST [facility] ([facility] ) Outpatient Attender: Дмитрий Kyle PAConsultant: COURTNEY ROSENBAUM MD 03/21/2020 11:43:00 AM EST - 03/21/2020 11:43:00 AM [facility] Emergency Attender: DARNELL KAYConsultant: COURTNEY Martinez MD 03/15/2020 04:29:00 PM EST - 03/15/2020 05:45:00 PM [facility] Patient discharged. Emergency Attender: Deion Mclaughlin MD 10:29:00 PM EST - 03/13/2020 01:13:00 AM EST LOW BACK/LEG PAIN [facility] LOW BACK/LEG PAIN Patient discharged. Outpatient Attender: Dayanara ZACARIASCConsultant: PCP NO 03/09/2020 12:59:00 PM EST - 03/09/2020 12:59:00 PM [facility] Outpatient Attender: Martir Wilburn FNPConsultant: PCP NO 03/07/2020 12:49:00 PM EST - 03/07/2020 12:49:00 PM [facility] Emergency Attender: Morales Bauer MD 02/27 08:00:00 PM EST - 02/29/2020 02:11:00 AM EST LOWER BACK AND LEG PAIN [facility] LOWER BACK AND LEG PAIN Patient discharged. Emergency Attender: Meche Chavez MD 02/23 09:46:00 PM EST - 02/25/2020 12:00:00 AM EST BACK PAIN, LEG PAIN [facility] l BACK PAIN, LEG PAIN Patient discharged. Emergency Attender: VÍCTOR ASCENCIOConsultant: PCP NO 02/24/2020 05:01:00 PM EST - 02/24/2020 06:21:00 PM [facility] Patient discharged. Emergency Attender: CARRIE WAGGONEReferrer: Gutierrez Moreau PA-C 01/21/2020 09:34:00 PM EST - 01/21/2020 09:50:00 PM [facility] Patient discharged. Emergency Attender: Meche Chavez MD 01/02 12:06:00 AM EST - 01/03/2020 02:27:00 AM EST BACK AND LEG PAIN [facility] BACK AND LEG PAIN Patient discharged. Outpatient Attender: Juan Limon MD 12/28/2019 12:56:01 PM EST [facility] Juan Limon MD: [address] [place] [address], Ph. Attender: Juan Limon MD [facility] - [facility] Medical 12/28/2019 12:00:00 AM EST [facility] ([facility]) Emergency Attender: DARNELL KAYConsultant: PCP NO 11/29/2019 10:52:00 PM EDT - 11/30/2019 12:57:00 AM EDT [facility] Patient discharged. Emergency Attender: CARRIE Payneerrer: Gutierrez Moreau PA-C 11/28/2019 12:28:00 AM EDT - 11/28/2019 12:46:00 AM EDT [facility] Patient discharged. Outpatient Attender: Juan Limon MD 11/24/2019 02:21:01 PM EDT [facility] Emergency Attender: Deion Pierre MD 10/26 02:16:00 PM EDT - 11/21/2019 04:23:00 PM EDT BACK PAIN [facility] BACK PAIN Patient discharged. Outpatient Attender: ZENY AHUMADAConsultant: PCP NO 2019 08:00:17 AM EDT - 2019 11:27:00 AM EDT [facility] Patient discharged. Emergency Attender: NIMCO NGUYEN MDConsultant: PCP NO 11/06/2019 10:45:00 PM EDT - 11/07/2019 12:24:00 AM EDT [facility] Patient discharged. Emergency Attender: AUDREY [facility] ED-ED 10/2019 05:03:00 PM EDT - 10/03/2019 05:51:00 PM EDT BACK AND LEG PAIN [facility] BACK AND LEG PAIN Patient discharged. Emergency Attender: Kevin GANT 10/01 12:26:00 AM EDT - 10/02/2019 01:06:00 AM EDT [facility] Patient discharged. Outpatient Attender: Juan Limon MD FP 10/01/2019 10:46:01 AM EDT [facility] Emergency Attender: Morales Bauer MDAttender: Deion patel MD 09/30/2019 05:13:00 PM EDT - 09/30/2019 07:54:00 PM EDT BACK PAIN [facility] BACK PAIN Patient discharged. Outpatient Attender: Juan PHELAN 08/31/2019 10:57:02 AM EDT [facility] Emergency Attender: Morales Bauer MD 08/29 07:30:00 PM EDT - 08/30/2019 08:56:00 PM EDT BACK PAIN [facility] l BACK PAIN Patient discharged. Emergency Attender: Sorin Blair TIEDOWN OPERATOR ED-ED 08/27 02:40:00 PM EDT - 08/28/2019 03:45:00 PM EDT LOWER BACK PAIN [facility] LOWER BACK PAIN Patient discharged. Emergency Attender: Yadira Moeller RPA-CReferrer: Gutierrez Moreau PA-C 08/27/2019 04:47:00 PM EDT - 08/27/2019 05:15:00 PM EDT [facility] Patient discharged. Outpatient Attender: Juan Limon MD 08/19/2019 09:03:00 AM EDT [facility] Outpatient Attender: Juan Limon MD 08/18/2019 12:50:00 PM EDT [facility] Outpatient Attender: Juan PHELAN 08/18/2019 09:59:01 AM EDT [facility] Outpatient Attender: Juan PHELAN 08/18/2019 09:45:00 AM EDT [facility] Outpatient Attender: Juan Limon MD FP 08/17/2019 03:14:00 PM EDT [facility] Emergency Attender: Deion Pierre MD 07/25 10:08:00 PM EDT - 08/07/2019 11:52:00 PM EDT BACKPAIN [facility] l BACKPAIN Patient discharged. Outpatient Attender: Juan PHELAN 08/03/2019 07:40:49 PM EDT [facility] Emergency Attender: JAKE QUIROS MDConsultant: PCP NO 07/30/2019 08:11:00 PM EDT - 07/30/2019 09:16:00 PM EDT [facility] Patient discharged. Outpatient Attender: MORALES Murphysultant: PCP NO 06/09/2019 08:50:00 AM EDT - 06/09/2019 08:50:00 AM EDT [facility] Emergency Attender: Deion Pierre MD 05/25 02:47:00 PM EDT - 06/07/2019 03:40:00 PM EDT BACK PAIN [facility] BACK PAIN Patient discharged. Emergency Attender: ABHIJEET Dennisoner: Melba Moreau PA-C 05/24/2019 09:09:00 PM EDT - 05/24/2019 09:43:00 PM EDT [facility] Patient discharged. Outpatient Attender: Juan PHELAN 05/06/2019 11:22:53 AM EDT [facility] Emergency Attender: CARRIE CARSON PAReferrer: Gutierrez Moreau PA-C 05/05/2019 06:50:00 PM EDT - 05/05/2019 07:19:00 PM EDT [facility] Patient discharged. Emergency Attender: Silvio Hicks MD 11/2019 02:52:00 PM EDT - 05/04/2019 04:59:00 PM EDT BACK PAIN [facility] BACK PAIN Patient discharged. Emergency Attender: JAKE QUIROS MDConsultant: PCP NO 05/02/2019 12:43:10 PM EDT - 05/02/2019 03:26:00 PM EDT [facility] Patient discharged. Emergency Attender: Deion Pierre MD 08/2019 03:53:00 PM EST - 05/01/2019 04:50:00 PM EST BACK PAIN [facility] BACK PAIN Patient discharged. Emergency Attender: SANDY INGRAM MDConsultant: PCP NO 04/30/2019 06:21:00 PM EST - 04/30/2019 09:23:00 PM EST [facility] Patient discharged. Emergency Attender: MELBA WAGGONEReferrer: Jax Moreau PA-C 03/04/2019 06:16:00 PM EST - 03/04/2019 06:40:00 PM [facility] Patient discharged. Emergency Attender: DEISY MONTOYAReferrer: Melba Moreau PA-C 09/01/2018 11:06:00 PM EDT - 09/01/2018 11:32:00 PM [facility] Emergency Attender: CARRIE GANT 09:54:00 PM EDT - 07/20/2017 10:15:00 PM [facility] Emergency Attender: Karl NATARAJAN EMERGENCY ROOM-ER 0 03/25/2017 02:05:00 PM EST - 03/22/2017 10:00:00 AM [facility] Medications Medication Brand Name Start Date Product Form Dose Route Admi nistrative Instructions Pharmacy Instructions Status Indications Reaction Description Data Source(s) 10 mg 04/04/2020 12:00:00 AM EST tablet 5 TAKE ONE TABLET BY MOUTH EVERY EVENING NEEDED FOR SLEEP MAXIMUM DAILY DOSE = 1 TAKE ONE TABLET BY MOUTH EVERY EVENING NEEDED FOR SLEEP MAXIMUM DAILY DOSE = 1 SOLD: 04/04/2020 [facility] 5-325 mg 03/30/2020 12:00:00 AM EST tablet 10 TAKE ONE TABLET BY MOUTH EVERY 6 HOURS NEEDED FOR PAIN - MAXIMUM DAILY DOSE = 4 TAKE ONE TABLET BY MOUTH EVERY 6 HOURS NEEDED FOR PAIN - MAXIMUM DAILY DOSE = 4 SOLD: 03/30/2020 [facility] 500 mg 03/29/2020 12:00:00 AM EST tablet 21 TAKE ONE TABLET BY MOUTH THREE TIMES A DAY TAKE ONE TABLET BY MOUTH THREE TIMES A DAY SOLD: 04/04/2020 [facility] olanzapine 5 MG Oral Tablet OLANZAPINE 03/22/2020 12:00:00 AM EST tabl et 30 TAKE ONE TABLET BY MOUTH EVERY DAY TAKE ONE TABLET BY MOUTH EVERY DAY SOLD: 03/30/2020 [facility] 16 mg 03/22/2020 12:00:00 AM EST tablet 6 TAKE ONE TABLET BY MOUTH TWICE A DAY FOR 3 DAYS TAKE ONE TABLET BY MOUTH TWICE A DAY FOR 3 DAYS SOLD: 2020 [facility] 300 mg 03/21/2020 12:00:00 AM EST tablet 54 TAKE TWO TABLETS BY MOUTH AT BEDTIME NEEDED TAKE TWO TABLETS BY MOUTH AT BEDTIME NEEDED SOLD: 03/30/2020 [facility] 1 mg 03/21/2020 12:00:00 AM EST tablet 28 TAKE ONE TABLET BY MOUTH TWICE A DAY NEEDED MAXIMUM DAILY DOSE = 2 TAKE ONE TABLET BY MOUTH TWICE A DAY NEEDED MAXIMUM DAILY DOSE = 2 SOLD: 03/21/2020 [facility] Diclofenac Sodium 0.01 MG/MG Topical Gel Diclofenac Sodium 03/21/2020 12:00:00 AM EST active [facility] ([facility]) Methylprednisolone 16 MG Oral Tablet Methylprednisolone 12:00:00 AM EST ORAL active [facility] ([facility]) Acetaminophen 325 MG / Hydrocodone Bitartrate 10 MG Or al Tablet Hydrocodone-Acetaminophen 03/21/2020 12:00:00 AM EST ORAL completed [facility] ([facility]) quetiapine 300 MG Oral Tablet QUETIAPINE FUMARATE 03/21/2020 12: 00:00 AM EST tablet 6 TAKE TWO TABLETS BY MOUTH AT BED TIME NEEDED TAKE TWO TABLETS BY MOUTH AT BEDTIME NEEDED SOLD: 03/21/2020 [facility] 4 mg 03/16/2020 12:00:00 AM EST tablets,dose pack 21 DIRECTED DIRECTED SOLD: 03/21/2020 [facility] 5-325 mg 03/13/2020 12:00:00 AM EST tablet [...] DAILY DOSE = ONE TABLET SOLD: 03/09/2020 [facility] Prazosin 1 MG Oral Capsule Prazosin HCL 03/09/2020 12:00:00 AM EST ORAL active [facility] ([facility]) 10-325 mg 03/07/2020 12:00:00 AM EST tablet 2 TAKE ONE TABLET BY MOUTH EVERY DAY NEEDED FOR PAIN MAXIMUM DAILY DOSE = 1 TAKE ONE TABLET BY MOUTH EVERY DAY NEEDED FOR PAIN MAXIMUM DAILY DOSE = 1 SOLD: 03/07/2020 [facility] Acetaminophen 300 MG / Hydrocodone Bitartrate 10 MG Or al Tablet [Vicodin] Vicodin HP 03/07/2020 12:00:00 AM EST active [facility] ([facility]) 10 mg 02/03/2020 12:00:00 AM EST tablet 30 TAKE ONE TABLET BY MOUTH EVERY DAY AT BEDTIME NEEDED MAXIMUM DAILY DOSE = 1 TAKE ONE TABLET BY MOUTH EVERY DAY AT BEDTIME NEEDED MAXIMUM DAILY DOSE = 1 SOLD: 02/04/2020 [facility] 1 mg 02/02/2020 12:00:00 AM EST capsule 30 TAKE ONE CAPSULE BY MOUTH NIGHTLY TAKE ONE CAPSULE BY MOUTH NIGHTLY SOLD: 03/21/2020 [facility] 300 mg 02/02/2020 12:00:00 AM EST capsule 180 TAKE TWO CAPSULES BY MOUTH THREE TIMES A DAY MAXIMUM DAILY DOSE = 6 TAKE TWO CAPSULES BY MOUTH THREE TIMES A DAY MAXIMUM DAILY DOSE = 6 SOLD: 03/18/2020 [facility] 300 mg 02/02/2020 12:00:00 AM EST [...] AT BEDTIME SOLD: 02/03/2020 [facility] 1 mg 02/02/2020 12:00:00 AM EST capsule 30 TAKE ONE CAPSULE BY MOUTH NIGHTLY TAKE ONE CAPSULE BY MOUTH NIGHTLY SOLD: 02/03/2020 [facility] 10-325 mg 02/02/2020 12:00:00 AM EST tablet 180 TAKE ONE TABLET BY MOUTH EVERY 4 HOURS MAXIMUM DAILY DOSE = 6 TAKE ONE TABLET BY MOUTH EVERY 4 HOURS MAXIMUM DAILY DOSE = 6 SOLD: 02/02/2020 [facility] 20 mg 02/02/2020 12:00:00 AM EST tablet [...] AT BEDTIME SOLD: 01/01/2020 [facility] 10 mg 12/04/2019 12:00:00 AM EDT tablet [...] DAY SOLD: 0 [facility] 300 mg 12/04/2019 12:00:00 AM EDT [...] MOUTH EVERY 12 HOURS SOLD: 11/08/[address] [facility] 10 mg 11/05/2019 12:00:00 AM EDT [...] Ibuprofen 08/30/2019 07:48:09 PM EDT 800 MG [facility] Ibuprofen 800 MG Oral Tablet Ibuprofen 08/30/2019 07:48:09 PM EDT 800 MG [facility] Ibuprofen 800 MG Oral Tablet Ibuprofen 08/30/2019 07:48:09 PM EDT 800 MG [facility] Ibuprofen 800 MG Oral Tablet Ibuprofen 08/30/2019 07:48:09 PM EDT 800 MG [facility] Ibuprofen 800 MG Oral Tablet Ibuprofen 08/30/2019 07:48:09 PM EDT 800 MG [facility] Ibuprofen 800 MG Oral Tablet Ibuprofen 08/30/2019 07:48:09 PM EDT 800 MG [facility] Ibuprofen 800 MG Oral Tablet Ibuprofen 08/30/2019 07:48:09 PM EDT 800 MG [facility] Ibuprofen 800 MG Oral Tablet Ibuprofen 08/30/2019 07:48:09 PM EDT 800 MG active [facility] 10-325 mg 08/11/2019 12:00:00 AM EDT tablet [...] [facility] quetiapine 300 MG Oral Tablet Quetiapine (Seroquel) 30 0 mg Tablet Quetiapine (Seroquel) 300 mg Tablet 08/07/2019 11:08:32 PM EDT 300 MG active [facility] quetiapine 300 MG Oral Tablet Quetiapine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 11:51 Condition Condition: Stable Discharge Detail Disposition: Home, Self-Care Med Rec New Prescriptions: No Action gabapentin 300 MG capsule 900 mg PO TID RF: 0 hydrocodone-acetaminophen [Scroggins] 10-325 mg tablet 1 ea PO Q4HPRN [...] Qty: 1 RF: 3 Discharge Education Printouts: Pain Management (ED), Back Pain (ED) Medications Medication reconciliation performed by provider at discharge: Yes Follow Up Care/Instructions Diet/Activity/Wound Care..: As we discussed you will need to get your medication refills and your pain medication from either pain management Or possibly from the orthopedist that is done your surgery Follow-up with pain management and your orthopedic surgeon *Discharge Patient* Discharge Orders: Discharge Order (Routine); Ordered 03/30/20 Ordered By: Deion Mclaughlin Report Signers: <Electronically signed by Deion Mclaughlin MD> Deion Mclaughlin MD 03/30/20 1228 Deion Mclaughlin MD SIGNATURE DA Report Cosigners: D: DIBMI 03/30/20 1208 T: DIBMI 03/30/20 1208 CC: Dayanara Green Name Value Range Interpretation Code Description Data Tete rce(s) Supporting Document(s) ID Date Data Source [id number] 03/16/2020 01:51:00 [place] [address] PHONE: [phone] FAX: [phone] Name .................. : BRIDGER Breen Acct Number.................. : [id number] ROOM. ................. : TR-08 Number ................... : [id number] Stay type ............. : E/R Discharge Date......... ... : 03/15/20 Admit Date .... ..... : 03/15/20 Admit Phys .................... : ELIZA NORTON Date of ....... : 1975 Family Phys ................... : ROSSY HARD Phone .................. : [phone] Age ................................ : 44 Film# .................. .:[id number] Sex ................................. : M Unsigned transcriptions are preliminary reports and do not represent a medical or legal document SPINE LS AP & LAT [id number] COMPLETE:03/15/20 16:49 2603 Reason(s): Trauma/Injury LUMBAR SPINE X-RAY: 3-VIEWS INDICATION: Trauma, injury. COMPARISON: 11/07/18 FINDINGS: Routine views show normal alignment. The vertebral bodies and disc spaces are well maintained. The pedicles and posterior elements are intact. No pars defects are seen. The SI joints are unremarkable. IMPRESSION: Negative lumbar spine. Elect ronically Reviewed and Signed By Fadi Whipple MD , 03/16/20 13:51, CHADD Transcribe Initials: DZ , Transcribe Date: 03/15/20 20:23, Dictation Date: Copy for: [facility] via fax Copy for: EMERGENCY DEPT via modem Copy for: 710 MED REC DISCHARGED Page 1 of 1 Name Value Range Interpretation Code Description Data Tete rce(s) Supporting Document(s) ID Date Data Source [id number] 03/16/2020 01:50:00 [place] [address] PHONE: [phone] FAX: [phone] Name .................. : BRIDGER Breen Acct Number.................. : [id number] ROOM. ................. : TR-08 Number ................... : [id number] Stay type ............. : E/R Discharge Date......... ... : 03/15/20 Admit Date ... ...... : 03/15/20 Admit Phys .................... : ELIZA NORTON Date of ....... : 1975 Family Phys ................... : ROSSY HARD Phone .................. : [phone] Age ................................ : 44 Film# .................. .:[id number] Sex ................................. : M Unsigned transcriptions are preliminary reports and do not represent a medical or legal document SACRUM & COCCYX [id number] COMPLETE:03/15/20 16:49 2604 Reason(s): Trauma/Injury SACRUM [employer]CCY[employer]: INDICATION: Trauma, injury. FINDINGS: There is normal alignment and position of the bones of the sacrum and coccyx. No evidence for a fracture or any other abnormalities can be noted. IMPRESSION: Unremarkable sacrum and coccyx. Electronically Reviewed and Signed By Fadi Whipple MD , 03/16/20 13:51, CHADD Transcribe Initials: JUDY , Transcribe Date: 03/15/20 20:19, Dictation Date: Copy for: [facility] via fax Copy for: EMERGENCY DEPT via modem Copy for: 710 MED REC DISCHARGED Page 1 of 1 Name Value Range Interpretation Code Description Data Tete rce(s) Supporting Document(s) ID Date Data Source [id number] 03/15/2020 04:29:00 PM EST [facility] 1 OrderSheet [facility] Emergency Department [address] [place] [address] Phone #: ext- [phone] 03/15/2020 16:02 Patient: JUAN SPARKS Sex: M : 1975 Age: 44yWEIGHT:56.6 kg (S) HEIGHT:69 inches (S) BMI:18.4ALLERGIES: Penicillins, Seafood, Toradol, TramadolCHIEF COMPLAINT: back pain, back injuryDIAGNOSIS: BackacheLAB ORDERSOrder Description Priority Entered Acknowledged InitialedDIAGNOSTIC STUDY ORDERSOrder Description Priority Entered Acknowledged InitialedSpine Lumbar AP STAT 16:49 03/15/2020 16:50 SarahAnd ANNA Huhges(Oxygen?(No)) PA; Reason for Study: Trauma/InjurySacrum / Coccyx STAT 16:49 03/15/2020 16:50 Sarah(Oxygen?(No)) Sae Hughes PA; Reason for Study: Trauma/InjuryMEDICATION/IV/DRIP/FLUID ORDERSOrder Description Priority Entered Acknowledged InitialedLidocaine Patch 16:50 03/15/2020 16:58 Tessaical (Patch 5 %) Sae Conley RN1 Patch (On for 12 PA;hours, off for 12hours.)Ativan IM 1 mg 16:50 03/15/2020 17:01 [place](HIGH ALERT Sae Conley RNMEDICATION) PA;Tylenol PO 650 mg 16:50 03/15/2020 16:58 Clifton Conley RN PA;predniSONE PO 50 16:50 03/15/2020 16:58 Seng Conley RN PA;GENERAL ORDERSOrder Description Priority Entered Acknowledged Initialed 2 OrderSheet [facility] Emergency Department [address] [place] [address] Phone #: ext- [phone] 03/15/2020 16:02 Patient: JUAN SPARKS Sex: M : 1975 Age: 44y[Electronically signed by Jeaneth Huffman RN (17:48 )][Electronically signed by Sae Leavitt (22:04 03/15/2020)][Electronically locked by Jeaneth Huffman RN (17:48 03/15/2020)] Name Value Range Interpretation Code Description Data Tete rce(s) Supporting Document(s) ID Date Data Source [id number] 03/15/2020 04:29:00 PM EST [facility] 1 Medication Reconciliation Report [facility] Emergency Department [address] [place] [address] Phone #: ext- [phone] 03/15/2020 16:02 Patient: JUAN SPARKS Sex: M : 1975 Age: 44yWeight: 56.6 [...] days -- Dispense 1 pack.Refills: 0. Substitution permitted.[facility] [address] [place] [phone]. . 2 Medicati on Reconciliation Report [facility] Emergency Department [address] [place] [address] Phone #: ext- [phone] 03/15/2020 16:02 Patient: JUAN SPARKS Sex: M : 1975 Age: 44ylidocaine 5 % topical patch Apply 1 patch once a day for 5 days -- Dispense 5 patch. Refills: 0.Substitution permitted.[facility] [address] [phone]. . -- STALIN Nieto Name Value Range Interpretation Code Description Data Tete rce(s) Supporting Document(s) ID Date Data Source [id number] 03/15/2020 04:29:00 PM EST [facility] 1 Medication Administration Record [facility] Emergency Department [address] [place] [address] Phone #: vom- [phone] 03/15/2020 16:02 Patient: JUAN SPARKS Sex: M : 1975 Age: 44yWeight: 56.6 [...] rce(s) Supporting Document(s) ID Date Data Source [id number] 03/15/2020 04:29:00 PM EST [facility] 1 General Instructions [facility] Emergency Department [address] [place] [address] Phone #: ext- [phone] 03/15/2020 16:02 Patient: JUAN SPARKS Sex: M : 1975 Age: 44yChronic traumatic [...] Dispense 1 pack.Refills: 0. Substitution permitted.Pharmacy - [facility] [address] - [address] [place], [place] [phone]. .lidocaine 5 % topical patch Apply 1 patch once a day for 5 days -- Dispense 5 patch. Refills: 0.Substitution permitted.Pharmacy - [facility] [address] - [address] [facility] ; [place], [place] [phone]. .Follow-up:Follow up with your doctor. Call for an appointment. Reason for referral: evaluation and treatment.Summary of care provided to patient.Understanding of the discharge instructions verbalized by patient. ADDITIONAL INFORMATIONBack Pain (Acute or Chronic) 2 General Instructions [facility] Emergency Department [address] [place] [address] Phone #: ext- [phone] 03/15/2020 16:02 Patient: JUAN SPARKS Sex: M : 1975 Age: 44yBack pain [...] illness. Mechanical problems include: 3 General Instructions [facility] Emergency Department [address] [place] [address] Phone #: vxx- [phone] 03/15/2020 16:02 [id number] Sex: M : 1975 Age: 44y Physical [...] painful area for 20 4 General Instructions [facility] Emergency Department [address] [place] [address] Phone #: ext- [phone] 03/15/2020 16:02 Patient: JUAN SPARKS Sex: M : 1975 Age: 44y minutes [...] or are takingother medicines. You may use ykjb-lku-cxaexxc medicine as directed on the bottle to [...] to seek medical advice 5 General Instructions [facility] Emergency Department [address] [place] [address] Phone #: ext- [phone] 03/15/2020 16:02 Patient: JUAN SPARKS Sex: M : 1975 Age: 44yCall your healthcare provider right away if any of these occur: Pain becomes worse or spreads to your legs Weakness or numbness in one or both legs Numbness in the groin or genital area 1999- [address] [employer]. [address] [place] [address]. All rights reserved. This information is not intended as asubstitute for pro fessional medical care. Always follow your healthcare professional's instructions. You have been given the following additional information: Back Pain (Acute or Chronic)(Electronically signed by STALIN Nieto 03/15/2020 22:04) Name Value Range Interpretation Code Description Data Tete rce(s) Supporting Document(s) ID Date Data Source [id number] 03/15/2020 04:29:00 PM EST [facility] 1 Clinical Report - Nurses [facility] Emergency Department [address] [place] [address] Phone #: ext- [phone] 03/15/2020 16:02 Patient: JUAN SPARKS Sex: M : 1975 Age: 44yTRIAGEArrived by private vehicle. Historian: patient.Acuity: LEVEL 4.Chief Complaint: (lower back, KALE hips).Alert. No acute distress.Onset. (Pt fell on 03/09/20). ( slipped on ice injuring lumbar back. pt has chronic back pain. states thisincident "aggravated" his hips/coccyx region.). The patient has had numbness of the right foot and leftfoot, tingling, and trouble walking. No fever.Treatment [employer]:Took Tylenol and ibuprofen. Seen within the last [...] Miller R.N. 2 Clinical Report - Nurses [facility] Emergency Department [address] [place] [address] Phone #: ext- [phone] 03/15/2020 16:02 [id number] Sex: M : 1975 Age: 44y History [...] Verbalizes understanding. 3 Clinical Report - Nurses [facility] Emergency Department [address] [place] [address] Phone #: ext- [phone] 03/15/2020 16:02 Patient: JUAN SPARKS Sex: M : 1975 Age: 44y --16:58 [...] Patient verbalized understanding. Written instructions provided in Mexican. The patient was discharged home and accompanied [...] rce(s) Supporting Document(s) ID Date Data Source [id number] 03/15/2020 04:29:00 PM [facility] 1 Clinical Report - Physicians/Mid Levels [facility] Emergency Department [address] [place] [address] Phone #: ext- [phone] 03/15/2020 16:02 Patient: JUAN SPARKS Sex: M : 1975 Age: 44y Time [...] inspection. 2 Clinical Report - Physicians/Mid Levels [facility] Emergency Department [address] [place] [address] Phone #: ext- [phone] 03/15/2020 16:02 [id number] Sex: M : 1975 Age: 44y Eyes: [...] Oral. 3 Clinical Report - Physicians/Mid Levels [facility] Emergency Department [address] [place] [address] Phone #: ext- [phone] 03/15/2020 16:02 Patient: JUAN SPARKS Sex: M : 1975 Age: 44y Gabapentin Oral. SEROquel Oral. Vicodin Oral. Prescription Medications: Medrol (Jt) 4 mg tablets in a dose pack Take 1 tablet as directed for 6 days -- Dispense 1 pack. Refills: 0. Substitution permitted. Pharmacy - [facility] [address] - [address], [place] [phone]. FaxNu mber: . lidocaine 5 % topical patch Apply 1 patch once a day for 5 days -- Dispense 5 patch. Refills: 0. Substitution permitted. [facility] [address] - [address], [place] [phone]. Phone: . Follow-up: Follow up with your doctor. Call for an appointment. Reason for referral: evaluation and treatment. Summary of care provided to patient. Understanding of the discharge instructions verbalized by patient.(Electronically signed by STALIN Nieto 03/15/2020 22:04) Name Value Range Interpretation Code Description Data Tete rce(s) Supporting Document(s) ID Date Data Source [id number] 03/13/2020 12:39:00 AM [facility] ED Physician Documentation NAME: JUAN SPARKS : 1975 AGE: 44 MR#: [id number] SERVICE DATE: 03/12/[address]: Deion Mclaughlin MD PRIMARY CARE DR: Paulette Family PHYS Provided ROOM#: HPI (Adult, General) General Chief Complaint: Musculoskeletal Stated Complaint: LOW BACK/LEG PAIN Resident LT, travel outisde home, exposure [...] TIDPRN PRN 01/10/16 11/21/19 11/20/19 History hydrocodone-acetaminophen [Scroggins 1 ea PO Q4HPRN PRN 01/10/16 11/21/19 [...] Surgical History (Updated 08/18/18 @ 11:54 by Embrane [place]) History of - surgery (Surgical) Hx of [...] Dose Route Start Last Admin Trade Name aJun PRN Reason Stop Dose Admin Hydrocodone Bitart/Acetaminophen [...] 900 mg PO TID RF: 0 hydrocodone-acetaminophen [Scroggins] 10-325 mg tablet 1 ea PO Q4HPRN [...] rce(s) Supporting Document(s) ID Date Data Source [id number] 03/09/2020 03:23:00 PM EST [facility] ([facility]) Name Value Range Interpretation Code Description Data Tete rce(s) Supporting Document(s) Chest Xray 2 Views [facility] ID Date Data Source [id number] 02/28/2020 11:50:00 PM EST [facility] ED Physician Documentation NAME: JUAN SPARKS : 1975 AGE: 44 MR#: [id number] SERVICE DATE: 02/28/[address]: Morales Bauer MD PRIMARY CARE DR: No Family PHYS Provided ROOM#: [facility] (Adult, General) General Chief Complaint: Musculoskeletal Stated Complaint: LOWER BACK AND LEG PAIN Resident [facility], travel outisde home, exposure to hot [...] TIDPRN PRN 01/10/16 11/21/19 11/20/19 History hydrocodone-acetaminophen [Scroggins 1 ea PO Q4HPRN PRN 01/10/16 11/21/19 [...] Surgical History (Updated 08/18/18 @ 11:54 by [employer]) History of - surgery (Surgical) Hx of [...] 900 mg PO TID RF: 0 hydrocodone-acetaminophen [Scroggins] 10-325 mg tablet 1 ea PO Q4HPRN [...] rce(s) Supporting Document(s) ID Date Data Source [id number] 02/24/2020 11:38:00 PM [facility] ED Physician Documentation NAME: JUAN SPARKS : 1975 AGE: 44 MR#: [id number] SERVICE DATE: 02/24/[address]: Remington Chavez [...] TIDPRN PRN 01/10/16 11/21/19 11/20/19 History hydrocodone-acetaminophen [Scroggins 1 ea PO Q4HPRN PRN 01/10/16 11/21/19 [...] Surgical History (Updated 08/18/18 @ 11:54 by Embrane [place]) History of - surgery (Surgical) Hx of [...] dizziness, vertigo, lightheadedness and loss of consciousness [facility] Medical History ADHD (attention deficit hyperactivity disorder) [...] % (Auto) 59.6, Lymph % (Auto) 31.0, Forrest % (Auto) 6.3, Eos % (Auto) 2.5, [...] 900 mg PO TID RF: 0 hydrocodone-acetaminophen [Scroggins] 10-325 mg tablet 1 ea PO Q4HPRN [...] Follow Up Care/Instructions Diet/Activity/Wound Care..: Rest. Take iyha-sqd-zsmusvr Aleve 220 mg with food every 12 hours as needed. Follow-up with your doctor next week. *Discharge Patient* Discharge Orders: Discharge Order (Routine); Ordered 02/24/20 Ordered By: Meche Chavez Report Signers: <Electronically signed by Meche Chavez MD> Meche Chavez MD 02/24/20 2353 Meche Chavez MD SIGNATURE DA Report Cosigners: D: MARIA A 02/24/202337 T: MARIA A 02/24/202337 CC: No Family PHYS Provided Name Value Range Interpretation Code Description Data Tete rce(s) Supporting Document(s) ID Date Data Source [id number] 02/24/2020 11:27:00 PM [facility] [address] [place] [address] [phone] NAME SEX PT STATUS ACCOUNT NUMBER JUAN SPARKS [facility] ER [id number] ORDERING PHYSICIAN LOCATION MEDICAL RECORD NO. Remington Chavez MD ER [id number] ATTENDING PHYSICIAN DATE OF DATE OF EXAM/TIME [...] Trans Dt/Tm: Trans by: DT Prt Dt/Tm: 7645-9747: Total DLP = 208.00 mGy-cm 0341-5902: Total Radiation Dose = 3.1200 mSv Lifetime Dose: 12.9060 mSv Name Value Range Interpretation Code Description Data Tete rce(s) Supporting Document(s) ID Date Data Source [id number] 02/24/2020 10:54:00 PM [facility] Name Value Range Interpretation Code Description Data Tete rce(s) Supporting Document(s) Leukocytes [#/volume] in Blood by Automated count 10.4 10*3/uL 4.45-1 0.71 N [facility] Erythrocytes [#/volume] in Blood by Automated count 4.23 10*6/uL 4.3-6.1 Below low normal [facility] Hemoglobin [Moles/volume] in Blood 12.6 g/dL 13-18 Below low no rmal [facility] Hematocrit [Volume Fraction] of Blood by Automated count 38.9 % 42-52 Below low normal [facility] Erythrocyte mean corpuscular volume [Ent itic volume] in Cord blood by Automated count 92.0 fL 80-96 N [facility] Erythrocyte mean corpuscular hemoglobin [Entitic mass] by Automated count 29.8 pg 27-31 N [facility] Erythrocyte mean corpuscular hemoglobin concentration [Mass/volume] in Cord blood 32.4 g/dL 33-37 Below low normal [facility] Erythrocyte distribution width [Entitic volume] by Automated count 12 % 11-15 N [facility] Platelets [#/volume] in Blood by Automated count 294 10*3/uL 130-472 N [facility] Platelet mean volume [Entitic volume] in Blood 9.2 fL 9.1-13.1 N [facility] Neutrophils/100 leukocytes in Blood by Automated count 59.6 % 41- 77 N [facility] Neutrophils [#/volume] in Blood by Automated count 6.2 U 1.7-7.6 N [facility] Lymphocytes/100 leukocytes in Blood by Automated count 31.0 % 14- 46 N [facility] Lymphocytes [#/volume] in Blood by Automated count 3.2 U 0.6-4.6 N [facility] Monocytes/100 leukocytes in Blood by Automated count 6.3 % 4-12 N [facility] Monocytes [#/volume] in Blood by Automated count 0.7 U 0.2-1.2 N [facility] Eosinophils/100 leukocytes in Blood by Automated count 2.5 % 0-7 N [facility] Eosinophils [#/volume] in Blood by Automated count 0.3 U 0.0-0.5 N [facility] Basophils/100 leukocytes in Blood by Automated count 0.4 % 0.4-1 .3 N [facility] Basophils [#/volume] in Blood by Automated count 0.0 U 0.0-0.2 N [facility] NUCLEATED RED BLOOD CELL 0 % [facility] NUCLEATED RED BLOOD CELL# 0 [facility] Immature granulocytes [Presence] in Blood by Automated count 0-2 N [facility] Immature granulocytes [#/volume] in Blood by Automated count 0.0 U 0-0.1 N [facility] Manual Differential panel - Blood NO [facility] ID Date Data Source [id number] 02/24/2020 11:12:00 PM EST [facility] Name Value Range Interpretation Code Description Data Tete rce(s) Supporting Document(s) Urea nitrogen [Mass/volume] in Serum or Plasma 17 mg/dL 9-23 [facility] Sodium [Moles/volume] in Serum or Plasma 146 mmol/L 132-146 [facility] Potassium [Moles/volume] in Serum or Plasma 3.6 mmol/L 3.5-5.5 [facility] Chloride [Moles/volume] in Serum or Plasma 112 mmol/L 99-109 Above high normal [facility] Carbon dioxide, total [Moles/volume] in Serum or Plasma 29 mmol/L 20 -31 [facility] Anion gap in Serum or Plasma 9 mmol/L 8-16 [facility] Glucose [Mass/volume] in Serum or Plasma 97 mg/dL 74-106 [facility] Creatinine 0.7 mg/dL 0.5-1.1 [facility] Glomerular filtration rate/1.73 sq M.pre dicted [Volume Rate/Area] in Serum or Plasma Greater Than 60 ABOVE 60 [facility] Alanine aminotransferase [Enzymatic acti vity/volume] in Serum or Plasma by With P-5'-P 22 U/L 10-49 [facility] ital Aspartate aminotransferase [Enzymatic ac tivity/volume] in Serum or Plasma by With P-5'-P 13 U/L 0-33 [facility] pital Alkaline phosphatase [Enzymatic activity/volume] in Serum or Plasma 66 U/L 45-129 [facility] Calcium [Mass/volume] in Serum or Plasma 8.5 mg/dL 8.5-10.1 [facility] Bilirubin.total [Mass/volume] in Serum or Plasma 0.2 mg/dL 0.3-1.2 Below low normal [facility] Albumin [Mass/volume] in Serum or Plasma by Bromocresol purple (BCP) dye binding method 3.6 g/dL 3.2-4.8 [facility] ital Protein [Mass/volume] in Serum or Plasma 6.8 g/dL 5.7-8.2 [facility] ID Date Data Source [id number] 02/24/2020 05:01:00 PM EST [facility] 1 OrderSheet [facility] Emergency Department [address] [place] [address] Phone #: ext- [phone] 02/24/2020 16:53 Patient: JUAN SPARKS Sex: M : 1975 Age: 44yWEIGHT:56.6 kg [...] Name Value Range Interpretation Code Description Data [facility](s) Supporting Document(s) ID Date Data Source [id number] 02/24/2020 05:01:00 PM [place] [address] Medication Reconciliation Report [facility] Emergency Department [address] [place] [address] Phone #: ext- [phone] 02/24/2020 16:53 Patient: JUAN SPARKS Sex: M : 1975 Age: 44yWeight: 56.6 [...] Name Value Range Interpretation Code Description Data [facility](s) Supporting Document(s) ID Date Data Source [id number] 02/24/2020 05:01:00 PM [place] [address] Medication Administration Record [facility] Emergency Department [address] [place] [address] Phone #: ext- [phone] 02/24/2020 16:53 Patient: JUAN SPARKS Sex: M : 1975 Age: 44yWeight: 56.6 kgHeight/Length: 69 inBMI: 18.4ALLERGIES: Penicillins, Toradol, Tramadol Date/Time Medication Administered Medication OrderedGiven LIDOCAINE PATCH Lidocaine Patch Topical (Patch 517:49 02/24/2020 Dose: 1 patch Ointment Transdermal %) 1 Patch (On for 12 hours, offSAvelino christian, R.N. for 12 hours.)Given VALIUM [PO] (DIAZEPAM) Valium PO 5 mg17:48 02/24/2020 Dose: 5 mg Tablets POSorbAvelino aeljandra, R.N. Name Value Range Interpretation Code Description Data Tete rce(s) Supporting Document(s) ID Date Data Source [id number] 02/24/2020 05:01:00 PM EST [facility] 1 General Instructions [facility] Emergency Department [address] [place] [address] Phone #: ext- [phone] 02/24/2020 16:53 Patient: JUAN SPARKS Sex: M : 1975 Age: 44yChronic nontraumatic [...] your head suddenly jerking 2 General Instructions [facility] Emergency Department [address] [place] [address] Phone #: ext- [phone] 02/24/2020 16:53 Patient: JUAN SPARKS Sex: M : 1975 Age: 44yforward, backward, [...] in poorly lit areas. 3 General Instructions [facility] Emergency Department [address] [place] [address] Phone #: ext- [phone] 02/24/2020 16:53 [id number] Sex: [facility] : 1975 Age: 44y Don't [...] the reading, especially if it affects treatment.Call [phone] if any of these happen: Trouble breathing Confused or difficulty arousing Fainting or loss of consciousness Rapid or very slow heart rate Seizure Difficulty with speech or vision, weakness of an arm or leg Difficulty walking or talking, loss of balance, numbness or weakness in one side of your body, or facial droopWhen to seek medical advice 4 General Instructions [facility] Emergency Department [address] [place] [address] Phone #: ext- [phone] 02/24/2020 16:53 Patient: JUAN SPARKS Sex: M : 1975 Age: 44yCall your healthcare provider right away if any of these happen: Repeated mechanical falls, or unexplained falls Dizziness Severe headache Blood in vomit, stools (black or red color) 2643-[address] [employer] [place] [address]. All rights reserved. This information is not intended as asubstitute for professional medical care. Always follow your healthcare professional's instructions.Back Pain (Acute or Chronic)Back pain is one of the most common problems. The good news is that most people feel better in 1 to2 weeks, and most of the rest in 1 to 2 months. Most people can remain active. 5 General Instructions [facility] Emergency Department [address] [place] [address] Phone #: ext- [phone] 02/24/2020 16:53 Patient: JUAN SPARKS Sex: M : 1975 Age: 44yPeople who [...] with your knees bent 6 General Instructions [facility] Emergency Department [address] [place] [address] Phone #: ext- [phone] 02/24/2020 16:53 Patient: JUAN SPARKS [facility]#: [id number] Sex: M : 1975 Age: 44y up [...] or are takingother medicines. You may use ywvm-lph-egovsrp medicine as directed on the bottle to [...] affect your careCall 911 7 General Instructions [facility] Emergency Department [address] [place] [address] Phone #: ext- [phone] 02/24/2020 16:53 Patient: JUAN SPARKS Sex: M : 1975 Age: 44yCall 911 [...] Numbness in the groin or genital area [employer]. [address] [place] [address]. All rights reserved. This information is not intended as asubstitute for professional medical care. Always follow your healthcare prof caryn's instructions.Degenerative Disk Disease 8 General Instructions [facility] Emergency Department [address] [place] [address] Phone #: ext- [phone] 02/24/2020 16:53 Patient: JUAN SPARKS Sex: M : 1975 Age: 44ySpinal disks [...] between ice and heat. You may use tcad-efa-tiwgwpy pain medicine to control pain, unless another pain medicine was prescribed. If you have chronic liver or kidney disease or ever had a stomach ulcer or GI bleeding, talk with your provider before using these medicines.Follow-up careFollow up with your healthcare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 Department [address] [place] [address] Phone #: ext- [phone] 11/06/2019 22:45 [id number] Sex: M : 1975 Age: 43y Arrived- [...] [Intermittent]. 2 Clinical Report - Physicians/Mid Levels [facility] Emergency Department [address] [place] [address] Phone #: [phone] wrh- [phone] 11/06/2019 22:45 Patient: JUAN SPARKS Sex: M : 1975 Age: 43y Additional [...] room air.Temp: 98.2 F. Pain level now: 0/10.11/06/2019 22:46 BP: 110/73. MAP: 85. HR: 80. [...] edema. 3 Clinical Report - Physicians/Mid Levels [facility] Emergency Department [address] [place] [address] Phone #: ext- [phone] 11/06/2019 22:45 Patient: JUAN SPARKS Sex: M : 1975 Age: 43y Psych [...] Oral. 4 Clinical Report - Physicians/Mid Levels [facility] Emergency Department [address] [place] [address] Phone #: ext- [phone] 11/06/2019 22:45 Patient: JUAN SPARKS Sex: M : 1975 Age: 43y Prescription [...] rce(s) Supporting Document(s) ID Date Data Source [id number] 10/20/2019 12:00:00 AM EDT [facility] Mendoza Wahl MD Patient Name: JUAN SPARKS[address] [facility] Date of : 1975[place] [id number] Date of Exam: 10/20/2019PH#: Fax: [phone] EXAM: LUMBSACRAL SPINE (2 OR 3 VIEWS) XRAYCLINICAL INFORMATION: Disability.COMPARISON: Full series of 09/29/2019.Limited three view exam of the lumbar spine AP and lateral with a coneddown view at the L5-S1, shows vertebral body height and alignment to bewithin normal limits with normal appearing disc spaces. The pediclesappear to be intact bilaterally.IMPRESSION:Unremarkable limited exam.TRAMAINE Rodgers/chellymTdioni sales for referring JUAN SPARKS to our office. Electronically Signed - ABNER FORREST DO 10/21/19 14:37 Name Value Range Interpretation Code Description Data Tete rce(s) Supporting Document(s) ID Date Data Source [id number] 09/30/2019 07:41:00 PM EDT [facility] ED Physician Documentation NAME: JUAN SPARKS : 1975 AGE: 43 MR#: [id number] SERVICE DATE: 09/30/[address]: Morales Bauer MD PRIMARY CARE DR: No Family PHYS Provided ROOM#: [facility] (Adult, General) General Chief Complaint: Musculoskeletal [...] his PCP and/or pain management physician. Request Ambien for tonight so he can sleep which I gave him ROS is otherwise acutely negative [facility] EMR data is appreciated , , [...] TIDPRN PRN 01/10/16 09/30/19 08/30/19 History hydrocodone-acetaminophen [Scroggins 1 ea PO Q4HPRN PRN 01/10/16 09/30/19 [...] Surgical History (Updated 08/18/18 @ 11:54 by Embrane [place]) History of - surgery (Surgical) Hx of [...] 900 mg PO TID RF: 0 hydrocodone-acetaminophen [Scroggins] 10-325 mg tablet 1 ea PO Q4HPRN [...] rce(s) Supporting Document(s) ID Date Data Source [id number] 08/30/2019 08:17:00 PM EDT [facility] ED Physician Documentation NAME: JUAN SPARKS : 1975 AGE: 43 MR#: [id number] SERVICE DATE: 08/30/[address]: Morales Bauer [...] TIDPRN PRN 01/10/16 08/30/19 08/30/19 History hydrocodone-acetaminophen [Scroggins 1 ea PO Q4HPRN PRN 01/10/16 08/30/19 [...] Surgical History (Updated 08/18/18 @ 11:54 by Embrane [place]) History of - surgery (Surgical) Hx of [...] mg PO TID RF: 0 hydrocodone-ac etaminophen [Scroggins] 10-325 mg tablet 1 ea PO Q4HPRN [...] rce(s) Supporting Document(s) ID Date Data Source [id number] 08/28/2019 07:12:00 PM EDT [facility] jose Patient: JUAN SPARKS Observation Report - Physicians/Mid Levels [facility]Visit[facility]: [id number] [place] [address] [phone], MRegistration Date/Time: 08/27/2019 16:27 Weight:56.6 kg (S). Height/Length:69 inches (S). BMI:18.4 FAMILY HISTORYNo significant family medical history. (Electronically signed by Maura Moraes M.D. 08/28/2019 19:06) Name Value Range Interpretation Code Description Data [facility] rce(s) Supporting Document(s) ID Date Data Source [id number] 08/07/2019 11:30:00 PM EDT [facility] [address] [address] [phone] NAME SEX PT STATUS ACCOUNT NUMBER JUAN SPARKS REG ER [id number] ORDERING PHYSICIAN LOCATION MEDICAL RECORD NO. Deion Pierre MD ER [id number] ATTENDING PHYSICIAN DATE OF DATE OF EXAM/TIME [...] DT Prt Dt/Tm: : Total DLP = 0.00 mGy-cm Fluoroscopy Time (in secs): Name Value Range Interpretation Code Description Data Tete rce(s) Supporting Document(s) ID Date Data Source [id number] 08/07/2019 11:05:00 PM EDT [facility] ED Physician Documentation NAME: JUAN SPARKS : 1975 AGE: 43 MR#: [id number] SERVICE DATE: 08/07/[address]: Deion Pierre [...] TIDPRN PRN 01/10/16 08/07/19 08/05/19 History hydrocodone-acetaminophen [Scroggins 1 ea PO Q4HPRN PRN 01/10/16 08/07/19 [...] Surgical History (Updated 08/18/18 @ 11:54 by Embrane [place]) History of - surgery (Surgical) Hx of [...] 900 mg PO TID RF: 0 hydrocodone-acetaminophen [Scroggins] 10-325 mg tablet 1 ea PO Q4HPRN [...] MD SIGNATURE DA Report Cosigners: D: DORA 08/07/192304 T: DORA 08/07/192304 CC: No Family PHYS Provided Name Value Range Interpretation Code Description Data Tete rce(s) Supporting Document(s) ID Date Data Source [id number] 08/02/2019 10:45:00 [place] [address] PHONE: [phone] FAX: [phone] Name .................. : BRIDGER Breen Acct Number.................. : [id number] ROOM. ................. : TR-05 MR Number ................... : [id number] Stay type ............. : E/R Discharge Date......... ... : 07/30/19 Admit Date ....... .. : 07/30/19 Admit Phys .................... : MERI LEOS Date of ....... : 1975 Family Phys ................... : NO PCP Phone .................. : [phone] Age ................................ : 43 Film# .................. .:[id number] Sex ................................. : M Unsigned transcriptions are preliminary reports and do not represent a medical or legal document CT LUMBAR SP W/O CONT [id number] COMPLETE:07/30/19 21:16 DLA [id number] Reason(s): Chronic back pain CT OF THE [...] M.D. , 08/02/19 10:45, [place] Transcribe Initials: DZ , Transcribe Date: 07/30/19 21:49, Dictation Date: Copy for: EMERGENCY DEPT via modem Copy for: 710 MED REC DISCHARGED Page 1 of 1 Name Value Range Interpretation Code Description Data Tete rce(s) Supporting Document(s) ID Date Data Source [id number] 07/30/2019 08:11:00 PM EDT [facility] 1 OrderSheet [facility] Emergency Department [address] [place] [address] Phone #: ext- [phone] 07/30/2019 20:06 Patient: JUAN SPARKS Sex: M : 1975 Age: 43yWEIGHT:56.6 kg HEIGHT:69 inches BMI:18.4ALLERGIES: Penicillins, Toradol, TramadolCHIEF COMPLAINT: back pain, chronic back painDIAGNOSIS: BackacheLAB ORDERSOrder Description Priority Entered Acknowledged InitialedUrine Drug Screen STAT 20:25 07/30/2019 20:32 Jake Webb R.N. Physician;Urinalysis (Clean STAT 20:25 07/30/2019 20:32 Jaclyn Webb) Jake Barajas R.N. Physici an;DIAGNOSTIC STUDY ORDERSOrder Description Priority Entered Acknowledged InitialedCT LUMBAR SP STAT 20:26 07/30/2019W/O CONT Jake Quiros(Oxygen?(No)) Physician;(IV?(No)) Reason for Study: Chronic back painMEDICATION/IV/DRIP/FLUID ORDERSOrder Description Priority Entered Acknowledged InitialedAcetaminophen PO 20:26 07/30/2019 20:35 Cherie Webb (NOW) Jake Barajas R.N. Physician;THM Percocet 21:03 07/30/2019(5-325mg) PO 2 tab Jake Quiros(Two tabs to go Physician;home. Dispensein ED)GENERAL ORDERSOrder Description Priority Entered Acknowledged Initialed[Electronically signed by Karl Webb R.N. (21:16 07/30/2019)][Electronically signed by Jake Quiros Physician (00:20 07/31/2019)] 2 OrderSheet [facility] Emergency Department [address] [place] [address] Phone #: ext- [phone] 07/30/2019 20:06 Patient: JUAN SPARKS Sex: M : 1975 Age: 43y[Electronically locked by Karl Webb R.N. (21:16 07/30/2019)] Name Value Range Interpretation Code Description Data Tete rce(s) Supporting Document(s) ID Date Data Source [id number] 07/30/2019 08:11:00 PM EDT [facility] 1 Medication Reconciliation Report [facility] Emergency Department [address] [place] [address] Phone #: uri- [phone] 07/30/2019 20:06 Patient: JUAN SPARKS Sex: M : 1975 Age: 43yWeight: 56.6 [...] back pain.Dispense 5 patch. Refills: 0. Substitution permitted.[facility] [address] [place] [address] [phone]. .cyclobenzaprine 10 mg tablet Take 1 tablet every eight hours as needed for 5 days -- For muscle spasm /back pain. Dispense 15 tablet. Refills: 0. Substitution permitted.[facility] [address] [place] [address] [phone]. . -- Jake Quiros, Physician 2 Medication Reconciliation Report [facility] Emergency Department [address] [place] [address] Phone #: ext- [phone] 07/30/2019 20:06 Patient: JUAN SPARKS Sex: M : 1975 Age: 43yPercocet 5/325mg Two tabs to go home. Dispense in ED. -- Jake Quiros, Physician Name Value Range Interpretation Code Description Data Tete rce(s) Supporting Document(s) ID Date Data Source [id number] 07/30/2019 08:11:00 PM EDT [facility] 1 Medication Administration Record [facility] Emergency Department [address] [place] [address] Phone #: [phone] tvt- [phone] 07/30/2019 20:06 Patient: JUAN SPARKS Sex: M : 1975 Age: 43yWeight: 56.6 kgHeight/Length: 69 inBMI: 18.4ALLERGIES: Tramadol, Toradol, Penicillins Date/Time Medication Administered Medication OrderedGiven ACETAMINOPHEN [PO] Acetaminophen PO 1000 mg20:35 07/30/2019 Dose: 1000 mg PO (NOW)Karl Webb R.N. Name Value Range Interpretation Code Description Data Tete rce(s) Supporting Document(s) ID Date Data Source [id number] 07/30/2019 08:11:00 PM EDT [facility] 1 General Instructions [facility] Emergency Department [address] [place] [address] Phone #: ext- [phone] 07/30/2019 20:06 Patient: JUAN SPARKS Sex: M : 1975 Age: 43yAcute and [...] back pain.Dispense 5 patch. Refills: 0. Substitution permitted.Pharmacy - [facility] [address] [place], [place] [phone]. FaxNumber: .cyclobenzaprine 10 mg tablet Take 1 tablet every eight hours as needed for 5 days -- For muscle spasm /back pain. Dispense 15 tablet. Refills: 0. Substitution permitted.Pharmacy - [facility] [address] [place], [place] [phone]. .Percocet 5/325mg Two tabs to go home. [...] Pain (Acute or Chronic) 2 General Instructions [facility] Emergency Department [address] [place] [address] Phone #: ext- [phone] 07/30/2019 20:06 Patient: JUAN SPARKS Sex: M : 1975 Age: 43yBack pain [...] illness. Mechanical problems include: 3 General Instructions [facility] Emergency Department [address] [place] [address] Phone #: ext- [phone] 07/30/2019 20:06 Patient: JUAN SPARKS Sex: M : 1975 Age: 43y Physical [...] painful area for 20 4 General Instructions [facility] Emergency Department [address] [place] [address] Phone #: ext- [phone] 07/30/2019 20:06 Patient: JUAN SPARKS Sex: M : 1975 Age: 43y minutes [...] or are takingother medicines. You may use [id number] medicine as directed on the bottle to [...] any new findingsthat may affect your care.Call [phone] [phone] if any of the following occur: Trouble breathing Confusion Very drowsy or trouble awakening Fainting or loss of consciousness Rapid or very slow heart rate Loss of bowel or bladder control 5 General Instructions [facility] Emergency Department [address] [place] [address] Phone #: ext- [phone] 07/30/2019 20:06 Patient: JUAN SPARKS Sex: M : 1975 Age: 43yWhen to seek medical adviceCall your healthcare provider right away if any of these occur: Pain becomes worse or spreads to your legs Weakness or numbness in one or both legs Numbness in the groin or genital area [phone] [employer] [place] [address]. All rights reserved. This information is not [...] to your lower back. 6 General Instructions [facility] Emergency Department [address] [place] [address] Phone #: ext- [phone] 07/30/2019 20:06 [id number] Sex: M : 1975 [facility] 43[facility] these tips when caring for yourself at [...] the pain is gone. 7 General Instructions [facility] Emergency Department [address] [place] [address] Phone #: ext- [phone] 07/30/2019 20:06 Patient: JUAN SPARKS Sex: M : 1975 Age: 43yFollow-up careFollow [...] over your back or spine 1999- 2017 [employer]. [address] [place] [address]. All rights reserved. This information is not intended as asubstitute for professional medical care. Always follow your healthcare professional's instructions. You have been given the following additional information: Back Pain (Acute or Chronic) Sciatica Limit lifting.(Electronically signed by Jake Quiros, Physician 07/31/2019 00:20) Name Value Range Interpretation Code Description Data Tete rce(s) Supporting Document(s) ID Date Data Source [id number] 07/30/2019 08:11:00 PM EDT [facility] 1 Clinical Report - Nurses [facility] Emergency Department [address] [place] [address] Phone #: ext- [phone] 07/30/2019 20:06 Patient: JUAN SPARKS Sex: M : 1975 Age: 43yTRIAGEArrived by private vehicle. Historian: patient.Triage time: 20:07/30/2019. Acuity: LEVEL 4.Alert. No acute distress.No injury occurred. Onset. (chronic). ( chronic back pain since 2001, "cant find my bottle of vicodin").Treatment [employer]:None.SEPSIS SCREEN: SIRS Screen negative. Sepsis Screen negative. [...] Karl Webb R.N. Ambien Oral. --20:11 07/30/19 Karl Webb R.N. Gabapentin Oral. --20:11 07/30/19 Karl Webb R.N. 2 Clinical Report - Nurses [facility] Emergency Departm ent [address] [place] [address] Phone #: ext- [phone] 07/30/2019 20:06 Patient: JUAN SPARKS Sex: M : 1975 Age: 43y Allergies [...] with tingling. 3 Clinical Report - Nurses [facility] Emergency Department [address] [place] [address] Phone #: ext- [phone] 07/30/2019 20:06 Patient: JUAN SPARKS Sex: M : 1975 Age: 43y EXTREMITIES: [...] Patient verbalized understanding. Written instructions provided in Mexican. The patient was discharged by the physician. He was discharged home and accompanied by sew on operator. He left ambulatory and via private vehicle. Clerical Office driving. Patient has no belongings. --21:13 07/30/19 [...] rce(s) Supporting Document(s) ID Date Data Source [id number] 07/30/2019 08:11:00 PM EDT [facility] 1 Clinical Report - Physicians/Mid Levels [facility] Emergency Department [address] [place] [address] Phone #: ext- [phone] 07/30/2019 20:06 Patient: JUAN SPARKS Sex: M : 1975 Age: 43y Time [...] Back surgery. Craniotomy. Inguinal hernia repair (Left). ROLLS BAKER shunt surgery.SOCIAL HISTORY 2 Clinical Report - Physicians/Mid Levels [facility] Emergency Department [address] [place] [address] Phone #: ext- [phone] 07/30/2019 20:06 Patient: JUAN SPARKS Sex: M : 1975 Age: 43y Heavy tobacco smoker (cigarette)- 1 pack per day. History of drug use: See meds.ADDITIONAL NOTESThe nursing notes have been reviewed with agreement regarding the chief complaint, HPI, ROS, PMH andpatient medications and allergies.PHYSICAL EXAMVital Signs: 07/30/2019 20:09 BP: lying 107/79. MAP: 88. HR: 100. RR: 18. O2 saturation: 96%. Temp:98.3 F. Pain level now: 10/10. Have been reviewed and appear to be [...] Units (Reference) CT LUMBAR SP W/[place] [address] PHONE: [phone] FAX: [phone] -- Name .................. : BRIDGER Breen Acct Number.................. : [id number] ROOM. ................. : TR-05 MR Number ................... : [id number] Stay type ............. : E/R Discharge Date......... ... : 07/30/19 Admit Date ......... : 07/30/19 Admit Phys .................... : MERI LEOS Date of ....... : 1975 Family Phys ................... : NO PCP Phone .................. : [phone] Age ................................ : 43 Film# .................. .:[id number] Sex ................................. : M 3 Clinical Report - Physicians/Mid Levels [facility] Emergency Department [address] [place] [address] Phone #: ext- [phone] 07/30/2019 20:06 Patient: JUAN SPARKS Sex: M : 1975 Age: 43y -- Unsigned transcriptions are preliminary reports and do not represent a medical or legal document CT LUMBAR SP W/O CONT [id number] COMPLETE:07/30/19 21:16 DLA [id number] Reason(s): Chronic back pain -- -- -- [...] -- -- Electronically Reviewed and Signed By DCTNAME , SIGNDATE, [place] -- Transcribe Initials: JUDY , Transcribe Date: 07/30/19 21:49, Dictation Date: -- [...] ng/ml 4 Clinical Report - Physicians/Mid Levels [facility] Emergency Department [address] [place] [address] Phone #: ext- [phone] 07/30/2019 20:06 Patient: JUAN SPARKS Sex: M : 1975 Age: 43y ALL [...] disease at L5-S1.).PROGRESS AND PROCEDURESCourse of Care: 20:Jul 30 2019. Patient is stable. 20:Jul 30 2019. Pt. has gotten #225 Vicodin tablets since 07/06/19 by a single Pain physician and now says he lost his bottle of pain meds. 21:Jul [address] L/S spine shows some mild disc bulges, but no vertebral damage. Will discharge to home. Disposition: Discharged home in good and improved condition (:Jul 30 2019). Condition: good.CLINICAL IMPRESSION Acute and chronic nontraumatic lumbar back pain associated with muscle strain; degenerative joint disease of the lumbar spine; degenerative disc disease of the lumbar spine. Lumbar radiculopathy present. Sciatica present on the right. No neurological deficit.INSTRUCTIONS Limit lifting. (May need another outpatient MRI of lumbar spine if pain persists.). 5 Clinical Report - Physicians/Mid Levels [facility] Emergency Department [address] [place] [address] Phone #: ext- [phone] 07/30/2019 20:06 Patient: JUAN SPARKS Sex: M : 1975 Age: 43y Prescription Medications: lidocaine 5 % topical patch Apply 1 patch once a day as needed for 5 days -- for severe back pain. Dispense 5 patch. Refills: 0. Substitution permitted. Pharmacy - [facility] - [address], [place] [id number]. . cyclobenzaprine 10 mg tablet Take 1 tablet every eight hours as needed for 5 days -- For muscle spasm / back pain. Dispense 15 tablet. Refills: 0. Substitution permitted. Pharmacy - [facility] - [address] [facility] ; [place], [place] [id number]. . Percocet 5/325mg Two tabs to go [...] rce(s) Supporting Document(s) ID Date Data Source [id number] 07/30/2019 09:07:00 PM EDT [facility] Name Value Range Interpretation Code Description Data Tete rce(s) Supporting Document(s) DRUG SCREEN URINE [facility] URINE DRUG SCREEN Amphetamine [Presence] in Urine by Screen method NEGATIVE NORMAL: N EGATIVE [facility] BARBITURATES NEGATIVE NORMAL: NEGATIVE [facility] BENZO NEGATIVE NORMAL: NEGATIVE [facility] COCAINE NEGATIVE NORMAL: NEGATIVE [facility] Tetrahydrocannabinol [Presence] in Urine NEGATIVE NORMAL: NEGATIVE [facility] OPIATES NEGATIVE NORMAL: NEGATIVE [facility] Phencyclidine [Presence] in Urine by Screen method NEGATIVE NOR MAL: NEGATIVE [facility] \\BLDo\\URINE DRUG SCR EEN INTERPRETATION\\BLDx\\ THE CUTOFFF LEVELS FOR DETECTION ARE FOLLOWS: AMPHETAMINES 1000 ng/ml BARBITUARATES 200 ng/ml BENZODIAZEPINES 100 ng/ml THC 50 ng/ml PHENCYCLIDINE 25 ng/ml OPIATES 300 ng/ml COCAINE 300 ng/ml ALL POSITIVES ARE CONSIDERED PRESUMPTIVE POSITIVE CONFIRMATION WILL BE PERFORMED AT PHYSICIAN REQUEST. ID Date Data Source [id number] 07/30/2019 08:55:00 PM EDT [facility] Name Value Range Interpretation Code Description Data Tete rce(s) Supporting Document(s) [facility] R [facility] COLOR yellow NORMAL: Yellow [facility] CLARITY clear NORMAL: Clear [facility] Specific gravity of Urine by Test strip 1.020 1.001 - 1.030 [facility] pH 6 5 - 9 [facility] Glucose [Mass/volume] in Urine by Test strip NORM NORMAL: Negat [facility] Bilirubin.total [Presence] in Urine by Test strip NEG NORMAL: Negative [facility] Ketones [Presence] in Urine by Test strip NEG NORMAL: Negative [facility] Protein [Mass/volume] in Urine by Test strip NEG NORMAL: Negat [facility] Nitrite [Presence] in Urine by Test strip NEG NORMAL: Negative [facility] BLOOD NEG NORMAL: Negative [facility] Leukocyte esterase [Presence] in Urine by Test strip NEG NIMCO L: Negative [facility] Urobilinogen [Mass/volume] in Urine by Test strip 1 less soraida n 1.0 mg/dL [facility] MICROSCOPIC Not Indicate [facility] ID Date Data Source [id number] 06/07/2019 03:10:00 PM EDT [facility] ED Physician Documentation NAME: JUAN SPARKS : 1975 AGE: 43 MR#: [id number] SERVICE DATE: 06/07/[address]: Deion Pierre MD PRIMARY CARE DR: No Family PHYS Provided ROOM#: [facility] (Adult, General) General Chief Complaint: Musculoskeletal [...] TIDPRN PRN 01/10/16 06/07/19 06/06/19 History hydrocodone-acetaminophen [Scroggins 1 ea PO Q4HPRN PRN 01/10/16 06/07/19 [...] Surgical History (Updated 08/18/18 @ 11:54 by [employer]) History of - surgery (Surgical) Hx of [...] 900 mg PO TID RF: 0 hydrocodone-acetaminophen [Scroggins] 10-325 mg tablet 1 ea PO Q4HPRN [...] Up Care/Instructions Diet/Activity/Wound Care..: Follow-up with [facility]: [phone]; or follow-up with [facility] clinic at [phone] *Discharge Patient* Discharge Orders: Discharge Order (Routine); [...] rce(s) Supporting Document(s) ID Date Data Source [id number] 05/25/2019 01:41:00 AM EDT [facility] Patient: JUAN SPARKS Observation Report - Physicians/Mid Levels [facility] [id number] [place] [address] [phone], MRegistration Date/Time: 05/24/2019 20:21 Weight:56.6 kg (S). [...] Name Value Range Interpretation Code Description Data [facility] rce(s) Supporting Document(s) ID Date Data Source [id number] 05/06/2019 06:44:00 [facility] Observation Report - Physicians/Mid Levels [facility] [id number] [place] [address] [phone], MRegistration Date/Time: 05/05/2019 18:34 Weight:54.4 kg (S). [...] family medical history. (Electronically signed by Jessica aCrd 05/06/2019 06:09) Name Value Range Interpretation Code Description Data Tete rce(s) Supporting Document(s) ID Date Data Source [id number] 05/04/2019 04:10:00 PM EDT [facility] [address] [id number] [phone] NAME SEX PT STATUS ACCOUNT NUMBER JUAN SPARKS [facility] [id number] ORDERING PHYSICIAN LOCATION MEDICAL RECORD NO. Silvio Hicks MD ER [id number] ATTENDING PHYSICIAN DATE OF DATE OF EXAM/TIME [...] rce(s) Supporting Document(s) ID Date Data Source [id number] 05/04/2019 03:26:00 PM EDT [facility] ED Physician Documentation NAME: JUAN SPARKS : 1975 AGE: 43 MR#: [id number] SERVICE DATE: 05/04/[address]: Silvio Hicks MD PRIMARY CARE DR: No Family PHYS Provided ROOM#: [facility] (Adult, General) General Chief Complaint: Multi system (Adult) Stated Complaint: BACK PAIN Resident LTC, travel outisde home, exposure to hot tubs:: [...] TIDPRN PRN 01/10/16 05/04/19 05/01/19 History hydrocodone-acetaminophen [Scroggins 1 ea PO Q4HPRN PRN 01/10/16 05/04/19 [...] (Medical) Sleep apnea (Medical) Surgical History (Updated 06/25/19 @ 11:54 by [employer] [place]) History of - surgery (Surgical) Hx of [...] screening for coronavirus: Recent Travel outside the country (where) Coronavirus risk:travel to [facility];contact w/ high risk person In the last 14 days before symptom onset, does the patient have a history of travel from [facility]; or close contact with a person who is under investigation for while that person was ill; or in the last 14 days close contact with an laboratory- confirmed ill patient? Has patient experienced No coronavirus [...] mg PO TID RF: 0 hydrocodone- acetaminophen [Scroggins] 10-325 mg tablet 1 ea PO Q4HPRN [...] rce(s) Supporting Document(s) ID Date Data Source [id number] 05/01/2019 04:21:00 PM [facility] ED Physician Documentation NAME: JUAN SPARKS : 1975 AGE: 43 MR#: [id number] SERVICE DATE: 05/01/[address]: Deion Pierre MD PRIMARY CARE DR: No Family PHYS Provided ROOM#: [facility] (Adult, General) General Chief Complaint: Musculoskeletal Stated Complaint: BACK PAIN Resident LTC, travel outisde home, exposure to hot tubs:: [...] date and told him to go to the. Allergies/Home Meds Allergies Allergy/AdvReac Type Severity Reaction [...] baclofen 20 mg PO TIDPRN PRN 01/10/16 05/01/19 05/01/19 History hydrocodone-acetaminophen [Scroggins 1 ea PO Q4HPRN PRN 01/10/16 05/01/19 [...] Surgical History (Updated 08/18/18 @ 11:54 by [place]) History of - surgery (Surgical) Hx of [...] 900 mg PO TID RF: 0 hydrocodone-acetaminophen [Scroggins] 10-325 mg tablet 1 ea PO Q4HPRN [...] rce(s) Supporting Document(s) ID Date Data Source [id number] 04/30/2019 06:21:00 PM EST [facility] 1 OrderSheet [facility] Emergency Department [address] [place] [address] Phone #: ext- [phone] 04/30/2019 17:53 [id number] Sex: M : 1975 Age: 43yWEIGHT:49.8 kg HEIGHT:69 inches BMI:16.2ALLERGIES: Fish-derived Products, Pen icillins, Toradol, TramodlCHIEF COMPLAINT: dizziness, back painDIAGNOSIS: Backache, Medication refill, Chronic fatigue syndrome, InsomniaLAB ORDERSOrder Description Priority Entered Acknowledged InitialedCBC w Diff STAT 19:02 04/30/2019 19:06 Nataly Murillo Lingappa Frank R.NAleks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 Current every day smoker co mpleted Current every day smoker [facility] Smoking 03/13/2020 12:51:00 AM EST Current every day smoker co mpleted Current every day smoker [facility] 02/28/2020 11:50:53 PM EST No completed No [facility] 02/28/2020 11:50:53 PM EST No completed No [facility] 02/28/2020 11:50:53 PM EST Current every day smoker co mpleted Current every day smoker [facility] Smoking 02/28/2020 11:50:00 PM EST Current every day smoker co mpleted Current every day smoker [facility] 02/24/2020 11:46:30 PM EST No completed No [facility] 02/24/2020 11:46:30 PM EST No completed No [facility] 02/24/2020 11:46:30 PM EST Current every day smoker co mpleted Current every day smoker [facility] Smoking 02/24/2020 11:46:00 PM EST Current every day smoker co mpleted Current every day smoker [facility] 01/03/2020 01:42:34 AM EST No completed No [facility] 01/03/2020 01:42:34 AM EST No completed No [facility] 01/03/2020 01:42:34 AM EST Current every day smoker co mpleted Current every day smoker [facility] Smoking 01/03/2020 01:42:00 AM EST Current every day smoker co mpleted Current every day smoker [facility] 11/21/2019 03:56:39 PM EDT No completed No [facility] 11/21/2019 03:56:39 PM EDT No completed No [facility] 11/21/2019 03:56:39 PM EDT Current every day smoker co mpleted Current every day smoker [facility] Smoking 11/21/2019 03:56:00 PM EDT Current every day smoker co mpleted Current every day smoker [facility] 09/30/2019 07:48:45 PM EDT Current every day smoker co mpleted Current every day smoker [facility] 09/30/2019 07:48:45 PM EDT No completed No [facility] 09/30/2019 07:48:45 PM EDT No completed No [facility] Smoking 09/30/2019 07:48:00 PM EDT Current every day smoker co mpleted Current every day smoker [facility] 08/30/2019 08:21:10 PM EDT No completed No [facility] 08/30/2019 08:21:10 PM EDT Current every day smoker co mpleted Current every day smoker [facility] 08/30/2019 08:21:10 PM EDT Current every day smoker co mpleted Current every day smoker [facility] 08/30/2019 08:21:10 PM EDT No completed No [facility] Smoking 08/30/2019 08:21:00 PM EDT Current every day smoker co mpleted Current every day smoker [facility] 08/07/2019 11:05:51 PM EDT No completed No [facility] 08/07/2019 11:05:51 PM EDT No completed No [facility] 08/07/2019 11:03:00 PM EDT Current every day smoker co mpleted Current every day smoker [facility] Smoking 08/07/2019 11:03:00 PM EDT Current every day smoker co mpleted Current every day smoker [facility] 08/07/2019 11:03:00 PM EDT Current every day smoker co mpleted Current every day smoker [facility] 08/07/2019 11:03:00 PM EDT Current every day smoker co mpleted Current every day smoker [facility] 06/07/2019 03:16:02 PM EDT No completed No [facility] 06/07/2019 03:16:02 PM EDT No completed No [facility] 06/07/2019 03:06:00 PM EDT Current every day smoker co mpleted Current every day smoker [facility] 06/07/2019 03:06:00 PM EDT Current every day smoker co mpleted Current every day smoker [facility] Smoking 06/07/2019 03:06:00 PM EDT Current every day smoker co mpleted Current every day smoker [facility] 06/07/2019 03:06:00 PM EDT Current every day smoker co mpleted Current every day smoker [facility] 06/07/2019 03:06:00 PM EDT Current every day smoker co mpleted Current every day smoker [facility] 05/04/2019 03:33:49 PM EDT No completed No [facility] 05/04/2019 03:33:49 PM EDT No completed No [facility] 05/04/2019 03:28:00 PM EDT Never smoker completed Never s [facility] 05/04/2019 03:28:00 PM EDT Never smoker completed Never s [facility] 05/04/2019 03:28:00 PM EDT Never smoker completed Never s [facility] Smoking 05/04/2019 03:28:00 PM EDT Never smoker completed Never s [facility] 05/04/2019 03:28:00 PM EDT Never smoker completed Never s [facility] 05/04/2019 03:28:00 PM EDT Never smoker completed Never s [facility] 05/01/2019 04:25:42 PM EST Current every day smoker co mpleted Current every day smoker [facility] 05/01/2019 04:25:42 PM EST Current every day smoker co mpleted Current every day smoker [facility] 05/01/2019 04:25:42 PM EST Current every day smoker co mpleted Current every day smoker [facility] 05/01/2019 04:25:42 PM EST Current every day smoker co mpleted Current every day smoker [facility] 05/01/2019 04:25:42 PM EST No completed No [facility] 05/01/2019 04:25:42 PM EST No completed No [facility] 05/01/2019 04:25:42 PM EST Current every day smoker co mpleted Current every day smoker [facility] 05/01/2019 04:25:42 PM EST Current every day smoker co mpleted Current every day smoker [facility] Smoking 05/01/2019 04:25:00 PM EST Current every day smoker co mpleted Current every day smoker [facility] Vital Signs ID Date Data Source UNK Name Value Range Interpretation Code Description Data Source(s) Oxygen saturation in Arterial blood by Pulse oximetry 98 % 98 % [facility] Respiratory rate 18 /min 18 /min [facility] ( [facility]) Body temperature 98.8 [degF] 98.8 [degF] [facility] ([facility]) Heart rate 115 /min 115 /min [facility] ([facility]) Diastolic blood pressure 79 mm[Hg] 79 mm[Hg] [facility] ([facility]) Systolic blood pressure 121 mm[Hg] 121 mm[Hg] M [facility] ([facility]) Body surface area Derived from formula 1.63 m2 1.63 m2 [facility] ([facility]) Body mass index (BMI) [Ratio] 16.9 kg/m2 16.9 k g/m2 [facility] ([facility]) Body height 69 [in_i] 69 [in_i] [facility] ([facility]) 5'9" Body weight 51.767 kg 51.767 kg [facility] ([facility]) Body weight 114.12 [lb_av] 114.12 [lb_av] MEDEN T ([facility]) Oxygen saturation in Arterial blood by Pulse oximetry 96 % 96 % [facility] ([facility]) Respiratory rate 18 /min 18 /min [facility] ( [facility]) Body temperature 97.9 [degF] 97.9 [degF] [facility] ([facility]) Heart rate 110 /min 110 /min [facility] ([facility]) Diastolic blood pressure 74 mm[Hg] 74 mm[Hg] [facility] ([facility]) Systolic blood pressure 128 mm[Hg] 128 mm[Hg] M [facility] ([facility]) Oxygen saturation in Arterial blood by Pulse oximetry 97 % 97 % [facility]) Respiratory rate 16 /min 16 /min [facility] ( [facility]) Body temperature 99.2 [degF] 99.2 [degF] MEDENT ([facility]) Heart rate 80 /min 80 /min [facility] ([facility]) Diastolic blood pressure 76 mm[Hg] 76 mm[Hg] [facility] ([facility]) Systolic blood pressure 116 mm[Hg] 116 mm[Hg] M EDENT ([facility]) Body weight 2047 [oz_av] 2047 [oz_av] SANCHEZ ([facility]) Systolic blood pressure 107 mm[Hg] 107 mm[Hg] A THENA ([facility]) Body mass index (BMI) [Ratio] 18.9 kg/m2 18.9 k g/m2 S[facility] ([facility]) Body height 69 [in_i] 69 [in_i] S[facility]Z ([facility]) Diastolic blood pressure 73 mm[Hg] 73 mm[Hg] SANCHEZ ([facility]) ID Date Data Source [id number] 10/03/2019 05:52:00 PM EDT [facility] spital Name Value Range Interpretation Code Description Data Source(s) Weight Measurement Method 8 8 [facility]47 [facility]47 [facility] 7 7 [facility] Temperature 98.8 98.8 [facility] Respiratory Effort 1 1 [facility] Respiratory Rate [address] [facility] Pulse Assessment Method 4 4 [facility] Pulse Rate 84 84 [facility] pital Height 69 69 [facility] Blood Pressure 123/84 123/84 [facility] Weight Measurement Method 8 8 [facility] Weight 2047 2047 [facility] pital Temperature Source 7 7 [facility] Temperature 98.8 98.8 [facility] Respiratory Effort 1 1 [facility] Respiratory Rate [address] [facility] Pulse Assessment Method 4 4 [facility] Pulse Rate 84 84 [facility]ital Height 69 69 [facility] 123/84 123/84 [facility] Weight Measurement Method 8 8 [facility] Weight 2047 2047 [facility] pital Temperature Source 7 7 [facility] Temperature 98.8 98.8 [facility] Respiratory Effort 1 1 [facility] Respiratory Rate [address] [facility] Pulse Assessment Method 4 4 [facility] Pulse Rate 84 84 [facility] pital Height 69 69 [facility] pital Blood Pressure 123/84 123/84 [facility] ID Date Data Source [id number] 08/28/2019 03:45:00 PM EDT [facility] Name Value Range Interpretation Code Description Data Source(s) Weight Measurement Method 8 8 [facility] Weight 1999 1999 [facility] pital Temperature Source 7 7 [facility] Temperature 98.7 98.7 [facility] Respiratory Effort 1 1 [facility] Respiratory Rate [address] [facility] Pulse Assessment Method 4 4 [facility] Pulse Rate 87 87 [facility] pital Height 69 69 [facility] pital Blood Pressure 103/78 103/78 [facility] Weight Measurement Method 8 8 [facility] Weight 1999 1999 [facility] pital Temperature Source 7 7 [facility] Temperature 99 99 [facility] spital Respiratory Effort 1 1 [facility] Respiratory Rate [address] [facility] Pulse Assessment Method 4 4 [facility] Pulse Rate 95 95 [facility] pital Height 69 69 [facility] pital Blood Pressure 112/74 112/74 [facility]
[2020-04-11] MEDS ORDERED: NORCO, ANEXSIA 5/325MG TABLET (HYDROcodone/ACETAMINOPHEN) PO ONE (21:00)
--- OUTSIDE RECORDS SUMMARY | 2020-04-11 21:08 | CCD ---
Author Author [facility] Organization [facility] Address Unknown Phone Unavailable Support Name Relationship Address Phone SELF Next Of Kin Unknown Unavailable Juan Limon MD Next Of Kin [address] [phone] Maria Del Carmen AGUIRREP, Daphne Next Of Kin [address] [place] [address] CTY, OF CORRECTIONS DEPARTMENT Next Of Kin EDGAR CTY CORRECTIONAL FAC [address] [phone] RE Next Of Kin Unknown Unavailable MARÍ[place] [address] UE Next Of Kin Unknown Unavailable Jensen RPA-C, Izabel Next Of Kin [address] [place] [address] Jamie AGUIRREP, Yaneth Next Of Kin [address] [phone] Adenike ANP-BC, Constance Next Of Kin [address] [place] [address] [phone] "" Next Of Kin [address] [place] [phone] NONE, PT PER Next Of Kin - -, [place] - - UZIEL [place] [address] SOFIA MONTENEGRO Next Of Kin [address] [place] [address] JOSE [place] [address] JULIETA VIGIL Next Of Kin [address] [place] [id number] UN Next Of Kin Unknown Unavailable NONE, NOOTHER Next Of Kin - -, [place] - - MELANY FIELDS Next Of Kin Unknown DISABLED Next Of Kin Unknown Unavailable UJAN SPARKS Next Of Kin 02/[address] [place] [address] BRITTAERLINDAKeyla MIKO Next Of Kin 02/[address] [place] [address] JONESHANSELASTRID Ramires Next Of Kin Unknown NATHALIEASTRID Next Of Kin Unknown Care Team Providers Care Tripe Cooker Name Role Phone MORALES WIGGINS Unavailable Unavailable [...] Limon, Anival Martinez MD Unavailable Unavailable Limon, Anivla Martinez MD Unavailable Unavailable Limon, Anival Martinez MD Unavailable Unavailable Limon, Anival Martinez MD Unavailable Unavailable Limon, Anival Martinez MD Unavailable Unavailable Limon, Anival Martinez MD Unavailable Unavailable Cougler, S Sorin LEATHER WHITENER Unavailable Unavailable Cougler, S Sorin LEATHER WHITENER Unavailable Unavailable Cougler, S Sorin LEATHER WHITENER Unavailable Unavailable Cougler, S Sorin LEATHER WHITENER Unavailable Unavailable Cougler, S Sorin LEATHER WHITENER Unavailable Unavailable Cougler, S Sorin LEATHER WHITENER Unavailable Unavailable Cougler, S Sorin LEATHER WHITENER Unavailable Unavailable Cougler, S Sorin LEATHER WHITENER Unavailable Unavailable Cougler, S Sorin LEATHER WHITENER Unavailable Unavailable Cougler, S Sorin LEATHER WHITENER Unavailable Unavailable Cougler, S Sorin LEATHER WHITENER Unavailable Unavailable Cougler, S Sorin LEATHER WHITENER Unavailable Unavailable Cougler, S Sorin LEATHER WHITENER Unavailable Unavailable Cougler, S Sorin LEATHER WHITENER Unavailable Unavailable Cougler, S Sorin LEATHER WHITENER Unavailable Unavailable Cougler, S Sorin LEATHER WHITENER Unavailable Unavailable Cougler, S Sorin LEATHER WHITENER Unavailable Unavailable Cougler, S Sorin LEATHER WHITENER Unavailable Unavailable Cougler, S Sorin LEATHER WHITENER Unavailable Unavailable Cougler, S Sorin LEATHER WHITENER Unavailable Unavailable Cougler, S Sorin LEATHER WHITENER Unavailable Unavailable Cougler, S Sorin LEATHER WHITENER Unavailable Unavailable Cougler, S Sorin LEATHER WHITENER Unavailable Unavailable Cougler, S Sorin LEATHER WHITENER Unavailable Unavailable Cougler, S Sorin LEATHER WHITENER Unavailable Unavailable Cougler, S Sorin LEATHER WHITENER Unavailable Unavailable Cougler, S Sorin LEATHER WHITENER Unavailable Unavailable Cougler, S Sorin LEATHER WHITENER Unavailable Unavailable Cougler, S Sorin LEATHER WHITENER Unavailable Unavailable Cougler, S Sorin LEATHER WHITENER Unavailable Unavailable Cougler, S Sorin LEATHER WHITENER Unavailable Unavailable Cougler, S Sorin LEATHER WHITENER Unavailable Unavailable Cougler, S Sorin LEATHER WHITENER Unavailable Unavailable Cougler, S Sorin LEATHER WHITENER Unavailable Unavailable Cougler, S Sorin LEATHER WHITENER Unavailable Unavailable Cougler, S Sorin LEATHER WHITENER Unavailable Unavailable Cougler, S Sorin LEATHER WHITENER Unavailable Unavailable Cougler, S Sorin LEATHER WHITENER Unavailable Unavailable Cougler, S Sorin LEATHER WHITENER Unavailable Unavailable Cougler, S Sorin LEATHER WHITENER Unavailable Unavailable Moreau, M Christopher PA-C Unavailable [...] Unavailable Unavailable YAMILETHREINIER RACHEL PA Unavailable Unavailable YAMILTEH, REINIER CARRIE PA Unavailable Unavailable YAMILETH, REINIER [...] YAMILETH, REINIER CARRIE PA Unavailable Unavailable Cosmo, Denver SUPERVISOR HYDROCHLORIC AREA Unavailable Unavailable Cosmo, Denver SUPERVISOR HYDROCHLORIC AREA Unavailable Unavailable Cosmo, Denver SUPERVISOR HYDROCHLORIC AREA Unavailable Unavailable Cosmo, Denver SUPERVISOR HYDROCHLORIC AREA Unavailable Unavailable Cosmo, Denver SUPERVISOR HYDROCHLORIC AREA Unavailable Unavailable [place], Yadira RPA-C Unavailable Unavailable [place], Yadira RPA-C Unavailable Unavailable [place], Yadira RPA-C Unavailable Unavailable [place], Yadira RPA-C Unavailable Unavailable [place], Yadira RPA-C Unavailable Unavailable [place], Yadira RPA-C Unavailable Unavailable [place], Yadira RPA-C Unavailable Unavailable [place], Yadira RPA-C Unavailable Unavailable [place], Yadira RPA-C Unavailable Unavailable [place], Yadira RPA-C Unavailable Unavailable [place], Yadira RPA-C Unavailable Unavailable [place], Yadira RPA-C Unavailable Unavailable [place], Yadira RPA-C Unavailable Unavailable [place], Yadira RPA-C Unavailable Unavailable [place], Yadira RPA-C Unavailable Unavailable Scott, (Remington) Meche [...] Unavailable BLAIR, COURTNEY MD Unavailable Unavailable BLAIR, COURTNYE MD Unavailable Unavailable BLAIR, COURTNEY MD Unavailable Unavailable BLAIR, COURTNEY MD Unavailable Unavailable BLAIR, COURTNEY MD Unavailable Unavailable BLAIR, COURTNEY MD Unavailable Unavailable BLAIR, COURTNEY MD Unavailable Unavailable BLAIR, COURTNEY MD Unavailable Unavailable BLAIR, COURTNEY MD Unavailable Unavailable BLAIR, COURTNEY MD Unavailable Unavailable BLAIR, COURTNEY MD Unavailable Unavailable BLAIR, COURTNEY MD Unavailable Unavailable BLAIR, COURTNEY MD Unavailable Unavailable BLAIR, COURTNEY MD Unavailable Unavailable BLARI, COURTNEY MD Unavailable Unavailable BLAIR, COURTNEY MD Unavailable Unavailable BLAIR, COURTNEY MD Unavailable Unavailable Jose NGUYEN MD Unavailable Unavailable DIMITRIJose ARMENTA MD [...] Unavailable Unavailable SANDY INGRAM MD Unavailable Unavailable JUUJ, D AUDREY SUPERVISOR HYDROCHLORIC AREA Unavailable Unavailable ZEGIL, D AUDREY SUPERVISOR HYDROCHLORIC AREA Unavailable Unavailable ZEGIL, D AUDREY SUPERVISOR HYDROCHLORIC AREA Unavailable Unavailable ZENY AHUMADA Unavailable Unavailable Dobrinski, S Deion SUPERVISOR HYDROCHLORIC AREA Unavailable Unavailable Dobrinski, S Deion SUPERVISOR HYDROCHLORIC AREA Unavailable Unavailable Dobrinski, S Deion SUPERVISOR HYDROCHLORIC AREA Unavailable Unavailable Dobrinski, S Deion SUPERVISOR HYDROCHLORIC AREA Unavailable Unavailable Dobrinski, S Deion SUPERVISOR HYDROCHLORIC AREA Unavailable Unavailable Dobrinski, S Deion SUPERVISOR HYDROCHLORIC AREA Unavailable Unavailable Dobrinski, S Deion SUPERVISOR HYDROCHLORIC AREA Unavailable Unavailable Dobrinski, S Deion SUPERVISOR HYDROCHLORIC AREA Unavailable Unavailable Dobrinski, S Deion SUPERVISOR HYDROCHLORIC AREA Unavailable Unavailable Dobrinski, S Deion SUPERVISOR HYDROCHLORIC AREA Unavailable Unavailable Dobrinski, S Deion SUPERVISOR HYDROCHLORIC AREA Unavailable Unavailable Dobrinski, S Deion SUPERVISOR HYDROCHLORIC AREA Unavailable Unavailable DiBella, Dana Albarran MD Unavailable [...] M Dayanara PA-C Unavailable Unavailable Green, M Daynaara PA-C Unavailable Unavailable Green, M Dayanara PA-C [...] is protected by Article 27-F of the [facility] Public Health law. If you continue you may have access to information: Regarding HIV / AIDS; Provided by facilities licensed or operated by the [facility] Office of Mental Health; or Provided by the [facility] Office for People With Developmental Disabilities. If such information is present, then the following [facility] mandated warning applies: This information has been [...] law may result in a fine or residential sentence or both. A general authorization for the release of medical or other information is NOT sufficient authorization for further disc losure. Allergies and Adverse Reactions Type Description Substance Reaction Status Data Source(s ) Drug allergy ketorolac ketorolac Confusion U [facility] Drug allergy tramadol Tramadol Urticaria [facility] Drug allergy Penicillins Penicillin rash,itching [facility] Food allergy FISH FISH itching,swelling [facility] Food allergy fish fish [facility] CLASS PCN (penicillin) PCN (penicillin) [facility] Drug allergy salemadol [facility] Drug allergy Drug allergy Penicillins [facility] Family History Family Member Name Family Member Gender Family Member Status Date o f Status Description Data Source(s) Unknown Condition [facility] Unknown Condition [facility] Unknown Condition [facility] Unknown Condition [facility] Unknown Condition [facility] Unknown Condition [facility] Unknown Condition [facility] Unknown Condition [facility] Unknown Condition [facility] Unknown Condition [facility] Unknown Condition [facility] Unknown Condition [facility] Unknown Condition [facility] Unknown Condition [facility] Encounters Encounter Providers Location Date Indications Data Source(s ) Emergency Attender: ABHIJEET Dennisoner: Melba Moreau PA-C 04/04/2020 01:21:00 PM EST - 04/04/2020 01:24:00 PM EST [facility] Patient discharged. Emergency Attender: Deion Mclaughlin MD 05/2020 11:50:00 AM EST - 03/30/2020 12:41:00 PM EST BACK PAIN [facility] l BACK PAIN Patient discharged. O Attender: Deion VELOZ 03/27/2020 05:50:31 PM EST - 03/27/2020 06:26:09 PM EST [facility] Outpatient Attender: Дмитрий Kyle PAConsultant: COURTNEY ROSENBAUM MD 03/21/2020 11:43:00 AM EST - 03/21/2020 11:43:00 AM [facility] Emergency Attender: DARNELL KAYConsultant: COURTNEY Martinez MD 03/15/2020 04:29:00 PM EST - 03/15/2020 05:45:00 PM [facility] Patient discharged. Emergency Attender: Deion Mclaughlin MD 10:29:00 PM EST - 03/13/2020 01:13:00 AM EST LOW BACK/LEG PAIN [facility] LOW BACK/LEG PAIN Patient discharged. Outpatient Attender: Dayanara ZACARIASCConsultant: PCP NO 03/09/2020 12:59:00 PM EST - 03/09/2020 12:59:00 PM [facility] Outpatient Attender: Martir Wilburn FNPConsultant: PCP NO 03/07/2020 12:49:00 PM EST - 03/07/2020 12:49:00 PM [facility] Emergency Attender: Morales Bauer MD 02/27 08:00:00 PM EST - 02/29/2020 02:11:00 AM EST LOWER BACK AND LEG PAIN [facility] LOWER BACK AND LEG PAIN Patient discharged. Emergency Attender: Meche Chavez MD 02/23 09:46:00 PM EST - 02/25/2020 12:00:00 AM EST BACK PAIN, LEG PAIN [facility] l BACK PAIN, LEG PAIN Patient discharged. Emergency Attender: VÍCTOR ASCENCIOConsultant: PCP NO 02/24/2020 05:01:00 PM EST - 02/24/2020 06:21:00 PM [facility] Patient discharged. Emergency Attender: CARRIE WAGGONEReferrer: Gutierrez Moreau PA-C 01/21/2020 09:34:00 PM EST - 01/21/2020 09:50:00 PM [facility] Patient discharged. Emergency Attender: Meche Chavez MD 01/02 12:06:00 AM EST - 01/03/2020 02:27:00 AM EST BACK AND LEG PAIN [facility] BACK AND LEG PAIN Patient discharged. Outpatient Attender: Juan Limon MD 12/28/2019 12:56:[address] [facility] Juan Limon MD: [address] [place] [address], Ph. Attender: Juan Limon MD [place] [facility] 12/28/2019 12:00:00 AM EST [facility] ([facility]) Emergency Attender: DARNELL KAYConsultant: PCP NO 11/29/2019 10:52:00 PM EDT - 11/30/2019 12:57:00 AM EDT [facility] Patient discharged. Emergency Attender: CARRIE Payneerrer: Gutierrez Moreau PA-C 11/28/2019 12:28:00 AM EDT - 11/28/2019 12:46:00 AM EDT [facility] Patient discharged. Outpatient Attender: Juan Limon MD 11/24/2019 02:21:[address] [facility] Emergency Attender: Deion Pierre MD 10/26 02:16:00 PM EDT - 11/21/2019 04:23:00 PM EDT BACK PAIN [facility] BACK PAIN Patient discharged. Outpatient Attender: ZENY AHUMADAConsultant: PCP NO 2019 08:00:17 AM EDT - 2019 11:27:00 AM EDT [facility] Patient discharged. Emergency Attender: NIMCO NGUYEN MDConsultant: PCP NO 11/06/2019 10:45:00 PM EDT - 11/07/2019 12:24:00 AM EDT [facility] Patient discharged. Emergency Attender: AUDREY MATUTE [facility] ED-ED 10/2019 05:03:00 PM EDT - 10/03/2019 05:51:00 PM EDT BACK AND LEG PAIN [facility] BACK AND LEG PAIN Patient discharged. Emergency Attender: Kevin GANT 10/01 12:26:00 AM EDT - 10/02/2019 01:06:00 AM EDT [facility] Patient discharged. Outpatient Attender: Juan Limon MD FP 10/01/2019 10:46:[address] [facility] Emergency Attender: Morales Bauer MDAttender: Deion patel MD 09/30/2019 05:13:00 PM EDT - 09/30/2019 07:54:00 PM EDT BACK PAIN [facility] BACK PAIN Patient discharged. Outpatient Attender: Juan PHELAN 08/31/2019 10:57:[address] [facility] Emergency Attender: Morales Bauer MD 08/29 07:30:00 PM EDT - 08/30/2019 08:56:00 PM EDT BACK PAIN [facility] l BACK PAIN Patient discharged. Emergency Attender: Sorin Blair LEATHER WHITENER ED-ED 08/27 02:40:00 PM EDT - 08/28/2019 03:45:00 PM EDT LOWER BACK PAIN [facility] LOWER BACK PAIN Patient discharged. Emergency Attender: Yadira Moeller RPA-CReferrer: Gutierrez Moreau PA-C 08/27/2019 04:47:00 PM EDT - 08/27/2019 05:15:00 PM EDT [facility] Patient discharged. Outpatient Attender: Juan Limon MD 08/19/2019 09:03:[address] [facility] Outpatient Attender: Juan Limon MD 08/18/2019 12:50:[address] [facility] Outpatient Attender: Juan PHELAN 08/18/2019 09:59:[address] [facility] Outpatient Attender: Juan PHELAN 08/18/2019 09:45:[address] [facility] Outpatient Attender: Juan Limon MD FP 08/17/2019 03:14:[address] [facility] Emergency Attender: Deion Pierre MD 07/25 10:08:00 PM EDT - 08/07/2019 11:52:00 PM EDT BACKPAIN [facility] l BACKPAIN Patient discharged. Outpatient Attender: Juan PHELAN 08/03/2019 07:40:[address] [facility] Emergency Attender: JAKE QUIROS MDConsultant: PCP NO 07/30/2019 08:11:00 PM EDT - 07/30/2019 09:16:00 PM EDT [facility] Patient discharged. Outpatient Attender: MORALES Murphysultant: PCP NO 06/09/2019 08:50:00 AM EDT - 06/09/2019 08:50:00 AM EDT [facility] Emergency Attender: Deion Pierre MD 05/25 02:47:00 PM EDT - 06/07/2019 03:40:00 PM EDT BACK PAIN [facility] BACK PAIN Patient discharged. Emergency Attender: ABHIJEET Dennisoner: Melba Moreau PA-C 05/24/2019 09:09:00 PM EDT - 05/24/2019 09:43:00 PM EDT [facility] Patient discharged. Outpatient Attender: Juan PHLEAN 05/06/2019 11:22:[address] [facility] Emergency Attender: CARRIE CARSON PAReferrer: Gutierrez Moreau PA-C 05/05/2019 06:50:00 PM EDT - 05/05/2019 07:19:00 PM EDT [facility] Patient discharged. Emergency Attender: Silvio Hicks MD 11/2019 02:52:00 PM EDT - 05/04/2019 04:59:00 PM EDT BACK PAIN [facility] BACK PAIN Patient discharged. Emergency Attender: JAKE QUIROS MDConsultant: PCP NO 05/02/2019 12:43:10 PM EDT - 05/02/2019 03:26:00 PM EDT [facility] Patient discharged. Emergency Attender: Deion Pierre MD 08/2019 03:53:00 PM EST - 05/01/2019 04:50:00 PM EST BACK PAIN [facility] BACK PAIN Patient discharged. Emergency Attender: SANDY INGRAM MDConsultant: PCP NO 04/30/2019 06:21:00 PM EST - 04/30/2019 09:23:00 PM EST [facility] Patient discharged. Emergency Attender: MELBA WAGGONEReferrer: Jax Moreau PA-C 03/04/2019 06:16:00 PM EST - 03/04/2019 06:40:00 PM [facility] Patient discharged. Emergency Attender: DEISY MONTOYAReferrer: Melba Moreau PA-C 09/01/2018 11:06:00 PM EDT - 09/01/2018 11:32:00 PM [facility] Emergency Attender: CARRIE GANT 09:54:00 PM EDT - 07/20/2017 10:15:00 PM [facility] Emergency Attender: Karl NATARAJAN EMERGENCY ROOM-ER 0 03/25/2017 02:05:00 PM EST - 03/22/2017 10:00:00 AM [facility] Medications Medication Brand Name Start Date [...] MAXIMUM DAILY DOSE = 2 SOLD: 03/21/2020 [facility] Diclofenac Sodium 0.01 MG/MG Topical Gel Diclofenac Sodium 03/21/2020 12:00:00 AM EST active [facility] ([facility]) Methylprednisolone 16 MG Oral Tablet Methylprednisolone 12:00:00 AM EST ORAL active [facility] ([facility]) Acetaminophen 325 MG / Hydrocodone Bitartrate 10 MG Or al Tablet Hydrocodone-Acetaminophen 03/21/2020 12:00:00 AM EST ORAL completed [facility] ([facility]) quetiapine 300 MG Oral Tablet QUETIAPINE FUMARATE 03/21/2020 12: 00:00 AM EST tablet 6 TAKE TWO TABLETS BY MOUTH AT BED TIME NEEDED TAKE TWO TABLETS BY MOUTH AT BEDTIME NEEDED SOLD: 03/21/2020 [facility] 4 mg 03/16/2020 12:00:00 AM EST [...] DAILY DOSE = ONE TABLET SOLD: 03/09/2020 [facility] Prazosin 1 MG Oral Capsule Prazosin HCL 03/09/2020 12:00:00 AM EST ORAL active [facility] ([facility]) 10-325 mg 03/07/2020 12:00:00 AM EST tablet 2 TAKE ONE TABLET BY MOUTH EVERY DAY NEEDED FOR PAIN MAXIMUM DAILY DOSE = 1 TAKE ONE TABLET BY MOUTH EVERY DAY NEEDED FOR PAIN MAXIMUM DAILY DOSE = 1 SOLD: 03/07/2020 [facility] Acetaminophen 300 MG / Hydrocodone Bitartrate 10 MG Or al Tablet [Vicodin] Vicodin HP 03/07/2020 12:00:00 AM EST active [facility] ([facility]) 10 mg 02/03/2020 12:00:00 AM [...] Ibuprofen 08/30/2019 07:48:09 PM EDT 800 MG [facility] Ibuprofen 800 MG Oral Tablet Ibuprofen 08/30/2019 07:48:09 PM EDT 800 MG [facility] Ibuprofen 800 MG Oral Tablet Ibuprofen 08/30/2019 07:48:09 PM EDT 800 MG [facility] Ibuprofen 800 MG Oral Tablet Ibuprofen 08/30/2019 07:48:09 PM EDT 800 MG [facility] Ibuprofen 800 MG Oral Tablet Ibuprofen 08/30/2019 07:48:09 PM EDT 800 MG [facility] Ibuprofen 800 MG Oral Tablet Ibuprofen 08/30/2019 07:48:09 PM EDT 800 MG [facility] Ibuprofen 800 MG Oral Tablet Ibuprofen 08/30/2019 07:48:09 PM EDT 800 MG [facility] Ibuprofen 800 MG Oral Tablet Ibuprofen 08/30/2019 07:48:09 PM EDT 800 MG active [facility] 10-325 mg 08/11/2019 12:00:00 AM EDT [...] 08/07/2019 11:08:32 PM EDT 300 MG active [facility] quetiapine 300 MG Oral Tablet Quetiapine (Seroquel) 30 0 mg Tablet Quetiapine (Seroquel) 300 mg Tablet 08/07/2019 11:08:32 PM EDT 300 MG active [facility] quetiapine 300 MG Oral Tablet [Seroquel] Quetiapine Quetiapi ne 08/07/2019 11:08:32 PM EDT 300 MG active [facility] quetiapine 300 MG Oral Tablet [Seroquel] Quetiapine (S eroquel) 300 mg Tablet Quetiapine (Seroquel) 300 mg Tablet 08/07/2019 11:08:32 PM EDT 300 MG active [facility] quetiapine 300 MG Oral Tablet Quetiapine (Seroquel) 30 0 mg Tablet Quetiapine (Seroquel) 300 mg Tablet 08/07/2019 11:08:32 PM EDT 300 MG active [facility] quetiapine 300 MG Oral Tablet Quetiapine (Seroquel) 30 0 mg Tablet Quetiapine (Seroquel) 300 mg Tablet 08/07/2019 11:08:32 PM EDT 300 MG active [facility] quetiapine 300 MG Oral Tablet Quetiapine (Seroquel) 30 0 mg Tablet Quetiapine (Seroquel) 300 mg Tablet 08/07/2019 11:08:32 PM EDT 300 MG active [facility] quetiapine 300 MG Oral Tablet Quetiapine (Seroquel) 30 0 mg Tablet Quetiapine (Seroquel) 300 mg Tablet 08/07/2019 11:08:32 PM EDT 300 MG active [facility] quetiapine 300 MG Oral Tablet [Seroquel] Quetiapine (S eroquel) 300 mg Tablet Quetiapine (Seroquel) 300 mg Tablet 08/07/2019 11:08:32 PM EDT 300 MG active [facility] Cyclobenzaprine hydrochloride 10 MG Oral Tablet [...] pack 05/01/2019 04:25:45 PM EST [address] [facility] Methylprednisolone Methylprednisolone (Medrol (Jt)) 4 mg tablets,dose pack Methylprednisolone (Medrol (Jt)) 4 mg tablets,dose pack 05/01/2019 04:25:45 PM EST [address] [facility] Methylprednisolone Methylprednisolone (Medrol (Jt)) 4 mg tablets,dose pack Methylprednisolone (Medrol (Jt)) 4 mg tablets,dose pack 05/01/2019 04:25:45 PM EST [address] [facility] Methylprednisolone Methylprednisolone (Medrol (Jt)) 4 mg tablets,dose pack Methylprednisolone (Medrol (Jt)) 4 mg tablets,dose pack 05/01/2019 04:25:45 PM EST [address] [facility] Methylprednisolone Methylprednisolone (Medrol (Jt)) 4 mg tablets,dose pack Methylprednisolone (Medrol (Jt)) 4 mg tablets,dose pack 05/01/2019 04:25:45 PM EST [address] [facility] Methylprednisolone Methylprednisolone 05/01/2019 04:25:45 PM EST 0 completed [facility] Methylprednisolone Methylprednisolone (Medrol (Jt)) 4 mg tablets,dose pack Methylprednisolone (Medrol (Jt)) 4 mg tablets,dose pack 05/01/2019 04:25:45 PM EST [address] [facility] Methylprednisolone Methylprednisolone 05/01/2019 04:25:45 PM EST 0 active [facility] Methylprednisolone Methylprednisolone 05/01/2019 04:25:45 PM EST 0 active [facility] Methylprednisolone Methylprednisolone (Medrol (Jt)) 4 mg tablets,dose pack Methylprednisolone (Medrol (Jt)) 4 mg tablets,dose pack 05/01/2019 04:25:45 PM EST [address] [facility] Methylprednisolone Methylprednisolone (Medrol (Jt)) 4 mg tablets,dose pack Methylprednisolone (Medrol (Jt)) 4 mg tablets,dose pack 05/01/2019 04:25:45 PM EST [address] [facility] Methylprednisolone Methylprednisolone 05/01/2019 04:25:45 PM EST 0 completed [facility] 10 mg 04/09/2019 12:00:00 AM EST [...] type / Coverage type Policy ID Covered libertarian ID Covered libertarian's relationship to odell Policy [place] Plan Information COUNTS INCLUDE 234 BEDS AT THE [facility] COMMUNITY PLAN [facility] [id number] [facility] MEDICAID [id number] S [id number] [facility]) O [id number] S [id number] Medicaid Medicaid [id number] Self [id number] [facility] COMMUNTY PLAN [id number] [facility] COMMUNITY PLAN [id number] 18 [id number] COUNTS INCLUDE 234 BEDS AT THE [facility] COMMUNITY PLAN XIX [id number] 18 [id number] COUNTS INCLUDE 234 BEDS AT THE [facility] AMERICHOICE XIX -HMO [id number] 18 [id number] Self Pay P UNAVAILABLE S UNAVAILA BLE COUNTS INCLUDE 234 BEDS AT THE [facility] COMMUNITY PLAN XIX -RECURRING [id number] 18 [id number] [facility] O [id number] S [id number] [facility]) O [id number] S [id number] [facility] COMMUNITY [id number] S [id number] [facility] MEDICAID [id number] S [id number] COUNTS INCLUDE 234 BEDS AT THE [facility] COMMUNITY PLAN [facility] [id number] SP [id number] MEDICAID [id number] SP [id number] COUNTS INCLUDE 234 BEDS AT THE [facility] COMMUNITY PLAN [facility] [id number] SP [id number] [facility] MEDICAID [id number] S [id number] [facility] MEDICAID [id number] S [id number] [facility] COMMUNITY PL [id number] S [id number] MEDICAID [id number] S [id number] UN[facility] COMMUNITY PLAN XIX [id number] 18 [id number] UNHC COMMUNITY PLAN XIX [id number] 18 [id number] MEDICAID -O/P EMERGENCY ROOM [id number] 18 [id number] [facility] MEDICAID [id number] S [id number] UNHC COMMUNITY PLAN MCDHMO [id number] SP [id number] UNHC COMMUNITY PLAN MCDHMO [id number] SP [id number] [place] [employer] DEPT [id number] SP [id number] SELF PAY ONLY [id number] SP [id number] UNHC COMMUNITY PLAN MCDHMO [id number] SP [id number] UNHC COMMUNITY PLAN MCDHMO [id number] SP [id number] Medicaid S [id number] S [id number] Managed Care - Community Plan [facility] P [id number] S [id number] [facility] MEDICAID [facility] HMO [id number] S [id number] UNHC WELL 4 ME [facility] HMO [id number] S [id number] PRIVATE PAY CO UNAVAILABLE 18 UNAVAI LABLE [facility] [id number] 18 [id number] UNHC AMERICHOICE XIX -HMO [id number] 18 [id number] MEDICAID -O/P [id number] Private Pay Commercial [id number] Self [id number] UN[facility] COMMUNITY PLAN [id number] 18 [id number] UNHC COMMUNITY PLAN MCDHMO [id number] SP [id number] [facility] MEDICAID [facility] HMO [id number] S [id number] SELF PAY ONLY [id number] SP [id number] UNHC COMMUNITY PLAN MCDHMO [id number] SP [id number] Unhc Community Plan Medicaid Self UNHC COMMUNITY PLAN [id number] 18 [id number] UNHC COMMUNITY PLAN MCDHMO [id number] SP [id number] Medicaid S [id number] Managed Care - Community Plan [facility] P [id number] S [id number] [facility] [id number] SP [id number] [facility]ALTH [id number] SP [id number] Medicaid P [id number] S [id number] [facility](MCAID) O [id number] S [id number] [facility] [id number] S [id number] SELF PAY UNAVAILABLE SP UNAVAILA BLE C I [id number] Self [id number] MEDICAID MARY CARMEN [id number] S [id number] POMCO [id number] SP [id number] [place]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 [id number] SP [id number] [facility] MARY CARMEN [id number] SP [id number] MEDICAID M [id number] Self [id number] AMERICHOICE UNHC XIX PHY -HMO [id number] 18 [id number] Medicaid S [id number] S [id number] UNHC AMERICHOICE XIX HMO [id number] 18 [id number] EXCELLUS I [id number] Self [id number] MEDICAID - CLINIC [id number] MEDICAID APPLYING UNAVAILABLE UNAVAILABLE SELF-PAY UNAVAILABLE S UNAVAILA BLE BLUE CROSS POLK PLAN [id number] SP [id number] BLUE CHOICE OPTION O [id number] S [id number] MEDICAID W [id number] S [id number] BLUE CROSS BLUE SHIELD-O/P [id number] 18 [id number] SELF PAY SP UNAVAILABLE S UNAVAILA BLE BCBS [facility] MARY CARMEN HMO [id number] S [id number] BLUE CROSS BLUE SHIELD-PHYSICIAN [id number] 18 [id number] MEDICAID P [id number] S [id number] UN[facility] COMMUNITY PLAN MCDO [id number] SP [id number] Problems, Conditions, and Diagnoses Code Display Name Description Problem Type Effective Dates Data Source(s) 95796700 Degeneration of thoracic intervertebral disc Degeneration of thoracic intervertebral disc Problem 03/09/2020 12:00:00 AM EST [facility] ([facility]) 93130161 Pain in the coccyx Pain in the coccyx Problem 12:00:00 AM EST [facility] ([facility]) 070993750 Clinical finding Clinical Finding Problem 12/09/2019 06 :28:26 PM EDT [facility] ([facility]) 214924300 SNOMED CT Concept SNOMED CT Concept Problem 12/08 06:28:26 PM EDT [facility] ([facility]) 15439451 Osteoporosis Osteoporosis Problem 12/09/2019 06:28:26 P M EDT [facility] ([facility]) 772725562 Arthropathy Arthropathy Problem 12/09/2019 06:28:26 PM EDT [place] ([facility]) 50395261 Chronic obstructive lung disease Chronic Obstruc tive Lung Disease Problem 12/09/2019 06:28:26 PM EDT [facility] ([facility]) 505620952 Family problems Family problems Problem 06/09/2019 12:0 0:00 AM EDT [facility] ([facility]) 98681755 Antisocial personality disorder Antisocial perso nality disorder Problem 06/09/2019 12:00:00 AM EDT [facility] ([facility]) Z79.899 Other ocean transportation intermediary (current) drug therapy O THER [facility] (CURRENT) DRUG THERAPY Diagnosis 04/04/2020 01:21:00 PM [facility] G89.29 Other chronic pain OTHER CHRONIC PAIN Diagnosis 10/2020 01:21:00 PM [facility] M54.41 Lumbago with sciatica, right side LUMBAGO WITH S CIATICA, RIGHT SIDE Diagnosis 04/04/2020 01:21:00 PM [facility] M54.5 Low back pain LOW BACK PAIN Diagnosis 04/04/2020 01:21:00 PM [facility] 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, thoracic region Other intervertebral disc degeneration, thoracic region Diagnosis 02/25 11:43:00 AM [facility] 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, lumbar region Other intervertebral disc displacement, lumbar region Diagnosis 03/21/2020 11:43:00 AM [facility] [id number] Exposure to other specified factors, ini tial encounter Exposure to other specified factors, initial encounter Diagnosis 03/15/2020 04:29:00 PM [facility] G8929 Other chronic pain Other chronic pain Diagnosis 04:29:00 PM [facility] [id number] Strain of muscle, fascia and tendon of l ower back, initial encounter Strain of muscle, fascia and tendon of lower back, initial encounter Diagnosis 03/15/2020 04:29:00 PM [facility] M545 Low back pain Low back pain Diagnosis 03/15/2020 04:29:00 PM [facility] Y[address] or not applicable Unspecified place or not applicable Diagnosis 03/15/2020 04:29:00 PM [facility] K4090 Unilateral inguinal hernia, without obstruction or gangrene, not specified as recurrent Unilateral inguinal hernia, without obst ruction or gangrene, not specified as recurrent Diagnosis 03/09/2020 12:59:00 PM [facility] H16576 Personal history of traumatic brain inju ry Personal history of traumatic brain injury Diagnosis 03/09/2020 12:59:00 PM [facility] N04808 Nicotine dependence, cigarettes, uncompl icated Nicotine dependence, cigarettes, uncomplicated Diagnosis 03/09/2020 12:59:[address] [facility] R0602 Shortness of breath Shortness of breath Diagnosis 0 03/09/2020 12:59:00 PM [facility] R0789 Other chest pain Other chest pain Diagnosis 03/09/2020 12 :59:00 PM [facility] G4700 Insomnia, unspecified Insomnia, unspecified Diagnosis 03/09/2020 12:59:00 PM [facility] F6081 Narcissistic personality disorder Narcissistic p ersonality disorder Diagnosis 03/09/2020 12:59:00 PM [facility] F6381 Intermittent explosive disorder Intermittent explosive disorder Diagnosis 03/09/2020 12:59:00 PM [facility] F602 Antisocial personality disorder Antisocial personality disorder Diagnosis 03/09/2020 12:59:00 PM [facility] M533 Sacrococcygeal disorders, not elsewhere classified Sacrococcygeal disorders, not elsewhere classified Diagnosis 03/09/2020 12:59:00 PM [facility] 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 transient ischemic attack (TIA), and cerebral infarction without residual deficits Diagnosis 02/24/2020 05:01:00 PM [facility] Z79.891 custodial (current) use of opiate analge sic SENIOR LIVING (CURRENT) USE OF OPIATE ANALGESIC Diagnosis 01/21/2020 09:34:00 PM [facility] F17.210 Nicotine dependence, cigarettes, uncompl icated NICOTINE DEPENDENCE, CIGARETTES, UNCOMPLICATED Diagnosis 01/21/2020 09:34:00 PM [facility] F5109 Other insomnia not due to a substance or known physiological condition Other insomnia not due to a substance or known physiological condition Diagnosis 11/29/2019 10:52:00 PM [facility] M51.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 disc disorders with radic ulopathy, lumbar region INTERVERTEBRAL DISC DISORDERS W RADICULOPATHY, LUM Diagnosis 05/2019 12:28:00 AM [facility] Z0271 Encounter for disability determination E ncounter for disability determination Diagnosis 2019 12:43:00 PM [facility] S48983 Nicotine dependence, unspecified, uncomp licated Nicotine dependence, unspecified, uncomplicated Diagnosis 11/06/2019 10:45:00 PM [facility] F419 Anxiety disorder, unspecified Anxiety disorder, unspec ified Diagnosis 11/06/2019 10:45:00 PM [facility] 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 Diagnosi s 11/06/2019 10:45:00 PM [facility] Y92.[address] the place of o ccurrence of the external cause OTH PLACES THE PLACE OF OCCURRENCE OF THE EXTER Diagnosis 04/2019 04:47:00 PM [facility] X58.XXXA Exposure to other specified factors, ini tial encounter EXPOSURE TO OTHER SPECIFIED FACTORS, INITIAL ENCOU Diagnosis 08/27/2019 04:47:00 P M [facility] Y93.89 Activity, other specified ACTIVITY, OTHER SPECIFIED Di agnosis 08/27/2019 04:47:00 PM [facility] S39.012A Strain of muscle, fascia and tendon of l ower back, initial encounter STRAIN OF MUSCLE, FASCIA AND TENDON OF LOWER BACK, Diagnosis 04/2019 04:47:00 PM [facility] G309TNZ Overexertion from strenuous movement or load, initial encounter Overexertion from strenuous movement or load, initial encounter Diagnosis 07/30[facility]2019 [facility] M5441 Lumbago with sciatica, right side Lumbago with s ciatica, right side Diagnosis 07/30/2019 [facility] M5416 Radiculopathy, lumbar region Radiculopathy, lumbar reg ion Diagnosis 07/30/2019 08:11:00 PM EDT [facility] 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, lumbar region Unspecified inflammatory spondylopathy, lumbar region Diagnosis 07/30/2019 08[facility]11:0 [facility] F250 Schizoaffective disorder, bipolar type S chizoaffective disorder, bipolar type Diagnosis 07/30/2019 [facility]11:[facility] F1210 Cannabis abuse, uncomplicated Cannabis abuse, uncompli cated Diagnosis 06/09/2019 08:50:00 AM [facility] Z630 Problems in relationship with spouse or partner Problems in relationship with spouse or partner Diagnosis 06/09/2019 08:50:00 AM [facility] F51.04 Psychophysiologic insomnia PSYCHOPHYSIOLOGIC INSOMNIA Diagnosis 05/24/2019 09:09:00 PM [facility] M54.16 Radiculopathy, lumbar region RADICULOPATHY, LUMBAR REG ION Diagnosis 05/24/2019 09:09:00 PM [facility] G47.00 Insomnia, unspecified INSOMNIA, UNSPECIFIED Diagnosis 05/05/2019 06:50:00 PM [facility] Z760 Encounter for issue of repeat prescripti on Encounter for issue of repeat prescription Diagnosis 04/30/2019 06:21:00 PM [facility] F5104 Psychophysiologic insomnia Psychophysiologic insomnia Diagnosis 04/30/2019 06:21:00 PM [facility] M549 Dorsalgia, unspecified Dorsalgia, unspecified Diagnosi s 04/30/2019 06:21:00 PM [facility] M25.551 Pain in right hip PAIN IN RIGHT HIP Diagnosis 03/04 06:16:00 PM [facility] M54.9 Dorsalgia, unspecified DORSALGIA, UNSPECIFIED Diagnosi s 03/04/2019 06:16:00 PM [facility] Surgeries/Procedures Procedure Description Date Indications Data Source(s) Brief Emotional/Behav Assessment W/ Scoring Doc Per Standard Inst 03/09/2020 12:00:00 AM [facility] Admin Patient Focused Health Risk Assessment Instrument 03/09/2020 12:00:00 AM [facility] CT Abd/pel w/o contrast 02/24/2020 10:42:00 PM [facility] CT Abd/pel w/o contrast 02/24/2020 10:42:00 PM [facility] CT Abd/pel w/o contrast 02/24/2020 10:42:00 PM [facility] CT Abd/pel w/o contrast 02/24/2020 10:42:00 PM [facility] electrocardiogram, routine ECG, 12 leads min 0 12:00:00 AM [facility] ([facility]) Radiography of sacrococcygeal spine (procedure) 2019 11:25:00 PM [facility] Radiography of sacrococcygeal spine (procedure) 2019 11:25:00 PM [facility] Radiography of sacrococcygeal spine (procedure) 2019 11:25:00 PM [facility] Radiography of sacrococcygeal spine (procedure) 2019 11:25:00 PM [facility] Radiography of sacrococcygeal spine (procedure) 2019 11:25:00 PM [facility] Radiography of sacrococcygeal spine (procedure) 2019 11:25:00 PM [facility] Radiography of sacrococcygeal spine (procedure) 2019 11:25:00 PM [facility] Radiography of sacrococcygeal spine (procedure) 2019 11:25:00 PM [facility] Radiography of sacrococcygeal spine (procedure) 2019 11:25:00 PM [facility] CT L-Spine without contrast 05/04/2019 03:55:00 PM [facility] CT L-Spine without contrast 05/04/2019 03:55:00 PM EDT [facility] CT L-Spine without contrast 05/04/2019 03:55:00 PM EDT [facility] CT L-Spine without contrast 05/04/2019 03:55:00 PM EDT [facility] CT L-Spine without contrast 05/04/2019 03:55:00 PM EDT [facility] CT L-Spine without contrast 05/04/2019 03:55:00 PM EDT [facility] CT L-Spine without contrast 05/04/2019 03:55:00 PM EDT [facility] CT L-Spine without contrast 05/04/2019 03:55:00 PM EDT [facility] CT L-Spine without contrast 05/04/2019 03:55:00 PM EDT [facility] CT L-Spine without contrast 05/04/2019 03:55:00 PM EDT [facility] CT L-Spine without contrast 05/04/2019 [facility]55[facility] Results ID Date Data Source [id number] 04/04/2020 07:16:00 PM [facility] Patient: JUAN SPARKS Observation Report - Physicians/[facility]VisitID: [id number] [place] [address] [phone], MRegistration Date/Time: 04/04/2020 11:56 Weight:56.6 kg (S). [...] rce(s) Supporting Document(s) ID Date Data Source [id number] 03/30/2020 12:08:00 PM [facility] ED Physician Documentation NAME: JUAN SPARKS : 1975 AGE: 44 MR#: [id number] SERVICE DATE: 03/30/[address]: Deion Mclaughlin [...] PRN 01/10/16 11/21/19 11/20/19 History hydrocodone- acetaminophen [[place] 1 ea PO Q4HPRN PRN 01/10/16 11/21/19 [...] Surgical History (Updated 08/18/18 @ 11:54 by [employer]) History of - surgery (Surgical) Hx of [...] 900 mg PO TID RF: 0 hydrocodone-acetaminophen [[place]] 10-325 mg tablet 1 ea PO Q4HPRN [...] rce(s) Supporting Document(s) ID Date Data Source [id number] 03/16/2020 01:51:00 [place] [address] PHONE: [phone] FAX: [phone] Name .................. : BRIDGER Breen Acct Number.................. : [id number] ROOM. ................. : TR-08 Number ................... : [id number] Stay type ............. : E/R Discharge Date......... ... : 03/15/20 Admit Date .... ..... : 03/15/20 Admit Phys .................... : ELIZA NORTON Date of ....... : 1975 Family Phys ................... : ROSSY HARD Phone .................. : [phone] Age ................................ : 44 Film# .................. .:[id number] Sex ................................. : M Unsigned transcriptions are preliminary reports and do not represent a medical or legal document SPINE LS AP & LAT [id number] COMPLETE:03/15/20 16:49 2603 Reason(s): Trauma/Injury LUMBAR SPINE [...] rce(s) Supporting Document(s) ID Date Data Source [id number] 03/16/2020 01:50:00 [place] [address] PHONE: [phone] FAX: [phone] Name .................. : BRIDGER Breen Acct Number.................. : [id number] ROOM. ................. : TR-08 Number ................... : [id number] Stay type ............. : E/R Discharge Date......... ... : 03/15/20 Admit Date ... ...... : 03/15/20 Admit Phys .................... : ELIZA NORTON Date of ....... : 1975 Family Phys ................... : ROSSY HARD Phone .................. : [phone] Age ................................ : 44 Film# .................. .:[id number] Sex ................................. : M Unsigned transcriptions are preliminary reports and do not represent a medical or legal document [employer]YX [id number] COMPLETE:03/15/20 16:49 2604 Reason(s): Trauma/Injury SACRUM AND [...] rce(s) Supporting Document(s) ID Date Data Source [id number] 03/15/2020 04:29:00 PM EST [facility] 1 OrderSheet [facility] [address] [place] [address] Phone #: ext- [phone] 03/15/2020 16:02 Patient: JUAN SPARKS Sex: M : 1975 Age: 44yWEIGHT:56.6 kg (S) HEIGHT:69 inches (S) BMI:18.4ALLERGIES: Penicillins, Seafood, Toradol, TramadolCHIEF COMPLAINT: back pain, back injuryDIAGNOSIS: BackacheLAB ORDERSOrder Description Priority Entered Acknowledged InitialedDIAGNOSTIC STUDY ORDERSOrder Description Priority Entered Acknowledged InitialedSpine Lumbar AP STAT 16:49 03/15/2020 16:50 SarahAnd ANNA Hughes(Oxygen?(No)) PA; Reason for Study: Trauma/InjurySacrum [...] Description Priority Entered Acknowledged Initialed 2 OrderSheet [facility] [address] [place] [address] Phone #: ext- [phone] 03/15/2020 16:02 Patient: JUAN SPARKS Sex: M : 1975 Age: 44y[Electronically signed by Jeaneth Huffman RN (17:48 )][Electronically signed by Sae Leavitt (22:04 03/15/2020)][Electronically locked by Jeaneth Huffman RN (17:48 03/15/2020)] Name Value Range Interpretation Code Description Data Tete rce(s) Supporting Document(s) ID Date Data Source [id number] 03/15/2020 04:29:00 PM EST [facility] 1 Medication Reconciliation Report [facility] [address] [place] [address] Phone #: ext- [phone] 03/15/2020 16:02 Patient: JUAN SPARKS Sex: M [...] days -- Dispense 1 pack.Refills: 0. Substitution permitted.[employer] [address] [place] [address] [id number]. . 2 Medicati on Reconciliation Report [facility] [address] [place] [address] Phone #: ext- [phone] 03/15/2020 16:02 Patient: JUAN SPARKS Sex: M : 1975 Age: 44ylidocaine 5 % topical patch Apply 1 patch once a day for 5 days -- Dispense 5 patch. Refills: 0.Substitution permitted.[employer] [address] [phone]. . -- STALIN Nieto Name Value Range Interpretation Code Description Data Tete rce(s) Supporting Document(s) ID Date Data Source [id number] 03/15/2020 04:29:00 PM EST [facility] 1 Medication Administration Record [facility] [address] [place] [address] Phone #: mqk- [phone] 03/15/2020 16:02 Patient: JUAN SPARKS Sex: M [...] rce(s) Supporting Document(s) ID Date Data Source [id number] 03/15/2020 04:29:00 PM EST [facility] 1 General Instructions [facility] [address] [place] [address] Phone #: ext- [phone] 03/15/2020 16:02 Patient: [...] Dispense 1 pack.Refills: 0. Substitution permitted.Pharmacy - [facility] [address], [place] [id number]. .lidocaine 5 % topical patch Apply 1 patch once a day for 5 days -- Dispense 5 patch. Refills: 0.Substitution permitted.Pharmacy - [facility] #84 - [address] [facility] ; [place], [place] [id number]. .Follow-up:Follow up with your doctor. Call for an appointment. Reason for referral: evaluation and treatment.Summary of care provided to patient.Understanding of the discharge instructions verbalized by patient. ADDITIONAL INFORMATIONBack Pain (Acute or Chronic) 2 General Instructions [facility] [address] [place] [address] Phone #: ext- [phone] 03/15/2020 16:02 Patient: [...] illness. Mechanical problems include: 3 General Instructions [facility] [address] [place] [address] Phone #: def- [phone] 03/15/2020 16:02 [id number] Sex: M : 1975 Age: 44y Physical [...] painful area for 20 4 General Instructions [facility] [address] [place] [address] Phone #: ext- [phone] 03/15/2020 16:02 Patient: [...] or are takingother medicines. You may use kjou-oly-tihyctm medicine as directed on the bottle to [...] to seek medical advice 5 General Instructions [facility] [address] [place] [address] Phone #: ext- [phone] 03/15/2020 16:02 Patient: JUAN SPARKS Sex: M : 1975 Age: 44yCall your healthcare provider right away if any of these occur: Pain becomes worse or spreads to your legs Weakness or numbness in one or both legs Numbness in the groin or genital area 1999- [address] [employer] [place] [address]. All rights reserved. This information is not intended as asubstitute for pro fessional medical care. Always follow your healthcare professional's instructions. You have been given the following additional information: Back Pain (Acute or Chronic)(Electronically signed by STALIN Nieto 03/15/2020 22:04) Name Value Range Interpretation Code Description Data Tete rce(s) Supporting Document(s) ID Date Data Source [id number] 03/15/2020 04:29:00 PM EST [facility] 1 Clinical Report - Nurses [facility] [address] [place] [address] Phone #: ext- [phone] 03/15/2020 16:02 Patient: [...] leftfoot, tingling, and trouble walking. 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 Seen within the last [...] Miller R.N. 2 Clinical Report - Nurses [facility] [address] [place] [address] Phone #: ext- [phone] 03/15/2020 16:02 [id number] Sex: M : 1975 Age: 44y History [...] Verbalizes understanding. 3 Clinical Report - Nurses [facility] [address] [place] [address] Phone #: ext- [phone] 03/15/2020 16:02 Patient: JUAN SPARKS Sex: M [...] Patient verbalized understanding. Written instructions provided in Vincentian. The patient was discharged home and accompanied [...] rce(s) Supporting Document(s) ID Date Data Source [id number] 03/15/2020 04:29:00 PM [facility] 1 Clinical Report - Physicians/Mid Levels [facility] [address] [place] [address] Phone #: ext- [phone] 03/15/2020 16:02 Patient: [...] inspection. 2 Clinical Report - Physicians/Mid Levels [facility] [address] [place] [address] Phone #: ext- [phone] 03/15/2020 16:02 [id number] Sex: M : 1975 Age: 44y Eyes: [...] Oral. 3 Clinical Report - Physicians/Mid Levels [facility] [address] [place] [address] Phone #: ext- [phone] 03/15/2020 16:02 Patient: JUNA SPARKS Sex: M : 1975 Age: 44y Gabapentin Oral. SEROquel Oral. Vicodin Oral. Prescription Medications: Medrol (Jt) 4 mg tablets in a dose pack Take 1 tablet as directed for 6 days -- Dispense 1 pack. Refills: 0. Substitution permitted. Pharmacy - [facility] [address] - [address], [place] [id number]. FaxNu mber: . lidocaine 5 % topical patch Apply 1 patch once a day for 5 days -- Dispense 5 patch. Refills: 0. Substitution permitted. [facility] [address], [place] [id number]. Phone: . Follow-up: Follow up with your doctor. Call for an appointment. Reason for referral: evaluation and treatment. Summary of care provided to patient. Understanding of the discharge instructions verbalized by patient.(Electronically signed by STALIN Nieto 03/15/2020 22:04) Name Value Range Interpretation Code Description Data Tete rce(s) Supporting Document(s) ID Date Data Source [id number] 03/13/2020 12:39:00 AM [facility] ED Physician Documentation NAME: JUAN SPARKS : 1975 AGE: 44 MR#: [id number] SERVICE DATE: 03/12/[address]: Deion Mclaughlin [...] management. He recently was leaving town for [place]. States his vehicle broke down and was unable to go to [place] in a timely manner. Patient states that [...] TIDPRN PRN 01/10/16 11/21/19 11/20/19 History hydrocodone-acetaminophen [[place] 1 ea PO Q4HPRN PRN 01/10/16 11/21/19 [...] Surgical History (Updated 08/18/18 @ 11:54 by [employer]) History of - surgery (Surgical) Hx of [...] 900 mg PO TID RF: 0 hydrocodone-acetaminophen [[place]] 10-325 mg tablet 1 ea PO Q4HPRN [...] rce(s) Supporting Document(s) ID Date Data Source [id number] 03/09/2020 03:23:00 PM EST [facility] ([facility]) Name Value Range Interpretation Code Description Data Tete rce(s) Supporting Document(s) Chest Xray 2 Views [facility] ID Date Data Source [id number] 02/28/2020 11:50:00 PM EST [facility] ED Physician Documentation NAME: JUAN SPARKS : 1975 AGE: 44 MR#: [id number] SERVICE DATE: 02/28/[address]: Morales Bauer MD PRIMARY CARE DR: No Family PHYS Provided ROOM#: [facility] (Adult, General) General Chief Complaint: Musculoskeletal Stated Complaint: LOWER BACK AND LEG PAIN Resident [facility], travel outisde home, exposure to hot [...] TIDPRN PRN 01/10/16 11/21/19 11/20/19 History hydrocodone-acetaminophen [[place] 1 ea PO Q4HPRN PRN 01/10/16 11/21/19 [...] Surgical History (Updated 08/18/18 @ 11:54 by [employer]) History of - surgery (Surgical) Hx of [...] 900 mg PO TID RF: 0 hydrocodone-acetaminophen [[place]] 10-325 mg tablet 1 ea PO Q4HPRN [...] rce(s) Supporting Document(s) ID Date Data Source [id number] 02/24/2020 11:38:00 PM [facility] ED Physician Documentation NAME: JUAN SPARKS : 1975 AGE: 44 MR#: [id number] SERVICE DATE: 02/24/[address]: Remington Chavez [...] TIDPRN PRN 01/10/16 11/21/19 11/20/19 History hydrocodone-acetaminophen [[place] 1 ea PO Q4HPRN PRN 01/10/16 11/21/19 [...] Surgical History (Updated 08/18/18 @ 11:54 by [employer]) History of - surgery (Surgical) Hx of [...] dizziness, vertigo, lightheadedness and loss of consciousness [facility] Medical History ADHD (attention deficit hyperactivity disorder) [...] % (Auto) 59.6, Lymph % (Auto) 31.0, [place] % (Auto) 6.3, Eos % (Auto) 2.5, [...] 900 mg PO TID RF: 0 hydrocodone-acetaminophen [[place]] 10-325 mg tablet 1 ea PO Q4HPRN [...] Follow Up Care/Instructions Diet/Activity/Wound Care..: Rest. Take clba-[id number]-[id number] Aleve 220 mg with food every 12 [...] rce(s) Supporting Document(s) ID Date Data Source [id number] 02/24/2020 11:27:00 PM [facility] [address] [place] [address] [phone] NAME SEX PT STATUS ACCOUNT NUMBER JUAN SPARKS [facility] ER [id number] ORDERING PHYSICIAN LOCATION MEDICAL RECORD NO. Remington Chavez MD ER [id number] ATTENDING PHYSICIAN DATE OF DATE OF EXAM/TIME [...] Trans Dt/Tm: Trans by: DT Prt Dt/Tm: 8556-6114: Total DLP = 208.00 mGy-cm 6328-1770: Total Radiation Dose = 3.1200 mSv Lifetime Dose: 12.9060 mSv Name Value Range Interpretation Code Description Data Tete rce(s) Supporting Document(s) ID Date Data Source [id number] 02/24/2020 10:54:00 PM [facility] Name Value Range Interpretation Code Description Data Tete rce(s) Supporting Document(s) Leukocytes [#/volume] in Blood by Automated count 10.4 10*3/uL 4.45-1 0.71 N [facility] Erythrocytes [#/volume] in Blood by Automated count 4.23 10*6/uL 4.3-6.1 Below low normal [facility] Hemoglobin [Moles/volume] in Blood 12.6 g/dL 13-18 Below low no rmal [facility] Hematocrit [Volume Fraction] of Blood by Automated count 38.9 % 42-52 Below low normal [facility] Erythrocyte mean corpuscular volume [Ent itic volume] in Cord blood by Automated count 92.0 fL 80-96 N [facility] Erythrocyte mean corpuscular hemoglobin [Entitic mass] by Automated count 29.8 pg 27-31 N [facility] Erythrocyte mean corpuscular hemoglobin concentration [Mass/volume] in Cord blood 32.4 g/dL 33-[address] [facility] Erythrocyte distribution width [Entitic volume] by Automated count 12 % 11-15 N [facility] Platelets [#/volume] in Blood by Automated count 294 10*3/uL 130-472 N [facility] Platelet mean volume [Entitic volume] in Blood 9.2 fL 9.1-13.1 N [facility] Neutrophils/100 leukocytes in Blood by Automated count 59.6 % 41- 77 N [facility] Neutrophils [#/volume] in Blood by Automated count 6.2 U 1.7-7.6 N [facility] Lymphocytes/100 leukocytes in Blood by Automated count 31.0 % 14- 46 N [facility] Lymphocytes [#/volume] in Blood by Automated count 3.2 U 0.6-4.6 N [facility] Monocytes/100 leukocytes in Blood by Automated count 6.3 % 4-12 N [facility] Monocytes [#/volume] in Blood by Automated count 0.7 U 0.2-1.2 N [facility] Eosinophils/100 leukocytes in Blood by Automated count 2.5 % 0-7 N [facility] Eosinophils [#/volume] in Blood by Automated count 0.3 U 0.0-0.5 N [facility] Basophils/100 leukocytes in Blood by Automated count 0.4 % 0.4-1 .3 N [facility] Basophils [#/volume] in Blood by Automated count 0.0 U 0.0-0.2 N [facility] NUCLEATED RED BLOOD CELL 0 % [facility] NUCLEATED RED BLOOD CELL# 0 [facility] Immature granulocytes [Presence] in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 Physicians/Mid Levels [facility] Emergency Department [address] [place] [address] Phone #: ext- [phone] 11/06/2019 22:45 Patient: JUAN SPARKS Sex: M [...] Oral. 4 Clinical Report - Physicians/Mid Levels [facility] Emergency Department [address] [place] [address] Phone #: ext- [phone] 11/06/2019 22:45 Patient: [...] rce(s) Supporting Document(s) ID Date Data Source [id number] 10/20/2019 12:00:00 AM EDT [facility] Mendoza Wahl MD Patient Name: JUAN SPARKS518 [facility] Date of : 1975S[place] ramires [address] Date of Exam: 10/20/2019PH#: Fax: [phone] EXAM: [...] rce(s) Supporting Document(s) ID Date Data Source [id number] 09/30/2019 07:41:00 PM EDT [facility] ED Physician Documentation NAME: JUAN SPARKS : 1975 AGE: 43 MR#: [id number] SERVICE DATE: 09/30/[address]: Morales Bauer MD PRIMARY CARE DR: No Family PHYS Provided ROOM#: [facility] (Adult, General) General Chief Complaint: Musculoskeletal Stated [...] gave him ROS is otherwise acutely negative [facility] EMR data is appreciated , , [...] TIDPRN PRN 01/10/16 09/30/19 08/30/19 History hydrocodone-acetaminophen [[place] 1 ea PO Q4HPRN PRN 01/10/16 09/30/19 [...] Surgical History (Updated 08/18/18 @ 11:54 by [employer]) History of - surgery (Surgical) Hx of [...] 900 mg PO TID RF: 0 hydrocodone-acetaminophen [[place]] 10-325 mg tablet 1 ea PO Q4HPRN [...] rce(s) Supporting Document(s) ID Date Data Source [id number] 08/30/2019 08:17:00 PM EDT [facility] ED Physician Documentation NAME: JUAN SPARKS : 1975 AGE: 43 MR#: [id number] SERVICE DATE: 08/30/[address]: Morales Bauer [...] TIDPRN PRN 01/10/16 08/30/19 08/30/19 History hydrocodone-acetaminophen [[place] 1 ea PO Q4HPRN PRN 01/10/16 08/30/19 [...] Surgical History (Updated 08/18/18 @ 11:54 by [employer]) History of - surgery (Surgical) Hx of [...] mg PO TID RF: 0 hydrocodone-ac etaminophen [[place]] 10-325 mg tablet 1 ea PO Q4HPRN [...] rce(s) Supporting Document(s) ID Date Data Source [id number] 08/28/2019 07:12:00 PM EDT [facility] jose Patient: JUAN SPARKS [facility]ation [facility] - [facility] [id number] [place] [address] [phone], MRegistration Date/Time: 08/27/2019 16:27 Weight:56.6 kg (S). Height/Length:69 inches (S). BMI:18.4 FAMILY HISTORYNo significant family medical history. (Electronically signed by Maura Moraes M.D. 08/28/2019 19:06) Name Value Range Interpretation Code Description Data [facility] rce(s) Supporting Document(s) ID Date Data Source [id number] 08/07/2019 11:30:00 PM EDT [facility] [address] [place] [address] [phone] NAME SEX PT STATUS ACCOUNT NUMBER JUAN SPARKS REG ER [id number] ORDERING PHYSICIAN LOCATION MEDICAL RECORD NO. Deion Pierre MD ER [id number] ATTENDING PHYSICIAN DATE OF DATE OF EXAM/TIME [...] rce(s) Supporting Document(s) ID Date Data Source [id number] 08/07/2019 11:05:00 PM EDT [facility] ED Physician Documentation NAME: JUAN SPARKS : 1975 AGE: 43 MR#: [id number] SERVICE DATE: 08/07/[address]: Deion Pierre [...] TIDPRN PRN 01/10/16 08/07/19 08/05/19 History hydrocodone-acetaminophen [[place] 1 ea PO Q4HPRN PRN 01/10/16 08/07/19 [...] Surgical History (Updated 08/18/18 @ 11:54 by [employer]) History of - surgery (Surgical) Hx of [...] 900 mg PO TID RF: 0 hydrocodone-acetaminophen [[place]] 10-325 mg tablet 1 ea PO Q4HPRN [...] rce(s) Supporting Document(s) ID Date Data Source [id number] 08/02/2019 10:45:00 [place] [address] PHONE: [phone] FAX: [phone] Name .................. : BRIDGER Breen Acct Number.................. : [id number] ROOM. ................. : TR-05 MR Number ................... : [id number] Stay type ............. : E/R Discharge Date......... ... : 07/30/19 Admit Date ....... .. : 07/30/19 Admit Phys .................... : MERI LEOS Date of ....... : 1975 Family Phys ................... : NO PCP Phone .................. : [phone] Age ................................ : 43 Film# .................. .:[id number] Sex ................................. : M Unsigned transcriptions are preliminary reports and do not represent a medical or legal document CT LUMBAR SP W/O CONT [id number] COMPLETE:07/30/19 21:16 DLA [id number] Reason(s): Chronic back pain CT OF THE [...] rce(s) Supporting Document(s) ID Date Data Source [id number] 07/30/2019 08:11:00 PM EDT [facility] 1 OrderSheet [facility] Emergency Department [address] [place] [address] Phone #: ext- [phone] 07/30/2019 20:06 Patient: [...] Jake Quiros Physician (00:20 07/31/2019)] 2 OrderSheet [facility] Emergency Department [address] [place] [address] Phone #: ext- [phone] 07/30/2019 20:06 Patient: JUAN SPARKS Sex: M : 1975 Age: 43y[Electronically locked by Karl Webb R.N. (21:16 07/30/2019)] Name Value Range Interpretation Code Description Data Tete rce(s) Supporting Document(s) ID Date Data Source [id number] 07/30/2019 08:11:00 PM EDT [facility] 1 Medication Reconciliation Report [facility] Emergency Department [address] [place] [address] Phone #: [phone] 07/30/2019 20:06 Patient: JUAN SPARKS Sex: M [...] back pain.Dispense 5 patch. Refills: 0. Substitution permitted.[employer] [address] [place] [address] [phone]. .cyclobenzaprine 10 mg tablet Take 1 tablet every eight hours as needed for 5 days -- For muscle spasm /back pain. Dispense 15 tablet. Refills: 0. Substitution permitted.[employer] [address] [place] [address] [id number]. . -- Jake Quiros, Physician 2 Medication Reconciliation Report [facility] Emergency Department [address] [place] [address] Phone #: ext- [phone] 07/30/2019 20:06 Patient: JUAN SPARKS Sex: M : 1975 Age: 43yPercocet 5/325mg Two tabs to go home. Dispense in ED. -- Jake Quiros, Physician Name Value Range Interpretation Code Description Data Tete rce(s) Supporting Document(s) ID Date Data Source [id number] 07/30/2019 08:11:00 PM EDT [facility] 1 Medication Administration Record [facility] Emergency Department [address] [place] [address] Phone #: [phone]- [phone] 07/30/2019 20:06 Patient: JUAN SPARKS Sex: M : 1975 Age: 43yWeight: 56.6 kgHeight/Length: 69 inBMI: 18.4ALLERGIES: Tramadol, Toradol, Penicillins Date/Time Medication Administered Medication OrderedGiven ACETAMINOPHEN [PO] Acetaminophen PO 1000 mg20:35 07/30/2019 Dose: 1000 mg PO (NOW)Karl Webb R.N. Name Value Range Interpretation Code Description Data Tete rce(s) Supporting Document(s) ID Date Data Source [id number] 07/30/2019 08:11:00 PM EDT [facility] 1 General Instructions [facility] Emergency Department [address] [place] [address] Phone #: ext- [phone] 07/30/2019 20:06 Patient: [...] 5 patch. Refills: 0. Substitution permitted.Pharmacy - [id number] [address] [place], [place] [phone]. FaxNumber: [phone].cyclobenzaprine 10 mg tablet Take 1 tablet every eight hours as needed for 5 days -- For muscle spasm /back pain. Dispense 15 tablet. Refills: 0. Substitution permitted.Pharmacy - [id number] [address] [place], [place] [phone]. .Percocet 5/325mg Two tabs to go home. [...] Pain (Acute or Chronic) 2 General Instructions [facility] Emergency Department [address] [place] [address] Phone #: ext- [phone] 07/30/2019 20:06 Patient: JUAN SPARKS Sex: M [...] illness. Mechanical problems include: 3 General Instructions [facility] Emergency Department [address] [place] [address] Phone #: ext- [phone] 07/30/2019 20:06 Patient: [...] painful area for 20 4 General Instructions [facility] Emergency Department [address] [place] [address] Phone #: ext- [phone] 07/30/2019 20:06 Patient: [...] or are takingother medicines. You may use rhoh-lmu-xpbrwep medicine as directed on the bottle to [...] any new findingsthat may affect your care.Call [phone] if any of the following occur: Trouble breathing Confusion Very drowsy or trouble awakening Fainting or loss of consciousness Rapid or very slow heart rate Loss of bowel or bladder control 5 General Instructions [facility] Emergency Department [address] [place] [address] Phone #: ext- [phone] 07/30/2019 20:06 Patient: JUAN SPARKS Sex: M : 1975 Age: 43yWhen to seek medical adviceCall your healthcare provider right away if any of these occur: Pain becomes worse or spreads to your legs Weakness or numbness in one or both legs Numbness in the groin or genital area [phone] [employer] [place] [address]. All rights reserved. This information is not [...] to your lower back. 6 General Instructions [facility] Emergency Department [address] [place] [address] Phone #: ext- [phone] 07/30/2019 20:06 Patient: [facility]KS [id number] Sex: M : 1975 [facility] 43[facility] these tips when caring for yourself [...] the pain is gone. 7 General Instructions [facility] Emergency Department [address] [place] [address] Phone #: ext- [phone] 07/30/2019 20:06 Patient: [...] your back or spine 1999- 2017 [employer]. [address] [place] [address]. All rights reserved. This information is not intended as asubstitute for professional medical care. Always follow your healthcare professional's instructions. You have been given the following additional information: Back Pain (Acute or Chronic) Sciatica Limit lifting.(Electronically signed by Jake Quiros, Physician 07/31/2019 00:20) Name Value Range Interpretation Code Description Data Tete rce(s) Supporting Document(s) ID Date Data Source [id number] 07/30/2019 08:11:00 PM EDT [facility] 1 Clinical Report - Nurses [facility] Emergency Department [address] [place] [address] Phone #: ext- [phone] 07/30/2019 20:06 Patient: JUAN SPARKS Sex: M : 1975 Age: 43yTRIAGEArrived by private vehicle. Historian: patient.Triage time: 20:07/30/2019. Acuity: LEVEL 4.Alert. No acute distress.No injury occurred. Onset. (chronic). 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 Sepsis Screen negative. [...] Webb R.N. 2 Clinical Report - Nurses [facility] Emergency Departm ent [address] [place] [address] Phone #: ext- [phone] 07/30/2019 20:06 Patient: [...] with tingling. 3 Clinical Report - Nurses [facility] Emergency Department [address] [place] [address] Phone #: ext- [phone] 07/30/2019 20:06 Patient: [...] Patient verbalized understanding. Written instructions provided in Vincentian. The patient was discharged by the physician. He was discharged home and accompanied by embossed or impressed lettering painter. He left ambulatory and via private vehicle. Medical Records Coordinator driving. Patient has no belongings. --21:13 07/30/19 [...] rce(s) Supporting Document(s) ID Date Data Source [id number] 07/30/2019 08:11:00 PM EDT [facility] 1 Clinical Report - Physicians/Mid Levels [facility] Emergency Department [address] [place] [address] Phone #: ext- [phone] 07/30/2019 20:06 Patient: JUAN SPARKS Sex: M [...] Back surgery. Craniotomy. Inguinal hernia repair (Left). HOSPICE VOLUNTEER COORDINATOR shunt surgery.SOCIAL HISTORY 2 Clinical Report - Physicians/Mid Levels [facility] Emergency Department [address] [place] [address] Phone #: ext- [phone] 07/30/2019 20:06 Patient: JUAN SPARKS Sex: M [...] Units (Reference) CT [place]UMBAR [place] [address] PHONE: [phone] FAX: [phone] -- Name .................. : BRIDGER Breen Acct Number.................. : [id number] ROOM. ................. : TR-05 MR Number ................... : [id number] Stay type ............. : E/R Discharge Date......... ... : 07/30/19 Admit Date ......... : 07/30/19 Admit Phys .................... : MERI LEOS Date of ....... : 1975 Family Phys ................... : NO PCP Phone .................. : [phone] Age ................................ : 43 Film# .................. .:[id number] Sex ................................. : M 3 Clinical Report - Physicians/Mid Levels [facility] Emergency Department [address] [place] [address] Phone #: ext- [phone] 07/30/2019 20:06 Patient: JUAN SPARKS Sex: M : 1975 Age: 43y -- Unsigned transcriptions are preliminary reports and do not represent a medical or legal document CT LUMBAR SP W/O CONT [id number] COMPLETE:07/30/19 21:16 DLA 52441 Reason(s): Chronic back pain -- -- -- [...] ng/ml 4 Clinical Report - Physicians/Mid Levels [facility] Emergency Department [address] [place] [address] Phone #: ext- [phone] 07/30/2019 20:06 Patient: [...] persists.). 5 Clinical Report - Physicians/Mid Levels [facility] Emergency Department [address] [place] [address] Phone #: ext- [phone] 07/30/2019 20:06 Patient: JUAN SPARKS Sex: M : 1975 Age: 43y Prescription Medications: lidocaine 5 % topical patch Apply 1 patch once a day as needed for 5 days -- for severe back pain. Dispense 5 patch. Refills: 0. Substitution permitted. Pharmacy - [facility] [address], [place] [id number]. . cyclobenzaprine 10 mg tablet Take 1 tablet every eight hours as needed for 5 days -- For muscle spasm / back pain. Dispense 15 tablet. Refills: 0. Substitution permitted. Pharmacy - [facility] - [address] [facility] ; [place], [place] [id number]. . Percocet 5/325mg Two tabs to go [...] rce(s) Supporting Document(s) ID Date Data Source [id number] 07/30/2019 09:07:00 PM EDT [facility] Name Value Range Interpretation Code Description Data Tete rce(s) Supporting Document(s) DRUG SCREEN URINE [facility] URINE DRUG SCREEN Amphetamine [Presence] in Urine by Screen method NEGATIVE NORMAL: N EGATIVE [facility] BARBITURATES NEGATIVE NORMAL: NEGATIVE [facility] BENZO NEGATIVE NORMAL: NEGATIVE [facility] COCAINE NEGATIVE NORMAL: NEGATIVE [facility] Tetrahydrocannabinol [Presence] in Urine NEGATIVE NORMAL: NEGATIVE [facility] OPIATES NEGATIVE NORMAL: NEGATIVE [facility] Phencyclidine [Presence] in Urine by Screen method NEGATIVE NOR MAL: NEGATIVE [facility] \\BLDo\\URINE DRUG SCR EEN INTERPRETATION\\BLDx\\ THE CUTOFFF LEVELS FOR DETECTION ARE FOLLOWS: AMPHETAMINES 1000 ng/ml BARBITUARATES 200 ng/ml BENZODIAZEPINES 100 ng/ml THC 50 ng/ml PHENCYCLIDINE 25 ng/ml OPIATES 300 ng/ml COCAINE 300 ng/ml ALL POSITIVES ARE CONSIDERED PRESUMPTIVE POSITIVE CONFIRMATION WILL BE PERFORMED AT PHYSICIAN REQUEST. ID Date Data Source [id number] 07/30/2019 08:55:00 PM EDT [facility] Name Value Range Interpretation Code Description Data Tete rce(s) Supporting Document(s) [facility] COLOR yellow NORMAL: Yellow [facility] CLARITY clear NORMAL: Clear [facility] Specific gravity of Urine by Test strip 1.020 1.001 - 1.030 [facility] pH 6 5 - 9 [facility] Glucose [Mass/volume] in Urine by Test strip NORM NORMAL: Negat [facility] Bilirubin.total [Presence] in Urine by Test strip NEG NORMAL: Negative [facility] Ketones [Presence] in Urine by Test strip NEG NORMAL: Negative [facility] Protein [Mass/volume] in Urine by Test strip NEG NORMAL: Negat [facility] Nitrite [Presence] in Urine by Test strip NEG NORMAL: Negative [facility] BLOOD NEG NORMAL: Negative [facility] Leukocyte esterase [Presence] in Urine by Test strip NEG NIMCO L: Negative [facility] Urobilinogen [Mass/volume] in Urine by Test strip 1 less soraida n 1.0 mg/dL [facility] MICROSCOPIC Not Indicate [facility] ID Date Data Source [id number] 06/07/2019 03:10:00 PM EDT [facility] ED Physician Documentation NAME: JUAN SPARKS : 1975 AGE: 43 MR#: [id number] SERVICE DATE: 06/07/[address]: Deion Pierre MD PRIMARY CARE DR: No Family PHYS Provided ROOM#: [facility] (Adult, General) General Chief Complaint: Musculoskeletal Stated [...] TIDPRN PRN 01/10/16 06/07/19 06/06/19 History hydrocodone-acetaminophen [[place] 1 ea PO Q4HPRN PRN 01/10/16 06/07/19 [...] Surgical History (Updated 08/18/18 @ 11:54 by [employer]) History of - surgery (Surgical) Hx of [...] 900 mg PO TID RF: 0 hydrocodone-acetaminophen [[place]] 10-325 mg tablet 1 ea PO Q4HPRN [...] Follow Up Care/Instructions Diet/Activity/Wound Care..: Follow-up with [facility]: [phone]; or follow-up with Mental [facility] clinic at [phone] *Discharge Patient* Discharge Orders: Discharge Order (Routine); [...] rce(s) Supporting Document(s) ID Date Data Source [id number] 05/25/2019 01:41:00 AM EDT [facility] Patient: JUAN SPARKS Observation [facility] - Phys[facility] [id number] [place] [address] [phone], MRegistration Date/Time: 05/24/2019 20:21 Weight:56.6 kg (S). [...] Name Value Range Interpretation Code Description Data [facility] rce(s) Supporting Document(s) ID Date Data Source [id number] 05/06/2019 06:44:00 AM [facility]: [facility] Observation Report - Physicians/[facility] [id number] [place] [address] [phone], MRegistration Date/Time: 05/05/2019 18:34 Weight:54.4 kg (S). [...] rce(s) Supporting Document(s) ID Date Data Source [id number] 05/04/2019 04:10:00 PM EDT [facility] [address] [id number] [phone] NAME SEX PT STATUS ACCOUNT NUMBER JUAN SPARKS [facility] [id number] ORDERING PHYSICIAN LOCATION MEDICAL RECORD NO. Silvio Hicks MD ER [id number] ATTENDING PHYSICIAN DATE OF DATE OF EXAM/TIME [...] rce(s) Supporting Document(s) ID Date Data Source [id number] 05/04/2019 03:26:00 PM EDT [facility] ED Physician Documentation NAME: JUAN SPARKS : 1975 AGE: 43 MR#: [id number] SERVICE DATE: 05/04/[address]: Silvio Hicks [...] car and that his friend drove to [place] with the medication still in his car, [...] TIDPRN PRN 01/10/16 05/04/19 05/01/19 History hydrocodone-acetaminophen [[place] 1 ea PO Q4HPRN PRN 01/10/16 05/04/19 [...] Surgical History (Updated 06/25/19 @ 11:54 by [employer]) History of - surgery (Surgical) Hx of [...] outside the country (where) Coronavirus risk:travel to [facility];contact w/ high risk person In the last 14 days before symptom onset, does the patient have a history of travel from [facility]; or close contact with a [...] mg PO TID RF: 0 hydrocodone- acetaminophen [[place]] 10-325 mg tablet 1 ea PO Q4HPRN [...] rce(s) Supporting Document(s) ID Date Data Source [id number] 05/01/2019 04:21:00 PM [facility] ED Physician Documentation NAME: JUAN SPARKS : 1975 AGE: 43 MR#: [id number] SERVICE DATE: 05/01/[address]: Deion Pierre [...] TIDPRN PRN 01/10/16 05/01/19 05/01/19 History hydrocodone-acetaminophen [[place] 1 ea PO Q4HPRN PRN 01/10/16 05/01/19 [...] Surgical History (Updated 08/18/18 @ 11:54 by [employer]) History of - surgery (Surgical) Hx of [...] 900 mg PO TID RF: 0 hydrocodone-acetaminophen [[place]] 10-325 mg tablet 1 ea PO Q4HPRN [...] rce(s) Supporting Document(s) ID Date Data Source [id number] 04/30/2019 06:21:00 PM EST [facility] 1 OrderSheet [facility] Emergency Department [address] [place] [address] Phone #: ext- [phone] 04/30/2019 17:53 [id number] Sex: M : 1975 Age: 43yWEIGHT:49.8 kg [...] Status, Altered Sense of Awareness 2 OrderSheet [facility] Emergency Department [address] [place] [address] Phone #: ext- [phone] 04/30/2019 17:53 Patient: [...] rce(s) Supporting Document(s) ID Date Data Source [id number] 04/30/2019 06:21:00 PM EST [facility] 1 Medication Reconciliation Report [facility] Emergency Department [address] [place] [address] Phone #: ext- [phone] 04/30/2019 17:53 Patient: [...] keyla(s) Supporting Document(s) ID Date Data Source [id number] 04/30/2019 06:21:00 PM EST [facility] 1 Medication Administration Record [facility] Emergency Department [address] [place] [address] Phone #: ext- [phone] 04/30/2019 17:53 Patient: [...] rce(s) Supporting Document(s) ID Date Data Source [id number] 04/30/2019 06:21:00 PM EST [facility] 1 General Instructions [facility] Emergency Department [address] [place] [address] Phone #: ext- [phone] 04/30/2019 17:53 Patient: [...] Pain (Acute or Chronic) 2 General Instructions [facility] Emergency Department [address] [place] [address] Phone #: ext- [phone] 04/30/2019 17:53 Patient: [...] illness. Mechanical problems include: 3 General Instructions [facility] Emergency Department [address] [place] [address] Phone #: ext- [phone] 04/30/2019 17:53 [id number] Sex: M : 1975 Age: 43y Physical [...] painful area for 20 4 General Instructions [facility] Emergency Department [address] [place] [address] Phone #: ext- [phone] 04/30/2019 17:53 Patient: [...] or are takingother medicines. You may use tybd-gji-wytdugp medicine as directed on the bottle to [...] any new findingsthat may affect your care.Call [phone] if any of the following occur: Trouble breathing Confusion Very drowsy or trouble awakening Fainting or loss of consciousness Rapid or very slow heart rate Loss of bowel or bladder control 5 General Instructions [facility] Emergency Department [address] [place] [address] Phone #: ext- [phone] 04/30/2019 17:53 Patient: JUAN SPARKS Sex: M : 1975 Age: 43yWhen to seek medical adviceCall your healthcare provider right away if any of these occur: Pain becomes worse or spreads to your legs Weakness or numbness in one or both legs Numbness in the groin or genital area [id number] [employer] [address] [place] [address], [place] [address]. All rights reserved. This information is not intended as asubstitute for professional medical care. Always follow your healthcare professional's instructions.Back Care TipsCaring for your back 6 General Instructions [facility] Emergency Department [address] [place] [address] Phone #: ext- [phone] 04/30/2019 17:53 ----- Patient: JUAN SPARKS [facility]#: [id number] Sex: M : 1975 Age: 43yThese are [...] your healthcare provider.Lumbar stretch 7 General Instructions [facility] Emergency Department [address] [place] [address] Phone #: ext- [phone] 04/30/2019 17:53 Patient: [id number] Sex: M : 1975 Age: 43yHere is [...] to one side. Put 8 General Instructions [facility] Emergency Department [address] [place] [address] Phone #: ext- [phone] 04/30/2019 17:53 [id number] Sex: M : 1975 Age: 43ya pillow [...] or legs Numbness in the groin area [phone] [employer] [address] [place] [address]. All rights reserved. This information is not [...] that better suits your 9 General Instructions [facility] Emergency Department [address] [place] [address] Phone #: ext- [phone] 04/30/2019 17:53 Patient: [...] position. Repeat 10 times. 10 General Instructions [facility] Emergency Department [address] [place] [address] Phone #: ext- [phone] 04/30/2019 17:53 Patient: JUAN SPARKS [facility]#: [id number] Sex: M : 1975 Age: 43y 2. [...] Hold for 2 seconds, then slowly lower. [phone] [employer] [address] [place], [place] [address]. All rights reserved. This information is not [...] 3 months. Chronic insomnia 11 General Instructions [facility] Emergency Department [address] [place] [address] Phone #: ext- [phone] 04/30/2019 17:53 Patient: [...] it hard to concentrate 12 General Instructions [facility] Emergency Department [address] [place] [address] Phone #: ext- [phone] 04/30/2019 17:53 -- Patient: JUAN SPARKS Sex: [...] drink alcohol and caffeine 13 General Instructions [facility] Emergency Department [address] [place] [address] Phone #: ext- [phone] 04/30/2019 17:53 Patient: JUAN SPARKS Sex: M : 1975 Age: 43y Your exercise habits and timesFollow-up careFollow up with your healthcare provider, or as advised. If an X-ray or CT scan was done, you will benotified if there is a change in the reading, especially if it affects treatment.Call [phone] if any of these occur: Trouble breathing [...] there) Anxiety, depression Several days without sleeping 5016-3152 [employer] [address] [place] [address], [place] [address]. All rights reserved. This information is not intended as asubstitute for professional medical care. Always follow your healthcare professional's instructions. You have been given the following additional information: Back Pain (Acute or Chronic) Back Care Tips Back Exercises, Lumbar Insomnia 14 General Instructions [facility] Emergency Department [address] [place] [address] Phone #: ext- [phone] 04/30/2019 17:53 Patient: JUAN SPARKS Sex: M : 1975 Age: 43yNo strenuous activity. Rest.(Electronically signed by Sandy Ingram M.D. 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 --18:11 04/30/19 Nella Santiago R.N.17:59 04/30/19. BP: [...] Santiago R.N. 2 Clinical Report - Nurses [facility] Emergency Department [address] [place] [address] Phone #: ext- [phone] 04/30/2019 17:53 Patient: [...] Murillo R.N. 3 Clinical Report - Nurses [facility] Emergency Department [address] [place] [address]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
== END 2020-04-11 21:09 | disposition home or self-care (01) ==
LOC: M ED 20:08
DX: M54.9 Dorsalgia, unspecified (principal); G89.29 Other chronic pain; J44.9 Chronic obstructive pulmonary disease, unspecified; Z86.73 Personal history of transient ischemic attack (TIA), and cerebral infarction without residual deficits; Z88.0 Allergy status to penicillin; Z88.6 Allergy status to analgesic agent; Z88.8 Allergy status to other drugs, medicaments and biological substances; Z91.013 Allergy to seafood

== ENCOUNTER 2020-04-16 23:22 | Emergency (ER) | payer OTHER ==
[~2020-04-16] VITALS: Ht 175.3 cm; Wt 52.9 kg
[2020-04-16 23:23] VITALS: BP 105/72
--- OUTSIDE RECORDS SUMMARY | 2020-04-16 23:31 | CCD ---
Author Author [facility] Organization [facility] Address Unknown Phone Unavailable Support Name Relationship Address Phone SELF Next Of Kin Unknown Unavailable Juan Limon MD Next Of Kin [address] [phone] Maria Del Carmen AGUIRREP, Daphne Next Of Kin [address] [place] [address] CTY, OF CORRECTIONS DEPARTMENT Next Of Kin EDGAR CTY CORRECTIONAL FAC [address] [phone] RE Next Of Kin Unknown Unavailable MARÍA [place] [address] UE Next Of Kin Unknown Unavailable Jensen RPA-C, Izabel Next Of Kin [address] [place] [address] Jamie AGUIRREP, Yaneth Next Of Kin [address] [phone] Adenike ANP-BC, Constance Next Of Kin [address] [place] [phone] "" Next Of Kin [address] [place] [address] [phone] NONE, PT PER Next Of Kin - -, [place] - - UZIEL [place] [address] SOFIA MONTENEGRO Next Of Kin [address] [place] [address] JOSE [place] [address] JULIETA VIGIL Next Of Kin [address] [place] [id number] UN Next Of Kin Unknown Unavailable NONE, NOOTHER Next Of Kin - -, [place] - - MELANY FIELDS Next Of Kin Unknown DISABLED Next Of Kin Unknown Unavailable JUAN SPARKS Next Of Kin 02/[address] [place] [address] BRITTAERLINDAKeyla MIKO Next Of Kin 02/[address] [place] [address] JONESHANSELASTRID Ramires Next Of Kin Unknown NATHALIEASTRID Next Of Kin Unknown Care Team Providers Care Casino Supervisor Name Role Phone MORALES WIGGINS Unavailable Unavailable [...] Anival Martinez MD Unavailable Unavailable Limon, Anival Martienz MD Unavailable Unavailable Limon, Anival Martinez MD [...] Martinez MD Unavailable Unavailable Cougler, S Sorin BUDGET ANALYST Unavailable Unavailable Cougler, S Sorin BUDGET ANALYST Unavailable Unavailable Cougler, S Sorin BUDGET ANALYST Unavailable Unavailable Cougler, S Sorin BUDGET ANALYST Unavailable Unavailable Cougler, S Sorin BUDGET ANALYST Unavailable Unavailable Cougler, S Sorin BUDGET ANALYST Unavailable Unavailable Cougler, S Sorin BUDGET ANALYST Unavailable Unavailable Cougler, S Sorin BUDGET ANALYST Unavailable Unavailable Cougler, S Sorin BUDGET ANALYST Unavailable Unavailable Cougler, S Sorin BUDGET ANALYST Unavailable Unavailable Cougler, S Sorin BUDGET ANALYST Unavailable Unavailable Cougler, S Sorin BUDGET ANALYST Unavailable Unavailable Cougler, S Sorin BUDGET ANALYST Unavailable Unavailable Cougler, S Sorin BUDGET ANALYST Unavailable Unavailable Cougler, S Sorin BUDGET ANALYST Unavailable Unavailable Cougler, S Sorin BUDGET ANALYST Unavailable Unavailable Cougler, S Sorin BUDGET ANALYST Unavailable Unavailable Cougler, S Sorin BUDGET ANALYST Unavailable Unavailable Cougler, S Sorin BUDGET ANALYST Unavailable Unavailable Cougler, S Sorin BUDGET ANALYST Unavailable Unavailable Cougler, S Sorin BUDGET ANALYST Unavailable Unavailable Cougler, S Sorin BUDGET ANALYST Unavailable Unavailable Cougler, S Sorin BUDGET ANALYST Unavailable Unavailable Cougler, S Sorin BUDGET ANALYST Unavailable Unavailable Cougler, S Sorin BUDGET ANALYST Unavailable Unavailable Cougler, S Sorin BUDGET ANALYST Unavailable Unavailable Cougler, S Sorin BUDGET ANALYST Unavailable Unavailable Cougler, S Sorin BUDGET ANALYST Unavailable Unavailable Cougler, S Sorin BUDGET ANALYST Unavailable Unavailable Cougler, S Sorin BUDGET ANALYST Unavailable Unavailable Cougler, S Sorin BUDGET ANALYST Unavailable Unavailable Cougler, S Sorin BUDGET ANALYST Unavailable Unavailable Cougler, S Sorin BUDGET ANALYST Unavailable Unavailable Cougler, S Sorin BUDGET ANALYST Unavailable Unavailable Cougler, S Sorin BUDGET ANALYST Unavailable Unavailable Cougler, S Sorin BUDGET ANALYST Unavailable Unavailable Cougler, S Sorin BUDGET ANALYST Unavailable Unavailable Cougler, S Sorin BUDGET ANALYST Unavailable Unavailable Cougler, S Sorin BUDGET ANALYST Unavailable Unavailable Cougler, S Sorin BUDGET ANALYST Unavailable Unavailable Moreau, M Christopher PA-C Unavailable [...] Unavailable Moreau, M Christopher PA-C Unavailable Unavailable Moreua, M Christopher PA-C Unavailable Unavailable Moreau, M [...] YAMILETH, REINIER CARRIE PA Unavailable Unavailable YAMILETH, RIENIER CARRIE PA Unavailable Unavailable YAMILETH, REINIER CARRIE PA Unavailable Unavailable YAMILETH, REINIER CARRIE PA Unavailable Unavailable YAMILETH, REINIER CARRIE PA Unavailable Unavailable Cosmo, Effie FULLER BRUSH MAN Unavailable Unavailable Cosmo, Effie FULLER BRUSH MAN Unavailable Unavailable Cosmo, Effie FULLER BRUSH MAN Unavailable Unavailable Cosmo, Effie FULLER BRUSH MAN Unavailable Unavailable Ocsmo, Effie FULLER BRUSH MAN Unavailable Unavailable Casselberry, Yadira RPA-C Unavailable Unavailable Casselberry, Yadira RPA-C Unavailable Unavailable Casselberry, Yadira RPA-C Unavailable Unavailable Casselberry, Yadira RPA-C Unavailable Unavailable Casselberry, Yadira RPA-C Unavailable Unavailable Casselberry, Yadira RPA-C Unavailable Unavailable Casselberry, Yadira RPA-C Unavailable Unavailable Casselberry, Yadira RPA-C Unavailable Unavailable Casselberry, Yadira RPA-C Unavailable Unavailable Casselberry, Yadira RPA-C Unavailable Unavailable Casselberry, Yadira RPA-C Unavailable Unavailable Casselberry, Yadira RPA-C Unavailable Unavailable Casselberry, Yadira RPA-C Unavailable Unavailable Casselberry, Yadira RPA-C Unavailable Unavailable Casselberry, Yadira RPA-C Unavailable Unavailable Scott, (Remington) Meche [...] Unavailable COURTNEY BLAIR MD Unavailable Unavailable BLAIR, CUORTNEY MD Unavailable Unavailable BLAIR, COURTNEY MD Unavailable [...] Unavailable Unavailable DIMITRIMichelle ARMENTA MD Unavailable Unavailable DIMITRI, Michelle POTTER MD Unavailable Unavailable DIMITRI, Michelle POTTER MD Unavailable Unavailable DIMITRI, Michelle POTTER MD Unavailable Unavailable DIMITRI, Michelle POTTER MD Unavailable Unavailable DIMITRI, Michelle POTTER MD Unavailable Unavailable DIMITRI, Michelle POTTRE MD Unavailable Unavailable DIMITRIMichelle ARMENTA MD Unavailable Unavailable DIMITRI, Michelle POTTER MD Unavailable Unavailable DIMITRI, Michelle POTTER MD Unavailable Unavailable DIMITRI, Michelle POTTER MD Unavailable Unavailable DIMITRIMichelle AMRENTA MD Unavailable Unavailable DIMITRI, Michelle POTTER MD Unavailable Unavailable DIMITRI, Michelle POTTER MD Unavailable Unavailable DIMITRI, Michelle POTTER MD Unavailable Unavailable DIMITRI, Michelle POTTER MD Unavailable Unavailable DIMITRI, Michelle POTTER MD Unavailable Unavailable DIMITRIMichelle ARMENTA MD Unavailable [...] INGRAM MD Unavailable Unavailable JUJU, D AUDREY FULLER BRUSH MAN Unavailable Unavailable ZEGIL, D AUDREY FULLER BRUSH MAN Unavailable Unavailable ZEGIL, D AUDREY FULLER BRUSH MAN Unavailable Unavailable ZENY AHUMADA Unavailable Unavailable Dobrinski, S Deion FULLER BRUSH MAN Unavailable Unavailable Dobrinski, S Deion FULLER BRUSH MAN Unavailable Unavailable Dobrinski, S Deion FULLER BRUSH MAN Unavailable Unavailable Dobrinski, S Deion FULLER BRUSH MAN Unavailable Unavailable Dobrinski, S Deion FULLER BRUSH MAN Unavailable Unavailable Dobrinski, S Deion FULLER BRUSH MAN Unavailable Unavailable Dobrinski, S Deion FULLER BRUSH MAN Unavailable Unavailable Dobrinski, S Deion FULLER BRUSH MAN Unavailable Unavailable Dobrinski, S Deion FULLER BRUSH MAN Unavailable Unavailable Dobrinski, S Deion FULLER BRUSH MAN Unavailable Unavailable Dobrinski, S Deion FULLER BRUSH MAN Unavailable Unavailable Dobrinski, S Deion FULLER BRUSH MAN Unavailable Unavailable DiBella, Dana Albarran MD Unavailable [...] is protected by Article 27-F of the [facility] Public Health law. If you continue you may have access to information: Regarding HIV / AIDS; Provided by facilities licensed or operated by the [facility] Office of Mental Health; or Provided by the [facility] Office for People With Developmental Disabilities. If such information is present, then the following [facility] mandated warning applies: This information has been [...] law may result in a fine or longterm sentence or both. A general authorization for the release of medical or other information is NOT sufficient authorization for further disc losure. Allergies and Adverse Reactions Type Description Substance Reaction Status Data Source(s ) Drug allergy ketorolac ketorolac Confusion U [facility] Drug allergy tramadol Tramadol Urticaria [place] [facility] Drug allergy Penicillins Penicillin rash,itching SV [facility] Food allergy FISH FISH itching,swelling MO [facility] Food allergy fish fish [facility] CLASS PCN (penicillin) PCN (penicillin) [facility] Drug allergy [place] clareadol [facility] Drug allergy Drug allergy Penicillins [facility] Family History Family Member Name Family Member Gender Family Member Status Date o f Status Description Data Source(s) Unknown Condition [facility] Unknown Condition [facility] Unknown Condition [facility] Unknown Condition [facility] Unknown Condition [facility] Unknown Condition [facility] Unknown Condition [facility] Unknown Condition [facility] Unknown Condition [facility] Unknown Condition [facility] Unknown Condition [facility] Unknown Condition [facility] Unknown Condition [facility] Unknown Condition [facility] Encounters Encounter Providers Location Date Indications Data Source(s ) Emergency Attender: Deoin Mclaughlin MD 10:47:00 AM [facility] - 04/14/2020 12:23:00 PM EST [facility] Patient discharged. Emergency Attender: ABHIJEET Whitley: Melba Moreau PA-C 04/04/2020 01:21:00 PM [facility] - 04/04/2020 01:24:00 PM [facility] Patient discharged. Emergency Attender: Deion Mclaughlin MD 05/2020 11:50:00 AM EST - 03/30/2020 12:41:00 PM EST BACK PAIN [facility] l BACK PAIN Patient discharged. Outpatient Attender: Deion VELOZ 03/27/2020 05:50:31 PM EST - 03/27/2020 06:26:09 PM EST [facility] ([facility]) Outpatient Attender: Дмитрий Kyle PAConsultant: COURTNEY ROSENBAUM MD 03/21/2020 11:43:00 AM EST - 03/21/2020 11:43:00 AM [facility] Emergency Attender: DARNELL KAYConsultant: COURTNEY Martinez MD 03/15/2020 04:29:00 PM EST - 03/15/2020 05:45:00 PM [facility] Patient discharged. Emergency Attender: Deion Mclaughlin MD 10:29:00 PM EST - 03/13/2020 01:13:00 AM EST LOW BACK/LEG PAIN [facility] LOW BACK/LEG PAIN Patient discharged. Outpatient Attender: Dayanara ZACARIASCConsultant: PCP NO 03/09/2020 12:59:00 PM EST - 03/09/2020 12:59:00 PM [facility] Outpatient Attender: Martir Wilburn FNPConsultant: PCP NO 03/07/2020 12:49:00 PM EST - 03/07/2020 12:49:00 PM [facility] Emergency Attender: Morales Bauer MD 02/27 08:00:00 PM EST - 02/29/2020 02:11:00 AM EST LOWER BACK AND LEG PAIN [facility] LOWER BACK AND LEG PAIN Patient discharged. Emergency Attender: Meche Chavez MD 02/23 09:46:00 PM EST - 02/25/2020 12:00:00 AM EST BACK PAIN, LEG PAIN [facility] BACK PAIN, LEG PAIN Patient discharged. Emergency Attender: VÍCTOR Piñaant: TOMAS NO 02/24/2020 05:01:00 PM EST - 02/24/2020 06:21:00 PM [facility] Patient discharged. Emergency Attender: CARRIE CARSON PAReferrer: Gutierrez Moreau PA-C 01/21/2020 09:34:00 PM EST - 01/21/2020 09:50:00 PM [facility] Patient discharged. Emergency Attender: Meche Chavez MD 01/02 12:06:00 AM EST - 01/03/2020 02:27:00 AM EST BACK AND LEG PAIN [facility] BACK AND LEG PAIN Patient discharged. Outpatient Attender: Juan Limon MD 12/28/2019 12:56:01 PM EST [facility] Juan Limon MD: [address] [place] [phone], Ph. Attender: Juan Limon MD CT - [facility] 12/28/2019 12:00:00 AM EST [facility] ([facility] Emergency Attender: DARNELL KAYConsultant: PCP NO 11/29/2019 10:52:00 PM EDT - 11/30/2019 12:57:00 AM EDT [facility] Patient discharged. Emergency Attender: CARRIE CARSON PAReferrer: Gutierrez Moreau PA-C 11/28/2019 12:28:00 AM EDT - 11/28/2019 12:46:00 AM EDT [facility] Patient discharged. Outpatient Attender: Juan Limon MD 11/24/2019 02:21:01 PM EDT [facility] Emergency Attender: Deion Pierre MD 10/26 02:16:00 PM EDT - 11/21/2019 04:23:00 PM EDT BACK PAIN [facility] BACK PAIN Patient discharged. Outpatient Attender: ZENY Damicoant: PCP NO 2019 08:00:17 AM EDT - 2019 11:27:00 AM EDT [facility] Patient discharged. Emergency Attender: NIMCO NGUYEN MDConsultant: PCP NO 11/06/2019 10:45:00 PM EDT - 11/07/2019 12:24:00 AM EDT [facility] Patient discharged. Emergency Attender: AUDREY [facility] ED-ED 10/2019 05:03:00 PM EDT - 10/03/2019 05:51:00 PM EDT BACK AND LEG PAIN [facility] BACK AND LEG PAIN Patient discharged. Emergency Attender: Kevin GANT 10/01 12:26:00 AM EDT - 10/02/2019 01:06:00 AM EDT [facility] Patient discharged. Outpatient Attender: Juan PHELAN 10/01/2019 10:46:01 AM EDT [facility] Emergency Attender: Morales Bauer MDAttender: Deion patel MD 09/30/2019 05:13:00 PM EDT - 09/30/2019 07:54:00 PM EDT BACK PAIN [facility] BACK PAIN Patient discharged. Outpatient Attender: Juan PHELAN 08/31/2019 10:57:02 AM EDT [facility] Emergency Attender: Morales Bauer MD 08/29 07:30:00 PM EDT - 08/30/2019 08:56:00 PM EDT BACK PAIN [facility] BACK PAIN Patient discharged. Emergency Attender: Sorin Blair BUDGET ANALYST ED-ED 08/27 02:40:00 PM EDT - 08/28/2019 03:45:00 PM EDT LOWER BACK PAIN [facility] LOWER BACK PAIN Patient discharged. Emergency Attender: Yadira Moeller RPA-CReferrer: Gutierrez Moreau PA-C 08/27/2019 04:47:00 PM EDT - 08/27/2019 05:15:00 PM EDT [facility] Patient discharged. Outpatient Attender: Juan PHELAN 08/19/2019 09:03:00 AM EDT [facility] Outpatient Attender: Juan PHELAN 08/18/2019 12:50:00 PM EDT [facility] Outpatient Attender: Juan PHELAN 08/18/2019 09:59:01 AM EDT [facility] Outpatient Attender: Juan PHELAN 08/18/2019 09:45:00 AM EDT [facility] Outpatient Attender: Juan PHELAN 08/17/2019 03:14:00 PM EDT [facility] Emergency Attender: Deion Pierre MD 07/25 10:08:00 PM EDT - 08/07/2019 11:52:00 PM EDT BACKPAIN [facility] BACKPAIN Patient discharged. Outpatient Attender: Juan Limon MD FP 08/03/2019 07:40:49 PM EDT [facility] Emergency Attender: JAKE QUIROS MDConsultant: PCP NO 07/30/2019 08:11:00 PM EDT - 07/30/2019 09:16:00 PM EDT [facility] Patient discharged. Outpatient Attender: MORALES WIGGINSConsultant: PCP NO 06/09/2019 08:50:00 AM EDT - 06/09/2019 08:50:00 AM EDT [facility] Emergency Attender: Deion Pierre MD 05/25 02:47:00 PM EDT - 06/07/2019 03:40:00 PM EDT BACK PAIN [facility] BACK PAIN Patient discharged. Emergency Attender: ABHIJEET Payneerrer: Melba Moreau PA-C 05/24/2019 09:09:00 PM EDT - 05/24/2019 09:43:00 PM EDT [facility] Patient discharged. Outpatient Attender: Juan Limon MD 05/06/2019 11:22:53 AM EDT [facility] Emergency Attender: CARRIE CARSON PAReferrer: Gutierrez Moreau PA-C 05/05/2019 06:50:00 PM EDT - 05/05/2019 07:19:00 PM EDT [facility] Patient discharged. Emergency Attender: Silvio Hicks MD 11/2019 02:52:00 PM EDT - 05/04/2019 04:59:00 PM EDT BACK PAIN [facility] BACK PAIN Patient discharged. Emergency Attender: JAKE QUIROS MDConsultant: PCP NO 05/02/2019 12:43:10 PM EDT - 05/02/2019 03:26:00 PM EDT [facility] Patient discharged. Emergency Attender: Deion Pierre MD 08/2019 03:53:00 PM EST - 05/01/2019 04:50:00 PM EST BACK PAIN [facility] BACK PAIN Patient discharged. Emergency Attender: SANDY INGRAM MDConsultant: PCP NO 04/30/2019 06:21:00 PM EST - 04/30/2019 09:23:00 PM EST [facility] Patient discharged. Emergency Attender: MELBA GARCIA PAReferrer: Jax Moreau PA-C 03/04/2019 06:16:00 PM EST - 03/04/2019 06:40:00 PM [facility] Patient discharged. Emergency Attender: DEISY MONTOYAReferrer: Melba Moreau PA-C 09/01/2018 11:06:00 PM EDT - 09/01/2018 11:32:00 PM [facility] Emergency Attender: CARRIE GANT 09:54:00 PM EDT - 07/20/2017 10:15:00 PM [facility] Emergency Attender: Karl NATARAJAN EMERGENCY ROOM-ER 0 03/25/2017 02:05:00 PM EST - 03/22/2017 10:00:00 AM [facility] Medications Medication Brand Name Start Date [...] MAXIMUM DAILY DOSE = 2 SOLD: 03/21/2020 [facility] Diclofenac Sodium 0.01 MG/MG Topical Gel Diclofenac Sodium 03/21/2020 12:00:00 AM EST active [facility] ([facility]) Methylprednisolone 16 MG Oral Tablet Methylprednisolone 12:00:00 AM EST ORAL active [facility] ([facility]) Acetaminophen 325 MG / Hydrocodone Bitartrate 10 MG Or al Tablet Hydrocodone-Acetaminophen 03/21/2020 12:00:00 AM EST ORAL completed [facility] ([facility]) quetiapine 300 MG Oral Tablet QUETIAPINE FUMARATE 03/21/2020 12: 00:00 AM EST tablet 6 TAKE TWO TABLETS BY MOUTH AT BED TIME NEEDED TAKE TWO TABLETS BY MOUTH AT BEDTIME NEEDED SOLD: 03/21/2020 [facility] 4 mg 03/16/2020 12:00:00 AM EST tablets,dose pack 21 DIRECTED DIRECTED SOLD: 03/21/2020 [facility] 5-325 mg 03/13/2020 12:00:00 AM [...] DOSE = ONE TABLET SOLD: 03/09/2020 [facility] Prazosin 1 MG Oral Capsule Prazosin HCL 03/09/2020 12:00:00 AM EST ORAL active [facility] ([facility]) 10-325 mg 03/07/2020 12:00:00 AM EST tablet 2 TAKE ONE TABLET BY MOUTH EVERY DAY NEEDED FOR PAIN MAXIMUM DAILY DOSE = 1 TAKE ONE TABLET BY MOUTH EVERY DAY NEEDED FOR PAIN MAXIMUM DAILY DOSE = 1 SOLD: 03/07/2020 [facility] Acetaminophen 300 MG / Hydrocodone Bitartrate 10 MG Or al Tablet [Vicodin] Vicodin HP 03/07/2020 12:00:00 AM EST active [facility] ([facility]) 10 mg 02/03/2020 12:00:00 AM EST tablet [...] TABLETS BY MOUTH AT BEDTIME SOLD: 02/08/2020 [facility] 50 mg 12/03/2019 12:00:00 AM EDT tablet 60 TAKE TWO TABLETS BY MOUTH AT BEDTIME TAKE TWO TABLETS BY MOUTH AT BEDTIME SOLD: 12/04/2019 [facility] quetiapine 100 MG Oral Tablet QUETIAPINE FUMARATE 11/30/2019 12: 00:00 AM EDT tablet 5 TAKE ONE TABLET BY MOUTH AT BEDT [place] NEEDED TAKE ONE TABLET BY MOUTH AT BEDTIME NEEDED SOLD: 11/30/2019 [facility] quetiapine 100 MG Oral Tablet QUETIAPINE FUMARATE 11/22/2019 12: 00:00 AM EDT tablet 5 TAKE ONE TABLET BY MOUTH EVERY E VENING TAKE ONE TABLET BY MOUTH EVERY EVENING SOLD: 11/22/2019 [facility] quetiapine 100 MG Oral Tablet QUETIAPINE FUMARATE 11/08/2019 12: 00:00 AM EDT tablet 5 TAKE ONE TABLET BY MOUTH EVERY 1 2 HOURS TAKE ONE TABLET BY MOUTH EVERY 12 HOURS SOLD: 11/08/2019 [facility] 10 mg 11/05/2019 12:00:00 AM EDT tablet 30 TAKE ONE TABLET BY MOUTH AT BEDTIME NEEDED - MAXIMUM DAILY DOSE = 1 TAKE ONE TABLET BY MOUTH AT BEDTIME NEEDED - MAXIMUM DAILY DOSE = 1 SOLD: 11/05/2019 [facility] 10-325 mg 11/05/2019 12:00:00 AM EDT tablet 180 TAKE ONE TABLET BY MOUTH EVERY 4 HOURS - MAXIMUM DAILY DOSE = 6 TAKE ONE TABLET BY MOUTH EVERY 4 HOURS - MAXIMUM DAILY DOSE = 6 SOLD: 11/05/2019 [facility] 300 mg 11/04/2019 12:00:00 AM EDT capsule 180 TAKE TWO CAPSULES BY MOUTH THREE TIMES A DAY - MAXIMUM DAILY DOSE = 6 TAKE TWO CAPSULES BY MOUTH THREE TIMES A DAY - MAXIMUM DAILY DOSE = 6 SOLD: 11/04/2019 [facility] 10-325 mg 10/07/2019 12:00:00 AM EDT [...] 08/30/2019 07:48:09 PM EDT 800 MG active [facility] Ibuprofen 800 MG Oral Tablet Ibuprofen 08/30/2019 07:48:09 PM EDT 800 MG active [facility] Ibuprofen 800 MG Oral Tablet Ibuprofen 08/30/2019 07:48:09 PM EDT 800 MG [facility] Ibuprofen 800 MG Oral Tablet Ibuprofen 08/30/2019 07:48:09 PM EDT 800 MG active [facility] Ibuprofen 800 MG Oral Tablet Ibuprofen 08/30/2019 07:48:09 PM EDT 800 MG [facility] Ibuprofen 800 MG Oral Tablet Ibuprofen 08/30/2019 07:48:09 PM EDT 800 MG [facility] Ibuprofen 800 MG Oral Tablet Ibuprofen 08/30/2019 07:48:09 PM EDT 800 MG active [facility] Ibuprofen 800 MG Oral Tablet Ibuprofen 08/30/2019 07:48:09 PM EDT 800 MG [facility] 10-325 mg 08/11/2019 12:00:00 AM EDT tablet [...] 11:08:32 PM EDT 300 MG active [facility] quetiapine 300 MG Oral Tablet Quetiapine (Seroquel) 30 0 mg Tablet Quetiapine (Seroquel) 300 mg Tablet 08/07/2019 11:08:32 PM EDT 300 MG active [facility] quetiapine 300 MG Oral Tablet [Seroquel] Quetiapine Quetiapi ne 08/07/2019 11:08:32 PM EDT 300 MG active [facility] quetiapine 300 MG Oral Tablet [Seroquel] Quetiapine (S eroquel) 300 mg Tablet Quetiapine (Seroquel) 300 mg Tablet 08/07/2019 11:08:32 PM EDT 300 MG active [facility] quetiapine 300 MG Oral Tablet Quetiapine (Seroquel) 30 0 mg Tablet Quetiapine (Seroquel) 300 mg Tablet 08/07/2019 11:08:32 PM EDT 300 MG active [facility] quetiapine 300 MG Oral Tablet Quetiapine (Seroquel) 30 0 mg Tablet Quetiapine (Seroquel) 300 mg Tablet 08/07/2019 11:08:32 PM EDT 300 MG active [facility] quetiapine 300 MG Oral Tablet Quetiapine (Seroquel) 30 0 mg Tablet Quetiapine (Seroquel) 300 mg Tablet 08/07/2019 11:08:32 PM EDT 300 MG active [facility] quetiapine 300 MG Oral Tablet Quetiapine (Seroquel) 30 0 mg Tablet Quetiapine (Seroquel) 300 mg Tablet 08/07/2019 11:08:32 PM EDT 300 MG active [facility] quetiapine 300 MG Oral Tablet [Seroquel] Quetiapine (S eroquel) 300 mg Tablet Quetiapine (Seroquel) 300 mg Tablet 08/07/2019 11:08:32 PM EDT 300 MG active [facility] Cyclobenzaprine hydrochloride 10 MG Oral Tablet [...] pack 05/01/2019 04:25:45 PM EST 0 completed [facility] Methylprednisolone Methylprednisolone (Medrol (Jt)) 4 mg tablets,dose pack Methylprednisolone (Medrol (Jt)) 4 mg tablets,dose pack 05/01/2019 04:25:45 PM EST 0 completed [facility] Methylprednisolone Methylprednisolone (Medrol (Jt)) 4 mg tablets,dose pack Methylprednisolone (Medrol (Jt)) 4 mg tablets,dose pack 05/01/2019 04:25:45 PM EST 0 completed [facility] Methylprednisolone Methylprednisolone (Medrol (Jt)) 4 mg tablets,dose pack Methylprednisolone (Medrol (Jt)) 4 mg tablets,dose pack 05/01/2019 04:25:45 PM EST 0 completed [facility] Methylprednisolone Methylprednisolone (Medrol (Jt)) 4 mg tablets,dose pack Methylprednisolone (Medrol (Jt)) 4 mg tablets,dose pack 05/01/2019 04:25:45 PM EST 0 completed [facility] Methylprednisolone Methylprednisolone 05/01/2019 04:25:45 PM EST 0 completed [facility] Methylprednisolone Methylprednisolone (Medrol (Jt)) 4 mg tablets,dose pack Methylprednisolone (Medrol (Jt)) 4 mg tablets,dose pack 05/01/2019 04:25:45 PM EST 0 completed [facility] Methylprednisolone Methylprednisolone 05/01/2019 04:25:45 PM EST 0 active [facility] Methylprednisolone Methylprednisolone 05/01/2019 04:25:45 PM EST 0 active [facility] Methylprednisolone Methylprednisolone (Medrol (Jt)) 4 mg tablets,dose pack Methylprednisolone (Medrol (Jt)) 4 mg tablets,dose pack 05/01/2019 04:25:45 PM EST 0 completed [facility] Methylprednisolone Methylprednisolone (Medrol (Jt)) 4 mg tablets,dose pack Methylprednisolone (Medrol (Jt)) 4 mg tablets,dose pack 05/01/2019 04:25:45 PM EST 0 completed [facility] Methylprednisolone Methylprednisolone 05/01/2019 04:25:45 PM EST 0 completed [facility] 10 mg 04/09/2019 12:00:00 AM EST [...] type / Coverage type Policy ID Covered constitution party ID Covered constitution party's relationship to odell Policy Odell Plan Information [facility] [id number] SP [id number] [facility] MEDICAID [id number] S [id number] [facility](MCAID) O [id number] S [id number] Medicaid Medicaid [id number] Self [id number] [facility] COMMUNTY PLAN [id number] [facility] PLAN [id number] 18 [id number] [facility] COMMUNITY PLAN XIX [id number] 18 [id number] [facility] AMERICHOICE XIX -HMO [id number] 18 [id number] Self Pay P UNAVAILABLE S UNAVAILA BLE [facility] COMMUNITY PLAN XIX -RECURRING [id number] 18 [id number] [facility] O [id number] S [id number] [facility](MCAID) O [id number] S [id number] [facility] COMMUNITY [id number] S [id number] [facility] MEDICAID [id number] S [id number] [facility] COMMUNITY PLAN MCDHMO [id number] SP [id number] MEDICAID [id number] SP [id number] [facility] COMMUNITY PLAN MCDHMO [id number] SP [id number] [facility] MEDICAID [id number] S [id number] [facility] MEDICAID [id number] S [id number] [facility] COMMUNITY PL [id number] S [id number] MEDICAID [id number] S [id number] [facility] COMMUNITY PLAN XIX [id number] 18 [id number] [facility] COMMUNITY PLAN XIX [id number] 18 [id number] MEDICAID -O/P EMERGENCY ROOM [id number] 18 [id number] [facility] MEDICAID [id number] S [id number] [facility] COMMUNITY PLAN MCDHMO [id number] SP [id number] [facility] COMMUNITY PLAN MCDHMO [id number] SP [id number] [facility] [facility] [employer] DEPT [id number] SP [id number] SELF PAY ONLY [id number] SP [id number] UN[facility] COMMUNITY PLAN MCDHMO [id number] SP [id number] [facility] COMMUNITY PLAN MCDHMO [id number] SP [id number] Medicaid S [id number] S [id number] Managed Care - Community Plan [facility] P [id number] S [id number] [facility] MEDICAID [facility] HMO [id number] S [id number] UN[facility] WELL 4 ME MARY CARMEN HMO [id number] S [id number] PRIVATE PAY CO UNAVAILABLE 18 UNAVAI LABLE [facility] [place] [id number] 18 [id number] UN[facility] AMERICHOICE XIX -HMO [id number] 18 [id number] MEDICAID -O/P [id number] Private Pay Commercial [id number] Self [id number] [facility] COMMUNITY PLAN [id number] 18 [id number] UN[facility] COMMUNITY PLAN MCDHMO [id number] SP [id number] [facility] MEDICAID MARY [place]MEN HMO [id number] S [id number] SELF PAY ONLY [id number] SP [id number] UN[facility] COMMUNITY PLAN MCDHMO [id number] SP [id number] Unhc Community Plan Medicaid Self UN[facility] COMMUNITY PLAN MC [id number] 18 [id number] UN[facility] COMMUNITY PLAN MCDHMO [id number] SP [id number] Medicaid S [id number] S [id number] Managed Care - Community Plan [facility] P [id number] S [id number] [facility] [id number] SP [id number] [facility] [id number] SP [id number] Medicaid P [id number] S [id number] [facility](MCAID) O [id number] S [id number] [facility] [id number] S [id number] SELF PAY UNAVAILABLE SP UNAVAILA BLE UHC I [id number] Self [id number] MEDICAID MARY CARMEN [id number] S [id number] [id number] SP [id number] [place] [employer] DEP [id number] SP [id number] [facility] MARY CARMEN [id number] SP [id number] MEDICAID M [id number] Self [id number] AMERICHOICE UNHC XIX PHY -HMO [id number] 18 [id number] Medicaid S [id number] S [id number] UN[facility] AMERICHOICE XIX HMO [id number] 18 [id number] EXCELL I [id number] Self [id number] MEDICAID - CLINIC [id number] MEDICAID APPLYING UNAVAILABLE UNAVAILABLE SELF-PAY UNAVAILABLE S UNAVAILA BLE BLUE CROSS POLK PLAN [id number] SP [id number] BLUE CHOICE OPTION O [id number] S [id number] MEDICAID W [id number] S [id number] BLUE CROSS BLUE SHIELD-O/P [id number] 18 [id number] SELF PAY SP UNAVAILABLE S UNAVAILA BLE [facility] [id number] S [id number] BLUE CROSS BLUE SHIELD-PHYSICIAN [id number] MEDICAID P [id number] S [id number] UN[facility] COMMUNITY PLAN [facility] [id number] SP [id number] Problems, Conditions, and Diagnoses Code Display Name Description Problem Type Effective Dates Data Source(s) 43145211 Degeneration of thoracic intervertebral disc Degeneration of thoracic intervertebral disc Problem 03/09/2020 12:00:00 AM EST [facility] ([facility]) 13719518 Pain in the coccyx Pain in the coccyx Problem 12:00:00 AM EST [facility] ([facility]) 527862127 Clinical finding Clinical Finding Problem 12/09/2019 06 :28:26 PM EDT [facility] ([facility]) 723640981 SNOMED CT Concept SNOMED CT Concept Problem 12/08 06:28:26 PM EDT [facility] ([facility]) 70480439 Osteoporosis Osteoporosis Problem 12/09/2019 06:28:26 P M EDT [facility] ([facility]) 114056887 Arthropathy Arthropathy Problem 12/09/2019 06:28:26 PM EDT [facility] ([facility]) 46123229 Chronic obstructive lung disease Chronic Obstruc tive Lung Disease Problem 12/09/2019 06:28:26 PM EDT [facility] ([facility]) 179771266 Family problems Family problems Problem 06/09/2019 12:0 0:00 AM [facility] 97214897 Antisocial personality disorder Antisocial perso nality disorder Problem 06/09/2019 12:00:00 AM EDT [facility] ([facility]) Z79.899 Other half-way (current) drug therapy O [facility]ER [place] [employer] JUDGE (CURRENT) DRUG THERAPY Diagnosis 04/04/2020 01:21:00 PM [facility] G89.29 Other chronic pain OTHER CHRONIC PAIN Diagnosis 10/2020 01:21:00 PM [facility] M54.41 Lumbago with sciatica, right side LUMBAGO WITH S CIATICA, RIGHT SIDE Diagnosis 04/04/2020 01:21:00 PM [facility] M54.5 Low back pain LOW BACK PAIN Diagnosis 04/04/2020 01:21:00 PM [facility] 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, thoracic region Other intervertebral disc degeneration, thoracic region Diagnosis 02/25 11:43:00 AM [facility] 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, lumbar region Other intervertebral disc displacement, lumbar region Diagnosis 03/21/2020 11:43:00 AM [facility] [id number] Exposure to other specified factors, ini tial encounter Exposure to other specified factors, initial encounter Diagnosis 03/15/2020 04:29:00 PM [facility] G8929 Other chronic pain Other chronic pain Diagnosis 04:29:00 PM [facility] [id number] Strain of muscle, fascia and tendon of l ower back, initial encounter Strain of muscle, fascia and tendon of lower back, initial encounter Diagnosis 03/15/2020 04:29:00 PM [facility] M545 Low back pain Low back pain Diagnosis 03/15/2020 04:29:00 PM [facility] Y[address] or not applicable Unspecified place or not applicable Diagnosis 03/15/2020 04:29:00 PM [facility] K4090 Unilateral inguinal hernia, without obstruction or gangrene, not specified as recurrent Unilateral inguinal hernia, without obst ruction or gangrene, not specified as recurrent Diagnosis 03/09/2020 12:59:00 PM [facility] N99245 Personal history of traumatic brain inju ry Personal history of traumatic brain injury Diagnosis 03/09/2020 12:59:00 PM [facility] C51708 Nicotine dependence, cigarettes, uncompl icated Nicotine dependence, cigarettes, uncomplicated Diagnosis 03/09/2020 12:59:00 PM [facility] R0602 Shortness of breath Shortness of breath Diagnosis 0 03/09/2020 12:59:00 PM [facility] R0789 Other chest pain Other chest pain Diagnosis 03/09/2020 12 :59:00 PM [facility] G4700 Insomnia, unspecified Insomnia, unspecified Diagnosis 03/09/2020 12:59:00 PM [facility] F6081 Narcissistic personality disorder Narcissistic p ersonality disorder Diagnosis 03/09/2020 12:59:00 PM [facility] F6381 Intermittent explosive disorder Intermittent explosive disorder Diagnosis 03/09/2020 12:59:00 PM [facility] F602 Antisocial personality disorder Antisocial personality disorder Diagnosis 03/09/2020 12:59:00 PM [facility] M533 Sacrococcygeal disorders, not elsewhere classified Sacrococcygeal disorders, not elsewhere classified Diagnosis 03/09/2020 12:59:00 PM [facility] 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 Diagnosis 02/24/2020 05:01:00 PM [facility] L02093 Personal history of nicotine dependence Personal history of nicotine dependence Diagnosis 02/24/2020 05:01:00 PM [facility] Z8673 Personal history of transien t ischemic attack (TIA), 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 transient ischemic attack (TIA), and cerebral infarction without residual deficits Diagnosis 02/24/2020 05:01:00 PM [facility] Z79.891 [facility] (current) use of 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) USE OF OPIATE ANALGESIC Diagnosis 01/21/2020 09:34:00 PM [facility] F17.210 Nicotine dependence, cigarettes, uncompl icated NICOTINE DEPENDENCE, CIGARETTES, UNCOMPLICATED Diagnosis 01/21/2020 09:34:00 PM [facility] F5109 Other insomnia not due to a substance or known physiological condition Other insomnia not due to a substance or known physiological condition Diagnosis 11/29/2019 10:52:00 PM [facility] M51.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 disc disorders with radic ulopathy, lumbar region INTERVERTEBRAL DISC DISORDERS W RADICULOPATHY, LUM Diagnosis 05/2019 12:28:00 AM [facility] Z0271 Encounter for disability determination E ncounter for disability determination Diagnosis 2019 12:43:00 PM [facility] W47317 Nicotine dependence, unspecified, uncomp licated Nicotine dependence, unspecified, uncomplicated Diagnosis 11/06/2019 10:45:00 PM [facility] F419 Anxiety disorder, unspecified Anxiety disorder, unspec ified Diagnosis 11/06/2019 10:45:00 PM [facility] 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 Diagnosi s 11/06/2019 10:45:00 PM [facility] Y92.[address] the place of o ccurrence of the external cause OTH PLACES THE PLACE OF OCCURRENCE OF THE EXTER Diagnosis 04/2019 04:47:00 PM [facility] X58.XXXA Exposure to other specified factors, ini tial encounter EXPOSURE TO OTHER SPECIFIED FACTORS, INITIAL ENCOU Diagnosis 08/27/2019 04:47:00 P M [facility] Y93.89 Activity, other specified ACTIVITY, OTHER SPECIFIED Di agnosis 08/27/2019 04:47:00 PM [facility] S39.012A Strain of muscle, fascia and tendon of l ower back, initial encounter STRAIN OF MUSCLE, FASCIA AND TENDON OF LOWER BACK, Diagnosis 04/2019 04:47:00 PM [facility] B253DAM Overexertion from strenuous movement or load, initial encounter Overexertion from strenuous movement or load, initial encounter Diagnosis 07/30/2019 08:11:00 PM [facility] M5441 Lumbago with sciatica, right side Lumbago with s ciatica, right side Diagnosis 07/30[facility]16 Radiculopathy, lumbar region Radiculopathy, lumbar reg ion Diagnosis 07/30/2019 08:11:00 PM [facility] 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, lumbar region Unspecified inflammatory spondylopathy, lumbar region Diagnosis 07/30/2019 08:11:0 0 PM [facility] F250 Schizoaffective disorder, bipolar type S chizoaffective disorder, bipolar type Diagnosis 07/30/2019 08:11:00 PM [facility] F1210 Cannabis abuse, uncomplicated Cannabis abuse, uncompli cated Diagnosis 06/09/2019 08:50:00 AM [facility] Z630 Problems in relationship with spouse or partner Problems in relationship with spouse or partner Diagnosis 06/09/2019 08:50:00 AM [facility] F51.04 Psychophysiologic insomnia PSYCHOPHYSIOLOGIC INSOMNIA Diagnosis 05/24/2019 09:09:00 PM [facility] M54.16 Radiculopathy, lumbar region RADICULOPATHY, LUMBAR REG ION Diagnosis 05/24/2019 09:09:00 PM [facility] G47.00 Insomnia, unspecified INSOMNIA, UNSPECIFIED Diagnosis 05/05/2019 06:50:00 PM [facility] Z760 Encounter for issue of repeat prescripti on Encounter for issue of repeat prescription Diagnosis 04/30/2019 06:21:00 PM [facility] F5104 Psychophysiologic insomnia Psychophysiologic insomnia Diagnosis 04/30/2019 06:21:00 PM [facility] M549 Dorsalgia, unspecified Dorsalgia, unspecified Diagnosi s 04/30/2019 06:21:00 PM [facility] M25.551 Pain in right hip PAIN IN RIGHT HIP Diagnosis 03/04 06:16:00 PM [facility] M54.9 Dorsalgia, unspecified DORSALGIA, UNSPECIFIED Diagnosi s 03/04/2019 06:16:00 PM [facility] Surgeries/Procedures Procedure Description Date Indications Data Source(s) Brief Emotional/Behav Assessment W/ Scoring Doc Per Standard Inst 03/09/2020 12:00:00 AM [facility] ([facility]) Admin Patient Focused Health Risk Assessment Instrument 03/09/2020 12:00:00 AM [facility] ([facility]) CT Abd/pel w/o contrast 02/24/2020 10:42:00 PM [facility] CT Abd/pel w/o contrast 02/24/2020 10:42:00 PM [facility] CT Abd/pel w/o contrast 02/24/2020 10:42:00 PM [facility] CT Abd/pel w/o contrast 02/24/2020 10:42:00 PM [facility] electrocardiogram, routine ECG, 12 leads min 0 12:00:00 AM [facility] ([facility]) Radiography of sacrococcygeal spine (procedure) 2019 11:25:00 PM [facility] Radiography of sacrococcygeal spine (procedure) 2019 11:25:00 PM [facility] Radiography of sacrococcygeal spine (procedure) 2019 11:25:00 PM [facility] Radiography of sacrococcygeal spine (procedure) 2019 11:25:00 PM [facility] Radiography of sacrococcygeal spine (procedure) 2019 11:25:00 PM [facility] Radiography of sacrococcygeal spine (procedure) 2019 11:25:00 PM [facility] Radiography of sacrococcygeal spine (procedure) 2019 11:25:00 PM [facility] Radiography of sacrococcygeal spine (procedure) 2019 11:25:00 PM [facility] Radiography of sacrococcygeal spine (procedure) 2019 11:25:00 PM EDT [facility] CT L-Spine without contrast 05/04/2019 03:55:00 PM EDT [facility] CT L-Spine without contrast 05/04/2019 03:55:00 PM EDT [facility] CT L-Spine without contrast 05/04/2019 03:55:00 PM EDT [facility] CT L-Spine without contrast 05/04/2019 03:55:00 PM EDT [facility] CT L-Spine without contrast 05/04/2019 03:55:00 PM EDT [facility] CT L-Spine without contrast 05/04/2019 03:55:00 PM EDT [facility] CT L-Spine without contrast 05/04/2019 03:55:00 PM EDT [facility] CT L-Spine without contrast 05/04/2019 03:55:00 PM EDT [facility] CT L-Spine without contrast 05/04/2019 03:55:00 PM EDT [facility] CT L-Spine without contrast 05/04/2019 03:55:00 PM EDT [facility] CT L-Spine without contrast 05/04/2019 03:55:00 PM T [facility] Results ID Date Data Source [id number] 04/14/2020 12:13:00 PM EST [facility] ED Physician Documentation NAME: JUAN SPARKS : 1975 AGE: 44 MR#: [id number] SERVICE DATE: 04/14/[address]: Deion Mclaughlin MD PRIMARY CARE DR: Dayanara Green PA-C ROOM#: HPI (Adult, General) General Chief Complaint: Musculoskeletal Stated Complaint: BACK PAIN,RIGHT HIP PAIN Resident LT, travel outisde home, exposure to hot tubs:: No Time Seen by Provider: 04/14/20 11:55 Source: patient Exam Limitations: no limitations History of Present Illness Initial Comments: 44-year-old white male complaining of back pain and right hip pain. Patient has achronic history of back and hip pain. There is been no recent injury or trauma. There is no numbness or weakness. No incontinence of urine or stool. No abdominal pain no nausea no vomiting no fever no chills. No urinary symptoms. Patient states that of his pain medication been in the process of trying to arrange for pain management physician. Past Medical History Past Medical History: Nursing [...] TIDPRN PRN 01/10/16 11/21/19 11/20/19 History hydrocodone-acetaminophen [Gleason 1 ea PO Q4HPRN PRN 01/10/16 11/21/19 [...] Yes Pain Assessment Pain Location: Lower back right hip Pain Description: Chronic and Aching Pain Intensity: 5 Pain Scale Used: Numeric Scale Pain Radiation Location: None ER plan Plan of care and ER [...] Surgical History (Updated 08/18/18 @ 11:54 by [facility] [place]) History of - surgery (Surgical) Hx of [...] of left inguinal hernia repair Family History O ther Hearing problem Social History Does the Patient have a Healthcare Proxy: No Does Patient have a DNR?: No Does Patient have a Living Will?: No Hx Recent Travel (where): No Smoking Status: Current every day smoker Sickle cell No Sickle Cell Screening:: Not indicated ROS Review of Systems Constitutional: Denies fever, chills and weakness Respiratory: Denies cough and SOB Gastrointestinal: Denies nausea, vomiting and abdominal pain Genitourinary-Male: Denies dysuria, frequency and incontinence Musculoskeletal: Reports back pain Neurologic: Denies weakness, numbness and headache Psychiatric: Reports No Symptoms/Complaints Allergic/Immunologic: Reports No Symptoms/Complaints Physical Exam General Physical Exam Narrative: White male no acute distress Limitations: no limitations General appearance: alert and in no apparent distress Head Head exam: Present atraumatic, normocephalic and normal inspection Eye Eye exam: Present normal apperance ENT ENT exam: Present mucous membranes moist Neck Neck exam: Present normal inspection and full ROM Extremities Exam Extremities exam: Absent pedal edema Back Exam Back exam: Present paraspinal tenderness (Right paralumbar tenderness); Absent vertebral tenderness Neurological Exam Neurological exam: Present alert and oriented X3 Psychiatric Psychiatric exam: Present normal affect and normal mood Skin Skin exam: Present warm, dry, intact and normal color; Absent rash Vital Signs Vital Signs: Vital Signs 04/14/20 11:23 Temperature 98.0 F Pulse Rate 94 Respiratory Rate 16 Blood Pressure 104/70 O2 Sat by Pulse Oximetry 97 MDM (comprehensive) Medical Decision Making Free Text/Narative:: 44-year-old white male with chronic back pain. Patient states he is unable to get his pain medication from his medical provider. And has upcoming appointment with pain management. I have seen patient twice before in the past explained to him that he needs to obtain his pain medication from her primary care doctor or pain specialist. We will give 1 dose of Gleason in ED for pain today. I did try to call his doctor's office however I was unable to speak personally with anyone in the office Instructed to follow-up with his PMD and continue his appointment with pain specialist Plan Visit Medications Administered ED medications:: Medications Discontinued Medications Generic Name Dose Route Start Last Admin Trade Name Freq PRN Reason Stop Dose Admin Hydrocodone Bitart/Acetaminophen 1 tab 04/14/20 12:12 04/14/20 12:21 Hydrocodone/Apap 5/325mg Tablet PO 04/14/20 12:13 1 tab 1T ONE Administration Discharge Plan Admission/Discharge Dx Primary DC Diagnosis: Chronic back pain ED Provider: Deion Mclaughlin ED Status: Discharged Time Seen by Provider: 04/14/20 11:55 Triaged At: 04/14/20 10:47 Condition Condition: Stable Discharge Detail Disposition: Home, Self-Care Med Rec New Prescriptions: No Action gabapentin 300 MG capsule 900 mg PO TID RF: 0 hydrocodone-acetaminophen [Gleason] 10-325 mg tablet 1 ea PO Q4HPRN [...] 3 Discharge Education Printouts: Chronic Back Pain (DC) Medications Medication reconciliation performed by provider at discharge: Yes Follow Up Care/Instructions Diet/Activity/Wound Care..: Continue present medication gabapentin baclofen Call your primary care provider about medication renewal Follow-up with pain specialist for evaluation for pain medication *Discharge Patient* Discharge Orders: Discharge Order (Routine); Ordered 04/14/20 Ordered By: Deion Mclaughlin Discharge Date/Time: 04/14/20 12:23 Interventions Interventions: ED Discharge Instructions Last Done: 04/14/20 12:23 ED Musculoskeletal Last Done: 04/14/20 11:23 Report Signers: <Electronically signed by Deion Mclaughlin MD> Deion Mclaughlin MD 04/14/20 1318 Deion Mclaughlin MD SIGNATURE DA Report Cosigners: D: SAMMIE 04/14/20 1213 T: SUZANNAMI 04/14/20 1213 CC: Dayanara Green Name Value Range Interpretation Code Description Data Tete rce(s) Supporting Document(s) ID Date Data Source [id number] 04/04/2020 07:16:00 PM [facility] Patient: JUAN SPARKS Observation Report - Physicians/[facility].VisitID: [id number] [place] [address] [phone], MRegistration Date/Time: 04/04/2020 11:56 Weight:56.6 kg (S). [...] rce(s) Supporting Document(s) ID Date Data Source [id number] 03/30/2020 12:08:00 PM [facility] ED Physician Documentation NAME: JUAN SPARKS : 1975 AGE: 44 MR#: [id number] SERVICE DATE: 03/30/[address]: Deion Mclaughlin [...] PRN 01/10/16 11/21/19 11/20/19 History hydrocodone- acetaminophen [Gleason 1 ea PO Q4HPRN PRN 01/10/16 11/21/19 [...] Surgical History (Updated 08/18/18 @ 11:54 by [facility] [place]) History of - surgery (Surgical) Hx of [...] 900 mg PO TID RF: 0 hydrocodone-acetaminophen [Gleason] 10-325 mg tablet 1 ea PO Q4HPRN [...] Mclaughlin MD SIGNATURE DA Report Cosigners: D: SAMMIE 03/30/20 1208 T: SAMMIE 03/30/20 1208 CC: Dayanara Green Name Value Range Interpretation Code Description Data Tete rce(s) Supporting Document(s) ID Date Data Source [id number] 03/16/2020 01:51:00 PM [facility] [address] [place] [address] PHONE: [phone] FAX: [phone] Name .................. : BRIDGER Breen Acct Number.................. : [id number] ROOM. ................. : TR-08 MR Number ................... : [id number] Stay type ............. : E/R Discharge Date......... ... : 03/15/20 Admit Date .... ..... : 03/15/20 Admit Phys .................... : ELIZA CIERRA Date of ....... : 1975 Family Phys ................... : BLAIR HARD Phone .................. : [phone] Age ................................ : 44 Film# .................. .:[id number] Sex ................................. : M Unsigned transcriptions are preliminary reports and do not represent a medical or legal document SPINE LS AP & LAT [id number] COMPLETE:03/15/20 16:49 2603 Reason(s): Trauma/Injury LUMBAR SPINE [...] Transcribe Initials: JUDY , Transcribe Date: 03/15/20 20:23, Dictation Date: Copy for: [facility] via fax Copy for: EMERGENCY DEPT via [place] Copy for: 710 MED REC DISCHARGED Page 1 of 1 Name Value Range Interpretation Code Description Data Tete rce(s) Supporting Document(s) ID Date Data Source [id number] 03/16/2020 01:50:00 PM EST [facility] [address] [place] [address] PHONE: [phone] FAX: [phone] Name .................. : BRIDGER Breen Acct Number.................. : [id number] ROOM. ................. : TR-08 MR Number ................... : [id number] Stay type ............. : E/R Discharge Date......... ... : 03/15/20 Admit Date ... ...... : 03/15/20 Admit Phys .................... : ELIZA NORTON Date of ....... : 1975 Family Phys ................... : BLAIR HARD Phone .................. : [phone] Age ................................ : 44 Film# .................. .:[id number] Sex ................................. : M Unsigned transcriptions are preliminary reports and do not represent a medical or legal document [employer]CRUM [employer] COCCYX [id number] COMPLETE:03/15/20 16:49 2604 Reason(s): Trauma/Injury SACRUM [employer] COCCYX: INDICATION: Trauma, injury. FINDINGS: There is normal alignment and position of the bones of the sacrum and coccyx. No evidence for a fracture or any other abnormalities can be noted. IMPRESSION: Unremarkable sacrum and coccyx. Electronically Reviewed and Signed By Fadi Whipple MD , 03/16/20 13:51, CHADD Transcribe Initials: DZ , Transcribe Date: 03/15/20 20:19, Dictation Date: Copy for: [facility] via fax Copy for: EMERGENCY DEPT via modem Copy for: 710 MED REC DISCHARGED Page 1 of 1 Name Value Range Interpretation Code Description Data Tete rce(s) Supporting Document(s) ID Date Data Source [id number] 03/15/2020 04:29:[address] [facility] [address] [facility] Emergency Department [address] [place] [address] Phone #: ext- [phone] 03/15/2020 16:02 Patient: JUAN SPARKS Sex: M : 1975 Age: 44yWEIGHT:56.6 kg (S) HEIGHT:69 inches (S) BMI:18.4ALLERGIES: Penicillins, Seafood, Toradol, TramadolCHIEF COMPLAINT: back pain, back injuryDIAGNOSIS: BackacheLAB ORDERSOrder Description Priority Entered Acknowledged InitialedDIAGNOSTIC STUDY ORDERSOrder Description Priority Entered Acknowledged InitialedSpine Lumbar AP STAT 16:49 03/15/2020 16:50 Sarah,And LAT Sae Hughes(Oxygen?(No)) PA; Reason for Study: Trauma/InjurySacrum / [...] Description Priority Entered Acknowledged Initialed [address] [facility] Emergency Department [address] [place] [address] Phone #: ext- [phone] 03/15/2020 16:02 Patient: JUAN SPARKS Sex: M : 1975 Age: 44y[Electronically signed by Jeaneth Huffman RN (17:48 )][Electronically signed by Sae Leavitt (22:04 03/15/2020)][Electronically locked by Jeaneth Huffman RN (17:48 03/15/2020)] Name Value Range Interpretation Code Description Data Tete rce(s) Supporting Document(s) ID Date Data Source [id number] 03/15/2020 04:29:[address] [facility] [address] [facility] Emergency Department [address] [place] [address] Phone #: ext- [phone] 03/15/2020 16:02 Patient: JUAN SPARKS Sex: M [...] 16:58 03/15/2020idocaine Patch Transdermal 1 patch, administered: :03/15/2020tivan [IM] IM 1 mg, administered: 17:01 03/15/2020The following Medications were prescribed to the patient:Medrol (Jt) 4 mg tablets in a dose pack Take 1 tablet as directed for 6 days -- Dispense 1 pack.Refills: 0. Substitution permitted.[employer] [address] [place] [address] [phone]. . 2 Medic[address] on Reconciliation Report [facility] Emergency Department [address] [place] [address] Phone #: ext- [phone] 03/15/2020 16:02 Patient: JUAN SPARKS Sex: M : 1975 Age: 44ylidocaine 5 % topical patch Apply 1 patch once a day for 5 days -- Dispense 5 patch. Refills: 0.Substitution permitted.[employer] [address] [phone]. . -- STALIN Nieto Name Value Range Interpretation Code Description Data Tete e(s) Supporting Document(s) ID Date Data Source [id number] 03/15/2020 04:29:00 PM [facility] [address] [facility] Emergency Department [address] [place] [address] Phone #: lzz- [phone] 03/15/2020 16:02 Patient: JUAN SPARKS Sex: M [...] Range Interpretation Code Description Data [facility](s) Supporting Document(s) ID Date Data Source [id number] 03/15/2020 04:29:00 PM [facility] [address] [facility] Emergency Department [address] [place] [address] Phone #: ext- [phone] 03/15/2020 16:02 Patient: [...] days -- Dispense 1 pack.Refills: 0. Substitution permitted.[employer] [address] [place] [address] [phone]. .lidocaine 5 % topical patch Apply 1 patch once a day for 5 days -- Dispense 5 patch. Refills: 0.Substitution permitted.[employer] [address] [place] [address] [phone]. .Follow-up:Follow up with your doctor. Call for an appointment. Reason for referral: evaluation and treatment.Summary of care provided to patient.Understanding of the discharge instructions verbalized by patient. ADDITIONAL INFORMATIONBack Pain (Acute or Chronic) [address] [facility] Emergency Department [address] [place] [address] Phone #: ext- [phone] 03/15/2020 16:02 Patient: JUAN SPARKS Sex: M [...] Mechanical problems include: [address] [facility] Emergency Department [address] [place] [address] Phone #: 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 [address] Phone #: ext- [phone] 04/30/2019 17:53 Patient: JUAN SPARKS Sex: M : 1975 Age: 43y informed about reason for wait. Patient waiting for lab results. --21:02 04/30/19 Avelino Murillo R.N.DISPOSITION / DISCHARGE 21: 10 04/30/19. Departure time: 21:20 04/30/2019. Condition at departure: improved and stable. [...] Patient verbalized understanding. Written instructions provided in Eritrean. The patient was discharged by the physician. [...] rce(s) Supporting Document(s) ID Date Data Source [id number] 04/30/2019 06:21:[address] [facility] 1 Clinical Report - Physicians/Mid Levels [facility] Emergency Department [address] [place] [address] Phone #: ext- [phone] 04/30/2019 17:53 Patient: [...] advised negative. also seen by in , [facility], [facility] as well. patient says he [...] Caries. 2 Clinical Report - Physicians/Mid Levels [facility] Emergency Department [address] [place] [address] Phone #: ext- [phone] 04/30/2019 17:53 Patient: JUAN SPARKS Sex: M : 1975 Age: 43y CVA - Cerebrovascular Accident. Schizoaffective Disorder. Osteoporosis. Trigeminal Neuralgia. Sciatica. Lumbar Strain. Lung Disease. Intervertebral Disc Disease. Migraine Headache. Narcotic Dependence. Bulging disks. Negative 3 bone density for osteoporosis. DDD. Anxiety Reaction. Additional Surgeries: Back Surgery. Cerebral shunt (in removed). Hernia Repair. Inguinal Hernia Repair. T BI. Medications: Vicodin Oral 10 325, as needed. Bertha holt. traZODone HCl Oral (old prescription and pt took it last night with baclofen and ibuprofen and seroquel). Ambien Oral. SEROquel Oral. Baclofen Oral. Gabapentin Oral. Allergies: Fish-derived Products. Penicillins. Toradol. Tramodl.SOCIAL HISTORYFormer smoker. Occasional alcohol use. No drug use. No recent travel. Is a local resident. [facility] He lives with a friend. disabled since 1994 due to back.ADDITIONAL NOTESThe nursing notes have been reviewed with agreement regarding the chief complaint, HPI, ROS, PMH andpatient medications and allergies. 3 Clinical Report - Physicians/Mid Levels [facility] Emergency Department [address] [place] [address] Phone #: ext- [phone] 04/30/2019 17:53 [id number] Sex: M : 1975 Age: 43yPHYSICAL EXAMVital [...] Final results Exam CT HEAD W/[place] [address] ---------NAME--------- NUMBER SEX AGE ADMIT DISC. XRAY# F/C TYPE BRIDGER Breen [id number] M 43 04/30/19 [id number] E/R DATE OF : 1975 M/R# [id number] #: [id number] TR-07 LOCATION: EMERGENCY DEPT TRANSCRIBED: 04/30/19 20:[address] HEAD W/O CONTRAST [id number] COMPLETED:04/30/19 19:26 [place] [id number] Reason(s): Altered Mental Status Altered Sense of [...] mp 4 Clinical Report - Physicians/Mid Levels [facility] Emergency Department [address] [place] [address] Phone #: ext- [phone] 04/30/2019 17:53 Patient: [...] INDICATED 5 Clinical Report - Physicians/Mid Levels [facility] Emergency Department [address] [place] [address] Phone #: ext- [phone] 04/30/2019 17:53 Patient: JUAN SPARKS Sex: M : 1975 Age: 43yCMP: (JAYJAY: [...] Male GFR Interprentation 20-49 yrs >60 mL/min Euhvoi89-52 yrs >56 mL/min Normal 60-69 yrs >49 mL/min Normal 70-79yrs>42 mL/min Normal 80 and above >35 mL/min Normal Female GFRInterpretation 20-39 yrs >60 mL/min Normal 40-49 yrs >58 mL/minNormal 50-59 yrs >51 mL/min Normal 60-69 yrs >45 mL/min Axxjmi92-48 yrs >39 mL/min Normal 80 and above >32 mL/min NormalAmmonia Level: (JAYJAY: 04/30/2019 19:11) ( [facility] 04/30/2019 20:51) Final results Test Result Flag Units (Reference) AMMONIA 58.0 UG/DL (27.2 - 102)ETOH: (JAYJAY: 04/30/2019 19:11) ( [facility] 04/30/2019 20:33) Final results Test Result Flag Units (Reference) ALCOHOL <10.0 MG/DL ALCOHOL % 0.01 % (0.00 - 0.01) *FOR MEDICAL PURPOSES ONLY*Drug Screen-Urine: (JAYJAY: 04/30/2019 20:06) ( [facility] 04/30/2019 20:38) Final results Test Result Flag [...] POSITIVE CONFIR[facility] 6 Clinical Report - Physicians/Mid Levels [facility] Emergency Department [address] [place] [address] Phone #: ext- [phone] 04/30/2019 17:53 Patient: JUAN SPARKS Sex: M : 1975 Age: 43y Urinalysis: (JAYJAY: 04/30/2019 20:06) ( [facility] 04/30/2019 20:20) Final results Test Result Flag [...] since there are only one neurologist in [place] and none in [place]. recommended f/u pcp/ neurologist/neurosurgeon for op further [...] ordered. 7 Clinical Report - Physicians/Mid Levels [facility] Emergency Department [address] [place] [address] Phone #: ext- [phone] 04/30/2019 17:53 Patient: JUAN SPARKS Sex: M [...] rce(s) Supporting Document(s) ID Date Data Source [id number] 04/30/2019 08:10:[address] [address] ---------NAME--------- NUMBER SEX AGE ADMIT DISC. XRAY# F/C TYPE BRIDGER MARTINEZ Jamshid [id number] M 43 04/30/19 [id number] [id number] E/R DATE OF : 1975 M/R# [id number] #: [id number] TR-07 LOCATION: EMERGENCY DEPT TRANSCRIBED: 04/30/19 20:[address] HEAD W/O CONTRAST [id number] COMPLETED:04/30/19 19:26 [place] [id number] Reason(s): Altered Mental Status Altered Sense of Awareness PHYSICIAN: NATALY L R A D I O L O G Y R E P O R T PATIENT HISTORY:altered mental status male verified 2pt identifiers acc dlp [id number]*cm mp / BRAIN(DICOM Hx)EXAM: CT Head Without IV contrast.CLINICAL HISTORY: Altered mental status male verified 2pt identifiers acc [id number]*cm mpTECHNIQUE: Axial computed tomography images of the [...] rce(s) Supporting Document(s) ID Date Data Source [id number] 04/30/2019 08:38:[address] [facility] Name Value Range Interpretation Code Description Data Tete rce(s) Supporting Document(s) DRUG SCREEN URINE [facility] URINE DRUG SCREEN Amphetamine [Presence] in Urine by Screen method NEGATIVE NORMAL: N EGATIVE [facility] BARBITURATES NEGATIVE NORMAL: NEGATIVE [facility] BENZO NEGATIVE NORMAL: NEGATIVE [facility] COCAINE NEGATIVE NORMAL: NEGATIVE [facility] Tetrahydrocannabinol [Presence] in Urine PRESUMP POS NORMAL: NEGATIVE [facility] OPIATES NEGATIVE NORMAL: NEGATIVE [facility] Phencyclidine [Presence] in Urine by Screen method NEGATIVE NOR MAL: NEGATIVE [facility] \\BLDo\\URINE DRUG SCR EEN INTERPRETATION\\BLDx\\ THE CUTOFFF LEVELS FOR DETECTION ARE FOLLOWS: AMPHETAMINES 1000 ng/ml BARBITUARATES 200 ng/ml BENZODIAZEPINES 100 ng/ml THC 50 ng/ml PHENCYCLIDINE 25 ng/ml OPIATES 300 ng/ml COCAINE 300 ng/ml ALL POSITIVES ARE CONSIDERED PRESUMPTIVE POSITIVE CONFIRMATION WILL BE PERFORMED AT PHYSICIAN REQUEST. ID Date Data Source [id number] 04/30/2019 08:20:[address] [facility] Name Value Range Interpretation Code Description Data Tete rce(s) Supporting Document(s) [facility] COL[facility] yellow NORMAL: Yellow [facility] CLARITY clear NORMAL: Clear [facility] sp[facility] Specific gravity of Urine by Test strip 1.025 1.001 - 1.030 [facility] pH 6 5 - 9 [facility] al Glucose [Mass/volume] in Urine by Test strip NORM NORMAL: Negat [facility] Bilirubin.total [Presence] in Urine by Test strip NEG NORMAL: Negative [facility] Ketones [Presence] in Urine by Test strip NEG NORMAL: Negative [facility] Protein [Mass/volume] in Urine by Test strip 15 NORMAL: Negat [facility] Nitrite [Presence] in Urine by Test strip NEG NORMAL: Negative [facility] BLOOD NEG NORMAL: Negative [facility] Leukocyte esterase [Presence] in Urine by Test strip NEG NIMCO L: Negative [facility] Urobilinogen [Mass/volume] in Urine by Test strip NOR less soraida n 1.0 mg/dL [facility] MICROSCOPIC See Below [facility] ital WBC None Seen NORMAL: NONE SEEN [facility] Erythrocytes [#/volume] in Urine by Test strip None Seen NORMAL: NON E SEEN [facility] EPITHELIAL MODERATE NORMAL: NONE SEEN A [facility] Bacteria [Presence] in Urine sediment by Light microscopy Tr balbir NORMAL: NONE SEEN [facility] Mucus [Presence] in Urine sediment by Light microscopy Trace NORMAL: NONE SEEN [facility] ID Date Data Source [id number] 04/30/2019 08:51:00 PM [facility] Name Value Range Interpretation Code Description Data Tete rce(s) Supporting Document(s) Ammonia [Mass/volume] in Plasma 58.0 UG/DL 27.2 - [address] [facility] ID Date Data Source [id number] 04/30/2019 08:38:[address] [facility] Name Value Range Interpretation Code Description Data Tete rce(s) Supporting Document(s) COMPREHENSIVE METABOLIC PANEL [facility] COMPREHENSIVE METABOLIC PANEL Sodium [Moles/volume] in Serum or Plasma 142 mEq/L 134 - 153 [facility] Potassium [Moles/volume] in Serum or Plasma 4.1 mEq/L 3.6 - 5.0 [facility] Chloride [Moles/volume] in Serum or Plasma 107 mEq/L 98 - 107 [facility] Carbon dioxide, total [Moles/volume] in Serum or Plasma 27 MEQ/L 22 - 30 [facility] Glucose [Mass/volume] in Serum or Plasma 101 MG/DL 65 - 110 [facility] BUN 17 MG/DL 7 - 21 [facility] Creatinine [Mass/volume] in Serum or Plasma 0.7 MG/DL 0.7 - 1.5 [facility] BUN/CREAT 24 8 - 27 [facility] Protein [Mass/volume] in Serum or Plasma 6.9 G/DL 6.3 - 8.2 [facility] Albumin [Mass/volume] in Serum or Plasma 4.6 G/DL 3.9 - 5.0 [facility] Globulin [Mass/volume] in Serum by calculation 2.3 GM/DL 2.4 - 3.[address] [facility] A/G RATIO 2.0 0.8 - 2.0 [facility] Calcium [Mass/volume] in Serum or Plasma 9.1 MG/DL 8.4 - 10.2 [facility] Bilirubin.total [Mass/volume] in Serum or Plasma <0.7 MG/DL 0.2 - 1.3 [facility] Alkaline phosphatase [Enzymatic activity/volume] in Serum or Plasma 65 U/L 38 - 126 [facility] Aspartate aminotransferase [Enzymatic activity/volume] in Serum or Plasma 12 U/L 5 - 40 [facility] Alanine aminotransferase [Enzymatic activity/volume] in Seru m or Plasma 13 U/L 7 - 56 [facility] Anion gap 3 in Serum or Plasma 8.0 mmol/L 8.0 - 16.0 [facility] AGE 43 yrs [facility] NON-AA GFR >60 mL/min [facility] ital AFR AMER GFR >60 mL/min [facility] sp[facility] Male GFR In terprentation [...] >32 mL/min Normal ID Date Data Source [id number] 04/30/2019 08:33:00 PM [facility] Name Value Range Interpretation Code Description Data Tete rce(s) Supporting Document(s) Ethanol [Moles/volume] in Blood <10.0 MG/DL [facility] ALCOHOL % 0.01 % 0.00 - 0.01 [facility] ital *FOR MEDICAL PURPOSES ONLY * ID Date Data Source [id number] 04/30/2019 07:32:00 PM [facility] Name Value Range Interpretation Code Description Data Tete rce(s) Supporting Document(s) CARBOXYHEMOGLOBIN 5.9 % [facility] SUBURBAN NON SMOKERS L ESS THAN 1.5 % SMOKERS 1.5 - 5.0 % HEAVY SMOKERS 5.0 - 9.0 % ID Date Data Source [id number] 04/30/2019 07:28:00 PM EST [facility] Name Value Range Interpretation Code Description Data Tete rce(s) Supporting Document(s) CBC W/AUTOMATED DIFF [facility] COMPLETE BLOOD COUNT Leukocytes [#/volume] in Blood by Automated count 8.3 10^3/uL 4.2 - [address] [facility] Erythrocytes [#/volume] in Blood by Automated count 4.12 10^6/uL 4. 50 - 6.[address] [facility] Hemoglobin [Mass/volume] in Blood 12.5 g/dL 14.0 - 16.[address] [facility] Hematocrit [Volume Fraction] of Blood by Automated count 37.3 % 4 1.0 - 51.[address] [facility] Erythrocyte mean corpuscular volume [Entitic volume] by Auto mated count 90.5 fL 80.0 - 94.0 [facility] Erythrocyte mean corpuscular hemoglobin [Entitic mass] by Automated count 30.3 pg 27.0 - 34.0 [facility] Erythrocyte mean corpuscular hemoglobin concentration [Mass/volume] by Automated count 33.5 g/dL 31.0 - 36.0 [facility] Erythrocyte distribution width [Ratio] by Automated count 12.3 % 11.5 - 14.8 [facility] Platelets [#/volume] in Blood by Automated count 266 10^3/uL 150 - [address] [facility] Platelet mean volume [Entitic volume] in Blood by Automated count 9.3 fL 7.4 - 10.4 [facility] Neutrophils/100 leukocytes in Blood by Automated count 59.4 % 37. 0 - 80.0 [facility] Lymphocytes/100 leukocytes in Blood by Manual count 30.3 % 25.0 - 40.0 [facility] Monocytes/100 leukocytes in Blood by Automated count 7.3 % 3.0 - 8.0 [facility] Eosinophils/100 leukocytes in Blood by Automated count 2.4 % 0.0 - 7.0 [facility] Basophils/100 leukocytes in Blood by Automated count 0.4 % 0.0 - 2.0 [facility] %IG 0.2 % 0.0 [facility] 0.0 % 0.0 - 0.0 [facility] al Neutrophils [#/volume] in Blood by Automated count 4.93 10^3/uL 2.00 - 6.90 [facility] Lymphocytes [#/volume] in Blood by Automated count 2.52 10^3/uL 0.60 - 3.40 [facility] Monocytes [#/volume] in Blood by Automated count 0.61 10^3/uL 0.00 - 0.90 [facility] Eosinophils [#/volume] in Blood by Automated count 0.20 10^3/uL 0.00 - 0.70 [facility] Basophils [#/volume] in Blood by Automated count 0.03 10^3/uL 0.00 - 0.20 [facility] #IG 0.02 10^3/uL 0.00 - 0.10 [facility] #NRBC 0.00 10^3/uL 0.00 - 0.00 [facility] MANUAL DIFF NOT INDICATED [facility] RBC MORPH NOT INDICATED [facility] ID Date Data Source [id number] 03/04/2019 10:28:00 PM [facility] Patient: JUAN SPARKS Observation Report - Physicians/Mid Levels [facility].VisitID: [id number] [place] [address] [phone], MRegistration Date/Time: 03/04/2019 17:54 Weight:56.6 kg (S). [...] 03/30/2020 12:13:19 PM EST No completed No [facility] 03/30/2020 12:13:19 PM EST No completed No [facility] 03/30/2020 12:13:19 PM EST Current every day smoker co mpleted Current every day smoker [facility] Smoking 03/30/2020 12:13:00 PM EST Current every day smoker co mpleted Current every day smoker [facility] 03/13/2020 12:51:34 AM EST No completed No [facility] 03/13/2020 12:51:34 AM EST No completed No [facility] 03/13/2020 12:51:34 AM EST Current every day smoker co mpleted Current every day smoker [facility] Smoking 03/13/2020 12:51:00 AM EST Current every day smoker co mpleted Current every day smoker [facility] 02/28/2020 11:50:53 PM EST No completed No [facility] 02/28/2020 11:50:53 PM EST No completed No [facility] 02/28/2020 11:50:53 PM EST Current every day smoker co mpleted Current every day smoker [facility] Smoking 02/28/2020 11:50:00 PM EST Current every day smoker co mpleted Current every day smoker [facility] 02/24/2020 11:46:30 PM EST No completed No [facility] 02/24/2020 11:46:30 PM EST No completed No [facility] 02/24/2020 11:46:30 PM EST Current every day smoker co mpleted Current every day smoker [facility] Smoking 02/24/2020 11:46:00 PM EST Current every day smoker co mpleted Current every day smoker [facility] 01/03/2020 01:42:34 AM EST No completed No [facility] 01/03/2020 01:42:34 AM EST No completed No [facility] 01/03/2020 01:42:34 AM EST Current every day smoker co mpleted Current every day smoker [facility] Smoking 01/03/2020 01:42:00 AM EST Current every day smoker co mpleted Current every day smoker [facility] 11/21/2019 03:56:39 PM EDT No completed No [facility] 11/21/2019 03:56:39 PM EDT No completed No [facility] 11/21/2019 03:56:39 PM EDT Current every day smoker co mpleted Current every day smoker [facility] Smoking 11/21/2019 03:56:00 PM EDT Current every day smoker co mpleted Current every day smoker [facility] 09/30/2019 07:48:45 PM EDT Current every day smoker co mpleted Current every day smoker [facility] 09/30/2019 07:48:45 PM EDT No completed No [facility] 09/30/2019 07:48:45 PM EDT No completed No [facility] Smoking 09/30/2019 07:48:00 PM EDT Current every day smoker co mpleted Current every day smoker [facility] 08/30/2019 08:21:10 PM EDT No completed No [facility] 08/30/2019 08:21:10 PM EDT Current every day smoker co mpleted Current every day smoker [facility] 08/30/2019 08:21:10 PM EDT Current every day smoker co mpleted Current every day smoker [facility] 08/30/2019 08:21:10 PM EDT No completed No [facility] Smoking 08/30/2019 08:21:00 PM EDT Current every day smoker co mpleted Current every day smoker [facility] 08/07/2019 11:05:51 PM EDT No completed No [facility] 08/07/2019 11:05:51 PM EDT No completed No [facility] 08/07/2019 11:03:00 PM EDT Current every day smoker co mpleted Current every day smoker [facility] Smoking 08/07/2019 11:03:00 PM EDT Current every day smoker co mpleted Current every day smoker [facility] 08/07/2019 11:03:00 PM EDT Current every day smoker co mpleted Current every day smoker [facility] 08/07/2019 11:03:00 PM EDT Current every day smoker co mpleted Current every day smoker [facility] 06/07/2019 03:16:02 PM EDT No completed No [facility] 06/07/2019 03:16:02 PM EDT No completed No [facility] 06/07/2019 03:06:00 PM EDT Current every day smoker co mpleted Current every day smoker [facility] 06/07/2019 03:06:00 PM EDT Current every day smoker co mpleted Current every day smoker [facility] Smoking 06/07/2019 03:06:00 PM EDT Current every day smoker co mpleted Current every day smoker [facility] 06/07/2019 03:06:00 PM EDT Current every day smoker co mpleted Current every day smoker [facility] 06/07/2019 03:06:00 PM EDT Current every day smoker co mpleted Current every day smoker [facility] 05/04/2019 03:33:49 PM EDT No completed No [facility] 05/04/2019 03:33:49 PM EDT No completed No [facility] 05/04/2019 03:28:00 PM EDT Never smoker completed Never s [facility] 05/04/2019 03:28:00 PM EDT Never smoker completed Never s [facility] 05/04/2019 03:28:00 PM EDT Never smoker completed Never s [facility] Smoking 05/04/2019 03:28:00 PM EDT Never smoker completed Never s [facility] 05/04/2019 03:28:00 PM EDT Never smoker completed Never s [facility] 05/04/2019 03:28:00 PM EDT Never smoker completed Never s moker [facility] 05/01/2019 04:25:42 PM EST Current every day smoker co mpleted Current every day smoker [facility] 05/01/2019 04:25:42 PM EST Current every day smoker co mpleted Current every day smoker [facility] 05/01/2019 04:25:42 PM EST Current every day smoker co mpleted Current every day smoker [facility] 05/01/2019 04:25:42 PM EST Current every day smoker co mpleted Current every day smoker [facility] 05/01/2019 04:25:42 PM EST No completed No [facility] 05/01/2019 04:25:42 PM EST No completed No [facility] 05/01/2019 04:25:42 PM EST Current every day smoker co mpleted Current every day smoker [facility] 05/01/2019 04:25:42 PM EST Current every day smoker co mpleted Current every day smoker [facility] Smoking 05/01/2019 04:25:00 PM EST Current every day smoker co mpleted Current every day smoker [facility] Vital Signs ID Date Data Source UNK Name Value Range Interpretation Code Description Data Source(s) Oxygen saturation in Arterial blood by Pulse oximetry 98 % 98 % [facility] ([facility]) Respiratory rate 18 /min 18 /min [facility] ( [facility]) Body temperature 98.8 [degF] 98.8 [degF] [facility] ([facility]) Heart rate 115 /min 115 /min [facility] ([facility]) Diastolic blood pressure 79 mm[Hg] 79 mm[Hg] [facility] ([facility]) Systolic blood pressure 121 mm[Hg] 121 mm[Hg] [facility] Body surface area Derived from formula 1.63 m2 1.63 m2 [facility] ([facility]) Body mass index (BMI) [Ratio] 16.9 kg/m2 16.9 k g/m2 [facility] ([facility]) Body height 69 [in_i] 69 [in_i] [facility] ([facility]) 5'9" Body weight 51.767 kg 51.767 kg [facility] ([facility]) Body weight 114.12 [lb_av] 114.12 [lb_av] [facility] ([facility]) Oxygen saturation in Arterial blood by Pulse oximetry 96 % 96 % [facility] ([facility]) [facility] 18 /min 18 /[facility] Body temperature 97.9 [degF] 97.9 [degF] [facility] ([facility]) Heart rate 110 /min 110 /[facility] Diastolic blood pressure 74 mm[Hg] 74 mm[Hg] [facility] ([facility]) Systolic blood pressure 128 mm[Hg] 128 mm[Hg] M [facility] ([facility]) Oxygen saturation in Arterial blood by Pulse oximetry 97 % 97 % [facility] ([facility]) Respiratory rate 16 /min 16 /min [facility] ( [facility]) Body temperature 99.2 [degF] 99.2 [degF] [facility] ([facility]) Heart rate 80 /min 80 /min [facility] ([facility]) Diastolic blood pressure 76 mm[Hg] 76 mm[Hg] [facility] ([facility]) Systolic blood pressure 116 mm[Hg] 116 mm[Hg] M [facility] ([facility]) Body weight 2047 [oz_av] 2047 [oz_av] [facility] ([facility]) Systolic blood pressure 107 mm[Hg] 107 mm[Hg] A [facility] ([facility]) Body mass index (BMI) [Ratio] 18.9 kg/m2 18.9 k g/m2 [facility] ([facility]) Body height 69 [in_i] 69 [in_i] [facility] ([facility]) Diastolic blood pressure 73 mm[Hg] 73 mm[Hg] [facility] ([facility]) ID Date Data Source [id number] 10/03/2019 05:52:00 PM EDT Deborah garcia Name Value Range Interpretation Code Description Data Source(s) Weight Measurement Method 8 8 [facility] 2047 [facility] 7 7 [facility] Temperature 98.8 98.8 [facility] Respiratory Effort 1 1 [facility] Respiratory Rate 17 17 [facility] Pulse Assessment Method 4 4 G [facility] Pulse Rate 84 84 [facility] pital Height 69 69 [facility] pital Blood Pressure 123/84 123/84 [facility] Weight Measurement Method 8 8 [facility] Weight 2047 2047 [facility] pital Temperature Source 7 7 [facility] Temperature 98.8 98.8 [facility] Respiratory Effort 1 1 [facility] Respiratory Rate 16 16 [facility] Pulse Assessment Method 4 4 G [facility] Pulse Rate 84 84 [facility] pital Height 69 [facility] 123/84 123/84 [facility] Weight Measurement Method 8 8 [facility] Weight 2047 2047 [facility] pital Temperature Source 7 7 [facility] Temperature 98.8 98.8 [facility] spital Respiratory Effort 1 1 [facility] Respiratory Rate 16 16 [facility] Pulse Assessment Method 4 4 G [facility] Pulse Rate 84 84 [facility] pital Height 69 69 [facility] 123/84 123/84 [facility] ID Date Data Source [id number] 08/28/2019 03:45:00 PM EDT [facility] Name Value Range Interpretation Code Description Data Source(s) Weight Measurement Method 8 8 [facility] Weight 1999 1999 [facility] pital Temperature Source 7 7 [facility] Temperature 98.7 98.7 [facility] Respiratory Effort 1 1 [facility] Respiratory Rate 18 18 [facility] Pulse Assessment Method 4 4 G [facility] Pulse Rate 87 87 [facility] pital Height 69 69 [facility] pital Blood Pressure 103/78 103/78 [facility] Weight Measurement Method 8 8 [facility] Weight 1999 1999 [facility] pital Temperature Source 7 7 [facility] Temperature 99 99 [facility] Respiratory Effort 1 1 [facility] Respiratory Rate 18 18 [facility] Pulse Assessment Method 4 4 G [facility] Pulse Rate 95 95 [facility] Height 69 69 [facility] Blood Pressure 112/74 112/74 [facility]
--- OUTSIDE RECORDS SUMMARY | 2020-04-17 02:22 | CCD ---
Author Author [facility] Organization [facility] Address Unknown Phone Unavailable Support Name Relationship Address Phone SELF Next Of Kin Unknown Unavailable Juan Limon MD Next Of Kin [address] [phone] Maria Del Carmen AGUIRREP, Daphne Next Of Kin [address] [place] [address] CTY, OF CORRECTIONS DEPARTMENT Next Of Kin EDGAR CTY CORRECTIONAL FAC [address] [phone] RE Next Of Kin Unknown Unavailable MARÍ[place] [address] UE Next Of Kin Unknown Unavailable Jensen RPA-C, Izabel Next Of Kin [address] [place] [address] Jamie AGUIRREP, Yaneth Next Of Kin [address] [phone] Adenike ANP-BC, Constance Next Of Kin [address] [place] [address] [phone] "" Next Of Kin [address] [place] [phone] NONE, PT PER Next Of Kin - -, [place] - - UZIEL [place] [address] SOFIA MONTENEGRO Next Of Kin [address] [place] [address] JOSE [place] [address] JULIETA VIGIL Next Of Kin [address] [place] [phone] UN Next Of Kin Unknown Unavailable NONE, NOOTHER Next Of Kin - -, [place] - - MELANY FIELDS Next Of Kin Unknown DISABLED Next Of Kin Unknown Unavailable JUAN SPARKS Next Of Kin 02/25 [place] [address] BRITTAERLINDAKeyla MIKO Next Of Kin 02/[address] [place] [address] JONESHANSELASTRID Ramires Next Of Kin Unknown NATHALIEASTRID Next Of Kin Unknown Care Team Providers Care Whip Operator Name Role Phone MORALES WIGGINS Unavailable Unavailable [...] Martinez MD Unavailable Unavailable Cougler, S Sorin FAMILY AND CONSUMER SCIENCES TEACHER Unavailable Unavailable Cougler, S Sorin FAMILY AND CONSUMER SCIENCES TEACHER Unavailable Unavailable Cougler, S Sorin FAMILY AND CONSUMER SCIENCES TEACHER Unavailable Unavailable Cougler, S Sorin FAMILY AND CONSUMER SCIENCES TEACHER Unavailable Unavailable Cougler, S Sorin FAMILY AND CONSUMER SCIENCES TEACHER Unavailable Unavailable Cougler, S Sorin FAMILY AND CONSUMER SCIENCES TEACHER Unavailable Unavailable Cougler, S Sorin FAMILY AND CONSUMER SCIENCES TEACHER Unavailable Unavailable Cougler, S Sorin FAMILY AND CONSUMER SCIENCES TEACHER Unavailable Unavailable Cougler, S Sorin FAMILY AND CONSUMER SCIENCES TEACHER Unavailable Unavailable Cougler, S Sorin FAMILY AND CONSUMER SCIENCES TEACHER Unavailable Unavailable Cougler, S Sorin FAMILY AND CONSUMER SCIENCES TEACHER Unavailable Unavailable Cougler, S Sorin FAMILY AND CONSUMER SCIENCES TEACHER Unavailable Unavailable Cougler, S Sorin FAMILY AND CONSUMER SCIENCES TEACHER Unavailable Unavailable Cougler, S Sorin FAMILY AND CONSUMER SCIENCES TEACHER Unavailable Unavailable Cougler, S Sorin FAMILY AND CONSUMER SCIENCES TEACHER Unavailable Unavailable Cougler, S Osrin FAMILY AND CONSUMER SCIENCES TEACHER Unavailable Unavailable Cougler, S Sorin FAMILY AND CONSUMER SCIENCES TEACHER Unavailable Unavailable Cougler, S Sorin FAMILY AND CONSUMER SCIENCES TEACHER Unavailable Unavailable Cougler, S Sorin FAMILY AND CONSUMER SCIENCES TEACHER Unavailable Unavailable Cougler, S Sorin FAMILY AND CONSUMER SCIENCES TEACHER Unavailable Unavailable Cougler, S Sorin FAMILY AND CONSUMER SCIENCES TEACHER Unavailable Unavailable Cougler, S Sorin FAMILY AND CONSUMER SCIENCES TEACHER Unavailable Unavailable Cougler, S Sorin FAMILY AND CONSUMER SCIENCES TEACHER Unavailable Unavailable Cougler, S Sorin FAMILY AND CONSUMER SCIENCES TEACHER Unavailable Unavailable Cougler, S Sorin FAMILY AND CONSUMER SCIENCES TEACHER Unavailable Unavailable Cougler, S Sorin FAMILY AND CONSUMER SCIENCES TEACHER Unavailable Unavailable Cougler, S Sorin FAMILY AND CONSUMER SCIENCES TEACHER Unavailable Unavailable Cougler, S Sorin FAMILY AND CONSUMER SCIENCES TEACHER Unavailable Unavailable Cougler, S Sorin FAMILY AND CONSUMER SCIENCES TEACHER Unavailable Unavailable Cougler, S Sorin FAMILY AND CONSUMER SCIENCES TEACHER Unavailable Unavailable Cougler, S Sorin FAMILY AND CONSUMER SCIENCES TEACHER Unavailable Unavailable Cougler, S Sorin FAMILY AND CONSUMER SCIENCES TEACHER Unavailable Unavailable Cougler, S Sorin FAMILY AND CONSUMER SCIENCES TEACHER Unavailable Unavailable Cougler, S Sorin FAMILY AND CONSUMER SCIENCES TEACHER Unavailable Unavailable Cougler, S Sorin FAMILY AND CONSUMER SCIENCES TEACHER Unavailable Unavailable Cougler, S Sorin FAMILY AND CONSUMER SCIENCES TEACHER Unavailable Unavailable Cougler, S Sorin FAMILY AND CONSUMER SCIENCES TEACHER Unavailable Unavailable Cougler, S Sorin FAMILY AND CONSUMER SCIENCES TEACHER Unavailable Unavailable Cougler, S Sorin FAMILY AND CONSUMER SCIENCES TEACHER Unavailable Unavailable Cougler, S Sorin FAMILY AND CONSUMER SCIENCES TEACHER Unavailable Unavailable Moreau, M Christopher PA-C Unavailable Unavailable Moreau, M Christopher PA-C Unavailable Unavailable Moreau, M Christopher PA-C Unavailable Unavailable Moerau, M Christopher PA-C Unavailable Unavailable Moreau, M [...] YAMILETH, REINIER CARRIE PA Unavailable Unavailable Cosmo, [place] IVF EMBRYOLOGIST Unavailable Unavailable Cosmo, [place] IVF EMBRYOLOGIST Unavailable Unavailable Cosmo, [place] IVF EMBRYOLOGIST Unavailable Unavailable Cosmo, [place] IVF EMBRYOLOGIST Unavailable Unavailable Cosmo, [place] IVF EMBRYOLOGIST Unavailable Unavailable Grinnell, Yadira RPA-C Unavailable Unavailable Grinnell, Yadira RPA-C Unavailable Unavailable Grinnell, Yadira RPA-C Unavailable Unavailable Grinnell, Yadira RPA-C Unavailable Unavailable Grinnell, Yadira RPA-C Unavailable Unavailable Grinnell, Yadira RPA-C Unavailable Unavailable Grinnell, Yadira RPA-C Unavailable Unavailable Grinnell, Yadira RPA-C Unavailable Unavailable Grinnell, Yadira RPA-C Unavailable Unavailable Grinnell, Yadira RPA-C Unavailable Unavailable Grinnell, Yadira RPA-C Unavailable Unavailable Grinnell, Yadira RPA-C Unavailable Unavailable Grinnell, Yadira RPA-C Unavailable Unavailable Grinnell, Yadira RPA-C Unavailable Unavailable Grinnell, Yadira RPA-C Unavailable Unavailable Scott, (Remington) Meche [...] Unavailable BLAIR, COURTNEY MD Unavailable Unavailable BLAIR, COUTRNEY MD Unavailable Unavailable BLAIR, COURTNEY MD Unavailable [...] Unavailable BLAIR, COURTNEY MD Unavailable Unavailable BLAIR, COURTENY MD Unavailable Unavailable BLAIR, COURTNEY MD Unavailable Unavailable BLAIR, COURTNEY MD Unavailable Unavailable BLAIR, COURTNEY MD Unavailable Unavailable BLAIR, COURTNEY MD Unavailable Unavailable BLAIR, COURTNEY MD Unavailable Unavailable BLAIR, COURTNEY MD Unavailable Unavailable BLAIR, COURTNEY MD Unavailable Unavailable BLAIR, COURTNEY MD Unavailable Unavailable BLAIR, COURTNEY MD Unavailable Unavailable BLAIR, COURTNEY MD Unavailable Unavailable BLAIR, OCURTNEY MD Unavailable Unavailable BLAIR, COURTNEY MD Unavailable [...] Unavailable BLAIR, COURTNEY MD Unavailable Unavailable BLAIR, CUORTNEY MD Unavailable Unavailable Michelle NGUYEN MD Unavailable [...] INGRAM MD Unavailable Unavailable JUJU, D AUDREY IVF EMBRYOLOGIST Unavailable Unavailable ZEGIL, D AUDREY IVF EMBRYOLOGIST Unavailable Unavailable ZEGIL, D AUDREY IVF EMBRYOLOGIST Unavailable Unavailable ZENY AHUMADA Unavailable Unavailable Dobrinski, S Deion IVF EMBRYOLOGIST Unavailable Unavailable Dobrinski, S Deion IVF EMBRYOLOGIST Unavailable Unavailable Dobrinski, S Deion IVF EMBRYOLOGIST Unavailable Unavailable Dobrinski, S Deion IVF EMBRYOLOGIST Unavailable Unavailable Dobrinski, S Deion IVF EMBRYOLOGIST Unavailable Unavailable Dobrinski, S Deion IVF EMBRYOLOGIST Unavailable Unavailable Dobrinski, S Deion IVF EMBRYOLOGIST Unavailable Unavailable Dobrinski, S Deion IVF EMBRYOLOGIST Unavailable Unavailable Dobrinski, S Deion IVF EMBRYOLOGIST Unavailable Unavailable Dobrinski, S Deion IVF EMBRYOLOGIST Unavailable Unavailable Dobrinski, S Deion IVF EMBRYOLOGIST Unavailable Unavailable Dobrinski, S Deion IVF EMBRYOLOGIST Unavailable Unavailable DiBella, Dana Albarran MD Unavailable [...] Unavailable Limon, Anival Martienz MD Unavailable Unavailable ADRIANA MONTOYA Unavailable Unavailable [...] Unavailable Green, M Dayanara PA-C Unavailable Unavailable Geren, M Dayanara PA-C Unavailable Unavailable Green, M [...] is protected by Article 27-F of the [facility] Public Health law. If you continue you may have access to information: Regarding HIV / AIDS; Provided by facilities licensed or operated by the [facility] Office of Mental Health; or Provided by the [facility] Office for People With Developmental Disabilities. If such information is present, then the following [facility] mandated warning applies: This information has [...] law may result in a fine or fci sentence or both. A general authorization for the release of medical or other information is NOT sufficient authorization for further disc losure. Allergies and Adverse Reactions Type Description Substance Reaction Status Data Source(s ) Drug allergy ketorolac ketorolac Confusion U [facility] Drug allergy tramadol Tramadol Urticaria CT [facility] Drug allergy Penicillins Penicillin rash,itching [facility] Food allergy FISH FISH itching,swelling [place] [facility] Food allergy fish fish [facility] CLASS PCN (penicillin) PCN (penicillin) [facility] Drug allergy portisadol [facility] Drug allergy Drug allergy Penicillins [facility] Family History Family Member Name Family Member Gender Family Member Status Date o f Status Description Data Source(s) Unknown Condition [facility] Unknown Condition [facility] Unknown Condition [facility] Unknown Condition [facility] Unknown Condition [facility] Unknown Condition [facility] Unknown Condition [facility] Unknown Condition [facility] Unknown Condition [facility] Unknown Condition [facility] Unknown Condition [facility] Unknown Condition [facility] Unknown Condition [facility] Unknown Condition [facility] Encounters Encounter Providers Location Date Indications Data Source(s ) Emergency Attender: Deion Mclaughlin MD 10:47:00 AM [facility] - 04/14/2020 12:23:00 PM EST [facility] Patient discharged. Emergency Attender: ABHIJEET Whitley: Melba Moreau PA-C 04/04/2020 01:21:00 PM [facility] - 04/04/2020 01:24:00 PM [facility] Patient discharged. Emergency Attender: Deion Mclaughlin MD 05/2020 11:50:00 AM EST - 03/30/2020 12:41:00 PM EST BACK [facility] BACK [facility] Patient discharged. Outpatient Attender: Deion VELOZ 03/27/2020 05:50:31 PM EST - 03/27/2020 06:26:09 PM EST [facility] ([facility]) Outpatient Attender: Дмитрий Kyle PAConsultant: COURTNEY ROSENBAUM MD 03/21/2020 11:43:00 AM EST - 03/21/2020 11:43:00 AM [facility] Emergency Attender: DARNELL KAYConsultant: COURTNEY Martinez MD 03/15/2020 04:29:00 PM EST - 03/15/2020 05:45:00 PM [facility] Patient discharged. Emergency Attender: Deion Mclaughlin MD 10:29:00 PM EST - 03/13/2020 01:13:00 AM EST LOW BACK/LEG PAIN [facility] LOW BACK/LEG PAIN Patient discharged. Outpatient Attender: Dayanara ZACARIASCConsultant: PCP NO 03/09/2020 12:59:00 PM EST - 03/09/2020 12:59:00 PM [facility] Outpatient Attender: Martir Wilburn FNPConsultant: PCP NO 03/07/2020 12:49:00 PM EST - 03/07/2020 12:49:00 PM [facility] Emergency Attender: Morales Bauer MD 02/27 08:00:00 PM EST - 02/29/2020 02:11:00 AM EST LOWER BACK AND LEG PAIN [facility] LOWER BACK AND LEG PAIN Patient discharged. Emergency Attender: Meche Chavez MD 02/23 09:46:00 PM EST - 02/25/2020 12:00:00 AM EST BACK PAIN, LEG [facility]IN [facility] BACK PAIN, LEG PAIN Patient discharged. Emergency Attender: VÍCTOR Piñaant: TOMAS NO 02/24/2020 05:01:00 PM EST - 02/24/2020 06:21:00 PM [facility] Patient discharged. Emergency Attender: CARRIE CARSON PAReferrer: Gutierrez Moreau PA-C 01/21/2020 09:34:00 PM EST - 01/21/2020 09:50:00 PM [facility] Patient discharged. Emergency Attender: Meche Chavez MD 01/02 12:06:00 AM EST - 01/03/2020 02:27:00 AM EST BACK AND LEG PAIN [facility] BACK AND LEG PAIN Patient discharged. Outpatient Attender: Juan Limon MD 12/28/2019 12:56:01 PM EST [facility] Juan iLmon MD: [address] [place] [phone], Ph. Attender: Juan Limon MD [place] [facility] 12/28/2019 12:00:00 AM EST [facility] ([facility]) Emergency Attender: DARNELL KAYConsultant: PCP NO 11/29/2019 10:52:00 PM EDT - 11/30/2019 12:57:00 AM EDT [facility] Patient discharged. Emergency Attender: CARRIE CARSON PAReferrer: Gutierrez Moreau PA-C 11/28/2019 12:28:00 AM EDT - 11/28/2019 12:46:00 AM EDT [facility] Patient discharged. Outpatient Attender: Juan Limon MD 11/24/2019 02:21:01 PM EDT [facility] Emergency Attender: Deion Pierre MD 10/26 02:16:00 PM EDT - 11/21/2019 04:23:00 PM EDT BACK PAIN [facility] BACK PAIN Patient discharged. Outpatient Attender: ZENY Damicoant: PCP NO 2019 08:00:17 AM EDT - 2019 11:27:00 AM EDT [facility] Patient discharged. Emergency Attender: NIMCO NGUYEN MDConsultant: PCP NO 11/06/2019 10:45:00 PM EDT - 11/07/2019 12:24:00 AM EDT [facility] Patient discharged. Emergency Attender: AUDREY [facility] ED-ED 10/2019 05:03:00 PM EDT - 10/03/2019 05:51:00 PM EDT BACK AND LEG PAIN [facility] BACK AND LEG PAIN Patient discharged. Emergency Attender: Kevin GANT 10/01 12:26:00 AM EDT - 10/02/2019 01:06:00 AM EDT [facility] Patient discharged. Outpatient Attender: Juan PHELAN 10/01/2019 10:46:01 AM EDT [facility] Emergency Attender: Morales Bauer MDAttender: Deion patel MD 09/30/2019 05:13:00 PM EDT - 09/30/2019 07:54:00 PM EDT BACK PAIN [facility] BACK PAIN Patient discharged. Outpatient Attender: Juan PHELAN 08/31/2019 10:57:02 AM EDT [facility] Emergency Attender: Morales Bauer MD 08/29 07:30:00 PM EDT - 08/30/2019 08:56:00 PM EDT BACK [facility]IN [facility] BACK [facility] Patient discharged. Emergency Attender: Sorin Blari FAMILY AND CONSUMER SCIENCES TEACHER ED-ED 08/27 02:40:00 PM EDT - 08/28/2019 03:45:00 PM EDT LOWER BACK PAIN [facility] LOWER BACK PAIN Patient discharged. Emergency Attender: Yadira Moeller RPA-CReferrer: Gutierrez Moreau PA-C 08/27/2019 04:47:00 PM EDT - 08/27/2019 05:15:00 PM EDT [facility] Patient discharged. Outpatient Attender: Juan PHELAN 08/19/2019 09:03:00 AM EDT [facility] Outpatient Attender: Juan PHELAN 08/18/2019 12:50:00 PM EDT [facility] Outpatient Attender: Juan PHELAN 08/18/2019 09:59:01 AM EDT [facility] Outpatient Attender: Juan PHELAN 08/18/2019 09:45:00 AM EDT [facility] Outpatient Attender: Juan PHELAN 08/17/2019 03:14:00 PM EDT [facility] Emergency Attender: Deion Pierre MD 07/25 10:08:00 PM EDT - 08/07/2019 11:52:00 PM EDT BACKPAIN [facility] BACKPA[facility] Patient discharged. Outpatient Attender: Juan Limon MD FP 08/03/2019 07:40:49 PM EDT [facility] Emergency Attender: JAKE QUIROS MDConsultant: PCP NO 07/30/2019 08:11:00 PM EDT - 07/30/2019 09:16:00 PM EDT [facility] Patient discharged. Outpatient Attender: MORALES WIGGINSConsultant: PCP NO 06/09/2019 08:50:00 AM EDT - 06/09/2019 08:50:00 AM EDT [facility] Emergency Attender: Deion Pierre MD 05/25 02:47:00 PM EDT - 06/07/2019 03:40:00 PM EDT BACK PAIN [facility] BACK PAIN Patient discharged. Emergency Attender: ABHIJEET Payneerrer: Melba Moreau PA-C 05/24/2019 09:09:00 PM EDT - 05/24/2019 09:43:00 PM EDT [facility] Patient discharged. Outpatient Attender: Juan Limon MD 05/06/2019 11:22:53 AM EDT [facility] Emergency Attender: CARRIE CARSON PAReferrer: Gutierrez Moreau PA-C 05/05/2019 06:50:00 PM EDT - 05/05/2019 07:19:00 PM EDT [facility] Patient discharged. Emergency Attender: Silvio Hicks MD 11/2019 02:52:00 PM EDT - 05/04/2019 04:59:00 PM EDT BACK PAIN [facility] BACK PAIN Patient discharged. Emergency Attender: JAKE QUIROS MDConsultant: PCP NO 05/02/2019 12:43:10 PM EDT - 05/02/2019 03:26:00 PM EDT [facility] Patient discharged. Emergency Attender: Deion Pierre MD 08/2019 03:53:00 PM EST - 05/01/2019 04:50:00 PM EST BACK PAIN [facility] BACK PAIN Patient discharged. Emergency Attender: SANDY INGRAM MDConsultant: PCP NO 04/30/2019 06:21:00 PM EST - 04/30/2019 09:23:00 PM EST [facility] Patient discharged. Emergency Attender: MELBA GARCIA PAReferrer: Jax Moreau PA-C 03/04/2019 06:16:00 PM EST - 03/04/2019 06:40:00 PM [facility] Patient discharged. Emergency Attender: DEISY MONTOYAReferrer: Melba Moreau PA-C 09/01/2018 11:06:00 PM EDT - 09/01/2018 11:32:00 PM [facility] Emergency Attender: CARRIE GANT 09:54:00 PM EDT - 07/20/2017 10:15:00 PM [facility] Emergency Attender: Karl NATARAJAN EMERGENCY ROOM-ER 0 03/25/2017 02:05:00 PM EST - 03/22/2017 10:00:00 AM [facility] Medications Medication Brand Name Start Date [...] DAILY DOSE = 2 SOLD: 03/21/2020 [facility] Diclofenac Sodium 0.01 MG/MG Topical Gel Diclofenac Sodium 03/21/2020 12:00:00 AM EST active [facility] ([facility]) Methylprednisolone 16 MG Oral Tablet Methylprednisolone 12:00:00 AM EST ORAL active [facility] ([facility]) Acetaminophen 325 MG / Hydrocodone Bitartrate 10 MG Or al Tablet Hydrocodone-Acetaminophen 03/21/2020 12:00:00 AM EST ORAL completed [facility] ([facility]) quetiapine 300 MG Oral Tablet QUETIAPINE FUMARATE [...] DOSE = ONE TABLET SOLD: 03/09/2020 [facility] Prazosin 1 MG Oral Capsule Prazosin HCL 03/09/2020 12:00:00 AM EST ORAL active [facility] ([facility]) 10-325 mg 03/07/2020 12:00:00 AM EST tablet 2 TAKE ONE TABLET BY MOUTH EVERY DAY NEEDED FOR PAIN MAXIMUM DAILY DOSE = 1 TAKE ONE TABLET BY MOUTH EVERY DAY NEEDED FOR PAIN MAXIMUM DAILY DOSE = 1 SOLD: 03/07/2020 [facility] Acetaminophen 300 MG / Hydrocodone Bitartrate 10 MG Or al Tablet [Vicodin] Vicodin HP 03/07/2020 12:00:00 AM EST active [facility] ([facility]) 10 mg 02/03/2020 12:00:00 AM EST tablet [...] 08/30/2019 07:48:09 PM EDT 800 MG active [facility] Ibuprofen 800 MG Oral Tablet Ibuprofen 08/30/2019 07:48:09 PM EDT 800 MG active [facility] Ibuprofen 800 MG Oral Tablet Ibuprofen 08/30/2019 07:48:09 PM EDT [address] [facility] Ibuprofen 800 MG Oral Tablet Ibuprofen 08/30/2019 07:48:09 PM EDT 800 MG active [facility] Ibuprofen 800 MG Oral Tablet Ibuprofen 08/30/2019 07:48:09 PM [address]T [address] [facility] Ibuprofen 800 MG Oral Tablet Ibuprofen 08/30/2019 07:48:09 PM EDT [address] [facility] Ibuprofen 800 MG Oral Tablet Ibuprofen 08/30/2019 07:48:09 PM EDT 800 MG active [facility] Ibuprofen 800 MG Oral Tablet Ibuprofen 08/30/2019 07:48:09 PM EDT [address] [facility] 10-325 mg 08/11/2019 12:00:00 AM EDT tablet [...] 08/07/2019 11:08:32 PM EDT 300 MG active [facility] quetiapine 300 MG Oral Tablet Quetiapine (Seroquel) 30 0 mg Tablet Quetiapine (Seroquel) 300 mg Tablet 08/07/2019 11:08:32 PM EDT 300 MG active [facility] quetiapine 300 MG Oral Tablet [Seroquel] Quetiapine Quetiapi ne 08/07/2019 11:08:32 PM EDT 300 MG active [facility] quetiapine 300 MG Oral Tablet [Seroquel] Quetiapine (S eroquel) 300 mg Tablet Quetiapine (Seroquel) 300 mg Tablet 08/07/2019 11:08:32 PM EDT 300 MG active [facility] quetiapine 300 MG Oral Tablet Quetiapine (Seroquel) 30 0 mg Tablet Quetiapine (Seroquel) 300 mg Tablet 08/07/2019 11:08:32 PM EDT 300 MG active [facility] quetiapine 300 MG Oral Tablet Quetiapine (Seroquel) 30 0 mg Tablet Quetiapine (Seroquel) 300 mg Tablet 08/07/2019 11:08:32 PM EDT 300 MG active [facility] quetiapine 300 MG Oral Tablet Quetiapine (Seroquel) 30 0 mg Tablet Quetiapine (Seroquel) 300 mg Tablet 08/07/2019 11:08:32 PM EDT 300 MG active [facility] quetiapine 300 MG Oral Tablet Quetiapine (Seroquel) 30 0 mg Tablet Quetiapine (Seroquel) 300 mg Tablet 08/07/2019 11:08:32 PM EDT 300 MG active [facility] quetiapine 300 MG Oral Tablet [Seroquel] Quetiapine (S eroquel) 300 mg Tablet Quetiapine (Seroquel) 300 mg Tablet 08/07/2019 11:08:32 PM EDT 300 MG active [facility] Cyclobenzaprine hydrochloride 10 MG Oral Tablet [...] pack 05/01/2019 04:25:45 PM EST 0 completed [facility] Methylprednisolone Methylprednisolone (Medrol (Jt)) 4 mg tablets,dose pack Methylprednisolone (Medrol (Jt)) 4 mg tablets,dose pack 05/01/2019 04:25:45 PM EST 0 completed [facility] Methylprednisolone Methylprednisolone (Medrol (Jt)) 4 mg tablets,dose pack Methylprednisolone (Medrol (Jt)) 4 mg tablets,dose pack 05/01/2019 04:25:45 PM EST 0 completed [facility] Methylprednisolone Methylprednisolone (Medrol (Jt)) 4 mg tablets,dose pack Methylprednisolone (Medrol (Jt)) 4 mg tablets,dose pack 05/01/2019 04:25:45 PM EST 0 completed [facility] Methylprednisolone Methylprednisolone (Medrol (Jt)) 4 mg tablets,dose pack Methylprednisolone (Medrol (Jt)) 4 mg tablets,dose pack 05/01/2019 04:25:45 PM EST 0 completed [facility] Methylprednisolone Methylprednisolone 05/01/2019 04:25:45 PM EST 0 completed [facility] Methylprednisolone Methylprednisolone (Medrol (Jt)) 4 mg tablets,dose pack Methylprednisolone (Medrol (Jt)) 4 mg tablets,dose pack 05/01/2019 04:25:45 PM EST 0 completed [facility] Methylprednisolone Methylprednisolone 05/01/2019 04:25:45 PM EST 0 active [facility] Methylprednisolone Methylprednisolone 05/01/2019 04:25:45 PM EST 0 active [facility] Methylprednisolone Methylprednisolone (Medrol (Jt)) 4 mg tablets,dose pack Methylprednisolone (Medrol (Jt)) 4 mg tablets,dose pack 05/01/2019 04:25:45 PM EST 0 completed [facility] Methylprednisolone Methylprednisolone (Medrol (Jt)) 4 mg tablets,dose pack Methylprednisolone (Medrol (Jt)) 4 mg tablets,dose pack 05/01/2019 04:25:45 PM EST 0 completed [facility] Methylprednisolone Methylprednisolone 05/01/2019 04:25:45 PM EST 0 completed [facility] 10 mg 04/09/2019 12:00:00 AM EST [...] relationship to odell Policy Odell Plan Information [facility] [id number] SP [id number] [facility] MEDICAID [id number] S [id number] [facility](MCAID) O [id number] S [id number] Medicaid Medicaid [id number] Self [id number] [facility] COMMUNTY PLAN [id number] [facility] PLAN [id number] 18 [id number] [facility] COMMUNITY PLAN XIX [id number] 18 [id number] [facility] AMERICHOICE XIX -HMO [id number] 18 [id number] Self Pay P UNAVAILABLE S UNAVAILA BLE [facility] COMMUNITY PLAN XIX -RECURRING [id number] 18 [id number] [facility] O [id number] S [id number] [facility](MCAID) O [id number] S [id number] [facility] COMMUNITY [id number] S [id number] [facility] MEDICAID [id number] S [id number] [facility] COMMUNITY PLAN MCDHMO [id number] SP [id number] MEDICAID [id number] SP [id number] [facility] COMMUNITY PLAN MCDHMO [id number] SP [id number] [facility] MEDICAID [id number] S [id number] [facility] MEDICAID [id number] S [id number] [facility] COMMUNITY PL [id number] S [id number] MEDICAID [id number] S [id number] [facility] COMMUNITY PLAN XIX [id number] 18 [id number] [facility] COMMUNITY PLAN XIX [id number] 18 [id number] MEDICAID -O/P EMERGENCY ROOM [id number] 18 [id number] [facility] MEDICAID [id number] S [id number] [facility] COMMUNITY PLAN MCDHMO [id number] SP [id number] [facility] COMMUNITY PLAN MCDHMO [id number] SP [id number] [facility] [employer] DEPT [id number] SP [id number] SELF PAY ONLY [id number] SP [id number] [facility] COMMUNITY PLAN MCDHMO [id number] SP [id number] [facility] COMMUNITY PLAN MCDHMO [id number] SP [id number] Medicaid S [id number] S [id number] Managed Care - Community Plan [facility] P [id number] S [id number] [facility] MEDICAID [facility] HMO [id number] S [id number] [facility] WELL 4 ME MARY CARMEN HMO [id number] S [id number] PRIVATE PAY CO UNAVAILABLE 18 UNAVAI LABLE [facility] [place] [id number] 18 [id number] UN[facility] AMERICHOICE XIX -HMO [id number] 18 [id number] MEDICAID -O/P [id number] Private Pay Commercial [id number] Self [id number] [facility] COMMUNITY PLAN [id number] 18 [id number] UN[facility] COMMUNITY PLAN MCDHMO [id number] SP [id number] [facility] MEDICAID MARY CARMEN HMO [id number] S [id number] SELF PAY ONLY [id number] SP [id number] UN[facility] COMMUNITY PLAN MCDHMO [id number] SP [id number] Un[facility] Community Plan Medicaid Self UN[facility] COMMUNITY PLAN MC [id number] 18 [id number] UN[facility] COMMUNITY PLAN MCDHMO [id number] SP [id number] Medicaid S [id number] S [id number] Managed Care - Community Plan [facility] P [id number] S [id number] [facility] [id number] SP [id number] [facility] [id number] SP [id number] Medicaid P [id number] S [id number] [facility](MCAID) O [id number] S [id number] [facility] [id number] S [id number] SELF PAY UNAVAILABLE SP UNAVAILA BLE UHC I [id number] Self [id number] MEDICAID MARY CARMEN [id number] S [id number] POMCO [id number] SP [id number] [facility] [employer] DEP [id number] SP [id number] [facility] MARY CARMEN [id number] SP [id number] MEDICAID M [id number] Self [id number] AMERICHOICE UNHC XIX PHY -HMO [id number] 18 [id number] Medicaid S [id number] S [id number] UNHC AMERICHOICE XIX HMO [id number] 18 [id number] EXCELL I [id number] Self [id number] MEDICAID - CLINIC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 [address] [facility] pital Height [address] [facility] pital Blood Pressure 103/78 103/78 [facility] Weight Measurement Method 8 8 [facility] Weight [address] [facility] pital Temperature Source 7 7 [facility] Temperature 99 99 [facility] Respiratory Effort 1 1 [facility] Respiratory Rate 18 18 [facility] Pulse Assessment Method 4 4 [facility] Pulse Rate 95 95 [facility] Height 69 69 [facility] Blood Pressure 112/74 112/74 [facility]
== END 2020-04-17 02:21 | disposition home or self-care (01) ==
LOC: M ED 23:22
DX: G89.29 Other chronic pain (principal); R56.9 Unspecified convulsions; D50.9 Iron deficiency anemia, unspecified; J44.9 Chronic obstructive pulmonary disease, unspecified; F63.9 Impulse disorder, unspecified; F60.2 Antisocial personality disorder; F17.200 Nicotine dependence, unspecified, uncomplicated; Z88.0 Allergy status to penicillin; Z88.5 Allergy status to narcotic agent; Z88.8 Allergy status to other drugs, medicaments and biological substances; Z91.013 Allergy to seafood; Z91.030 Bee allergy status

== ENCOUNTER 2020-06-16 21:10 | Emergency (ER) | payer OTHER ==
[~2020-06-16] VITALS: Ht 175.3 cm; Wt 51.7 kg
[2020-06-16 21:10] VITALS: BP 135/77
== END 2020-06-16 22:30 | disposition home or self-care (01) ==
LOC: M ED 22:28
DX: G89.29 Other chronic pain (principal); M54.9 Dorsalgia, unspecified; Z86.73 Personal history of transient ischemic attack (TIA), and cerebral infarction without residual deficits; R56.9 Unspecified convulsions; Z87.820 Personal history of traumatic brain injury; R07.9 Chest pain, unspecified; J44.9 Chronic obstructive pulmonary disease, unspecified; H55.89 Other irregular eye movements; H53.8 Other visual disturbances; D50.9 Iron deficiency anemia, unspecified; F41.9 Anxiety disorder, unspecified; F32.9 Major depressive disorder, single episode, unspecified; F63.9 Impulse disorder, unspecified; F60.2 Antisocial personality disorder; Z76.5 Malingerer [conscious simulation]; Z91.013 Allergy to seafood; Z91.030 Bee allergy status; Z88.0 Allergy status to penicillin; Z88.5 Allergy status to narcotic agent; Z88.8 Allergy status to other drugs, medicaments and biological substances

== ENCOUNTER 2020-06-20 15:06 | Emergency (ER) | payer OTHER ==
[~2020-06-20] VITALS: Ht 175.3 cm; Wt 56.8 kg
[2020-06-20] MEDS ORDERED: HYDR-3719 PO (15:13)
[2020-06-20] MEDS ORDERED: GABA-845 PO (15:13)
[2020-06-20] MEDS ORDERED: KLON1TAB PO (15:13)
[2020-06-20] MEDS ORDERED: SERO400T PO (15:13)
[2020-06-20] MEDS ORDERED: BACL1TAB9 PO (15:13)
[2020-06-20] MEDS ORDERED: PRED1TABL PO (15:13)
[2020-06-20] MEDS ORDERED: PERCOCET 5MG/325MG TAB PO ONE (16:20)
[2020-06-20] MEDS ORDERED: PERC5TAB12 PO (16:27)
[2020-06-20] MEDS ORDERED: methocarbamoL 750 MG TAB PO ONE (16:50)
[2020-06-20] MEDS ORDERED: METH-1165 PO (17:24)
[2020-06-20 17:36] VITALS: BP 131/79
== END 2020-06-20 17:38 | disposition home or self-care (01) ==
LOC: M ED 15:06
DX: G89.29 Other chronic pain (principal); M54.9 Dorsalgia, unspecified; M48.00 Spinal stenosis, site unspecified; F43.10 Post-traumatic stress disorder, unspecified; F20.9 Schizophrenia, unspecified; F41.9 Anxiety disorder, unspecified; F32.9 Major depressive disorder, single episode, unspecified; R56.9 Unspecified convulsions; Z86.73 Personal history of transient ischemic attack (TIA), and cerebral infarction without residual deficits; D50.9 Iron deficiency anemia, unspecified; J44.9 Chronic obstructive pulmonary disease, unspecified; Z87.81 Personal history of (healed) traumatic fracture; M81.0 Age-related osteoporosis without current pathological fracture; F17.200 Nicotine dependence, unspecified, uncomplicated; Z91.013 Allergy to seafood; Z88.0 Allergy status to penicillin; Z91.030 Bee allergy status; Z88.5 Allergy status to narcotic agent; Z88.8 Allergy status to other drugs, medicaments and biological substances

== ENCOUNTER → 2020-08-22 | Outpatient (CLI) | payer OTHER ==
[~2020-08-22] MED LIST changes: +GABA-283 PO; -GABA-845 PO; +METH-1165 PO; +PRED1TABL PO; +SERO400T PO
--- NOTE | 2020-08-22 12:53 | REP ---
INDICATION: Assess stenosis TECHNIQUE: Carotid ultrasonography was performed bilaterally FINDINGS: Right: CCA systolic: 94.6 centimeters/second CCA diastolic: 26.2 centimeters/second ICA systolic: 109.9 centimeters/second ICA diastolic: 38.8 centimeters/second ICA CCA ratio: 1.16 Left: CCA systolic: 122 centimeters/second CCA diastolic: 30.3 centimeters/second ICA systolic: 115.7 centimeters/second ICA diastolic: 39.0 centimeters/second ICA CCA ratio: 0.95 Vertebral artery: Right: Antegrade flow left: Antegrade flow Mixed echogenic material seen along the carotid arterial finley some of which casts an acoustic shadow consistent with calcific deposition IMPRESSION: According to the SRU criteria there is less than 50% stenosis of the internal carotid artery bilaterally. This is secondary to both calcified and noncalcified atheromatous plaque. <Electronically signed by Max De León > 08/22/20 1984
== END ==
LOC: M RAD 11:57
PROVIDERS: ATTEND Surgery
DX: I65.23 Occlusion and stenosis of bilateral carotid arteries (principal)

== ENCOUNTER → 2020-08-25 | Outpatient (CLI) | payer OTHER ==
--- NOTE | 2020-08-25 16:13 | DEXAMM ---
INDICATION: AGE REL OSTEOPOROSIS W/O FX. COMPARISON: November 15, 2010. TECHNIQUE: Bone density was measured using dual-energy x-ray absorptionmetry (DEXA). FINDINGS: AP SPINE L1-L4 BMD 0.950 g/cm2 Young Adult T-Score -2.0 Age Matched Z-Score -2.2. LT FEMUR, TOTAL BMD 0.708 g/cm2 Young Adult T-Score -2.4 Age Matched Z-Score -2.5. LT NECK BMD 0.744 g/cm2 Young Adult T-Score for -2.1 Age Matched Z-Score -2.0. RT FEMUR, TOTAL BMD 0.726 g/cm2 Young Adult T-Score -2.2 Age Matched Z-Score -2.3. RT NECK BMD 0.746 g/cm2 Young Adult T-Score -2.1 Age Matched Z-Score -2.0. IMPRESSION: There is low bone density of the spine. There is low bone density of the left hip. There is low bone density of the right hip. The density of the spine has decreased 7.7% since the initial exam on November 15, 2010. The density of the left hip has decreased 9.1% since initial exam on November 15, 2010. The density of the right hip has decreased 11.1% since the initial exam on November 15, 2010. FOLLOW-UP: Recommendation for the next bone density exam: 2 years. <Electronically signed by Celestino Shannon > 08/25/20 2047
== END ==
LOC: M WHC 14:27
PROVIDERS: ATTEND Family Medicine Addiction Medicine
DX: M81.0 Age-related osteoporosis without current pathological fracture (principal)

== ENCOUNTER → 2021-06-11 | Outpatient (CLI) | payer OTHER ==
[~2021-06-11] MED LIST changes: -CLIN150C15 PO; +CLIN150C17 PO; -DOXY100C PO; +DOXY100C3 PO; +OLAN1TAB16; -OLAN5TAB
== END ==
LOC: M RAD 14:37
PROVIDERS: ATTEND Physician Assistant
DX: M25.511 Pain in right shoulder (principal); M79.621 Pain in right upper arm

== ENCOUNTER 2021-08-22 17:51 | Emergency (ER) | payer OTHER ==
[~2021-08-22] VITALS: Ht 175.3 cm; Wt 56.8 kg
[2021-08-22] MEDS ORDERED: MORP-69 (18:27)
[2021-08-22] MEDS ORDERED: NORCO, ANEXSIA 5/325MG TABLET (HYDROcodone/ACETAMINOPHEN) PO ONE (20:10)
[2021-08-22 20:20] VITALS: BP 138/85
== END 2021-08-22 20:25 | disposition home or self-care (01) ==
LOC: M ED 17:51
DX: M54.9 Dorsalgia, unspecified (principal); G89.29 Other chronic pain; Z76.0 Encounter for issue of repeat prescription; Z88.0 Allergy status to penicillin; Z88.8 Allergy status to other drugs, medicaments and biological substances; Z91.030 Bee allergy status

== ENCOUNTER 2021-09-02 20:42 | Emergency (ER) | payer OTHER ==
[~2021-09-02] VITALS: Ht 175.3 cm; Wt 56.8 kg
[~2021-09-02 20:42] MED LIST changes: +MORP-69
[2021-09-02 20:45] VITALS: BP 105/65
[2021-09-02] MEDS ORDERED: PRAZ1CAP (20:53)
== END 2021-09-02 23:30 | disposition left against medical advice (07) ==
LOC: M ED 20:42
DX: M54.9 Dorsalgia, unspecified (principal); J44.9 Chronic obstructive pulmonary disease, unspecified; Z88.0 Allergy status to penicillin; Z88.8 Allergy status to other drugs, medicaments and biological substances; Z91.030 Bee allergy status; Z91.013 Allergy to seafood; Z53.20 Procedure and treatment not carried out because of patient's decision for unspecified reasons

== ENCOUNTER 2022-05-21 23:01 | Emergency (ER) | payer OTHER ==
[~2022-05-21] VITALS: Ht 175.3 cm; Wt 52.7 kg
[~2022-05-21 23:01] MED LIST changes: +ALEN70TA87 PO
[2022-05-22 03:48] VITALS: BP 102/68
[2022-05-22] MEDS ORDERED: BACL1TAB9 (15:02)
[2022-05-22] MEDS ORDERED: ZOLP10TA2 (15:02)
[2022-05-22] MEDS ORDERED: ALBU8.5H (15:02)
[2022-05-22] MEDS ORDERED: OLAN15TA13 (15:02)
== END 2022-05-22 04:03 | disposition left against medical advice (07) ==
LOC: M ED 23:01
DX: M54.50 Low back pain, unspecified (principal); Z53.21 Procedure and treatment not carried out due to patient leaving prior to being seen by health care provider

== ENCOUNTER 2022-05-22 14:45 | Emergency (ER) | payer OTHER ==
[~2022-05-22] VITALS: Ht 175.3 cm; Wt 56.8 kg
[2022-05-22] MEDS ORDERED: ALBU8.5H (15:02)
[2022-05-22] MEDS ORDERED: OLAN15TA13 (15:02)
[2022-05-22] MEDS ORDERED: BACL1TAB9 (15:02)
[2022-05-22] MEDS ORDERED: ZOLP10TA2 (15:02)
[2022-05-22] MEDS ORDERED: oxyCODONE 5MG TAB PO ONE (15:45)
[2022-05-22] MEDS ORDERED: PERCOCET 5MG/325MG TAB PO ONE (15:45)
[2022-05-22 15:59] VITALS: BP 116/81
== END 2022-05-22 16:10 | disposition home or self-care (01) ==
LOC: M ED 14:45
DX: M54.9 Dorsalgia, unspecified (principal); J44.9 Chronic obstructive pulmonary disease, unspecified; F41.9 Anxiety disorder, unspecified; F17.210 Nicotine dependence, cigarettes, uncomplicated; Z88.0 Allergy status to penicillin; Z88.8 Allergy status to other drugs, medicaments and biological substances; Z91.030 Bee allergy status; Z91.013 Allergy to seafood; Z79.899 Other long term (current) drug therapy; Z79.51 Long term (current) use of inhaled steroids

== ENCOUNTER 2022-06-18 23:44 | Emergency (ER) | payer OTHER ==
[~2022-06-18] VITALS: Ht 175.3 cm; Wt 54.4 kg
[2022-06-18 23:44] VITALS: BP 104/75
[~2022-06-18 23:44] MED LIST changes: +ALBU8.5H; +BACL1TAB9; +OLAN15TA13; +ZOLP10TA2
[2022-06-19] MEDS ORDERED: NORCO, ANEXSIA 5/325MG TABLET (HYDROcodone/ACETAMINOPHEN) PO ONE (03:50)
[2022-06-19] MEDS ORDERED: OXYCODONE/APAP 5MG/325MG(HOME DOSE PACK) PO ONE (04:10)
[2022-06-19] MEDS ORDERED: NORCO 5/325MG TABLET (HOME DOSE PACK) PO ONE (04:15)
== END 2022-06-19 04:45 | disposition home or self-care (01) ==
LOC: M ED 23:44
DX: S39.012A Strain of muscle, fascia and tendon of lower back, initial encounter (principal); X50.0XXA Overexertion from strenuous movement or load, initial encounter; Y92.019 Unspecified place in single-family (private) house as the place of occurrence of the external cause; Y93.89 Activity, other specified; Y99.8 Other external cause status; M54.30 Sciatica, unspecified side; J44.9 Chronic obstructive pulmonary disease, unspecified; G47.00 Insomnia, unspecified; F43.10 Post-traumatic stress disorder, unspecified; R56.9 Unspecified convulsions; F17.200 Nicotine dependence, unspecified, uncomplicated; Z88.0 Allergy status to penicillin; Z88.8 Allergy status to other drugs, medicaments and biological substances; Z91.030 Bee allergy status; Z91.013 Allergy to seafood; Z79.899 Other long term (current) drug therapy; Z79.51 Long term (current) use of inhaled steroids

== ENCOUNTER → 2022-12-25 | Outpatient (REF) ==
[~2022-12-25] MED LIST changes: +CLON-952; -GABA-283 PO; +GABA-284 PO; -KLON2TAB
== END ==
LOC: M PLAIMG 14:56
PROVIDERS: ATTEND Internal Medicine
DX: R52 Pain, unspecified (principal)

== ENCOUNTER 2023-06-03 01:39 | Emergency (ER) | payer OTHER ==
[~2023-06-03] VITALS: Ht 175.3 cm; Wt 55.7 kg
[~2023-06-03 01:39] MED LIST changes: -KLON1TAB PO; +KLON1TAB13 PO
[2023-06-03] MEDS: PERCOCET 5MG/325MG TAB PO ONE (07:53)
[2023-06-03 08:22] VITALS: BP 139/72; TEMP 97.2; O2SAT 98
== END 2023-06-03 08:34 | disposition home or self-care (01) ==
LOC: M ED 01:39
DX: M54.50 Low back pain, unspecified (principal); J44.9 Chronic obstructive pulmonary disease, unspecified; G40.89 Other seizures; F41.9 Anxiety disorder, unspecified; F32.A Depression, unspecified; F17.210 Nicotine dependence, cigarettes, uncomplicated; Z88.0 Allergy status to penicillin; Z88.8 Allergy status to other drugs, medicaments and biological substances; Z91.013 Allergy to seafood; Z91.030 Bee allergy status; Z79.1 Long term (current) use of non-steroidal anti-inflammatories (NSAID); Z79.51 Long term (current) use of inhaled steroids; Z79.2 Long term (current) use of antibiotics; Z79.899 Other long term (current) drug therapy

== ENCOUNTER 2023-12-27 19:49 | Emergency (ER) | payer OTHER ==
[~2023-12-27] VITALS: Ht 175.3 cm; Wt 51.0 kg
[~2023-12-27 19:49] MED LIST changes: +GABA-1172 PO; -GABA-282 PO; -OLAN15TA13; +OLAN15TA69
[2023-12-27] MEDS: NORCO, ANEXSIA 5/325MG TABLET (HYDROcodone/ACETAMINOPHEN) PO ONE (20:25)
[2023-12-27 22:05] VITALS: BP 110/65; TEMP 99.6; O2SAT 98
== END 2023-12-27 22:28 | disposition home or self-care (01) ==
LOC: M ED 19:49
DX: S73.102A Unspecified sprain of left hip, initial encounter (principal); W13.2XXA Fall from, out of or through roof, initial encounter; Y92.017 Garden or yard in single-family (private) house as the place of occurrence of the external cause; Y93.89 Activity, other specified; Y99.9 Unspecified external cause status; G89.29 Other chronic pain; M54.50 Low back pain, unspecified; Z88.0 Allergy status to penicillin; Z88.5 Allergy status to narcotic agent; Z88.8 Allergy status to other drugs, medicaments and biological substances; Z79.899 Other long term (current) drug therapy

== ENCOUNTER 2024-01-16 01:58 | Emergency (ER) | payer OTHER ==
[~2024-01-16] VITALS: Ht 175.3 cm; Wt 51.5 kg
[2024-01-16] MEDS: methylPREDNISolone 125MG 2ML VIAL IM ONE (05:20)
[2024-01-16] MEDS: diazePAM 10MG/2ML SYRINGE IM ONE (05:35)
[2024-01-16] MEDS: ACETAMINOPHEN 500 MG TAB PO ONE (06:20)
[2024-01-16] MEDS: IBUPROFEN 600MG TAB PO ONE (06:25)
[2024-01-16 06:32] VITALS: BP 159/98; TEMP 97.6; O2SAT 98
== END 2024-01-16 06:33 | disposition home or self-care (01) ==
LOC: M ED 01:58
DX: M54.50 Low back pain, unspecified (principal); G40.89 Other seizures; J44.9 Chronic obstructive pulmonary disease, unspecified; F17.210 Nicotine dependence, cigarettes, uncomplicated; Z88.0 Allergy status to penicillin; Z88.1 Allergy status to other antibiotic agents; Z88.5 Allergy status to narcotic agent; Z91.030 Bee allergy status; Z91.013 Allergy to seafood; Z79.1 Long term (current) use of non-steroidal anti-inflammatories (NSAID); Z79.51 Long term (current) use of inhaled steroids; Z79.2 Long term (current) use of antibiotics; Z79.899 Other long term (current) drug therapy
CPT/HCPCS: 96372; 99283; J3360

== ENCOUNTER 2024-04-05 21:26 | Emergency (ER) | payer OTHER ==
[~2024-04-05] VITALS: Ht 175.3 cm; Wt 52.3 kg
[2024-04-05 21:34] VITALS: BP 134/86; TEMP 99.6; O2SAT 98
[2024-04-06] MEDS: NORCO, ANEXSIA 5/325MG TABLET (HYDROcodone/ACETAMINOPHEN) PO ONE ×2 (01:23→03:11)
== END 2024-04-06 07:02 | disposition home or self-care (01) ==
LOC: M ED 21:26
DX: M54.50 Low back pain, unspecified (principal); J44.9 Chronic obstructive pulmonary disease, unspecified; F17.210 Nicotine dependence, cigarettes, uncomplicated; Z88.0 Allergy status to penicillin; Z88.1 Allergy status to other antibiotic agents; Z88.8 Allergy status to other drugs, medicaments and biological substances; Z91.030 Bee allergy status; Z91.013 Allergy to seafood; Z79.1 Long term (current) use of non-steroidal anti-inflammatories (NSAID); Z79.51 Long term (current) use of inhaled steroids; Z79.2 Long term (current) use of antibiotics; Z79.899 Other long term (current) drug therapy

== ENCOUNTER 2024-06-03 17:42 | Emergency (ER) | payer OTHER ==
[~2024-06-03] VITALS: Ht 175.3 cm; Wt 51.0 kg
[2024-06-03] MEDS ORDERED: HYDR-3713 (17:53)
[2024-06-03 20:07] VITALS: BP 96/52; TEMP 99.2; O2SAT 96
== END 2024-06-03 20:32 | disposition home or self-care (01) ==
LOC: M ED 17:42
DX: Z76.0 Encounter for issue of repeat prescription (principal); Z88.0 Allergy status to penicillin; Z88.1 Allergy status to other antibiotic agents; Z88.5 Allergy status to narcotic agent; Z91.013 Allergy to seafood; Z91.030 Bee allergy status; Z79.1 Long term (current) use of non-steroidal anti-inflammatories (NSAID); Z79.2 Long term (current) use of antibiotics; Z79.51 Long term (current) use of inhaled steroids; Z79.899 Other long term (current) drug therapy

== ENCOUNTER 2024-06-22 18:31 | Emergency (ER) | payer OTHER ==
[~2024-06-22] VITALS: Ht 175.3 cm; Wt 50.2 kg
[~2024-06-22 18:31] MED LIST changes: -AMBI10TA PO; +HYDR-3713; +PRED-1142 PO; -PRED1TABL PO; +ZOLP-533 PO
[2024-06-22 18:45] VITALS: TEMP 97.6
[2024-06-22] MEDS: CYCLOBENZAPRINE 10MG TABLET PO ONE (20:18)
[2024-06-22] MEDS: LIDOCAINE 5% (LIDODERM) PATCH TD ONE (20:19)
[2024-06-22] MEDS: ACETAMINOPHEN *IV* 1,000 MG in IV 1 EA IV ONE (20:19)
[2024-06-22 21:33] VITALS: BP 114/70
[2024-06-22] MEDS: PERCOCET 5MG/325MG TAB PO ONE ×2 (21:41→22:21)
[2024-06-22 22:21] VITALS: O2SAT 96
== END 2024-06-22 22:25 | disposition home or self-care (01) ==
LOC: EDBD 18:31 → M ED 18:31
DX: M54.42 Lumbago with sciatica, left side (principal); D64.9 Anemia, unspecified; J44.9 Chronic obstructive pulmonary disease, unspecified; Z86.73 Personal history of transient ischemic attack (TIA), and cerebral infarction without residual deficits; F17.210 Nicotine dependence, cigarettes, uncomplicated; F11.10 Opioid abuse, uncomplicated; Z88.0 Allergy status to penicillin; Z88.1 Allergy status to other antibiotic agents; Z88.5 Allergy status to narcotic agent; Z91.013 Allergy to seafood; Z91.030 Bee allergy status; Z79.1 Long term (current) use of non-steroidal anti-inflammatories (NSAID); Z79.2 Long term (current) use of antibiotics; Z79.51 Long term (current) use of inhaled steroids; Z79.899 Other long term (current) drug therapy
CPT/HCPCS: 72110; 73502; 96374; 99284; J0131

== ENCOUNTER 2024-06-24 17:01 | Emergency (ER) | payer OTHER ==
[~2024-06-24] VITALS: Ht 175.3 cm; Wt 49.0 kg
[2024-06-24] MEDS: METHOCARBAMOL 1,000 MG/10 ML VIAL IV ONE (20:06)
[2024-06-24] MEDS: ACETAMINOPHEN *IV* 1,000 MG in IV 1 EA IV ONE (20:07)
[2024-06-24 20:22] LABS: KETONE, URINE AUTO RFX NEGATIVE (NEGATIVE); LEUKOCYTE ESTERASE UR AUTO RFX NEGATIVE (NEGATIVE); MUCUS, URINE RFX LARGE (NEGATIVE); NITRITE, URINE AUTO RFX NEGATIVE (NEGATIVE); RBC, URINE AUTO RFX 0 /HPF (0-3); SQUAM EPITHELIAL CELL UR AURFX 0 /HPF (0-6); WBC, URINE AUTO RFX 1 /HPF (0-3)
[2024-06-24 20:51] LABS: AMPHETAMINES LEVEL URINE NEGATIVE (NEGATIVE); BARBITURATES URINE NEGATIVE (NEGATIVE); BENZODIAZEPINES URINE NEGATIVE (NEGATIVE); COCAINE METABOLITE URINE NEGATIVE (NEGATIVE); METHADONE URINE NEGATIVE (NEGATIVE)
[2024-06-24 20:52] LABS: PHENCYCLIDINE URINE NEGATIVE (NEGATIVE)
[2024-06-24 20:54] LABS: CANNABINOIDS URINE POSITIVE (NEGATIVE); OPIATES URINE POSITIVE (NEGATIVE)
[2024-06-24 21:36] VITALS: BP 105/72; TEMP 97.3; O2SAT 99
[2024-06-24] MEDS: ANEXSIA, NORCO 7.5MG/325MG TABLET(HYDROCODONE/APAP) PO ONE (21:48)
== END 2024-06-24 22:06 | disposition home or self-care (01) ==
LOC: M ED 17:01
DX: S39.012A Strain of muscle, fascia and tendon of lower back, initial encounter (principal); S70.01XA Contusion of right hip, initial encounter; S70.02XA Contusion of left hip, initial encounter; Y92.9 Unspecified place or not applicable; Y93.9 Activity, unspecified; Y99.9 Unspecified external cause status; J44.9 Chronic obstructive pulmonary disease, unspecified; F41.9 Anxiety disorder, unspecified; F17.210 Nicotine dependence, cigarettes, uncomplicated; Z86.73 Personal history of transient ischemic attack (TIA), and cerebral infarction without residual deficits; Z88.0 Allergy status to penicillin; Z88.1 Allergy status to other antibiotic agents; Z88.5 Allergy status to narcotic agent; Z91.013 Allergy to seafood; Z91.030 Bee allergy status; Z79.1 Long term (current) use of non-steroidal anti-inflammatories (NSAID); Z79.2 Long term (current) use of antibiotics; Z79.899 Other long term (current) drug therapy
CPT/HCPCS: 36415; 72131; 72192; 80307; 81001; 96365; 96375; 99284; J0131; J2800

== ENCOUNTER 2024-07-08 01:04 | Emergency (ER) | payer OTHER ==
[~2024-07-08] VITALS: Ht 175.3 cm; Wt 56.8 kg
[2024-07-08] MEDS: GABAPENTIN 300 MG CAP PO ONE (07:51)
[2024-07-08] MEDS: NORCO, ANEXSIA 5/325MG TABLET (HYDROcodone/ACETAMINOPHEN) PO ONE (07:51)
[2024-07-08 08:11] LABS: BASO % 0.4 % (0.0-1.0); EOS # 0.2 10^3/uL (0.0-0.5); EOS % 2.7 % (0.0-3.0); HEMATOCRIT 39.5 % (42.0-52.0); HEMOGLOBIN 12.8 g/dl (13.5-17.5); LYMPH # 2.6 10^3/uL (1.5-5.0); LYMPH % 38.3 % (24.0-44.0); MEAN CORPUSCULAR HEMOGLOBIN 30.1 pg (27.0-33.0); MEAN CORPUSCULAR HGB CONC 32.4 g/dl (32.0-36.5); MEAN CORPUSCULAR VOLUME 92.9 fl (80.0-96.0); MONO # 0.5 10^3/uL (0.0-0.8); MONO % 6.7 % (2.0-8.0); NEUTROPHILS # 3.5 10^3/uL (1.5-8.5); NEUTROPHILS % 51.8 % (36.0-66.0); PLATELET COUNT, AUTOMATED 257 10^3/uL (150-450); RED BLOOD COUNT 4.25 10^6/uL (4.30-6.10); WHITE BLOOD COUNT 6.7 10^3/uL (4.0-10.0)
[2024-07-08 08:20] LABS: ERYTHROCYTE SEDIMENTATION RATE 1 mm/hr (0-15)
[2024-07-08 08:46] LABS: BLOOD UREA NITROGEN 13 MG/DL (9-23); C REACTIVE PROTEIN QUANTITATIV < 0.50 MG/DL (<1.0); CALCIUM LEVEL 8.7 MG/DL (8.5-10.1); CARBON DIOXIDE LEVEL 30 MMOL/L (20-31); CHLORIDE LEVEL 109 MMOL/L (98-107); CREATININE FOR GFR 0.71 MG/DL (0.70-1.30); GLOMERULAR FILTRATION RATE > 90.0 (>60); GLUCOSE, FASTING 113 MG/DL (60-100); POTASSIUM SERUM 4.2 MMOL/L (3.5-5.1); SODIUM LEVEL 144 MMOL/L (136-145)
[2024-07-08 10:30] VITALS: BP 112/73; TEMP 97.6; O2SAT 97
== END 2024-07-08 10:45 | disposition home or self-care (01) ==
LOC: M ED 01:04
DX: M25.552 Pain in left hip (principal); R00.1 Bradycardia, unspecified; J44.9 Chronic obstructive pulmonary disease, unspecified; F17.210 Nicotine dependence, cigarettes, uncomplicated; Z88.0 Allergy status to penicillin; Z88.1 Allergy status to other antibiotic agents; Z88.5 Allergy status to narcotic agent; Z91.030 Bee allergy status; Z91.013 Allergy to seafood; Z79.1 Long term (current) use of non-steroidal anti-inflammatories (NSAID); Z79.2 Long term (current) use of antibiotics; Z79.899 Other long term (current) drug therapy

== ENCOUNTER 2024-10-22 11:07 | Emergency (ER) | payer OTHER ==
[~2024-10-22 11:07] MED LIST changes: -BACL1TAB9; +DIVA-41; -DIVA500T94; -ZOLP10TA2
[2024-10-22 11:23] VITALS: TEMP 97.9
[2024-10-22 11:28] LABS: VENOUS BASE EXCESS -3.0 (-2.0-2.0); VENOUS HCO3 21.6 MMOL/L (23.0-27.0); VENOUS O2 SATURATION 98.4 % (60.0-80.0); VENOUS PARTIAL PRESSURE CO2 37.2 mmHg (38.0-50.0); VENOUS PARTIAL PRESSURE O2 144.0 mmHg (30.0-50.0); VENOUS PH 7.382 UNITS (7.330-7.430); VENOUS STANDARD HCO3 22.0 MMOL/L; VENOUS TOTAL CO2 22.8 MMOL/L (24.0-28.0)
[2024-10-22] MEDS: cefTRIAXone SOD 2 GM in DEXTROSE 5% (D5W) ADV/MINI-BAG 50 ML IV ONE (11:30)
[2024-10-22] MEDS: NS 0.9% IV ONE (11:32)
[2024-10-22] MEDS: [UNRECOGNIZED DRUG - OTHER] IV ONE (11:32)
[2024-10-22 11:38] LABS: BASO # 0.0 10^3/uL (0.0-0.2); BASO % 0.5 % (0.0-1.0); EOS # 0.2 10^3/uL (0.0-0.5); EOS % 2.4 % (0.0-3.0); LYMPH # 2.3 10^3/uL (1.5-5.0); LYMPH % 27.5 % (24.0-44.0); MONO # 0.5 10^3/uL (0.0-0.8); MONO % 6.0 % (2.0-8.0); NEUTROPHILS # 5.3 10^3/uL (1.5-8.5); NEUTROPHILS % 63.1 % (36.0-66.0); PLATELET COUNT, AUTOMATED 277 10^3/uL (150-450)
[2024-10-22 11:45] VITALS: BP 86/53; O2SAT 94
[2024-10-22] MEDS ORDERED: HOME MED LIST COMPLETE! XX SCH (12:05)
[2024-10-22 12:06] LABS: OSMOLALITY SERUM 299 MOSM/KG (275-295)
[2024-10-22 12:07] LABS: ETHYL ALCOHOL (ETHANOL) < 0.003 % (0.000-0.010)
[2024-10-22 12:08] LABS: SALICYLATE LEVEL < 3.0 MG/DL (<30)
[2024-10-22 12:09] LABS: ALT/SGPT 24 U/L (7.0-40); AST/SGOT 22 U/L (<34); CALCIUM LEVEL 8.7 MG/DL (8.5-10.1); CARBON DIOXIDE LEVEL 25 MMOL/L (20-31); CHLORIDE LEVEL 111 MMOL/L (98-107); CREATININE FOR GFR 0.67 MG/DL (0.70-1.30); GLOMERULAR FILTRATION RATE > 90.0 (>60); POTASSIUM SERUM 4.0 MMOL/L (3.5-5.1); SODIUM LEVEL 145 MMOL/L (136-145)
== END 2024-10-22 12:00 | disposition left against medical advice (07) ==
LOC: M ED 11:07
DX: G89.29 Other chronic pain (principal); R94.31 Abnormal electrocardiogram [ECG] [EKG]; Z88.0 Allergy status to penicillin; Z88.5 Allergy status to narcotic agent; Z88.8 Allergy status to other drugs, medicaments and biological substances; Z91.030 Bee allergy status; Z91.013 Allergy to seafood; Z79.1 Long term (current) use of non-steroidal anti-inflammatories (NSAID); Z79.2 Long term (current) use of antibiotics; Z79.899 Other long term (current) drug therapy; Z53.9 Procedure and treatment not carried out, unspecified reason

== ENCOUNTER 2025-01-05 07:58 | Emergency (ER) | payer OTHER ==
[~2025-01-05] VITALS: Ht 167.6 cm; Wt 48.7 kg
[~2025-01-05 07:58] MED LIST changes: +ZOLP10TA11 PO; -ZOLP10TA2 PO
[2025-01-05 09:28] VITALS: BP 139/89; TEMP 98.5; O2SAT 95
[2025-01-05] MEDS: ACETAMINOPHEN 500 MG TAB PO ONE (09:32)
== END 2025-01-05 09:37 | disposition home or self-care (01) ==
LOC: EDBD 07:58 → M ED 07:58
DX: S40.011A Contusion of right shoulder, initial encounter (principal); M54.50 Low back pain, unspecified; M25.552 Pain in left hip; Y92.019 Unspecified place in single-family (private) house as the place of occurrence of the external cause; Y93.9 Activity, unspecified; Y99.9 Unspecified external cause status; W01.0XXA Fall on same level from slipping, tripping and stumbling without subsequent striking against object, initial encounter; J44.9 Chronic obstructive pulmonary disease, unspecified; F17.210 Nicotine dependence, cigarettes, uncomplicated; Z87.820 Personal history of traumatic brain injury; Z88.1 Allergy status to other antibiotic agents; Z88.5 Allergy status to narcotic agent; Z88.8 Allergy status to other drugs, medicaments and biological substances; Z91.013 Allergy to seafood; Z91.030 Bee allergy status; Z79.1 Long term (current) use of non-steroidal anti-inflammatories (NSAID); Z79.2 Long term (current) use of antibiotics; Z79.899 Other long term (current) drug therapy